=== PATIENT | female | born 1945 | race Two or more races ===

== ENCOUNTER 2024-04-06 10:06 | Emergency (ER) | payer MEDICARE, SELFPAY ==
[2024-04-06 10:16] VITALS: BP 158/70; PULSE 70; TEMP 36.6; O2SAT 99; BMI 19.5
--- NOTE | 2024-04-06 10:24 | ED_ITS ---
HPI - Abdominal Pain General Chief Complaint: Abdominal Pain Stated Complaint: FLU LIKE SYMPTOMS Time Seen by Provider: 04/06/24 10:20 Source: patient Mode of arrival: walk-in Limitations: no limitations History of Present Illness HPI narrative: 78-year-old female presents for nausea and abdominal pain. This started last night. Her has the same symptoms and is being seen here as well. She states that the pain is mild and she has been nauseous but no vomiting or diarrhea. She has not had a fever. They ate the same food. Related Data Previous Rx's ?Medication ?Instructions ?Recorded ondansetron 4 mg disintegrating 4 mg PO Q6H PRN nausea and 04/06/24 tablet vomiting #20 tabs Allergies Allergy/AdvReac Type Severity Reaction Status Date / Time codeine Allergy Mild Rash Verified 04/06/24 10:16 Review of Systems ROS Narrative A ten point review of systems is negative except as noted above. Exam Narrative Exam Narrative: Nurses note and vital signs reviewed and patient is not hypoxic. General: The patient appears in no apparent distress. Patient is resting comfortably on cart. Skin: Warm, dry, no pallor noted. There is no rash noted. Head: Normocephalic, atraumatic Eye: Normal conjunctiva, no drainage Ears, Nose, Mouth, and Throat: oral mucosa is moist. Nares patent. Cardiovascular: Regular Rate and Rhythm Respiratory: Patient is in no distress, no accessory muscle use, lungs are clear to auscultation, no wheezing, rales or rhonchi Back: non-tender GI: No palpable tenderness is appreciated. No distention or masses. Musculoskeletal: The patient has no evidence of calf tenderness, no pitting edema, symmetrical pulses noted bilaterally Neurological: A&O, normal speech Psychiatric: Cooperative Constitutional Vital Signs, click to edit/add: Last Vital Signs Temp 97.8 F 04/06/24 10:16 Pulse 70 04/06/24 10:16 Resp 17 04/06/24 10:16 BP 158/70 H 04/06/24 10:16 Pulse Ox 99 04/06/24 10:16 Course Vital Signs Vital signs: Vital Signs Temperature 97.8 F 04/06/24 10:16 Pulse Rate 70 04/06/24 10:16 Respiratory Rate 17 04/06/24 10:16 Blood Pressure 158/70 H 04/06/24 10:16 Pulse Oximetry 99 04/06/24 10:16 Temperature 97.8 F 04/06/24 10:16 Pulse Rate 70 04/06/24 10:16 Respiratory Rate 17 04/06/24 10:16 Blood Pressure 158/70 H 04/06/24 10:16 Pulse Oximetry 99 04/06/24 10:16 MDM - Abdominal Pain MDM Narrative Medical decision making narrative: The patient's laboratory analysis is essentially negative. She is feeling improved after being given Zofran and IV fluids. I suspect that this is food poisoning, her has the same symptoms and they both got sick at the same time. Treatment diagnosis and follow-up were discussed with the patient. Differential Diagnosis Differential diagnosis: Likely abdominal pain, gastroenteritis and other (Food poisoning) Lab Data Attestation: I reviewed the patient's lab results. Labs: Lab Results 04/06/24 Range/Units 10:26 WBC 7.0 (4.0-11.0) 10^3/uL RBC 4.48 (4.20-5.40) 10^6/uL Hgb 13.6 (12.0-16.0) g/dL Hct 40.9 (36.0-48.0) % MCV 91.3 (81.0-99.0) fL MCH 30.4 (26.7-34.0) pg MCHC 33.3 (29.9-35.2) g/dL RDW 14.2 (11.0-15.0) % Plt Count 215 (150-450) 10^3/uL MPV 11.3 (9.5-13.5) fL Neut % (Auto) 69.7 (43.0-75.0) % Lymph % (Auto) 21.4 (20.5-60.0) % [place] % (Auto) 4.6 (1.7-12.0) % Eos % (Auto) 3.3 (0.9-7.0) % Baso % (Auto) 0.4 (0.2-2.0) % Neut # (Auto) 4.8 (1.4-6.5) 10^3/uL Lymph # (Auto) 1.5 (1.2-3.8) 10^3/uL [place] # (Auto) 0.3 (0.3-0.8) 10^3/uL Eos # (Auto) 0.2 (0.0-0.7) 10^3/uL Baso # (Auto) 0.0 (0.0-0.1) 10^3/uL Abs Immat Gran (auto) 0.04 H (0.00-0.03) 10^3/uL Imm/Tot Granulo (auto) 0.6 H (0.0-0.5) % Sodium 139 (136-145) mmol/L Potassium 4.1 (3.5-5.1) mmol/L Chloride 106 (98-107) mmol/L Carbon Dioxide 24.3 (21.0-32.0) mmol/L Anion Gap 12.8 BUN 20.0 H (7.0-18.0) mg/dL Creatinine 0.79 (0.55-1.02) mg/dL Est GFR ( Amer) >60 (>=60) Est GFR (Non-Af Amer) >60 (>=60) BUN/Creatinine Ratio 25.3 Glucose 113 H (74-106) mg/dL Calcium 8.6 (8.5-10.1) mg/dL Discharge Plan Discharge Stand Alone Forms: Portal Instructions Chief Complaint: Abdominal Pain Clinical Impression: Nausea, Food poisoning Patient Disposition: Home, Self-Care Time of Disposition Decision: 11:48 Condition: Good Mode of Transportation: Private Vehicle Prescriptions / Home Meds: New ondansetron 4 mg tablet,disintegrating 4 mg PO Q6H PRN (Reason: nausea and vomiting) Qty: 20 0RF Print Language: Kiswahili Instructions: Acute Nausea and Vomiting (ED), Food Poisoning (ED) Referrals: BRADY BORREGO [Primary Care Provider] - 1 week
[2024-04-06] MEDS: ONDANSETRON PF 4 MG/2 ML VIAL IV (10:36)
[2024-04-06] MEDS: 0.9 % SODIUM CHLORIDE 500 ML IV (10:36)
[2024-04-06 10:42] LABS: Basophils Percent Auto 0.4 % (0.2-2.0); Eosinophils Absolute Auto 0.2 10^3/uL (0.0-0.7); Eosinophils Percent Auto 3.3 % (0.9-7.0); Hematocrit 40.9 % (36.0-48.0); Hemoglobin 13.6 g/dL (12.0-16.0); Immature Granulocytes Abs Auto 0.04 10^3/uL (0.00-0.03); Immature Granulocytes Pct Auto 0.6 % (0.0-0.5); Lymphocytes Absolute Auto 1.5 10^3/uL (1.2-3.8); Lymphocytes Percent Auto 21.4 % (20.5-60.0); Mean Corpuscular HGB Conc 33.3 g/dL (29.9-35.2); Mean Corpuscular Hemoglobin 30.4 pg (26.7-34.0); Mean Corpuscular Volume 91.3 fL (81.0-99.0); Mean Platelet Volume 11.3 fL (9.5-13.5); Monocytes Absolute Auto 0.3 10^3/uL (0.3-0.8); Monocytes Percent Auto 4.6 % (1.7-12.0); Neutrophils Absolute Auto 4.8 10^3/uL (1.4-6.5); Neutrophils Percent Auto 69.7 % (43.0-75.0); Platelet Count 215 10^3/uL (150-450); Red Blood Count 4.48 10^6/uL (4.20-5.40); Red Cell Distribution Width 14.2 % (11.0-15.0)
[2024-04-06 10:54] LABS: Anion Gap 12.8; BUN Creatinine Ratio 25.3; Calcium 8.6 mg/dL (8.5-10.1); Carbon Dioxide 24.3 mmol/L (21.0-32.0); Chloride 106 mmol/L (98-107); Estimated GFR (African America >60 (>=60); Estimated GFR (Non-African Ame >60 (>=60); Glucose 113 mg/dL (74-106); Potassium 4.1 mmol/L (3.5-5.1); Sodium 139 mmol/L (136-145)
[2024-04-06 12:13] VITALS: BP 109/59; PULSE 72; O2SAT 97
--- NOTE | 2024-04-06 13:06 | ECG_ITS ---
[facility] Test Date: 2024-04-06 Pat Name: ZAKIYA SOUSA Department: Room: - Gender: Female [employer] Super[employer]: : [id number] Requested By: BRADY BORREGO Order Number: [id number] Reading MD: ALVIN BETANCOURT Measurements Intervals Lambert Rate: 70 P: 30 CT: 130 QRS: 81 QRSD: 78 T: 58 QT: 398 QTc: 419 Interpretive Statements 1100 Sinus rhythm 9110 normal ECG Compared to ECG 05/09/2017 23:15:05 No significant changes Electronically Signed On 04-06-2024 21:18:17 EDT by ALVIN BETANCOURT
== END 2024-04-06 12:16 | disposition home or self-care (01) ==
PROVIDERS: Emergency Provider Emergency Medicine; PCP Internal Medicine
DX: A05.9 Bacterial foodborne intoxication, unspecified (principal); R11.0 Nausea
CPT/HCPCS: 36415; 80048; 85025; 93005; 96374; 99284; J2405

== ENCOUNTER 2024-07-04 18:21 | Emergency (ER) | payer MEDICARE, SELFPAY ==
[2024-07-04] VITALS (17 sets, daily range): BP systolic 147–182; BP diastolic 74–111; PULSE 67–152; TEMP 36.3–36.7; O2SAT 93–100; BMI 24.7
--- OUTSIDE RECORDS SUMMARY | 2024-07-04 18:27 | XMS_ITS | CCD ---
Author Organization [facility] Care Team Providers Care Survey Worker Name Role Phone ESTEPHANIA ABARCA Admitting Unavailable ESTEPHANIA ABARCA Attending Unavailable GABINO LOOMIS Primary Care Unavailable PHILIPPE WALLACE V Consulting Unavailable ESTEPHANIA ABARCA Consulting Unavailable GABINO LOOMIS Primary Care Unavailable AURORA CASTILLO Consulting Unavailable ASCENCION MASTERS Admitting Unavailable ASCENCION MASTERS Attending Unavailable ESTEPHANIA ABARCA Admitting Unavailable ESTEPHANIA ABARCA Attending Unavailable MIS, DOCTOR Primary Care Unavailable PHILIPPE WALLACE V Consulting Unavailable ESTEPHANIA ABARCA Consulting Unavailable Philippe Barrett Unavailable BOBBI Loomis Primary Care Provider [phone] MD Danna Sarmiento Attending Provider [phone] Asaad, Imad Unavailable Asaad, Imad Admitting Unavailable Asaad, Imad Attending Unavailable Gabino Loomis Primary Care Unavailable Philippe Barrett Admitting Unavailable Philippe Barrett Attending Unavailable Gabino Loomis Primary Care Unavailable Asaad, Imad Admitting Unavailable Asaad, Imad Attending Unavailable Gabino Loomis Primary Care Unavailable Philippe Barrett Admitting Unavailable Philippe Barrett Attending Unavailable Gabino Loomis Primary Care Unavailable Asaad, Imad Admitting Unavailable Asaad, Imad Attending Unavailable Gabino Loomis Primary Care Unavailable GABINO LOOMIS Attending Unavailable PK ARMIJO Attending Unavailable GABINO LOOMIS Attending Unavailable Allergies Allergy Classification Reported Allergen(s) Allergy Type Date of Onset Reaction(s) Facility (1 source) Codeine Drug Allergy 05-09-2017 [facility] Repository (4 sources) Codeine Drug Allergy Unknown [facility] Other (1 source) Codeine Drug Allergy 12-14-2022 [facility] Repository Medications Current Medications Medication Drug Class(es) Dates Sig (Normalized) Sig (Original) levothyroxine sodium 0.075 mg oral tablet (6 sources) l-Thyroxine Start: 02-10-2022 take 1 tablet by mouth once daily Levothyroxine (Euthyrox) 75 mcg tablet Active 75 MCG PO Daily February 09, 2022 11:00pm take 1 tablet by dulce once daily in the morning Euthyrox 75 MCG 1 tablet in the morning on an empty stomach Orally Once a day Active Euthyrox Active lisinopril 5 mg oral tablet (6 sources) Angiotensin Converting Enzyme Inhibitor Start: 02-10-2022 take 5 mg by mouth once daily Lisinopril Active 5 MG PO Daily February 09, 2022 11:00pm take 1 tablet by mouth twice naima ly Lisinopril 5 MG 1 tablet Orally twice daily Active Lisinopril Activ e mesalamine 1000 mg rectal suppository (1 source) Aminosalicylate Start: 02-16-2022 Canasa 1000 MG 1 suppository at bedtime Rectal Once a day for 14 days Jan, Active omeprazole 40 mg delayed release oral capsule (6 sources) Proton Pump Inhibitor Start: 02-10-2022 take 40 mg by mouth once daily Omeprazole Active 40 MG PO Daily February 09, 2022 11:00pm take 1 capsule by mo [facility] every twelve hours Omeprazole 40 MG 1 capsule Orally bid Active Problems Active Problems Problem Classification Problem Date Documented Da te Episodic/Chronic Abdominal pain (14 sources) Unspecified abdominal pain; Translations: [Abdominal pain] Onset: 11-01-2019 Resolved: 01-28-2022 Episodic Esophageal disorders (3 sources) Gastro-esophageal reflux disease without esophagitis; Translations: [Gastroesophageal reflux disease] Onset: 11-03-2019 02-11-2022 Chronic Esophageal disorders (1 source) Esophageal disorders; Translations: [K21.9 - Gastro-esophageal reflux disease without esophagitis] Onset: 02-11-2022 Essential hypertension (1 source) Essential (primary) hypertension; Translations: [ESSENTIAL PRIMARY HYPERTENSION] Onset: 11-03-2019 Chronic Gastritis and duodenitis (5 sources) Chronic gastritis; Translations: [Unspecified chronic gastritis without bleeding] Onset: 01-28-2022 Resolved: 01-28-2022 Chronic Gastrointestinal hemorrhage (3 sources) Feces color: tarry; Translations: [Melena] Onset: 10-09-2022 Episodic Noninfectious gastroenteritis (9 sources) Noninfective gastroenteritis and colitis, unspecified; Translations: [Colitis] Onset: 11-03-2019 Resolved: 01-28-2022 Episodic Osteoporosis (5 sources) Age-related osteoporosis without current pathological fracture; Translations: [AGE-REL OSTEOPOR W/O CURR PATH FX] Onset: 11-03-2019 Chronic Other gastrointestinal disorders (2 sources) Flatulence, eructation and gas pain; Translations: [Abdominal distension (gaseous)] Episodic Other gastrointestinal disorders (2 sources) Altered bowel function; Translations: [Change in bowel habit] Episodic Other gastrointestinal disorders (3 sources) Abdominal distension (gaseous); Translations: [Abdominal distension (gaseous)] Onset: 10-09-2022 Episodic Other gastrointestinal disorders (1 source) Change in bowel habit; Translations: [Change in bowel habit] Onset: 10-09-2022 Episodic Thyroid disorders (1 source) Hypothyroidism, unspecified; Translations: [HYPOTHYROIDISM UNSPECIFIED] Onset: 11-03-2019 Chronic Unclassified (1 source) Z01.812 - Encounter for preprocedural laboratory examination; Translations: [Z01.812 - Encounter for preprocedural laboratory examination] Onset: 02-09-2022 Past or Other Problems Problem Classification Problem Date Documented Da te Episodic/Chronic Gastritis and duodenitis (1 source) Gastritis, unspecified, without bleeding; Translations: [GASTRITIS UNS WITHOUT BLEEDING] Onset: 11-03-2019 Episodic Nausea and vomiting (3 sources) Nausea; Translations: [Nausea] Onset: 02-11-2022 02-11-2022 Episodic Other aftercare (1 source) Other senior care (current) drug therapy; Translations: [OTH RESIDENTIAL CURRENT DRUG THERAPY] Onset: 11-03-2019 Episodic Other screening for suspected conditions (not mental disorders or infectious disease) (4 sources) Encounter for screening mammogram for malignant neoplasm of breast; Translations: [ENC SCR MAMMO MALIG NEOPLASM BREAST] Onset: 06-27-2019 Episodic Residual codes; unclassified (1 source) Acquired absence of ovaries, unilateral; Translations: [ACQUIRED ABSENCE OVARIES UNILATERAL] Onset: 11-03-2019 Episodic Residual codes; unclassified (1 source) Acquired absence of other specified parts of digestive tract; Translations: [ACQ ABSENCE OTH PART DIGESTV TRACT] Onset: 11-03-2019 Episodic Urinary tract infections (1 source) Urinary tract infection, site not specified; Translations: [UTI SITE NOT SPECIFIED] Onset: 11-03-2019 Episodic Results Test Name Value Interpretation Reference Range Facility Blood Urea Nitrogenon 2022 Urea nitrogen [Mass/Vol] 17 mg/dL Normal 7-25 [facility] Comment on above: Performed By: #### C REAT, BUN #### [address] enterographyon 12-14-2022 CT enterography [facility] Main [place] [address] [place] [address] CT Scan Report Signed Patient: Zakiya Sousa MR#: [id number] [birth year] : 1945 Acct:[id number] Age/Sex: 77 / F ADM Date: 12/14/22 Loc: CT Room: Type: [facility] Attending Dr: Danna Sarmiento MD Copies to: Danna Sarmiento MD Ordering Provider: Danna Sarmiento MD Date of Service: 12/14/22 CT/CT enterography: Bloating CT ABDOMEN AND PELVIS WITH INTRAVENOUS CONTRAST: (Enterography protocol) CLINICAL HISTORY: Pain and bloating with eating. COMPARISON: None TECHNIQUE: Spiral images were obtained through the abdomen and pelvis following the administration of intravenous contrast. Enterography protocol was utilized. This CT exam was performed using one or more following dose reduction techniques: Automated exposure control, adjustment of the mA and/or kV according to patient size, or use of iterative reconstruction technique. FINDINGS: Lung Bases: [Mild bibasilar atelectasis.] Organs:Liver portal vein pancreas spleen adrenal glands and kidneys all appear unremarkable. Gallbladder has been removed. Abdominal aorta appears normal in caliber.[ GI: Stomach is grossly unremarkable. Duodenum appears to be normally positioned. No abnormal small bowel wall thickening, enhancement or dilatation. No enhancing small bowel mass. Terminal ileum appears unremarkable. No acute colonic abnormality.[ Pelvis:[Uterus is grossly unremarkable. No adnexal mass. Urinary bladder is grossly normal.] Peritoneum/Retroperiton eum:No free air, free fluid or lymphadenopathy.[ Abd wall/Bones:Abdominal wall demonstrates no acute findings. Small fat filled umbilical hernia. Osseous structures demonstrate degenerative change.[ CT/CT enterography IMPRESSION: No acute findings. No small bowel abnormalities seen. Impression dictated by: Vargas Urrutia Jr., Arlette12/14/2022 1:49 PM Dictation Location: [place] [address] Transcribed By: [facility] 12/14/22 134 Dictated By: Vargas Urrutia Jr, DO 12/14/22 1345 Signed By: 12/14/22 134 Normal [facility] Creatinineon 12-14-2022 Creatinine [Mass/Vol] 0.76 mg/dL Normal 0.60-1.20 [facility] Comment on above: Performed By: #### C REAT, BUN #### [address] GFR/1.73 sq M.predicted MDRD (S/P/Bld) [Vol rate/Area] mL/min/{1.73_m2} Normal [facility] Comment on above: Result Comment: PERF ORMED BY: [place] [address] PATHOLOGIST SENIOR INTERIOR DESIGNER SVETLANA DELGADILLO M.D. Performed By: #### C REAT, BUN #### [facility] [address] [place] [address] Calprotectin, Fecalon 2022 Calprotectin, Fecal 34 Normal 0-120 [facility] Comment on above: Order Comment: Reaso n for Exam Abdominal pain;Tarry stool;Change in bowel habits;Bloating Result Comment: Conc entration Interpretation Follow-Up <16 - 50 ug/g Normal None >50 -120 ug/g Borderline Re-evaluate in 4-6 weeks >120 ug/g Abnormal Repeat as clinically indicated Performed at: [address] [id number] Import And Export Clerk: Be Pierre MD, Phone: [phone] PERFORMED BY: [place] [address] PATHOLOGIST SENIOR INTERIOR DESIGNER SVETLANA DELGADILLO M.D. Performed By: #### C ALPROTECT #### [facility] , Calprotectin, Fecal 34 0-120 [place] [facility] Other C reactive protein [Mass/vol ume] in Serum or PlasmaOrdered By: Danna Sarmiento on 09-30-2022 CRP [Mass/Vol] 0.6 mg/dL 0.0-1.0 [facility] C-Reactive Proteinon 023 C-Reactive Protein 0.6 mg/dL Normal 0.0-1.0 [facility] Comment on above: Order Comment: Reaso n for Exam Abdominal pain;Tarry stool;Change in bowel habits;Bloating Result Comment: PERF ORMED BY: [place] [address] PATHOLOGIST SENIOR INTERIOR DESIGNER SVETLANA DELGADILLO M.D. Performed By: #### C ELIAC GEN, CELIAC #### [facility] , #### CRP, ESR #### [facility] [address] [place] [address] C-Reactive Protein 0.6 mg/dL Normal 0.0-1.0 mg/dL [facility] Other Celiacon 09-30-2022 Deamidated Gliadin Abs, IgA 4 Normal 0-19 [facility] Comment on above: Order Comment: Reaso n for Exam Abdominal pain;Tarry stool;Change in bowel habits;Bloating Result Comment: Nega tive 0 - 19 Weak Positive 20 - 30 Moderate to Strong Positive >30 Performed By: #### C ELIAC GEN, CELIAC #### [facility] , #### CRP, ESR #### [facility] [address] [place] [address] Deamidated Gliadin Abs, IgG 3 Normal 0-19 [facility] Comment on above: Order Comment: Reaso n for Exam Abdominal pain;Tarry stool;Change in bowel habits;Bloating Result Comment: Nega tive 0 - 19 Weak Positive 20 - 30 Moderate to Strong Positive >30 Performed By: #### C ELIAC GEN, CELIAC #### [facility] , #### CRP, ESR #### [facility] [address] [place] [address] [place] Endomysial Antibody IgA Negative Normal Negative [facility] Comment on above: Order Comment: Reaso n for Exam Abdominal pain;Tarry stool;Change in bowel habits;Bloating Performed By: #### C ELIAC GEN, CELIAC #### [facility] , #### CRP, ESR #### [facility] [address] [place] [address] [place] Immunoglobulin A, Qn, Serum 281 mg/dL Normal 64-422 [facility] Comment on above: Order Comment: Reaso n for Exam Abdominal pain;Tarry stool;Change in bowel habits;Bloating Result Comment: Perf ormed at: [facility] [address] [id number] Import And Export Clerk: Ez Brantley PhD, Phone: [phone] Performed By: #### C ELIAC GEN, CELIAC #### [facility] , #### CRP, ESR #### [facility] [address] T-Transglutaminase (tTG) IgA <2 Normal 0-3 [facility] Comment on above: Order Comment: Reaso n for Exam Abdominal pain;Tarry stool;Change in bowel habits;Bloating Result Comment: Nega tive 0 - 3 Weak Positive 4 - 10 Positive >10 Tissue Transglutaminase (tTG) has been identified as the endomysial antigen. Studies have demonstr- ated that endomysial IgA antibodies have over 99% specificity for gluten sensitive enteropathy. Performed By: #### C ELIAC GEN, CELIAC #### [facility] , #### CRP, ESR #### [facility] [address] T-Transglutaminase (tTG) IgG <2 Normal 0-5 [facility] Comment on above: Order Comment: Reaso n for Exam Abdominal pain;Tarry stool;Change in bowel habits;Bloating Result Comment: Nega tive 0 - 5 Weak Positive 6 - 9 Positive >9 Performed By: #### C ELIAC GEN, CELIAC #### [facility] , #### CRP, ESR #### [facility] [address] [place] [id number] [facility] Celiac 4 0-19 [facility] [facility] Other Celiac 3 0-19 [facility] Other Celiac <2 0-5 [facility] Other Celiac Negative Negative [facility] Other Celiac 281 mg/dL 64-422 mg/dL [facility] Other Celiac Disease Genetics HLA DQon 09-30-2022 CDDQ2 Additional Information Normal . [facility] Comment on above: Order Comment: Reaso n for Exam Abdominal pain;Tarry stool;Change in bowel habits;Bloating Result Comment: Refe rences: 1. Eric FISHER and Sandy Rush. Celiac Disease. N Eng J Med 2007; 357:2811-9450. 2. Megiorni F, Roca B, Bonamico M et al. HLA-DQ and risk gradient for celiac disease. Hum Immunol 2009; 70:55-59. 3. Clement MM, Krishan TC, Ernesto FM et al. Stratifying risk for celiac disease in a large at-risk [facility] population by using HLA alleles. Clin Gastroenterol Hepatol 2009; 7:966-971. 4. Doretha ROSE and Lelo BA. (2005). Celiac Disease Genetics: Current Concepts and Practical Applications. Clin Gastroenterol and Hepat 3:843-851. 5. Sarah CL, Obed DO, Eric FISHER, et al. Celiac Disease. In: Bandar RA, Aldo TC, Kana CR, Sary K, editors. [employer]), [facility], [place], March 01, 2008:1-27. http://www.ncbi.nlm.nih.gov/alexandria/br.fcgi?book=genepart=andra ac PMID [id number] (PubMed) 6. Lilli Baker. Emerging concepts in celiac disease. Curr Opin Pediatr 2004;16:552-559. Performed at: [facility] [place], [place] [id number] Import And Export Clerk: Garry Brennan PhD, Phone: [phone] PERFORMED BY: [place] [address] PATHOLOGIST SENIOR INTERIOR DESIGNER SVETLANA DELGADILLO M.D. Performed By: #### C ELIAC GEN, CELIAC #### [facility] , #### CRP, ESR #### [address] Comment: Normal . [facility] Comment on above: Order Comment: Reaso n for Exam Abdominal pain;Tarry stool;Change in bowel habits;Bloating Result Comment: This test was performed using Polymerase Chain Reaction/(PCR)Sequence Specific Oligonucleotide Probes (SSOP) (Remind) technique. Sequence Based Typing (SBT) and/or Sequence Specific Primers (SSP) may be used as supplemental methods when necessary. Please contact HLA Customer Service at if you have any questions. Director of HLA Laboratory Dr Garry Brennan, PhD Performed By: #### C ELIAC GEN, CELIAC #### [facility] , #### CRP, ESR #### [address] Dq2 (Dqa1 0501/0505,Dqb1 02Xx) Positive Normal . [facility] Comment on above: Order Comment: Reaso n for Exam Abdominal pain;Tarry stool;Change in bowel habits;Bloating Performed By: #### C ELIAC GEN, CELIAC #### [facility] , #### CRP, ESR #### [place] [address] [place] Dq8 (Dqa1 03Xx, Dqb1 0302) Negative Normal . [facility] Comment on above: Order Comment: Reaso n for Exam Abdominal pain;Tarry stool;Change in bowel habits;Bloating Result Comment: Mariam morse Results: DQA1*02:EESCV,05:EEMXY DQB1*02:EENUF,02:EENUG Code Translation: EEMXY 05:01/05:15N/05:18/05:19/05:23/05:27/05:33 /05:35/05:38/05:40/05:41/05:47/05:49/05:52 /05:54Q/05:55/05:56/05:57/05:61 EENUF 02:01:03/02:07:08:05/01:14:27 :53Q/02:59/02:63/02:72/02:83/02:93 /02:96N/02:98/02:99/02:102/02:105/02:106 /02:107/:108/02:109/02:111/02:112/02:114 /02:115/02:118/02:119/02:123/02:125/02:128 /02:130/02:132N/02:134N/02:135/02:136 /02:148/02:149/02:152/02:155/02:157/02:158 /02:159/02:160/02:163N/02:164/02:170 /02:174/02:182/02:184/02:185/02:186/02:188 /02:189/02:190/02:191/02:193/02:196/02:197 /02:198/02:202 EENUG 02:02/02:11/02:1202:20N/02:26/02:50/02:62 /02:65/02:71/02:80/02:84/02:89/02:95/02:97 /02:110/02:113/02:116/02:117/02:120/02:122 /02:124/02:126/02:127/02:131/02:137/02:138 /02:142/02:143/02:145/02:146/02:147/02:150 /02:153/02:156/02:161/02:162N/02:165 /02:167N/02:171Q/02:172/02:175/02:176N /02:179/02:183N/02:187/02:194N/02:199 /02:200/02:201/02:203/02:204N EESCV ///////////// /// 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 Celiac Disease risk from the HLA DQA/DQB genotype is approximately 1:10 (10%) Allele interpretation for all loci based on IMGT/HLA database version 3.49.0 HLA Lab CLIA ID Number [id number] Greater than 95% of celiac patients are positive for either DQ2 or DQ8 (Doretha and Krysta, (1993) Gastroenterology 105:910-922). However these antigens may also be present in patients who do not have Celiac disease. Performed By: #### C ELIAC GEN, CELIAC #### [facility] , #### CRP, ESR #### [facility] [address] Celiac Disease Genetics HLA DQ Positive . [place] [facility] Other Celiac Disease Genetics HLA DQ . [place] [facility] Other Erythrocyte Sedimentation Ra ramirez 09-30-2022 ESR (Bld) [Velocity] 13 mm/h Normal 0-29 [facility] Other Comment on above: Order Comment: Reaso n for Exam Abdominal pain;Tarry stool;Change in bowel habits;Bloating Result Comment: PERF ORMED BY: [place] [address] PATHOLOGIST SENIOR INTERIOR DESIGNER SVETLANA DELGADILLO M.D. Performed By: #### C ELIAC GEN, CELIAC #### [facility] , #### CRP, ESR #### [place] [id number] [facility] Erythrocyte sedimentation ra te by Photometric methodOrdered By: Imaurora Sarmiento on 09-30-2022 ESR Photometric method (Bld) [Velocity] 13 mm/hr 0-29 [facility] Human leukocyte antigen (HLA ) DQ2 detectionOrdered By: Imad Asaad on 09-30-2022 HLA-DQ2 Ql (Bld/Tiss) Positive . [facility] Human leukocyte antigen (HLA ) DQ8 detectionOrdered By: Imad Asaad on 09-30-2022 HLA-DQ8 Ql (Bld/Tiss) Negative . [facility] Comment on above: Final Results:DQA1*0 2:EESCV,05:EEMXYDQB1*02:EENUF,02:EENUGCode Translation:EEMXY 05:09/03:15N/:18:15/01:23:27:33 :35:38:40:41:4705:4905:52 05:54Q/05:5505:5605:5705:61EENUF 02:01/02:03/02:07/02:08/:09:14/:27 /02:53Q/02:59/02:63/02:72/02:83/02:93 /02:96N/02:98/02:99/02:102/02:105/02:106 /02:107/02:108/02:109/02:111/02:112/02:114 /02:115/02:118/02:119/02:123/02:125/02:128 /02:130/02:132N/02:134N/02:135/02:136 /02:148/02:149/02:152/02:155/02:157/02:158 /02:159/02:160/02:163N/02:164/02:170 /02:174/02:182/02:184/02:185/02:186/02:188 /02:189/02:190/02:191/02:193/02:196/02:197 /02:198/02:202EENUG 02:02/02:11/:12:20N/02:26/02:50/02:62 /02:65/02:71/02:80/02:84/02:89/02:95/02:97 /02:110/02:113/02:116/02:117/02:120/02:122 /02:124/02:126/02:127/02:131/02:137/02:138 /02:142/02:143/02:145/02:146/02:147/02:150 /02:153/02:156/02:161/02:162N/02:165 /02:167N/02:171Q/02:172/02:175/02:176N /02:179/02:183N/02:187/02:194N/02:199 /02:200/02:201/02:203/02:204NEESCV /////////15//// ///The patient is positive for DQ2 and is homozygous forDQB1*02. Celiac Disease risk from the HLA DQA/DQBgenotype is approximately 1:10 (10%)Allele interpretation for all loci based on IMGT/HLAdatabase version 3.49.0A Lab [place] ID Number [id number] than 95% of celiac patients are positive for eitherDQ2 or DQ8 (Doretha and Krysta, (1993) Ajxlytqfwjkcocof248:910-922). However these antigens may also be present inpatients who do not have Celiac disease. IgA [Mass/volume] in Serum o r PlasmaOrdered By: Imad Asaad on 09-30-2022 IgA [Mass/Vol] 281 mg/dL 64-422 [facility] Comment on above: Performed at: [address] [id number] Director: Ez Brantley PhD, Phone: [phone] No Panel InformationOrdered By: [facility] Asaad on 09-30-2022 Celiac Gene Interpretation See comment . [facility] Comment on above: References:1. Eric FISHER and Sandy Rush. Celiac Disease. N Eng J Med 2007; 357:9596-6409.2. Yumiko F, Chanelle B, Bonarigobertoo M et al. HLA-DQ and risk gradient for celiac disease. Hum Immunol 2009; 70:55-59.3. Clement MM, Krishan TC, Ernesto FM et al. Stratifying risk for celiac disease in a large at-risk [place] population by using HLA alleles. Clin Gastroenterol Hepatol 2009; 7:966-971.4. Doretha ROSE and Lelo BA. (2005). Celiac Disease Genetics: Current Concepts and Practical Applications. Clin Gastroenterol and Hepat 3:843-851.5. Sarah CL, Obed DO, Green PHR, et al. Celiac Disease. In: Bandar RA, Aldo TC, Kana CR, Sary K, editors. [employer]), [facility], [place], March 01, 2008:1-27. http://www.StemPath.nlm.nih.gov/Live Mobilebeatricef/br.fcgi?book=genepart=andra ac PMID [id number] (PubMed)6. Lilli Baker. Emerging concepts in celiac disease. Curr Opin Pediatr 2004;16:552-559.Performed at: [address] [place] [address] [id number] [place], [place] [id number] Director: Garry Brennan PhD, Phone: [phone] Endomysial IgA Antibody Negative Negative [facility] HLA Genotype Interpretation See comment . [facility] Comment on above: This test was perfor med using Polymerase ChainReaction/(PCR)Sequence Specific Oligonucleotide Probes(SSOP) (Remind) technique. Sequence Based Typing (SBT)and/or Sequence Specific Primers (SSP) may be used assupplemental methods when necessary. Please contact HLACustomer Service at if you have anyquestions.Director of HLA LaboratoryDr Garry Brennan, PhD Serum gliadin peptide IgA an tibody assay (units/volume)Ordered By: Danna Sarmiento on 09-30-2022 Gliadin peptide IgA Qn (S) 4 units 0-19 [facility] Comment on above: Negative 0 - 19 Weak Positive 20 - 30 Moderate to Strong Positive >30 Serum gliadin peptide IgG an tibody assay (units/volume)Ordered By: Danna Sarmiento on 09-30-2022 Gliadin peptide IgG Qn (S) 3 units 0-19 [facility] Comment on above: Negative 0 - 19 Weak Positive 20 - 30 Moderate to Strong Positive >30 Serum tissue transglutaminas e (tTG) IgA antibody assay (units/volume)Ordered By: Imad Asaad on 09-30-2022 tTG IgA Qn (S) <2 U/mL 0-3 [facility] Comment on above: Negative 0 - 3 Weak Positive 4 - 10 Positive >10 Tissue Transglutaminase (tTG) has been identified as the endomysial antigen. Studies have demonstr- ated that endomysial IgA antibodies have over 99% specificity for gluten sensitive enteropathy. Serum tissue transglutaminas e (tTG) IgG antibody assay (units/volume)Ordered By: Imad [facility]aOmega Diagnostics on 09-30-2022 tTG IgG Qn (S) <2 U/mL 0-5 [facility] Comment on above: Negative 0 - 5 Weak Positive 6 - 9 Positive >9 Pato 02-11-2022 L --- Specimen: [id number] Received: 02/11/22 Status: RASTA Syed Num: [id number] Spec Type: Surgical Subm Dr: Philippe Barrett Jr, DO Tissues: A Stomach - Biopsy/Polyp (STOMACH BX) B Colon Biopsy (RECTUM BX) Procedures: HE Stain/4, Gross/Micro L4/2 Patient Age/Sex Location Account Attending Physician Zakiya Sousa 76/F [id number] Philippe Barrett Jr, DO SPEC NUM: [id number] RECD: 02/11/22 STATUS: RASTA SYED NUM: [id number] ROXY: 02/11/[address] [facility] [address]: Philippe Barrett Jr, DO ENTERED: 02/11/22 [facility] [address]: HEATHER TYPE: Surgical DEPT: S ORDERED: HE Stain/4, Gross/Micro L4/2 ORDERED: HE Stain/4, Gross/Micro L4/2 Pathological Diagnosis A. Stomach, biopsy: - Reactive gastropathy with mild chronic gastritis. - H. pylori stain is negative for microorganisms. B. Rectum, biopsy: - Chronic inactive proctitis. Clinical Information Abdominal pain Gross Description A. Received in formalin labeled with the patient's name, number and stomach biopsy is a 0.3 cm pink tissue fragment. Entirely submitted in one cassette labeled A1. Type of Fixative: 10% Neutral Buffered Formalin (SM/YJ) B. Received in formalin labeled with the patient's name, number and rectum biopsy are 3 kay tissue fragments, 0.2 cm to 0.3 cm. Entirely submitted in one cassette labeled B1. Type of Fixative: 10% Neutral Buffered Formalin (SM/YJ) Specimen: [id number] Received: 02/11/22 Status: RASTA Syed Num: [id number] Spec Type: Surgical Subm Dr: Philippe Barrett Jr, DO Tissues: A Stomach - Biopsy/Polyp (STOMACH BX) B Colon Biopsy (RECTUM BX) Procedures: HE Stain/4, Gross/Micro L4/2 Patient: Zakiya Sousa [id number] (Continued) Specimen: [id number] Received: 02/11/22 (Continued) Signed (signature on file)___Sandra Iliana Bateman MD 02/12/22 1559 Specimen: [id number] Received: 02/11/22 Status: RASTA Syed Num: [id number] Spec Type: Surgical Subm Dr: Philippe Barrett Jr, DO Tissues: A Stomach - Biopsy/Polyp (STOMACH BX) B Colon Biopsy (RECTUM BX) Procedures: HE Stain/4, Gross/Micro L4/2 Patient: Nic Sousanza [id number] (Continued) Specimen: [id number] Received: 02/11/22 (Continued) Microscopic Description A. Two glass slides with H E stained material and one IHC stained slide have been examined. The microscopic findings support the above pathologic diagnosis. B. Two glass slides with H E stained material have been examined. The microscopic findings support the above pathologic diagnosis. ANALYTE SPECIFIC REAGENT (ASR) DISCLAIMER: The use of one or more reagents in the above tests is regulated as an analyte specific reagent (ASR). The performance characteristics were determined by the Laboratory of [facility]. Immunohistochemistry assays have not been validated on decalcified tissue. Results should be interpreted with caution given the possibility of false negative results on decalcified specimens. They have not been cleared by the US Food and Drug Administration. The FDA has determined that such clearance or approval is not necessary. CPT Codes 11650?2, 89355 Specimen: [id number] Received: 02/11/22 Status: RASTA Kunal Num: [id number] Spec Type: Surgical Subm Dr: Philippe Barrett Jr, Tissues: A Stomach - Biopsy/Polyp (STOMACH BX) B Colon Biopsy (RECTUM BX) Procedures: HE Stain/4, Gross/Micro L4/2 Patient: Zakiya Sousa [id number] (Continued) Signed (signature on file) Iliana Bateman MD 02/12/22 1559 Normal [facility] SARS-CoV-2 (COVID-19) RNA KELY+probe Ql (Unsp spec) Negative Normal Negative [facility] Comment on above: Order Comment: Healt hcare Worker?: N Result Comment: Testing for SARS-CoV-2 by RT-PCR This test was developed and its performance characteristics determined by [employer] and validated at the [facility]. This test has not been FDA cleared or approved. This test has been authorized by FDA under an Emergency Use Authorization (EUA). This test has been validated in accordance with the FDA's Guidance Document (Policy for Diagnostics Testing in Laboratories Certified to Perform High Complexity Testing under CLIA prior to Emergency Use Authorization for Coronavirus Disease-2019 during the Public Health Emergency) issued on November 30, 2019. This test is only authorized for the duration of time the declaration that circumstances exist justifying the authorization of the emergency use of in vitro diagnostic tests for detection of SARS-CoV-2 virus and/or diagnosis of COVID-19 infection under section 564(b)(1) of the Act, 21 U.S.C. 360bbb-3(b)(1), unless the authorization is terminated or revoked sooner. PERFORMED BY: [place] [address] PATHOLOGIST SENIOR INTERIOR DESIGNER SVETLANA DELGADILLO M.D. Performed By: #### C OVID 19 [facility] #### [address] XR DEXA BONE DENSITYon 05-27 XR DEXA BONE DENSITY EXAMINATION: XR DEX A BONE DENSITY HISTORY: Senile osteoporosis COMPARISON: 2015 TECHNIQUE: Dual-energy X-ray absorptiometry (DXA) was performed. FINDINGS: Bone mineral density of the AP spine L2-L4 measures 0.836 g/sq cm. T score -3.0. 5.4% reduction from the prior exam. WHO classification: Osteoporosis. Total femoral bone mineral density measures 0.806 g/sq cm. 1.3% reduction from the prior exam. T score -1.6. WHO classification: Osteopenia IMPRESSION: Physiologic reduction in bone mineral density. The patient falls into the category of osteoporosis with high fracture risk Electronically authenticated by: PHILIPPE WALLACE Date: 2020-05-27 13:18 Normal [facility] CBC AUTO DIFFon 11-01-2019 Basophils (Bld) [#/Vol] 0.0 103/ul Normal 0.0-0.1 [facility] Comment on above: Performed By: #### C BC #### [facility] [address], [place] [address] Erin Estephania Basophils/100 WBC (Bld) 0.3 % Normal 0.2-2.0 [facility] Comment on above: Performed By: #### C BC #### [facility] [address] [place], [place] [id number] Erin Estephania Eosinophils (Bld) [#/Vol] 0.0 103/ul Normal 0.0-0.7 [facility] Comment on above: Performed By: #### C BC #### [facility] [address] [place], [place] [id number] Erin Estephania Eosinophils/100 WBC (Bld) 0.1 % Critically low 0.9-7.0 [facility] Comment on above: Performed By: #### C BC #### [facility] [address] [place], [place] [id number] Erin Estephania Erythrocyte distribution width (RBC) [Ratio] 13.8 % Normal 11.0-15.0 [facility] Comment on above: Performed By: #### C BC #### [facility] [address] [place], [place] [id number] Erin Estephania Hematocrit (Bld) [Volume fraction] 40.1 % Normal 36.0-48.0 [facility] Comment on above: Performed By: #### C BC #### [facility] [address] [place], [place] [id number] Erin Estephania Hemoglobin (Bld) [Mass/Vol] 13.6 g/dL Normal 12.0-16.0 [facility] Comment on above: Performed By: #### C BC #### [facility] [address] [place], [place] [address] Erin Estephania IG # 0.04 10e3/ul Critically high 0.00-0.03 [facility] Comment on above: Performed By: #### C BC #### [facility] [address] [place], [place] [id number] Erin Estephania IG % 0.4 % Normal 0.0-0.5 [facility] Comment on above: Performed By: #### C BC #### [facility] [address], [place] [address] Erin Estephania Lymphocytes (Bld) [#/Vol] 1.4 103/ul Normal 1.2-3.8 [facility] Comment on above: Performed By: #### C BC #### [facility] [address] [place] [id number] Erin Estephania Lymphocytes/100 WBC (Bld) 13.5 % Critically low 20.5-60.0 [facility] Comment on above: Performed By: #### C BC #### [facility] [address] [place] [phone] Erin Estephania MANUAL DIFF REQ NO Normal [facility] Comment on above: Performed By: #### C BC #### [facility] [address] [place] [phone] Erin Estephania MCH (RBC) [Entitic mass] 30.5 pg Normal 26.7-34.0 [facility] Comment on above: Performed By: #### C BC #### [facility] [address] [place], [place] [id number] Erin Estephania MCHC (RBC) [Mass/Vol] 33.9 g/dL Normal 29.9-35.2 [facility] Comment on above: Performed By: #### C BC #### [facility] [address] [place] [phone] Erni Estephania MCV (RBC) [Entitic vol] 89.9 fL Normal 81.0-99.0 [facility] Comment on above: Performed By: #### C BC #### [facility] [address] [phone] Erin Estephania Monocytes (Bld) [#/Vol] 0.5 103/ul Normal 0.3-0.8 [facility] Comment on above: Performed By: #### C BC #### [facility] [address] [place] [phone] Erin Estephania Monocytes/100 WBC (Bld) 5.0 % Normal 1.7-12.0 [facility] Comment on above: Performed By: #### C BC #### [facility] [address] [place] [address] Erin Estephania Neutrophils (Bld) [#/Vol] 8.2 103/ul Critically high 1.4-6.5 [facility] Comment on above: Performed By: #### C BC #### [facility] [address] [place] [address] Erin Estephnaia Neutrophils/100 WBC (Bld) 80.7 % Critically high 43.0-75.0 [facility] Comment on above: Performed By: #### C BC #### [facility] [address] [place] [address] Erin Estephania Platelet mean volume (Bld) [Entitic vol] 10.5 fL Normal 9.5-13.5 [facility] Comment on above: Performed By: #### C BC #### [facility] [address] [place] [address] Erin Estephania Platelets (Bld) [#/Vol] 212 103/ul Normal 150-450 [facility] Comment on above: Performed By: #### C BC #### [facility] [address] [place] [address] Erin Setephania RBC (Bld) [#/Vol] 4.46 106/ul Normal 4.20-5.40 [facility] Comment on above: Performed By: #### C BC #### [facility] [address] [place] [address] Erin Estephania WBC (Bld) [#/Vol] 10.2 103/ul Normal 4.0-11.0 [facility] Comment on above: Performed By: #### C BC #### [facility] [address] [place] [address] Erin Estephania ER URINE PROFILEon 10-31-202 0 Bilirubin [Mass/Vol] Negative Normal NEGATIVE [facility] Comment on above: Performed By: #### E EVANGELINA NAIR #### [facility] [address] [place] [address] Erin Estephania BLOOD MODERATE Normal NEGATIVE [facility] Comment on above: Performed By: #### EVANGELINA ALVARENGA #### [facility] [address] [place] [address] Erin Estephania Clarity (U) CLEAR Normal [facility] Comment on above: Performed By: #### EVANGELINA ALVARENGA #### [facility] [address] [place] [address] Erin Estephania Color (U) LT. YELLOW Normal YELLOW [facility] Comment on above: Performed By: #### BRODY ALVARENGARO #### [facility] [address] [place] [address] Erin Estephania ERUAHD A micrscopic examination will be performed if indicated. Normal [facility] Comment on above: Performed By: #### EVANGELINA ALVARENGA #### [facility] [address] [place] [address] Erin Estephania Glucose [Mass/Vol] Negative Normal NEGATIVE [facility] Comment on above: Performed By: #### EVANGELINA ALVARENGA #### [facility] [address] [place] [address] Erin Estephania Ketones Ql (U) Negative Normal NEGATIVE [facility] Comment on above: Performed By: #### EVANGELINA ALVARENGA #### [facility] [address] [place] [address] Erin Estephania Nitrite Ql (U) Negative Normal NEGATIVE [facility] Comment on above: Performed By: #### EVANGELINA ALVARENGA #### [facility] [address] [place] [address] Erin Estephania pH (Bld) 5.0 Normal 5-9 [facility] Comment on above: Performed By: #### EVANGELINA ALVARENGA #### [facility] [address] [place] [address] Erin Estephania Protein (U) [Mass/Vol] Negative Normal [facility] Comment on above: Performed By: #### EVANGELINA ALVARENGA #### [facility] [address] [place] [address] Erin Estephania SPEC GRAVITY 1.025 Normal 1.005-<=1.0 25 [facility] Comment on above: Performed By: #### EVANGELINA ALVARENGA #### [facility] [address] [place] [address] Erin Best UR MICRO IND INDICATED Normal [facility] Comment on above: Performed By: #### EVANGELINA ALVARENGA #### [facility] [address] [place] [address] Erin Best Urobilinogen Qn (U) 0.2 EU/dl Normal The [facility] Comment on above: Performed By: #### EVANGELINA ALVARENGA #### [facility] [address] [place] [address] Erin Best WBC (Bld) [#/Vol] TRACE Normal NEGATIVE [facility] Comment on above: Performed By: #### EVANGELINA ALVARENGA #### [facility] [address] [place] [address] Erin Best LACTATE/LACTIC ACIDon 2019 Lactate [Moles/Vol] 1.1 mmol/L Normal 0.7-2.0 The [facility] Comment on above: Performed By: #### L ACT #### [facility] [address] [place] [address] Erin Best LIPASEon 11-01-2019 Lipase [Catalytic activity/Vol] 151.0 U/L Normal 23.0-300.0 [facility] Comment on above: Performed By: #### C PIOTR KOTHARI, TROP #### [facility] [address] [place] [address] Erin Estephania PROF 14(COMP METB)on 020 Albumin [Mass/Vol] 3.5 g/dL Normal 3.5-5.0 [facility] Comment on above: Performed By: #### C TAYE LIPA, TROP #### [facility] [address] [place] [address] Erin Streeteren Albumin/Globulin [Mass ratio] 0.9 {ratio} Normal [facility] Comment on above: Performed By: #### C MP, LIPA, TROP #### [facility] [address], [place] [address] Erin Estephania ALP [Catalytic activity/Vol] 96 U/L Normal 38-126 [facility] Comment on above: Performed By: #### C MP, LIPA, TROP #### [facility] [address], [place] [address] Erin Estephania ALT [Catalytic activity/Vol] 20 U/L Normal 9-52 [facility] Comment on above: Performed By: #### C MP, LIPA, TROP #### [facility] [address], [place] [address] Erin Estephania Anion gap [Moles/Vol] 10.9 mmol/L Normal Th e [facility] Comment on above: Performed By: #### C MP, LIPA, TROP #### [facility] [address] [place] [address] Erin Estephania AST [Catalytic activity/Vol] 18 U/L Normal 14-36 [facility] Comment on above: Performed By: #### C MP, LIPA, TROP #### [facility] [address] [place] [phone] Erin Estephania Bilirubin Ql (U) 0.6 mg/dL Normal 0.2-1.3 [facility] Comment on above: Performed By: #### C MP, LIPA, TROP #### [facility] [address] [place] [phone] Erin Estephania Calcium [Mass/Vol] 9.2 mg/dL Normal 8.4-10.2 [facility] Comment on above: Performed By: #### C MP, LIPA, TROP #### [facility] [address] [place] [phone] Erin Estephania Chloride [Moles/Vol] 107 mmol/L Normal 98-107 [facility] Comment on above: Performed By: #### C MP, LIPA, TROP #### [facility] [address], [place] [address] Erin Estephania CO2 [Moles/Vol] 25.8 mmol/L Normal 22.0-30.0 [facility] Comment on above: Performed By: #### C MP, LIPA, TROP #### [facility] [address] [place] [address] Erin Estephania Creatinine [Mass/Vol] 0.85 mg/dL Normal 0.52-1.04 [facility] Comment on above: Performed By: #### C MP, LIPA, TROP #### [facility] [address] [place] [address] Erin Estephania EGFR-AF MEXICAN >60 Normal >=60 [facility] Comment on above: Performed By: #### C MP, LIPA, TROP #### [facility] [address] [place] [address] Erin Estephania EGFR-NON AF MEXICAN >60 Normal >=60 [facility] Comment on above: Performed By: #### C MP, LIPA, TROP #### [facility] [address] [place] [address] Erin Estephania Globulin (S) [Mass/Vol] 3.8 g/dL Normal [facility] Comment on above: Performed By: #### C MP, LIPA, TROP #### [facility] [address] [place] [address] Erin Estephania Glucose [Mass/Vol] 105 mg/dL Normal 74-106 [facility] Comment on above: Performed By: #### C MP, LIPA, TROP #### [facility] [address] [place] [address] Erin Estephania Potassium [Moles/Vol] 3.7 mmol/L Normal 3.4-5.0 [facility] Comment on above: Performed By: #### C MP, LIPA, TROP #### [facility] [address] [place] [address] Erin Estephania Protein [Mass/Vol] 7.3 g/dL Normal 6.1-8.2 [facility] Comment on above: Performed By: #### C MP, LIPA, TROP #### [facility] [address] [place] [address] Erin Estephania Sodium [Moles/Vol] 140 mmol/L Normal 137-145 [facility] Comment on above: Performed By: #### C PIOTR KOTHARI, TROP #### [facility] [address] [place] [address] Erin Estephania Urea nitrogen [Mass/Vol] 21.0 mg/dL Critically high 7.0-17.0 [facility] Comment on above: Performed By: #### C KERRI KOTHARIA, TROP #### [facility] [address] [place] [address] Erinrufus Best Urea nitrogen/Creatinine [Mass ratio] 24.7 mg/mg Normal [facility] Comment on above: Performed By: #### C PIOTR KOTHARI, TROP #### [facility] [address] [place] [address] Erin Estephania PROTIMEon 11-01-2019 INR Coag (PPP) [Relative time] 1.03 {INR} Normal [facility] Comment on above: Performed By: #### P TT, PT #### [facility] [address] [place] [address] Erin Estephania PT Coag (PPP) [Time] 10.7 s Normal 9.0-11.6 [facility] Comment on above: Performed By: #### P TT, PT #### [facility] [address] [place] [address] Erin Estephania PT Coag (PPP) [Time] SEE BELOW Normal [facility] Comment on above: Result Comment: CONG RED INR: 2.0 - 3.0 CONDITIONS NOT LISTED BELOW 2.5 - 3.5 FOR PROSTHETIC HEART VALVE REPLACEMENT 2.5 - 3.5 RECURRENT THROMBOSIS Performed By: #### P TT, PT #### [facility] [address] [place] [address] Erin Estephania PT Coag (PPP) [Time] PLEASE NOTE: NORMAL RANGE CHANGE 05-17-2014 DUE TO REAGENT LOT CHANGE Normal [facility] Comment on above: Performed By: #### P TT, PT #### [facility] [address] [place] [address] Erinrufus Best PTTon 11-01-2019 aPTT Coag (Bld) [Time] 27.1 s Normal 22.3-36.2 [facility] Comment on above: Performed By: #### P TT, PT #### [facility] [address] [place] [address] Erinrufus Best aPTT Coag (Bld) [Time] PLEASE NOTE: NORMAL RANGE CHANGE 07-24-2015 DUE TO REAGENT LOT CHANGE Normal [facility] Comment on above: Performed By: #### P TT, PT #### [facility] [address] [place] [address] Erin Best TROPONIN - Ion 11-01-2019 Troponin I.cardiac [Mass/Vol] SEE BELOW Normal [facility] Comment on above: Result Comment: <0.0 34 ng/ml NEGATIVE 0.034-0.119 INDETERMINATE 0.120 AMI CUT OFF Performed By: #### C MP, LIPA, TROP #### [facility] [address] [place] [address] Erinrufus Best Troponin I.cardiac [Mass/Vol] ng/mL Normal <=0.034 [facility] Comment on above: Performed By: #### C MP, LIPA, TROP #### [facility] [address] [place] [address] Erin Estephania URINE MICROSCOPIC ONLYon Bacteria LM.HPF (Urine sed) [#/Area] TRACE Normal NONE SEEN [facility] Comment on above: Performed By: #### Dayo RUR UMICRO #### [facility] [address] [place] [address] Erin Estephania CAST SEEN Normal NONE SEEN [facility] Comment on above: Performed By: #### Dayo RUR UMICRO #### [facility] [address] [place] [address] Erin Estephania Crystals LM Nom (Urine sed) NONE SEEN Normal NONE SEEN [facility] Comment on above: Performed By: #### E RUR UMICRO #### [facility] [address] [place] [address] Erin Estephania CULTURE NOT INDICATED Normal [facility] Comment on above: Performed By: #### E RUR UMICRO #### [facility] [address], [place] [address] Erin Estephania Epithelial cells LM.HPF (Urine sed) [#/Area] FEW Normal [facility] Comment on above: Performed By: #### EVANGELINA ALVARENGA #### [facility] [address], [place] [address] Erin Estephania HYALINE CAST FEW Normal [facility] Comment on above: Performed By: #### EVANGELINA ALVARENGA #### [facility] [address] [place] [phone] Erin Estephania MUCOUS TRACE Normal NONE SEEN The [facility] Comment on above: Performed By: #### EVANGELINA ALVARENGA #### [facility] [address] [place] [phone] Erin Estephania RBC (U) [#/Vol] 2-5 Normal 0-2 [facility] Comment on above: Performed By: #### EVANGELINA ALVARENGA #### [facility] [address] [place] [phone] Erin Estephania WBC (Bld) [#/Vol] 2-5 Normal NONE SEEN [facility] Comment on above: Performed By: #### EVANGELINA ALVARENGA #### [facility] [address] [place] [phone] Erin Estephania MG MAMM SCREEN CHRISTINE W CADon 1 MG MAMM SCREEN CHRISTINE W CAD Patient: ZAKIYA SOUSA Exam Date: 06/27/2019 : 1945 Gender:F Ordering : DR ESTEPHANIA ABARCA PA Admission #: [id number] Family : Order #: [id number] CLICK HERE TO VIEW EXAM RADIOLOGY REPORT PROCEDURE: MAMMOGRAM BILATERAL SCREENING DIGITAL WITH COMPUTER AIDED DETECTION COMPARISON: MG MAMM SCREEN CHRISTINE W CAD, 12/01/2016. MG MAMM SCREEN CHRISTINE W CAD, 02/25/2018. INDICATIONS: Screening mammography Calculator Name NCI Breast Cancer Risk Assessment Tool 5 Year Breast Cancer Risk 1.10% Lifetime Breast Cancer Risk 2.40% Personal Breast Cancer No Personal Ovarian Cancer No Treatments None Family Cancers None LOCATION: [facility] BREAST COMPOSITION: Scattered areas fibroglandular density. FINDINGS: DIAGNOSTIC CATEGORY 2--BENIGN FINDING NO CHANGE FROM COMPARISON ASSESSMENT. Scattered benign-appearing calcifications are present. Scattered benign-appearing lymph nodes are present. RIGHT BREAST: No significant suspicious finding. LEFT BREAST: No significant suspicious finding. RECOMMENDATIONS: ROUTINE MAMMOGRAM AND CLINICAL EVALUATION IN 12 MONTHS. PLEASE NOTE: A NORMAL MAMMOGRAM DOES NOT EXCLUDE THE POSSIBILITY OF BREAST CANCER. A CLINICALLY SUSPICIOUS PALPABLE LUMP SHOULD BE BIOPSIED. Dictated by: Philippe Wallace M.D. on 06/27/2019 at 10:56 Approved by: Philippe Wallace M.D. on 06/27/2019 at 10:56 Normal [facility] Vital Signs Date Time Vital Sign Value Performing Clinician Facility 09-30-2022 14:45-0500 Body height 157.48 cm Imad Asaad Other [facility] Other 09-30-2022 14:45-0500 Body mass index (BMI) [Ratio] 21.03 kg/m2 Imad Asaad Other [facility] Other 09-30-2022 14:45-0500 Body weight 52.16 kg Imad Asaad Other [facility] Other 09-30-2022 14:45-0500 Diastolic blood pressure 87 mm[Hg] Imad Asaad Other [facility] Other 09-30-2022 14:45-0500 Systolic blood pressure 137 mm[Hg] Imad Asaad Other [facility] Other 01-28-2022 14:15-0400 Body height 157.48 cm Philippe Barrett Other [facility] Other 01-28-2022 14:15-0400 Body mass index (BMI) [Ratio] 20.12 kg/m2 Philippe Barrett Other [facility] Other 01-28-2022 14:150400 Body weight 49.9 kg Philippe Barrett Other [facility] Other Encounters Encounter Date Encounter Type Care Provider Facility Start: 05-10-2024 End: 05-10-2024 ambulatory GABINO Moore LOOMIS Not Available Start: 11-18-2023 End: 11-18-2023 ambulatory PK ARMIJO Not Available Start: 10-04-2023 End: 10-04-2023 ambulatory GABINO LOOMIS Not Available Start: 12-14-2022 ambulatory Imad Asaad Facility:[facility] Start: 12-07-2022 End: 12-07-2022 ambulatory Imad Asaad Other [facility] Start: 12-07-2022 Telephone encounter Imad Asaad [facility] Start: 10-09-2022 End: 10-09-2022 ambulatory Imad Asaad Facility:[facility] Start: 10-09-2022 End: 10-09-2022 ambulatory II Gabino Loomis Work Phone: [facility] Work Phone: Start: 10-09-2022 End: 10-09-2022 Patient encounter procedure II Gabino Loomis Work Phone: [facility] [place] Work Phone: Start: 09-30-2022 End: 09-30-2022 ambulatory Imad Asaad Facility:[facility] Start: 09-30-2022 End: 09-30-2022 Patient encounter procedure II Gabino Vladislav Work Phone: [facility] [place] Work Phone: Start: 09-30-2022 End: 09-30-2022 ambulatory II Gabino Loomis Work Phone: [facility] Work Phone: Start: 09-30-2022 Office consultation new/estab patient 60 min Imad Asaad [facility] Start: 02-16-2022 End: 02-16-2022 ambulatory Philippe Barrett Other [facility] Start: 02-16-2022 Telephone encounter Philippe Barrett [facility] Start: 02-11-2022 End: 02-11-2022 ambulatory Philippe Barrett Facility:[facility] Start: 02-09-2022 End: 02-09-2022 ambulatory Philippe Barrett Facility:[facility] Start: 01-28-2022 End: 01-28-2022 ambulatory Philippe Barrett Other [facility] Other Start: 01-28-2022 Office outpatient ne w 45 minutes Philippe Barrett [facility] Start: 05-27-2020 End: 05-28-2020 Patient encounter procedure ESTEPHANIA ABARCA Facility:[facility] Start: 11-01-2019 End: 11-01-2019 Patient encounter procedure GABINO LOOMIS Facility:[facility] Start: 06-27-2019 End: 06-28-2019 Patient encounter procedure ESTEPHANIA ABARCA Facility:[facility] Plan of Treatment Date Care Activity Detail Author Calprotectin [Mass/mass] in Stool [facility] Endomysial antibody IgA level [facility] Gliadin peptide IgA Ab [Units/volume] in Serum [facility] enter Gliadin peptide IgG Ab [Units/volume] in Serum [facility] enter HLA DQ antigen typing [facility] IgA [Mass/volume] in Serum or Plasma [facility] Tissue transglutamin ase IgA Ab [Units/volume] in Serum [facility] enter Tissue transglutamin ase IgG Ab [Units/volume] in Serum [facility] enter Immunizations Immunization Date Immunization Notes Care Provider Krishan vera 08-11-2021 COVID-19 mRNA-1273 (Moderna) BOBBI Loomis Work Phone: [facility] 11-28-2020 COVID-19 mRNA-1273 (Moderna) BOBBI Loomis Work Phone: [facility] 10-31-2020 COVID-19 mRNA-1273 (Moderna) II Gabino Loomis Work Phone: [facility] Payers Date Payer Category Payer Self-pay [id number] 1959 Unknown [id number] 1945 Unknown [id number] 2.16.84 [id number] 1945 Unknown [id number] 2.16.84 [id number] 1945 Unknown [id number] 2.16.84 [id number] 1945 Unknown [id number] 2.16.84 [id number] 1945 Unknown [id number] 2.16.84 [id number] 1945 Unknown [id number] 2.16.84 [id number] Medicare [facility] OP [id number] Unknown [id number] 2.16.8 [id number] Unknown [id number] 2.16.8 [id number] Unknown [id number] 2.16.8 [id number] Unknown [id number] 2.16.8 [id number] Unknown [id number] 2.16.8 [id number] Social History Date Type Detail Facility Sex Assigned At [facility] Other Start: 1945 Sex Assigned At Female F [facility] Evaluation note 09-30-2022 Note Date & Type Note Facility 09-30-2022 Evaluation note Encounter Date Diagnosis Assessment Notes Sep, Abdominal pain (ICD-10 - R10.9) Sep, Bloating (ICD-10 - R14.0) [facility] Other Evaluation note 01-28-2022 Note Date & Type Note Facility 01-28-2022 Evaluation note Encounter Date Diagnosis Assessment Notes Jan, Chronic gastritis (ICD-10 - K29.50) CONTINUE OMEPRAZOLE BID FOR NOW EGD [facility] Jan, Colitis (ICD-10 - K52.9) COLONOSCOPY Jan, Abdominal pain (ICD-10 - R10.9) [facility] Other Evaluation note Note Date & Type Note Facility Evaluation note No Information [facility] Other Evaluation note Note Date & Type Note Facility Evaluation note No assessment information availa [facility] Work Phone: History general Narrative - Reported Note Date & Type Note Facility History general Narrative - Reported Type Medical History HTN Medical History GERD Medical History hypothyroidism Surgical History CHOLECYSTECTOMY Surgical History PARTIAL HYSTERECTOMY [facility] Other Summary Purpose Family History No Family History Records Found Relationship Condition Age at Onset Recorded Date/T allen Not Specified No pertinent family history Unknown Advance Directives No Advanced Directives Records Found Advance Directive Response Recorded Date/ Time Advance Directives No February 05 10:44am Chief Complaint and Reason for Visit Chief Complaint R10.9 K92.1 R19.4 R1 4.0 Chief Complaint R10.9 K92.1 R19.4 R1 4.0 R10.9 K92.1 R19.4 R14.0 Additional Source Comments INFORMATION SOURCE (unrecogn ized section and content) DATE CREATED AUTHOR 06/01/2020 Nicolle billy DATE CREATED AUTHOR AUTHOR'S ORGANIZ ATION 12/14/2022 [facility] DATE CREATED AUTHOR AUTHOR'S ORGANIZ ATION 05/12/2024 [facility] EPIC REASON FOR VISIT (unrecogniz ed section and content) PATIENT HERE AT THE REQUEST OF ESTEPHANIA ABARCA FOR CHRONIC GASTRITISCanasaPATIENT IS HERE FOR BLACK TARRY STOOLS AT THE REQUEST OF CARLITA GOMEZ TO PEER REQUEST Care Teams (unrecognized sec tion and content) Team Status: Inactive Member Role Status Dates Gabino Loomis II MD Primary Care Provider Active Danna Sarmiento MD Attending Provider Active Team Status: Active Member Role Status Dates Gabino Loomis II MD Primary Care Provider Active Goals (unrecognized section and content) Goals may be documented in a n alternate section FOR RECORDS PERTAINING TO PATIENTS WHO ARE OR HAVE BEEN ENROLLED IN A CHEMICAL DEPENDENCY/SUBSTANCEABUSE PROGRAM, SOME INFORMATION MAY BE OMITTED. This clinical summary was aggregated from multiple sources. Caution should be exercised in using it in the provision of clinical care. This summary normalizes information from multiple sources, and as a consequence, information in this document may materially change the coding, format and clinical context of patient data. In addition, data may be omitted in some cases. CLINICAL DECISIONS SHOULD BE BASED ON THE PRIMARY CLINICAL RECORDS. [facility] [employer] [facility]. provides no warranty or guarantee of the accuracy or completeness of information in this document.
--- NOTE | 2024-07-04 18:31 | CT_ITS ---
The [address] [address] Patient Name: ZAKIYA SOUSA MRN: [id number] date: 1945 Sex: F Assigned Patient Location: ER Current Patient Location: ER Accession/Order Number: [id number] Exam Date: 07/04/2024 19:33 Report Date: 07/04/2024 20:51 At the request of: PABLO RYAN Procedure: CT abdomen pelvis w con CT ABDOMEN/PELVIS WITH IV CONTRAST. INDICATION: upper abd pain. COMPARISON: There are no other studies available for comparison. TECHNIQUE: Contiguous axial images were obtained from the lung bases to the pelvic floor following the intravenous administration of contrast. Coronal and sagittal reformations are provided. FINDINGS: LOWER LUNGS: Clear. LIVER/BILIARY TREE: No mass. No intrahepatic ductal dilatation. GALLBLADDER: Status post cholecystectomy.. CBD: Mildly blunted CBD measuring 8 mm likely related to the patient's cholecystectomy. SPLEEN: Normal in size. PANCREAS: No acute findings. No peripancreatic fluid or inflammation. No pancreatic duct dilatation. No discrete mass. ADRENALS: Normal. KIDNEYS: No hydronephrosis. No radiopaque calculus. STOMACH AND BOWEL: There is mild thickening of the distal gastric body. No dilated bowel loops. No bowel wall thickening. APPENDIX: Not visualized. PERITONEAL CAVITY: No fluid. No fat stranding. ABDOMINAL WALL: No subcutaneous stranding. No subcutaneous fluid collection. LYMPH NODES: No mesenteric or retroperitoneal lymphadenopathy by CT criteria. ABDOMINAL AORTA: No aneurysm. PELVIS: No acute abnormality. MUSCULOSKELETAL: No acute osseous abnormality. CT/CT abdomen pelvis w con IMPRESSION: Mild thickening of the distal gastric body. Correlate for gastritis.. Electronically authenticated by: CAMILO MENDOZA Date: 07/04/2024 20:51
--- NOTE | 2024-07-04 18:32 | ECG_ITS ---
The [facility] Test Date: 2024-07-04 Pat Name: ZAKIYA SOUSA Department: Room: - Gender: Female Historical Guide: : 1945 Requested By: BRADY BORREGO Order Number: [id number] Reading MD: BROOKE ULLOA Measurements Intervals [place] Rate: 140 P: 65 [place]: 168 QRS: 53 QRSD: 78 T: 26 QT: 318 QTc: 399 Interpretive Statements 1120 Sinus tachycardia 1474 with frequent supraventricular premature complexes 9150 abnormal ECG Compared to ECG 04/06/2024 10:19:52 Electronically Signed On 07-06-2024 6:14:34 EST by BROOKE ULLOA
--- NOTE | 2024-07-04 18:33 | ED.ABDPAIN1 ---
HPI - Abdominal Pain General Chief Complaint: Abdominal Pain Stated Complaint: abd pain Time Seen by Provider: 07/04/24 18:25 Source: patient Mode of arrival: Wheelchair History of Present Illness HPI narrative: 79-year-old female to the emergency department chief complaint of upper abdominal pain and vomiting for the last 3 days. Patient reports she has had similar symptoms in the past. She does not know what she was diagnosed with at that time. She took no medications at home. She reports she has vomited several times today. No aggravating or alleviating factors. She denies any diarrhea. No fever, sweats, chills. Past medical history: Hypothyroidism, hypertension Past surgical history: Appendectomy, cholecystectomy Related Data Home Medications ?Medication ?Instructions ?Recorded ?Confirmed donepezil 5 mg tablet 5 mg PO QPM 07/04/24 07/04/24 levothyroxine 75 mcg tablet 75 mcg PO QAM 07/04/24 07/04/24 lisinopril 5 mg tablet 5 mg PO BID 07/04/24 07/04/24 omeprazole 40 mg capsule,delayed 40 mg PO BID 07/04/24 07/04/24 release Allergies Allergy/AdvReac Type Severity Reaction Status Date / Time codeine Allergy Mild Rash Verified 04/06/24 10:16 Review of Systems ROS Status of ROS 10 or more systems reviewed and unremarkable except as noted in history and below [facility] Medical History (Updated 07/04/24 @ 18:48 by Pavan Melgar MD) Vertigo ?R42 - Dizziness and giddiness (ICD-10) Hypothyroidism ?E03.9 - Hypothyroidism, unspecified (ICD-10) GERD (gastroesophageal reflux disease) ?K21.9 - Gastro-esophageal reflux disease without esophagitis (ICD-10) HTN (hypertension) ?I10 - Essential (primary) hypertension (ICD-10) Surgical History (Updated 07/04/24 @ 18:38 by Dorina Aviles) History of appendectomy ?Z90.49 - Acquired absence of other specified parts of digestive tract (ICD-10) Hx of cholecystectomy ?Z90.49 - Acquired absence of other specified parts of digestive tract (ICD-10) Exam Narrative Exam Narrative: VITALS: I have reviewed the triage vital signs. GENERAL: Elderly female in no distress. at the bedside. NEURO: Alert and oriented. Moves all extremities. Face is symmetric and expressive. EYES: PERRL. No scleral icterus or conjunctival injection. No discharge. HENT: Normocephalic, atraumatic. Hearing is grossly intact. Nares grossly patent and without discharge. Mucous membranes moist. NECK: No JVD. Patient moves neck without restriction. CARDIO: Rhythm regular. Normal rate. No murmur, rub, or gallop. Pulses equal bilaterally in the upper and lower extremity. No lower extremity edema. PULM: Lungs clear to auscultation in all plummer. No wheezes, rales, or rhonchi. No conversational dyspnea. No splinting, stridor, or accessory muscle use. GI/: Abdomen is soft. Mild epigastric tenderness. Normoactive bowel sounds. EXTREMITIES: Symmetric muscle bulk. No joint swelling. No clubbing, cyanosis, or deformity. SKIN: Warm and dry. Normal turgor. No rash or lesions appreciated. PSYCH: Mood, affect, and interaction is appropriate to the setting. Constitutional Vital Signs, click to edit/add: Last Vital Signs Temp 97.4 F L 07/04/24 18:26 Pulse 79 07/04/24 18:26 Resp 20 07/04/24 18:26 BP 154/101 H 07/04/24 18:26 Pulse Ox 98 07/04/24 18:26 O2 Del Method Room Air 07/04/24 18:26 Course Vital Signs Vital signs: Vital Signs Temperature 97.4 F L 07/04/24 18:26 Pulse Rate 79 07/04/24 18:26 Respiratory Rate 20 07/04/24 18:26 Blood Pressure 154/101 H 07/04/24 18:26 Pulse Oximetry 98 07/04/24 18:26 Oxygen Delivery Method Room Air 07/04/24 18:26 Temperature 97.4 F L 07/04/24 18:26 Pulse Rate 79 07/04/24 18:26 Respiratory Rate 20 07/04/24 18:26 Blood Pressure 154/101 H 07/04/24 18:26 Pulse Oximetry 98 07/04/24 18:26 Oxygen Delivery Method Room Air 07/04/24 18:26 MDM - Abdominal Pain MDM Narrative Medical decision making narrative: 79-year-old female to the emergency department with chief complaint of upper abdominal pain and vomiting. Vital stable, the patient is afebrile. Basic labs, CT scan are ordered. Morphine and Zofran for her symptoms. Patient agrees with this plan. EKG without evidence of ischemia. Care was signed out to Dr. Cummins with results of diagnostic workup, disposition pending Working diagnosis: Abdominal pain, nausea and vomiting Medical Records Attestation: I reviewed the patient's medical records. ECG Data Attestation: I personally reviewed and interpreted this ECG as follows: (Sinus tachycardia rate of 110. No STEMI. Normal QTc at 399) Discharge Plan Discharge Chief Complaint: Abdominal Pain Clinical Impression: Abdominal pain, Nausea and vomiting Patient Disposition: Home, Self-Care Time of Disposition Decision: 18:47 Condition: Good Prescriptions / Home Meds: No Action ondansetron 4 mg tablet,disintegrating 4 mg PO Q6H PRN (Reason: nausea and vomiting) Qty: 20 0RF Print Language: Greek Referrals: BRADY BORREGO [Primary Care Provider] - 1 week
[2024-07-04] MEDS: ONDANSETRON PF 4 MG/2 ML VIAL IV (18:39)
[2024-07-04] MEDS: MORPHINE SULFATE 2 MG/ML SYRINGE 4 MG IV (18:40)
[2024-07-04 18:42] LABS: Basophils Percent Auto 0.5 % (0.2-2.0); Eosinophils Absolute Auto 0.2 10^3/uL (0.0-0.7); Eosinophils Percent Auto 2.5 % (0.9-7.0); Hematocrit 41.7 % (36.0-48.0); Hemoglobin 14.1 g/dL (12.0-16.0); Immature Granulocytes Abs Auto 0.02 10^3/uL (0.00-0.03); Immature Granulocytes Pct Auto 0.3 % (0.0-0.5); Lymphocytes Absolute Auto 1.8 10^3/uL (1.2-3.8); Lymphocytes Percent Auto 29.5 % (20.5-60.0); Mean Corpuscular HGB Conc 33.8 g/dL (29.9-35.2); Mean Corpuscular Hemoglobin 30.9 pg (26.7-34.0); Mean Corpuscular Volume 91.2 fL (81.0-99.0); Mean Platelet Volume 11.4 fL (9.5-13.5); Monocytes Absolute Auto 0.3 10^3/uL (0.3-0.8); Monocytes Percent Auto 4.9 % (1.7-12.0); Neutrophils Absolute Auto 3.7 10^3/uL (1.4-6.5); Neutrophils Percent Auto 62.3 % (43.0-75.0); Platelet Count 203 10^3/uL (150-450); Red Blood Count 4.57 10^6/uL (4.20-5.40); Red Cell Distribution Width 13.5 % (11.0-15.0)
[2024-07-04 18:57] LABS: Alanine Aminotransferase 17 U/L (14-59); Albumin Level 3.8 g/dL (3.4-5.0); Alkaline Phosphatase 75 U/L (46-116); Anion Gap 14.1; Aspartate Amino Transferase 21 U/L (15-37); BUN Creatinine Ratio 27.5; Bilirubin Total 0.5 mg/dL (0.2-1.0); Calcium 9.4 mg/dL (8.5-10.1); Carbon Dioxide 25.6 mmol/L (21.0-32.0); Chloride 106 mmol/L (98-107); Estimated GFR (African America >60 (>=60 mL/min/1.73m^2); Estimated GFR (Non-African Ame 59 (>=60 mL/min/1.73m^2); Globulin 3.7 g/dL; Glucose 120 mg/dL (74-106); Potassium 3.7 mmol/L (3.5-5.1); Sodium 142 mmol/L (136-145); Total Protein 7.5 g/dL (6.4-8.2)
[2024-07-04 18:59] LABS: Lactate/Lactic Acid 1.2 mmol/L (0.4-2.0)
--- NOTE | 2024-07-04 19:08 | PC.NURSE ---
i walked into this patient's room and i introduced myself to this patient and her . this patient awake and alert sitting upright on the bed, i informed this patient we still need a urine sample and waiting to go to ct dept. this patient voices she can not provide a urine at this time and shows no signs of distress
--- NOTE | 2024-07-04 19:15 | ECG_ITS ---
The [facility] Test Date: 2024-07-04 Pat Name: ZAKIYA SOUSA Department: Room: - Gender: Female [employer]: : 1945 Requested By: BRADY BORREGO Order Number: [id number] Reading MD: BROOKE ULLOA Measurements Intervals [place] Rate: 110 P: 69 [place]: 152 QRS: 37 QRSD: 82 T: 63 QT: 334 QTc: 399 Interpretive Statements 1120 Sinus tachycardia 1474 with frequent supraventricular premature complexes 9140 abnormal rhythm ECG Compared to ECG 04/06/2024 10:19:52 Sinus rhythm no longer present Electronically Signed On 07-06-2024 6:13:59 EST by BROOKE ULLOA
[2024-07-04 19:30] LABS: Bilirubin Urine NEGATIVE (NEGATIVE); Blood Urine MODERATE (NEGATIVE); Clarity Urine CLEAR (CLEAR); Color Urine LT. YELLOW (YELLOW); Glucose Urine UA NEGATIVE (NEGATIVE); Ketones Urine 15 mg/dL (NEGATIVE); Leukocyte Esterase Urine SMALL (NEGATIVE); Nitrite Urine NEGATIVE (NEGATIVE); Protein Urine TRACE mg/dL (NEG/TRACE); Urine Microscopic Indicated YES; Urobilinogen Urine 0.2 EU/dL (0.2-1.0)
[2024-07-04 19:36] LABS: Bacteria Urine SMALL #/HPF (NONE SEEN); Cast Seen? NONE SEEN #/LPF (NONE SEEN); Crystals Seen? None Seen #/HPF (None Seen); Mucus Urine NONE SEEN (NONE SEEN); Squamous Epithelial Cell Urine FEW #/LPF (NONE/RARE); Urine Culture Indicated YES
--- NOTE | 2024-07-04 19:44 | PC.NURSE ---
this patient just returned back from ct dept, i informed her that now we are waiting on ct results to come back. this patient denies any chest pain or shortness of breath, and no abdomen pain. this patient nor her voices no concerns or question and this patient shows no signs of distress
--- NOTE | 2024-07-04 21:29 | PC.NURSE ---
i gave verbal and paper discharge orders along with 1 e-script to this patient and her , both of then voices yes to understanding discharge order and e-script. at time of discharge this patient nor her voices no concerns and this patient show no signs of distress
== END 2024-07-04 21:31 | disposition home or self-care (01) ==
PROVIDERS: Emergency Provider Student in an Organized Health Care Education/Training Program; PCP Internal Medicine
DX: R10.9 Unspecified abdominal pain (principal); R11.2 Nausea with vomiting, unspecified
CPT/HCPCS: 36415; 74177; 80053; 81001; 83605; 83690; 84484; 85025; 87086; 93005; 96374; 96375; 99285; J2270; J2405; Q9967

== ENCOUNTER 2024-07-18 13:00 | Outpatient (OUT) | payer MEDICARE, SELFPAY ==
--- OUTSIDE RECORDS SUMMARY | 2024-07-18 13:30 | XMS_ITS | CCD ---
Author Organization [facility] Care Team Providers Care Hand Riveter Name Role Phone ESTEPHANIA ABARCA Admitting Unavailable ESTEPHANIA ABARCA Attending Unavailable GABINO LOOMIS Primary Care Unavailable PHILIPPE WALLACE V Consulting Unavailable ESTEPHANIA ABARCA Consulting Unavailable GABINO LOOMIS Primary Care Unavailable AURORA CASTILLO Consulting Unavailable ASCENCION MASTERS Admitting Unavailable ASCENCION MASTERS Attending Unavailable ESTEPHANIA ABARCA Admitting Unavailable ESTEPHANIA ABARCA Attending Unavailable MISC, DOCTOR Primary Care Unavailable PHILIPPE WALLACE V Consulting Unavailable ESTEPHANIA ABARCA Consulting Unavailable Philippe Barrett Unavailable BOBBI Loomis Primary Care Provider MD Danna Sarmiento Attending Provider Asaad, Imad Unavailable Asaad, Imad Admitting Unavailable [...] Attending Unavailable Gabino Loomis Primary Care Unavailable Gabino Loomis MD Primary Care Provider [phone] Wednesday RAIL CAR WELDER, Trinidad Unavailable Gabino Loomis MD Unavailable GABINO LOOMIS Attending Unavailable PK ARMIJO Attending Unavailable GABINO LOOMIS Attending Unavailable ESTEPHANIA ABARCA Attending Unavailable Allergies Allergy Classification Reported Allergen(s) Allergy Type Date of Onset Reaction(s) Facility (1 source) Codeine Drug Allergy 05-09-2017 [facility] Repository (4 sources) Codeine Drug Allergy Unknown [facility] Other (1 source) Codeine Drug Allergy 12-14-2022 [facility] Repository (3 sources) Codeine Drug Allergy 02-14-2023 Unknown [facility] Medications Current Medications Medication Drug Class(es) Dates Sig (Normalized) Sig (Original) donepezil hydrochloride 5 mg oral tablet (3 sources) Start: 05-10-2024 End: 09-07-2024 take 1 tablet by mouth at bedtime, then take 2 tablets by mouth at bedtime donepezil (Aricept) 5 MG tablet Indications: Cognitive impairment Take 1 tablet (5 mg) by mouth at bedtime for 30 days, THEN 2 tablets (10 mg) at bedtime. 210 tablet 05/10/2024 09/07/2024 Active ergocalciferol 1.25 mg oral capsule (3 sources) Provitamin D2 Compound Start: 11-24-2023 End: 11-23-2024 take 1 capsule by mouth every week ergocalciferol (Drisdol) 1.25 MG (73989 UT) capsule Indications: Vitamin D deficiency Take 1 capsule (1.25 mg) by mouth 1 (one) time per week 12 capsule 3 11/24/2023 11/23/2024 Active famotidine 20 mg oral tablet (2 sources) Histamine-2 Receptor Antagonist Start: 07-06-2024 take 1 tablet by mouth once daily famotidine (Pepcid) 20 MG tablet Indications: Acute gastritis without hemorrhage, unspecified gastritis type Take 1 tablet (20 mg) by mouth Daily 30 tablet 2 07/06/2024 Active levothyroxine sodium 0.075 mg oral tablet (9 sources) l-Thyroxine Start: 05-10-2024 take 1 tablet by mouth once daily levothyroxine (Synthroid, Levoxyl) 75 MCG tablet Indications: Hypothyroidism, unspecified type (CMS/HCC) Take 1 tablet (75 mcg) by mouth Daily 100 tablet 2 05/10/2024 Active Start: 02-10-2022 take 1 tablet by dulce th once daily Levothyroxine (Euthyrox) 75 mcg tablet Active 75 MCG PO Daily February 09, 2022 11:00pm take 1 tablet by dulce th once daily in the morning Euthyrox 75 MCG 1 tablet in the morning on an empty stomach Orally Once a day Active Euthyrox Active lisinopril 5 mg oral tablet (9 sources) Angiotensin Converting Enzyme Inhibitor Start: 05-10-2024 End: 05-10-2025 take 1 tablet by mouth in the morning lisinopril 5 MG tablet Indications: Essential hypertension (CMS/HCC) Take 1 tablet (5 mg) by mouth in the morning and 1 tablet (5 mg) before bedtime. 200 tablet 3 05/10/2024 05/10/2025 Active Start: 02-10-2022 take 5 mg by mouth once daily Lisinopril Active 5 MG PO Daily February 09, 2022 11:00pm take 1 tablet by dulce twice daily Lisinopril 5 MG 1 tablet Orally twice daily Active Lisinopril Activ e mesalamine 1000 mg rectal suppository (1 source) Aminosalicylate Start: 02-16-2022 Canasa 1000 MG 1 suppository at bedtime Rectal Once a day for 14 days Jan, Active omeprazole 40 mg delayed release oral capsule (9 sources) Proton Pump Inhibitor Start: 05-10-2024 End: 05-10-2025 take 1 capsule by mouth in the morning omeprazole (PriLOSEC) [address] capsule Indications: Gastro-esophageal reflux disease without esophagitis Take 1 capsule (40 mg) by mouth in the morning and 1 capsule (40 mg) before bedtime. 180 capsule 3 05/10/2024 05/10/2025 Active Start: 02-10-2022 take 40 mg by mouth once daily Omeprazole Active 40 MG PO Daily February 09, 2022 11:00pm take 1 capsule by mo [facility] every twelve hours Omeprazole 40 MG 1 capsule Orally bid Active ondansetron 4 mg disintegrating oral tablet (3 sources) Serotonin-3 Receptor Antagonist Start: 04-06-2024 take 1 tablet by mouth every eight hours as needed ondansetron ODT (Zofran-ODT) 4 MG disintegrating tablet Take 4 mg by mouth every 8 (eight) hours if needed 04/06/2024 Active Completed/Discontinued Medications Medication Drug Class(es) Dates Sig (Normalized) Sig (Original) Multiple Vitamins-Minerals (Centrum Silver Ultra Womens) tablet (2 sources) End: 07-06-2024 Multiple Vitamins-Minerals (Centrum Silver Ultra Womens) tablet Daily. 07/06/2024 Discontinued sucralfate 1000 mg oral tablet (2 sources) Aluminum Complex Start: 09-09-2022 End: 07-06-2024 take 1 tablet by mouth in the morning, then take 1 tablet by mouth in the evening, then take 1 tablet by mouth at bedtime Carafate 1 g tablet Take 1 g by mouth in the morning and 1 g in the evening and 1 g before bedtime. 09/09/2022 07/06/2024 Discontinued (Other) Problems Active Problems Problem Classification Problem Date Documented Da te Episodic/Chronic Abdominal pain (16 sources) Unspecified abdominal pain; Translations: [Abdominal pain] Onset: 11-01-2019 Resolved: 01-28-2022 Episodic Cardiac dysrhythmias (6 sources) Multiple premature ventricular complexes; Translations: [Ventricular premature depolarization] 07-06-2024 Chronic Cardiac dysrhythmias (6 sources) Palpitations; Translations: [Palpitations] 07-06-2024 Episodic Disorders of lipid metabolism (3 sources) Pure hypercholesterolemia; Translations: [Pure hypercholesterolemia, unspecified] Onset: 02-14-2023 02-14-2023 Chronic Esophageal disorders (6 sources) Gastro-esophageal reflux disease without esophagitis; Translations: [Gastroesophageal reflux disease] Onset: 11-03-2019 02-11-2022 Chronic Esophageal disorders (1 source) Esophageal disorders; Translations: [K21.9 - Gastro-esophageal reflux disease without esophagitis] Onset: 02-11-2022 Essential hypertension (4 sources) Essential (primary) hypertension; Translations: [Essential hypertension] Onset: 11-03-2019 02-14-2023 Chronic Gastritis and duodenitis (5 sources) Chronic gastritis; Translations: [Unspecified chronic gastritis without bleeding] Onset: 01-28-2022 Resolved: 01-28-2022 Chronic Gastrointestinal hemorrhage (3 sources) Feces color: tarry; Translations: [Melena] Onset: 10-09-2022 Episodic Mood disorders (3 sources) Reactive depression (situational); Translations: [Major depressive disorder, single episode, unspecified] Onset: 02-14-2023 02-14-2023 Chronic Nausea and vomiting (5 sources) Nausea; Translations: [Nausea] Onset: 02-11-2022 02-11-2022 Episodic Noninfectious gastroenteritis (9 sources) Noninfective gastroenteritis and colitis, unspecified; Translations: [Colitis] Onset: 11-03-2019 Resolved: 01-28-2022 Episodic Nutritional deficiencies (3 sources) Vitamin D deficiency; Translations: [Vitamin D deficiency, unspecified] Onset: 02-14-2023 02-14-2023 Chronic Osteoporosis (8 sources) Age-related osteoporosis without current pathological fracture; Translations: [Osteoporosis] Onset: 11-03-2019 02-14-2023 Chronic Other connective tissue disease (3 sources) Cramp in lower limb; Translations: [Sleep related leg cramps] Onset: 02-14-2023 02-14-2023 Chronic Other gastrointestinal disorders (2 sources) Flatulence, eructation and gas pain; Translations: [Abdominal distension (gaseous)] Episodic Other gastrointestinal disorders (2 sources) Altered bowel function; Translations: [Change in bowel habit] Episodic Other gastrointestinal disorders (3 sources) Abdominal distension (gaseous); Translations: [Abdominal distension (gaseous)] Onset: 10-09-2022 Episodic Other gastrointestinal disorders (1 source) Change in bowel habit; Translations: [Change in bowel habit] Onset: 10-09-2022 Episodic Other hereditary and degenerative nervous system conditions (3 sources) Restless legs; Translations: [Restless legs syndrome] Onset: 02-14-2023 02-14-2023 Chronic Other nervous system disorders (3 sources) Impaired cognition; Translations: [Other symptoms and signs involving cognitive functions and awareness] Onset: 05-10-2024 05-10-2024 Episodic Other upper respiratory disease (3 sources) Allergic rhinitis; Translations: [Allergic rhinitis, unspecified] Onset: 02-14-2023 02-14-2023 Chronic Retinal detachments; defects; vascular occlusion; and retinopathy (3 sources) Retinal hemorrhage; Translations: [Retinal hemorrhage, unspecified eye] Onset: 02-14-2023 02-14-2023 Chronic Spondylosis; intervertebral disc disorders; other back problems (3 sources) Cervical spondylosis; Translations: [Spondylosis without myelopathy or radiculopathy, cervical region] Onset: 02-14-2023 02-14-2023 Chronic Syncope (6 sources) Near syncope; Translations: [Syncope and collapse] 07-06-2024 Episodic Thyroid disorders (4 sources) Hypothyroidism, unspecified; Translations: [Hypothyroidism] Onset: 11-03-2019 02-14-2023 Chronic Unclassified (1 source) Z01.812 - Encounter for preprocedural laboratory examination; Translations: [Z01.812 - Encounter for preprocedural laboratory examination] Onset: 02-09-2022 Past or Other Problems Problem Classification Problem Date Documented Da te Episodic/Chronic Conditions associated with dizziness or vertigo (3 sources) Benign paroxysmal positional vertigo; Translations: [Benign paroxysmal vertigo, unspecified ear] Onset: 02-14-2023 02-14-2023 Episodic Gastritis and duodenitis (6 sources) Gastritis, unspecified, without bleeding; Translations: [Acute gastritis] Onset: 11-03-2019 07-06-2024 Episodic Mood disorders (3 sources) Mood disorders Onset: 11-18-2023 11-18-2023 Other aftercare (1 source) Other exterminator helper (current) drug therapy; Translations: [OTH PATTERN MECHANIC CURRENT DRUG THERAPY] Onset: 11-03-2019 Episodic Other [...] OTH PART DIGESTV TRACT] Onset: 11-03-2019 Episodic Residual codes; unclassified (3 sources) Amnesia; Translations: [Other amnesia] Onset: 02-14-2023 02-14-2023 Episodic Unclassified (3 sources) Onset: 11-23-2023 11-23-2023 Urinary tract infections (1 source) Urinary tract infection, site not specified; Translations: [UTI SITE NOT SPECIFIED] Onset: 11-03-2019 Episodic Results Test Name Value Interpretation Reference Range Facility URINE CULTURE, ROUTINEon Bacteria identified Cx Nom (U) Urine Culture, Routine [facility] Bacteria identified [facility] (U) Culture shows less than 10,000 colony forming units of bacteria per [facility] Bacteria identified [facility] (U) milliliter of urine. This colony count is not generally considered [facility] Bacteria identified [facility] (U) to be clinically significant. [facility] Bacteria identified [facility] (U) [facility] at: [facility] Bacteria identified [facility] (U) [address] [place], [place] [id number] [facility] Bacteria identified [facility] (U) Loader Operator: Ez Brantley PhD, Phone: [phone] [facility] Blood Urea Nitrogenon 2022 Urea nitrogen [Mass/Vol] 17 mg/dL Normal 7-25 [facility] Comment on above: Performed By: #### C TRACY MCCARTY #### [address] enterographyon 12-14-2022 CT enterography [facility] Main [place] [address] [place] [address] CT Scan Report Signed Patient: Sharon Sousa MR#: [id number] [birth year] : 1945 Acct:[id number] Age/Sex: 77 / F ADM Date: 12/14/22 Loc: CT Room: Type: [facility] Attending Dr: Danna Sarmiento MD Copies to: [...] seen. Impression dictated by: Vargas Urrutia Jr., D.O.12/14/2022 1:49 PM Dictation Location: [place] [address] Transcribed By: [facility] 12/14/22 134 Dictated By: Vargas Urrutia Jr, DO 12/14/22 1345 Signed By: 12/14/22 134 Normal [facility] Creatinineon 12-14-2022 Creatinine [Mass/Vol] 0.76 mg/dL Normal 0.60-1.20 [facility] Comment on above: Performed By: #### C REAT, BUN #### [facility] [address] [place] [address] GFR/1.73 sq M.predicted MDRD (S/P/Bld) [Vol rate/Area] mL/min/{1.73_m2} Normal [facility] Comment on above: Result Comment: PERF ORMED BY: [place] [address] PATHOLOGIST ASSISTANT PRESSMAN SVETLANA DELGADILLO M.D. Performed By: #### C REAT, BUN #### [facility] [address] [place] [address] Calprotectin, Fecalon 2022 Calprotectin, Fecal 34 Normal 0-120 [facility] Comment on above: Order Comment: Reaso n for Exam Abdominal pain;Tarry stool;Change in bowel habits;Bloating Result Comment: Conc entration Interpretation Follow-Up <16 - 50 ug/g Normal None >50 -120 ug/g Borderline Re-evaluate in 4-6 weeks >120 ug/g Abnormal Repeat as clinically indicated Performed at: - [facility] [id number] Loader Operator: Be Pierre MD, Phone: [phone] PERFORMED BY: [place] [id number] PATHOLOGIST ASSISTANT PRESSMAN SVETLANA DELGADILLO M.D. Performed By: #### C ALPROTECT #### [facility] , Calprotectin, Fecal 34 0-120 [facility] Other C reactive protein [Mass/vol ume] in Serum or PlasmaOrdered By: Danna Sarmiento on 09-30-2022 CRP [Mass/Vol] 0.6 mg/dL 0.0-1.0 [facility] C-Reactive Proteinon 023 C-Reactive Protein 0.6 mg/dL Normal 0.0-1.0 [facility] Comment on above: Order Comment: Reaso n for Exam Abdominal pain;Tarry stool;Change in bowel habits;Bloating Result Comment: PERF ORMED BY: [place] [address] PATHOLOGIST ASSISTANT PRESSMAN SVETLANA DELGADILLO M.D. Performed By: #### C ELIAC GEN, CELIAC #### [facility] , #### CRP, ESR #### [facility] [address] [place] [address] C-Reactive Protein 0.6 mg/dL Normal 0.0-1.0 mg/dL [facility] Other Celiacon 09-30-2022 Deamidated Gliadin Abs, IgA 4 Normal 0-19 [facility] Comment on above: Order Comment: Reaso n for Exam Abdominal pain;Tarry stool;Change in bowel habits;Bloating Result Comment: Nega tive 0 - 19 Weak Positive 20 - 30 Moderate to Strong Positive >30 Performed By: #### C ELIAC GEN, CELIAC #### [facility] , #### CRP, ESR #### [facility] [address] [place] [address] Deamidated Gliadin Abs, IgG 3 Normal 0-19 [facility] Comment on above: Order Comment: Reaso n for Exam Abdominal pain;Tarry stool;Change in bowel habits;Bloating Result Comment: Nega tive 0 - 19 Weak Positive 20 - 30 Moderate to Strong Positive >30 Performed By: #### C ELIAC GEN, CELIAC #### [facility] , #### CRP, ESR #### [address] Endomysial Antibody IgA Negative Normal Negative [facility] Comment on above: Order Comment: Reaso n for Exam Abdominal pain;Tarry stool;Change in bowel habits;Bloating Performed By: #### C ELIAC GEN, CELIAC #### [facility] , #### CRP, ESR #### [address] Immunoglobulin A, Qn, Serum 281 mg/dL Normal 64-422 [facility] Comment on above: Order Comment: Reaso n for Exam Abdominal pain;Tarry stool;Change in bowel habits;Bloating Result Comment: Perf ormed at: - [facility] [place] [id number] Loader Operator: Ez Brantley PhD, Phone: [phone] Performed By: #### C ELIAC GEN, CELIAC #### [facility] , #### CRP, ESR #### [address] T-Transglutaminase (tTG) IgA <2 Normal 0-3 [facility] Comment on above: Order Comment: Reaso [...] #### [facility] , #### CRP, ESR #### [address] T-Transglutaminase (tTG) IgG <2 Normal 0-5 [facility] Comment on above: Order Comment: Reaso n for Exam Abdominal pain;Tarry stool;Change in bowel habits;Bloating Result Comment: Nega tive 0 - 5 Weak Positive 6 - 9 Positive >9 Performed By: #### C ELIAC GEN, CELIAC #### [facility] , #### CRP, ESR #### [facility] [address] Celiac 4 0-19 [facility] Other Celiac 3 0-19 [facility] Other Celiac <2 0-5 [facility] Other Celiac Negative Negative [facility] Other Celiac 281 mg/dL 64-422 mg/dL [facility] Other Celiac Disease Genetics HLA DQon 09-30-2022 CDDQ2 Additional Information Normal . [facility] Comment on above: Order Comment: Reaso n for Exam Abdominal pain;Tarry stool;Change in bowel habits;Bloating Result Comment: Refe rences: 1. Eric FISHER and Sandy Rush. Celiac Disease. N Eng J Med 2007; 357:6346-7550. 2. Yumiko F, Roca B, Bonarigobertoo M et al. HLA-DQ and risk gradient for celiac disease. Hum Immunol 2009; 70:55-59. 3. Clement MM, Pekin TC, Ernesto FM et al. Stratifying risk for celiac disease in a large at-risk [facility] population by using HLA alleles. Clin Gastroenterol Hepatol 2009; 7:966-971. 4. Doretha ROSE and Lelo BA. (2005). Celiac Disease Genetics: Current Concepts and Practical Applications. Clin Gastroenterol and Hepat 3:843-851. 5. Sarah CL, Obed DO, Eric FISHER, et al. Celiac Disease. In: Bandar RA, Aldo TC, Kana CR, Sary K, editors. [employer]), [facility], [place], March 01, 2008:1-27. http://www.ncbi.nlm.nih.gov/bookshelf/br.fcgi?book=genepart=andra ac PMID 16530297 (PubMed) 6. Lilli Baker. Emerging concepts in celiac disease. Curr Opin Pediatr 2004;16:552-559. Performed at: 2Q [facility] [id number] [place], [place] [id number] Loader Operator: Garry Brennan PhD, Phone: [phone] PERFORMED BY: [place] [address] PATHOLOGIST ASSISTANT PRESSMAN SVETLANA DELGADILLO M.D. Performed By: #### C ELIAC GEN, CELIAC #### [facility] , #### CRP, ESR #### [address] Comment: Normal . [facility] Comment on above: Order Comment: Reaso n for Exam Abdominal pain;Tarry stool;Change in bowel habits;Bloating Result Comment: This test was performed using Polymerase Chain Reaction/(PCR)Sequence Specific Oligonucleotide Probes (SSOP) (myAchy) technique. Sequence Based Typing (SBT) and/or Sequence Specific Primers (SSP) may be used as supplemental methods when necessary. Please contact HLA Customer Service at if you have any questions. Director of HLA Laboratory Dr Garry Brennan, PhD Performed By: #### C ELIAC GEN, CELIAC #### [facility] , #### CRP, ESR #### [place] [address] [place] Dq2 (Dqa1 0501/0505,Dqb1 02Xx) Positive Normal . [facility] Comment on above: Order Comment: Reaso n for Exam Abdominal pain;Tarry stool;Change in bowel habits;Bloating Performed By: #### C ELIAC GEN, CELIAC #### [facility] , #### CRP, ESR #### [place] [address] [place] Dq8 (Dqa1 03Xx, Dqb1 0302) Negative Normal . [facility] Comment on above: Order Comment: Reaso n for Exam Abdominal pain;Tarry stool;Change in bowel habits;Bloating Result Comment: Mariam morse Results: DQA1*02:EESCV,05:EEMXY DQB1*02:EENUF,02:EENUG Code Translation: EEMXY 05:09/03:15N/05:18/05:1905:23/:27/05:33 /05:35/05:38/05:40/05:4105:47/05:49/05:52 /05:54Q/05:55/05:56/05:57/05:61 EENUF 02:01:03:02/28:03/31:05/01:13/10::53Q/02:59/02:63/02:72/02:83/02:93 /02:96N/02:98/02:99/02:102/02:105/02:106 /02:107/02:108/02:109/02:111/02:112/02:114 /02:115/02:118/02:119/02:123/02:125/02:128 /02:130/02:132N/02:134N/02:135/02:136 /02:148/02:149/02:152/02:155/02:157/02:158 /02:159/02:160/02:163N/02:164/02:170 /02:174/02:182/02:184/02:185/02:186/02:188 /02:189/02:190/02:191/02:193/02:196/02:197 /02:198/02:202 EENUG 02:02/02:11/02:12/02:20N/02:26/02:50/02:62 /02:65/02:71/02:80/02:84/02:89/02:95/02:97 /02:110/02:113/02:116/02:117/02:120/02:122 /02:124/02:126/02:127/02:131/02:137/02:138 /02:142/02:143/02:145/02:146/02:147/02:150 /02:153/02:156/02:161/02:162N/02:165 /02:167N/02:171Q/02:172/02:175/02:176N /02:179/02:183N/02:187/02:194N/02:199 /02:200/02:201/02:203/02:204N EESCV 09/01//////////// /// 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 Celiac Disease risk from the HLA DQA/DQB genotype is approximately 1:10 (10%) Allele interpretation for all loci based on IMGT/HLA database version 3.49.0 HLA Lab CLIA ID Number [id number] Greater than 95% of celiac patients are positive for either DQ2 or DQ8 (Doretha and Krysta, (1993) Gastroenterology 105:910-922). However these antigens may also be present in patients who do not have Celiac disease. Performed By: #### C ELIAC GEN, CELIAC #### [facility] , #### CRP, ESR #### [address] Celiac Disease Genetics HLA DQ Positive . [facility] Other Celiac Disease Genetics HLA DQ . [facility] Other Erythrocyte Sedimentation Ra ramirez 09-30-2022 ESR (Bld) [Velocity] 13 mm/h Normal 0-29 [facility] Other Comment on above: Order Comment: Reaso n for Exam Abdominal pain;Tarry stool;Change in bowel habits;Bloating Result Comment: PERF ORMED BY: [place] [address] PATHOLOGIST ASSISTANT PRESSMAN SVETLANA DELGADILLO M.D. Performed By: #### C ELIAC GEN, CELIAC #### [facility] , #### CRP, ESR #### [facility] [address] Erythrocyte sedimentation ra te by Photometric methodOrdered By: Imad Asaad on 09-30-2022 ESR Photometric method (Bld) [Velocity] 13 mm/hr 0-29 [facility] Human leukocyte antigen (HLA ) DQ2 detectionOrdered By: Imad Asaad on 09-30-2022 HLA-DQ2 Ql (Bld/Tiss) Positive . [facility] Human leukocyte antigen (HLA ) DQ8 detectionOrdered By: Imad Asaad on 09-30-2022 HLA-DQ8 Ql (Bld/Tiss) Negative . [facility] Comment on above: Final Results:DQA1*0 2:EESCV,05:EEMXYDQB1*02:EENUF,02:EENUGCode Translation:EEMXY 05:01:15N/05:18:19:23:27:33 /05:35/05:38/05:40/05:41/05:47/05:49/05:52 /05:54Q/05:55/05:5605:5705:61EENUF 02:01:03/02:07/:08:09:13/10::53Q/02:59/02:63/02:72/02:83/02:93 /02:96N/02:98/02:99/02:102/02:105/02:106 /02:107/02:108/02:109/02:111/02:112/02:114 /02:115/02:118/02:119/02:123/02:125/02:128 /02:130/02:132N/02:134N/02:135/02:136 /02:148/02:149/02:152/02:155/02:157/02:158 /02:159/02:160/02:163N/02:164/02:170 /02:174/02:182/02:184/02:185/02:186/02:188 /02:189/02:190/02:191/02:193/02:196/02:197 /02:198/02:202EENUG 02:02/02:11:12/:20N/02:26/02:50/02:62 /02:65/02:71/02:80/02:84/02:89/02:95/02:97 /02:110/02:113/02:116/02:117/02:120/02:122 /02:124/02:126/02:127/02:131/02:137/02:138 /02:142/02:143/02:145/02:146/02:147/02:150 /02:153/02:156/02:161/02:162N/02:165 /02:167N/02:171Q/02:172/02:175/02:176N /02:179/02:183N/02:187/02:194N/02:199 /02:200/02:201/02:203/02:204NEESCV /////////15/16/// ////The patient is positive for DQ2 and is homozygous forDQB1*02. Celiac Disease risk from the HLA DQA/DQBgenotype is approximately 1:10 (10%)Allele interpretation for all loci based on IMGT/HLAdatabase version 3.49.0A Lab [place] ID Number [id number] than 95% of celiac patients are positive for eitherDQ2 or DQ8 (Doretha and Krysta, (1993) Izatpnzwajjoobnk311:910-922). However these antigens may also be present inpatients who do not have Celiac disease. IgA [Mass/volume] in Serum o r PlasmaOrdered By: Danna Sarmiento on 09-30-2022 IgA [Mass/Vol] 281 mg/dL 64-422 [facility] Comment on above: Performed at: [address] [id number] Director: Ez Brantley PhD, Phone: [phone] No Panel InformationOrdered By: Danna Sarmiento on 09-30-2022 Celiac Gene Interpretation See comment . [facility] Comment on above: References:1. Eric FISHER and Sandy Rush. Celiac Disease. N Eng J Med 2007; 357:6148-1978.2. Yumiko F, Chanelle B, Cristino M et al. HLA-DQ and risk gradient for celiac disease. Hum Immunol 2009; 70:55-59.3. Clement MM, Krishan TC, Ernesto FM et al. Stratifying risk for celiac disease in a large at-risk [facility] [place] [facility] Hospital population by using HLA alleles. Clin Gastroenterol Hepatol 2009; 7:966-971.4. Doretha ROSE and Lelo BA. (2005). Celiac Disease Genetics: Current Concepts and Practical Applications. Clin Gastroenterol and Hepat 3:843-851.5. Sarah CL, Obed DO, Eric FISHER, et al. Celiac Disease. In: Bandar RA, Aldo TC, Kana CR, Sary K, editors. [employer]), [facility], [place], March 01, 2008:1-27. http://www.ncbi.nlm.nih.gov/bookshelf/br.fcgi?book=genepart=andra ac PMID 82654250 (PubMed)6. Lilli Baker. Emerging concepts in celiac disease. Curr Opin Pediatr 2004;16:552-559.Performed at: [address] [place] [address] [id number] Director: Garry Brennan PhD, Phone: [phone] Endomysial IgA Antibody Negative Negative [facility] HLA Genotype Interpretation See comment . [facility] Comment on above: This test was perfor med using Polymerase ChainReaction/(PCR)Sequence Specific Oligonucleotide Probes(SSOP) (Luminex) technique. Sequence Based Typing (SBT)and/or Sequence Specific Primers (SSP) may be used assupplemental methods when necessary. Please contact HLACustomer Service at if you have anyquestions.Director of HLA LaboratoryDr Garry Brennan, PhD Serum gliadin peptide IgA an tibody assay (units/volume)Ordered By: Danna Sarmiento on 09-30-2022 Gliadin peptide IgA Qn (S) 4 units 0-19 [facility] Comment on above: Negative 0 - 19 Weak Positive 20 - 30 Moderate to Strong Positive >30 Serum gliadin peptide IgG an tibody assay (units/volume)Ordered By: Quibbaurora Marshallaurora on 09-30-2022 Gliadin peptide IgG Qn (S) 3 units 0-19 [facility] Comment on above: Negative 0 - 19 Weak Positive 20 - 30 Moderate to Strong Positive >30 Serum tissue transglutaminas e (tTG) IgA antibody assay (units/volume)Ordered By: Quibbad twiDAQ on 09-30-2022 tTG IgA Qn (S) <2 U/mL 0-3 [facility] Comment on above: Negative 0 - 3 Weak Positive 4 - 10 Positive >10 Tissue Transglutaminase (tTG) has been identified as the endomysial antigen. Studies have demonstr- ated that endomysial IgA antibodies have over 99% specificity for gluten sensitive enteropathy. Serum tissue transglutaminas e (tTG) IgG antibody assay (units/volume)Ordered By: [employer] on 09-30-2022 tTG IgG Qn (S) <2 U/mL 0-5 [facility] Comment on above: Negative 0 - 5 Weak Positive 6 - 9 Positive >9 Pato 02-11-2022 L --- Specimen: [id number] Received: 02/11/22 Status: RASTA Syed Num: [id number] Spec Type: Surgical Subm Dr: Philippe Barrett Jr, DO Tissues: A Stomach - Biopsy/Polyp (STOMACH BX) B Colon Biopsy (RECTUM BX) Procedures: HE Stain/4, Gross/Micro L4/2 Patient Age/Sex Location Account Attending Physician Sharon Sousa 76/F [id number] Philippe Barrett Jr, DO SPEC NUM: [id number] RECD: 02/11/22 STATUS: RASTA LUCIA NUM: [id number] ROXY: 02/11/22-[address] [facility] [address]: Philippe Barrett Jr, DO ENTERED: 02/11/22-[address]: HEATHER TYPE: Surgical DEPT: S ORDERED: [...] Type of Fixative: 10% Neutral Buffered Formalin (NATACHA/YJ) B. Received in formalin labeled with the patient's name, number and rectum biopsy are 3 kay tissue fragments, 0.2 cm to 0.3 cm. Entirely submitted in one cassette labeled B1. Type of Fixative: 10% Neutral Buffered Formalin (NATACHA/YJ) Specimen: [id number] Received: 02/11/22 Status: RASTA Syed Num: [id number] Spec Type: Surgical Subm Dr: Philippe Barrett Jr, DO Tissues: A Stomach - Biopsy/Polyp (STOMACH BX) B Colon Biopsy (RECTUM BX) Procedures: HE Stain/4, Gross/Micro L4/2 Patient: KareemSeymourSharon [id number] (Continued) Specimen: [id number] Received: 02/11/22 (Continued) Signed (signature on file) Iliana Bateman MD 02/12/22 1559 Specimen: [id number] Received: 02/11/22 Status: RASTA Syed Num: [id number] Spec Type: Surgical Subm Dr: Philippe Barrett Jr, DO Tissues: A Stomach - Biopsy/Polyp (STOMACH BX) B Colon Biopsy (RECTUM BX) Procedures: HE Stain/4, Gross/Micro L4/2 Patient: Sharon Sousa [id number] (Continued) Specimen: [id number] Received: 02/11/22 (Continued) Microscopic Description A. Two [...] characteristics were determined by the Laboratory of [facility]. Immunohistochemistry assays have not been validated on decalcified tissue. Results should be interpreted with caution given the possibility of false negative results on decalcified specimens. They have not been cleared by the [place] Food and Drug Administration. The FDA has determined that such clearance or approval is not necessary. CPT Codes 64420?2, 39184 Specimen: [id number] Received: 02/11/22 Status: RASTA Syed Num: [id number] Spec Type: Surgical Subm Dr: Philippe Barrett Jr, Tissues: A Stomach - Biopsy/Polyp (STOMACH BX) B Colon Biopsy (RECTUM BX) Procedures: HE Stain/4, Gross/Micro L4/2 Patient: Sharon Sousa [id number] (Continued) Signed (signature on file) Iliana Bateman MD 02/12/22 0805 [facility] COVID[place]19 [facility] [place] SARS-CoV-2 (COVID-19) RNA KELY+probe Ql (Unsp spec) Negative Normal Negative [facility] Comment on above: Order Comment: Healt hcare Worker?: N Result Comment: Testing for SARS-CoV-2 by RT-PCR This test was developed and its performance characteristics determined by [employer] and validated at the [facility]. This test has not been FDA [...] is terminated or revoked sooner. PERFORMED BY: [place] [address] PATHOLOGIST ASSISTANT PRESSMAN SVETLANA DELGADILLO M.D. Performed By: #### C OVID 19 [facility] [place] #### [address] XR DEXA BONE DENSITYon 05-27 XR [...] PHILIPPE WALLACE Date: 2020-05-27 13:18 Normal [facility] CBC AUTO DIFFon 11-01-2019 Basophils (Bld) [#/Vol] 0.0 103/ul Normal 0.0-0.1 [facility] Comment on above: Performed By: #### C BC #### [facility] [address] [place], [place] [id number] Erin Estephania Basophils/100 WBC (Bld) 0.3 % Normal 0.2-2.0 [facility] Comment on above: Performed By: #### C BC #### [facility] [address] [place], [place] [id number] Erin Estephania Eosinophils (Bld) [#/Vol] 0.0 103/ul Normal 0.0-0.7 [facility] Comment on above: Performed By: #### C BC #### [facility] [address] [place], [place] [address] Erin Estephania Eosinophils/100 WBC (Bld) 0.1 % Critically low 0.9-7.0 [facility] Comment on above: Performed By: #### C BC #### [facility] [address] [place], [place] [address] Erin Estephania Erythrocyte distribution width (RBC) [Ratio] 13.8 % Normal 11.0-15.0 [facility] Comment on above: Performed By: #### C BC #### [facility] [address] [place], [place] [address] Erin Estephania Hematocrit (Bld) [Volume fraction] 40.1 % Normal 36.0-48.0 [facility] Comment on above: Performed By: #### C BC #### [facility] [address] [place], [place] [address] Erin Estephania Hemoglobin (Bld) [Mass/Vol] 13.6 g/dL Normal 12.0-16.0 [facility] Comment on above: Performed By: #### C BC #### [facility] [address] [place], [place] [address] Erin Estephania IG # 0.04 10e3/ul Critically high 0.00-0.03 [facility] Comment on above: Performed By: #### C BC #### [facility] [address], [place] [address] Erin Estephania IG % 0.4 % Normal 0.0-0.5 [facility] Comment on above: Performed By: #### C BC #### [facility] [address], [place] [address] Erin Estephania Lymphocytes (Bld) [#/Vol] 1.4 103/ul Normal 1.2-3.8 [facility] Comment on above: Performed By: #### C BC #### [facility] [address] [place] [id number] Erin Estephania Lymphocytes/100 WBC (Bld) 13.5 % Critically low 20.5-60.0 [facility] Comment on above: Performed By: #### C BC #### [facility] [address] [place], [place] [address] Erin Estephania MANUAL DIFF REQ NO Normal [facility] Comment on above: Performed By: #### C BC #### [facility] [address] [place] [address] Erin Estephania MCH (RBC) [Entitic mass] 30.5 pg Normal 26.7-34.0 [facility] Comment on above: Performed By: #### C BC #### [facility] [address] [place] [address] Erin Estephania MCHC (RBC) [Mass/Vol] 33.9 g/dL Normal 29.9-35.2 [facility] Comment on above: Performed By: #### C BC #### [facility] [address] [place] [address] Erin Estephania MCV (RBC) [Entitic vol] 89.9 fL Normal 81.0-99.0 [facility] Comment on above: Performed By: #### C BC #### [facility] [address] [place] [address] Erin Estephania Monocytes (Bld) [#/Vol] 0.5 103/ul Normal 0.3-0.8 [facility] Comment on above: Performed By: #### C BC #### [facility] [address], [place] [address] Erin Estephania Monocytes/100 WBC (Bld) 5.0 % Normal 1.7-12.0 [facility] Comment on above: Performed By: #### C BC #### [facility] [address], [place] [address] Erin Estephania Neutrophils (Bld) [#/Vol] 8.2 103/ul Critically high 1.4-6.5 [facility] Comment on above: Performed By: #### C BC #### [facility] [address], [place] [address] Erin Estephania Neutrophils/100 WBC (Bld) 80.7 % Critically high 43.0-75.0 [facility] Comment on above: Performed By: #### C BC #### [facility] [address] [place] [address] Erin Estephania Platelet mean volume (Bld) [Entitic vol] 10.5 fL Normal 9.5-13.5 [facility] Comment on above: Performed By: #### C BC #### [facility] [address] [place] [address] Erin Estephania Platelets (Bld) [#/Vol] 212 103/ul Normal 150-450 [facility] Comment on above: Performed By: #### C BC #### [facility] [address], [place] [address] Erin Estephania RBC (Bld) [#/Vol] 4.46 106/ul Normal 4.20-5.40 [facility] Comment on above: Performed By: #### C BC #### [facility] [address], [place] [address] Erin Estephania WBC (Bld) [#/Vol] 10.2 103/ul Normal 4.0-11.0 [facility] Comment on above: Performed By: #### C BC #### [facility] [address], [place] [address] Erin Estephania ER URINE PROFILEon 0 Bilirubin [Mass/Vol] Negative Normal NEGATIVE [facility] Comment on above: Performed By: #### EVANGELINA ALVARENGA #### [facility] [address] [place] [address] Erin Estephania BLOOD MODERATE Normal NEGATIVE [facility] Comment on above: Performed By: #### EVANGELINA ALVARENGA #### [facility] [address] [place] [address] Erin Estephania Clarity (U) CLEAR Normal [facility] Comment on above: Performed By: #### EVANGELINA ALVARENGA #### [facility] [address] [place] [address] Erin Estephania Color (U) LT. YELLOW Normal YELLOW [facility] Comment on above: Performed By: #### EVANGELINA ALVARENGA #### [facility] [address] [place] [address] Erin Estephania ERUAHD A micrscopic examination will be performed if indicated. Normal [facility] Comment on above: Performed By: #### EVANGELINA ALVARENGA #### [facility] [address] [place] [address] Erin Estephania Glucose [Mass/Vol] Negative Normal NEGATIVE [facility] Comment on above: Performed By: #### EVANGLEINA ALVARENGA #### [facility] [address] [place] [address] Erin Estephania Ketones Ql (U) Negative Normal NEGATIVE [facility] Comment on above: Performed By: #### EVANGELINA ALVARENGA #### [facility] [address] [place] [address] Erin Estephania Nitrite Ql (U) Negative Normal NEGATIVE [facility] Comment on above: Performed By: #### EVANGELINA ALVARENGA #### [facility] [address] [place] [address] Erin Estephania pH (Bld) 5.0 Normal 5-9 [facility] Comment on above: Performed By: #### EVANGELINA ALVARENGA #### [facility] [address] [place] [address] Erin Estephania Protein (U) [Mass/Vol] Negative Normal [facility] Comment on above: Performed By: #### BRODY ALVARENGARO #### [facility] [address] [place] [address] Erin Best SPEC GRAVITY 1.025 Normal 1.005-<=1.0 25 [facility] Comment on above: Performed By: #### BRODY ALVARENGARO #### [facility] [address] [place] [address] Erin Best UR MICRO IND INDICATED Normal [facility] Comment on above: Performed By: #### BRODY ALVARENGARO #### [facility] [address] [place] [address] Erin Best Urobilinogen Qn (U) 0.2 EU/dl Normal [facility] Comment on above: Performed By: #### BRODY ALVARENGARO #### [facility] [address] [place] [address] Erin Best WBC (Bld) [#/Vol] TRACE Normal NEGATIVE [facility] Comment on above: Performed By: #### BRODY ALVARENGARO #### [facility] [address] [place] [address] Erin Best LACTATE/LACTIC ACIDon 2019 Lactate [Moles/Vol] 1.1 mmol/L Normal 0.7-2.0 [facility] Comment on above: Performed By: #### L ACT #### [facility] [address] [place] [address] Erin Best LIPASEon 11-01-2019 Lipase [Catalytic activity/Vol] 151.0 U/L Normal 23.0-300.0 [facility] Comment on above: Performed By: #### C PIOTR KOTHARI, TROP #### [facility] [address] [place] [address] Erin Best PROF 14(COMP METB)on 020 Albumin [Mass/Vol] 3.5 g/dL Normal 3.5-5.0 [facility] Comment on above: Performed By: #### C PIOTR KOTHARI, TROP #### [facility] [address] [id number] Erni Estephania Albumin/Globulin [Mass ratio] 0.9 {ratio} Normal [facility] Comment on above: Performed By: #### C MP, LIPA, TROP #### [facility] [address], [place] [address] Erin Estephania ALP [Catalytic activity/Vol] 96 U/L Normal 38-126 [facility] Comment on above: Performed By: #### C MP, LIPA, TROP #### [facility] [address] [address] Erin Estephania ALT [Catalytic activity/Vol] 20 U/L Normal 9-52 [facility] Comment on above: Performed By: #### C MP, LIPA, TROP #### [facility] [address] [address] Erin Estephania Anion gap [Moles/Vol] 10.9 mmol/L Normal [facility] Comment on above: Performed By: #### C MP, LIPA, TROP #### [facility] [address] [address] Erin Estephania AST [Catalytic activity/Vol] 18 U/L Normal 14-36 [facility] Comment on above: Performed By: #### C MP, LIPA, TROP #### [facility] [address] [place] [id number] Erin Estephania Bilirubin Ql (U) 0.6 mg/dL Normal 0.2-1.3 [facility] Comment on above: Performed By: #### C MP, LIPA, TROP #### [facility] [address] [id number] Erin Estephania Calcium [Mass/Vol] 9.2 mg/dL Normal 8.4-10.2 [facility] Comment on above: Performed By: #### C MP, LIPA, TROP #### [facility] [address] [address] Erin Estephania Chloride [Moles/Vol] 107 mmol/L Normal 98-107 [facility] Comment on above: Performed By: #### C MP, LIPA, TROP #### [facility] [address] [address] Erin Estephania CO2 [Moles/Vol] 25.8 mmol/L Normal 22.0-30.0 [facility] Comment on above: Performed By: #### C MP, LIPA, TROP #### [facility] [address] [address] Erin Estephania Creatinine [Mass/Vol] 0.85 mg/dL Normal 0.52-1.04 [facility] Comment on above: Performed By: #### C MP, LIPA, TROP #### [facility] [address] [address] Erin Estephania EGFR-AF ECUADOREAN >60 Normal >=60 [facility] Comment on above: Performed By: #### C MP, LIPA, TROP #### [facility] [address] [address] Erin Estephania EGFR-NON AF ECUADOREAN >60 Normal >=60 [facility] Comment on above: Performed By: #### C MP, LIPA, TROP #### [facility] [address] [id number] Erin Estephania Globulin (S) [Mass/Vol] 3.8 g/dL Normal [facility] Comment on above: Performed By: #### C MP, LIPA, TROP #### [facility] [address] [address] Erin Estephania Glucose [Mass/Vol] 105 mg/dL Normal 74-106 [facility] Comment on above: Performed By: #### C MP, LIPA, TROP #### [facility] [address] [id number] Erin Estephania Potassium [Moles/Vol] 3.7 mmol/L Normal 3.4-5.0 [facility] Comment on above: Performed By: #### C MP, LIPA, TROP #### [facility] [address] [address] Erin Estephania Protein [Mass/Vol] 7.3 g/dL Normal 6.1-8.2 [facility] Comment on above: Performed By: #### C MP LIPA, TROP #### [facility] [address] [address] Erin Estephania Sodium [Moles/Vol] 140 mmol/L Normal 137-145 [facility] Comment on above: Performed By: #### C MP, LIPA, TROP #### [facility] [address] [address] Erin Estephania Urea nitrogen [Mass/Vol] 21.0 mg/dL Critically high 7.0-17.0 [facility] Comment on above: Performed By: #### C MP LIPA, TROP #### [facility] [address] [place] [address] Erin Estephania Urea nitrogen/Creatinine [Mass ratio] 24.7 mg/mg Normal [facility] Comment on above: Performed By: #### C MP LIPA, TROP #### [facility] [address] [place] [address] Erin Estephania PROTIMEon 11-01-2019 INR Coag (PPP) [Relative time] 1.03 {INR} Normal [facility] Comment on above: Performed By: #### P TT, PT #### [facility] [address] [place] [address] Erin Estephania PT Coag (PPP) [Time] 10.7 s Normal 9.0-11.6 [facility] Comment on above: Performed By: #### P TT, PT #### [facility] [address] [place] [address] Erin Estephania PT Coag (PPP) [Time] SEE BELOW Normal [facility] Comment on above: Result Comment: CONG RED INR: 2.0 - 3.0 CONDITIONS NOT LISTED BELOW 2.5 - 3.5 FOR PROSTHETIC HEART VALVE REPLACEMENT 2.5 - 3.5 RECURRENT THROMBOSIS Performed By: #### P TT, PT #### [facility] [address] [place] [address] Erin Estephania PT Coag (PPP) [Time] PLEASE NOTE: NORMAL RANGE CHANGE 05-17-2014 DUE TO REAGENT LOT CHANGE Normal [facility] Comment on above: Performed By: #### P TT, PT #### [facility] [address] [place], [place] [address] Erin Best PTTon 11-01-2019 aPTT Coag (Bld) [Time] 27.1 s Normal 22.3-36.2 [facility] Comment on above: Performed By: #### P TT, PT #### [facility] [address] [place] [address] Erinrufus Best aPTT Coag (Bld) [Time] PLEASE NOTE: NORMAL RANGE CHANGE 07-24-2015 DUE TO REAGENT LOT CHANGE Normal [facility] Comment on above: Performed By: #### P TT, PT #### [facility] [address] [place] [address] Erin Best TROPONIN - Ion 11-01-2019 Troponin I.cardiac [Mass/Vol] SEE BELOW Normal [facility] Comment on above: Result Comment: <0.0 34 ng/ml NEGATIVE 0.034-0.119 INDETERMINATE 0.120 AMI CUT OFF Performed By: #### C MP, LIPA, TROP #### [facility] [address] [place] [address] Erinrufus Best Troponin I.cardiac [Mass/Vol] ng/mL Normal <=0.034 [facility] Comment on above: Performed By: #### C MP, LIPA, TROP #### [facility] [address] [place], [place] [id number] Erin Estephania URINE MICROSCOPIC ONLYon Bacteria LM.HPF (Urine sed) [#/Area] TRACE Normal NONE SEEN [facility] Comment on above: Performed By: #### EVANGELINA ALVARENGA #### [facility] [address] [place] [address] Erin Estephania CAST SEEN Normal NONE SEEN [facility] Comment on above: Performed By: #### EVANGELINA ALVARENGA #### [facility] [address] [place] [address] Erin Estephania Crystals LM Nom (Urine sed) NONE SEEN Normal NONE SEEN [facility] Comment on above: Performed By: #### EVANGELINA ALVARENGA #### [facility] [address] [address] Erin Estephania CULTURE NOT INDICATED Normal [facility] Comment on above: Performed By: #### EVANGELINA ALVARENGA #### [facility] [address] [id number] Erin Estephania Epithelial cells LM.HPF (Urine sed) [#/Area] FEW Normal [facility] [facility] Comment on above: Performed By: #### EVANGELINA ALVARENGA #### [facility] [address] [address] Erin Estephania HYALINE CAST FEW Normal The [facility] Comment on above: Performed By: #### EVANGELINA ALVARENGA #### [facility] [address] [place] [address] Erin Estephania MUCOUS TRACE Normal NONE SEEN The [facility] Comment on above: Performed By: #### EVANGELINA ALVARENGA #### [facility] [address] [place] [address] Erin Estephania RBC (U) [#/Vol] 2-5 Normal 0-2 [facility] Comment on above: Performed By: #### EVANGELINA ALVARENGA #### [facility] [address] [place], [place] [id number] Erin Estephania WBC (Bld) [#/Vol] 2-5 Normal NONE SEEN The [facility] Comment on above: Performed By: #### EVANGELINA ALVARENGA #### [facility] [address] [place], [place] [id number] Erin Estephania MG MAMM SCREEN CHRISTINE W CADon 1 MG MAMM SCREEN CHRISTINE W CAD Patient: SHARON SOUSA Exam Date: 06/27/2019 : 1945 Gender:F Ordering : DR ESTEPHANIA ABARCA PA Admission #: [id number] Family : Order #: [id number] CLICK HERE TO VIEW EXAM RADIOLOGY REPORT [...] No Treatments None Family Cancers None LOCATION: [facility] BREAST COMPOSITION: Scattered areas fibroglandular density. FINDINGS: [...] Wallace M.D. on 06/27/2019 at 10:56 Normal [facility] Vital Signs Date Time Vital Sign Value Performing Clinician Facility 07-06-2024 15:30-0500 Body height 157.5 cm Estephania Hemmer PA Work Phone: [facility] 07-06-2024 15:30-0500 Body mass index (BMI) [Ratio] 20.16 kg/m2 Estephania Hemmer PA Work Phone: [facility] 07-06-2024 15:30-0500 Body temperature 98.71 [degF] Estephania Hemmer PA Work Phone: [facility] 07-06-2024 15:30-0500 Body weight 49.99 kg Estephania Hemmer PA Work Phone: [facility] 07-06-2024 15:30-0500 Diastolic blood pressure 76 mm[Hg] Estephania Hemmer PA Work Phone: [facility] 07-06-2024 15:30-0500 Heart rate 72 /min Estephania Hemmer PA Work Phone: [facility] 07-06-2024 15:30-0500 Respiratory rate 16 /min Estephania Hemmer PA Work Phone: [facility] 07-06-2024 15:30-0500 SaO2% (BldA) [Mass fraction] 98 % Estephania Hemmer PA Work Phone: [facility] 07-06-2024 15:30-0500 Systolic blood pressure 104 mm[Hg] Estephania BARRY Work Phone: [facility] 09-30-2022 14:45-0500 Body height 157.48 cm Imad Asaad Other [facility] Other 09-30-2022 14:45-0500 Body mass index (BMI) [Ratio] 21.03 kg/m2 Imad Asaad Other [facility] Other 09-30-2022 14:45-0500 Body weight 52.16 kg Imad Asaad Other [facility] Other 09-30-2022 14:45-0500 Diastolic blood pressure 87 mm[Hg] Imad Asaad Other [facility] Other 09-30-2022 14:45-0500 Systolic blood pressure 137 mm[Hg] Imad Asaad Other [facility] Other 01-28-2022 14:15-0400 Body height 157.48 cm Philippe Barrett Other [facility] Other 01-28-2022 14:15-0400 Body mass index (BMI) [Ratio] 20.12 kg/m2 Philippe Barrett Other [facility] Other 01-28-2022 14:15-0400 Body weight 49.9 kg Philippe Barrett Other [facility] Other Encounters Encounter Date Encounter Type Care Provider Facility Start: 07-06-2024 End: 07-06-2024 Office outpatient visit 25 minutes Estephania BARRY Work Phone: [facility] Comment on above: Epigastric pain (Jasmin margret Dx); Nausea and vomiting, unspecified vomiting type; Acute gastritis without hemorrhage, unspecified gastritis type; Frequent PVCs; Palpitations; Near syncope Start: 07-06-2024 End: 07-06-2024 ambulatory ESTEPHANIA ABARCA Not Available Start: 07-04-2024 End: 07-07-2024 Clinisync Result Encounter Generic External Data Provider [facility] Unsolicited Start: 07-04-2024 End: 07-07-2024 Clinisync Result Encounter Generic External Data Provider [facility] External [facility] Unsolicited Start: 05-10-2024 End: 05-10-2024 ambulatory GABINO LOOMIS Not Available Start: 11-18-2023 End: 11-18-2023 ambulatory PK ARMIJO Not Available Start: 10-04-2023 End: 10-04-2023 ambulatory GABINO LOOMIS Not Available Start: 12-14-2022 ambulatory Imad Asaad Facility:[facility] Start: 12-07-2022 End: 12-07-2022 ambulatory Imad Asaad Other [facility] Other Start: 12-07-2022 Telephone encounter Imad Asaad [facility] Start: 10-09-2022 End: 10-09-2022 ambulatory Imad Asaad Facility:[facility] Start: 10-09-2022 End: 10-09-2022 ambulatory II Gabino Loomis Work Phone: [facility] Work Phone: Start: 10-09-2022 End: 10-09-2022 Patient encounter procedure II Gabino Loomis Work Phone: [facility] Work Phone: Start: 09-30-2022 End: 09-30-2022 ambulatory Imad Asaad Facility:[facility] Start: 09-30-2022 End: 09-30-2022 Patient encounter procedure II Gabino Loomis Work Phone: [facility] Work Phone: Start: 09-30-2022 End: 09-30-2022 ambulatory II Gabinoinessa Loomis Work Phone: [facility] Work Phone: Start: 09-30-2022 Office consultation new/estab patient 60 min Imad Asaad [facility] Start: 02-16-2022 End: 02-16-2022 ambulatory Philippe John Paularamis Other [facility] Other Start: 02-16-2022 Telephone encounter Philippe John Paularamis [facility] Start: 02-11-2022 End: 02-11-2022 ambulatory Philippe Cokeraramis Facility:[facility] Start: 02-09-2022 End: 02-09-2022 ambulatory Philippe Morse Nena Facility:[facility] Start: 01-28-2022 End: 01-28-2022 ambulatory Philippe Nena Other [facility] Other Start: 01-28-2022 Office outpatient ne w 45 minutes Philippe Nena [facility] Start: 05-27-2020 End: 05-28-2020 Patient encounter procedure ESTEPHANIA ABARCA Facility:[facility] Start: 11-01-2019 End: 11-01-2019 Patient encounter procedure GABINO LOOMIS Facility: Start: 06-27-2019 End: 06-28-2019 Patient encounter procedure ESTEPHANIA ABARCA Facility: Procedures Date Procedure Procedure Detail Performing Clinician Start: 07-04-2024 Bacteria identified in Urine by Culture Generic External Data Provider Plan of Treatment Date Care Activity Detail Author Start: 11-17-2024 Medicare Annual Well ness (AWV) Medicare Annual Wellness (AWV) [facility] Start: 08-07-2024 End: 08-07-2024 Patient encounter procedure 08/07/2024 3:00 PM EST Office Visit [facility] [address] [facility] [address] [place] [id number] Gabino Loomis MD [address] [facility] [address] [place], [place] [id number] [facility] Start: 07-06-2024 End: 07-06-2025 Holter monitor study Holter monitor Imaging Routine Frequent PVCs Palpitations Near syncope Expected: 07/06/2024 (Approximate), Expires: 07/06/2025 [facility] Work Phone: Comment on above: Expected: 07/06/2024 (Approximate), Expires: 07/06/2025 Start: 04-30-2024 Influenza vaccination Influenza Vacc ine (#1) [facility] Start: 04-14-2019 Pneumococcal Vaccine : 65+ Years (2 of 2 - PCV) Pneumococcal Vaccine: 65+ Years (2 of 2 - PCV) [facility] Calprotectin [Mass/m ass] in Stool [facility] Endomysial antibody IgA level [facility] Gliadin peptide IgA Ab [Units/volume] in Serum [facility] Gliadin peptide IgG Ab [Units/volume] in Serum [facility] HLA DQ antigen typing [facility] IgA [Mass/volume] in Serum or Plasma [facility] Tissue transglutamin ase IgA Ab [Units/volume] in Serum [facility] Tissue transglutamin ase IgG Ab [Units/volume] in Serum [facility] Immunizations Immunization Date Immunization Notes Care Provider Krishan vera 09-03-2023 Influenza, High-dose Seasonal, Quadrivalent, Preservative Free Estephania BARRY Work Phone: [facility] 09-03-2023 influenza virus vacc ine, unspecified formulation Estephania BARRY Work Phone: [facility] 07-20-2022 Influenza, High-dose Seasonal, Quadrivalent, Preservative Free Estephania BARRY Work Phone: [facility] 07-20-2022 Moderna SARS-CoV-2 50mcg/0.5mL Booster Estephania BARRY Work Phone: [facility] 08-11-2021 COVID-19 mRNA-1273 (Moderna) II Gabino Loomis Work Phone: [facility] 05-29-2021 influenza, high dose seasonal, preservative-free Estephania BARRY Work Phone: [facility] 02-20-2021 tetanus toxoid, redu ryan diphtheria toxoid, and acellular pertussis vaccine, adsorbed Estephania BARRY Work Phone: [facility] 11-28-2020 COVID-19 mRNA-1273 (Moderna) II Gabino Vladislav Work Phone: [facility] 10-31-2020 COVID-19 mRNA-1273 (Moderna) II Gabino Vladislav Work Phone: [facility] 07-12-2020 Influenza, High-dose Seasonal, Quadrivalent, Preservative Free Estephania BARRY Work Phone: [facility] 04-14-2018 pneumococcal polysaccharide vaccine, 23 valent Estephania BARRY Work Phone: [facility] Payers Date Payer Category Payer Self-pay [id number] 2017 Medicare (Managed Care) [employer] [id number] 1959 Unknown [id number] 1945 Unknown [id number]. [id number] 1945 Unknown [id number] 2..[id number]. 2.593 1945 Unknown [id number] 2..[id number]. 2.593 1945 Unknown [id number] [id number]. 2.1259 1945 Unknown [id number] 2.16.840.1.442568.3.579. 2.1259 1945 Unknown [id number] 2.16.840.1.363377.3.579. 2.1259 1945 Unknown [id number] [id number]. 2.1259 Medicare Anthem MCR PFFS OP [id number] Unknown [id number] [id number]. 2.531 Unknown [id number] 2.16.840.1.905142.3.579. 2.531 Unknown [id number] 2.16.840.1.116489.3.579. 2.531 Unknown [id number] 2.16.840.1.893491.3.579. 2.531 Unknown [id number] [id number]. 2.531 Social History Date Type Detail Facility Start: 11-23-2023 End: 02-29-2024 Sex Assigned At [facility] Other Start: 1945 Sex Assigned At Female F [facility] Start: 03-04-2023 [facility] tobacco [facility] Start: 03-04-2023 Tobacco use and exposure Smokeless tobacco non-user [facility] Start: 07-06-2024 Alcoholic beverage intake Ex-drinker (finding) [facility] Start: 11-23-2023 End: 02-29-2024 History of Social function [facility] How often do you nee d to have someone help you when you read instructions, pamphlets, or other written material from your doctor or pharmacy [SILS] Always [facility] Within the last year , have you been afraid of your partner or ex-partner? No [facility] Are you now , , , , never or living with a partner? [facility] How often to you hav e a drink containing alcohol? Never [facility] Do you feel stress - tense, restless, nervous, or anxious, or unable to sleep at night because your mind is troubled all the time - these days [OSQ] Not at all [facility] (I/We) worried [facility] er (my/our) food would run out before (I/we) got money to buy more. Never true [facility] In the past 12 month s, was there a time when you were not able to pay the mortgage or rent on time? Yes [facility] Start: 1945 Sex assigned at Not on file [facility] History of Present illness Narrative 07-06-2024 JHONNY Monahan - 07/06/2024 3:30 PM EST Note Date & Type Note Facility 07-06-2024 History of Presen t illness Narrative Images from the original note were not included. Subjective Patient ID: Sharon Sousa is a 79 y.o. female who presents for [facility] ER follow up. Sharon is present today for [facility] ER follow up from 07/04/2024. Dx. Abdominal pain, nausea, vomiting, Rx'd Ondansetron and they are going to pick it up today. Symptoms did improve a little but then got bad again yesterday . Admits abdominal pain, nausea and she did vomit last night but has not vomited today. They were concerned about her heart rhythm, they did want to admit her but she refused, was advised to follow up with PCP. States she does notice on occasion that she has episodes when she feels like she is going to pass out. Drinks 2-3 glasses of water a day. Denies use of NSAID medications. Avoids trigger foods, spicy etc. Current Outpatient Medications on File Prior to Visit Medication Sig Dispense Refill donepezil (Aricept) 5 MG tablet Take 1 tablet (5 mg) by mouth at bedtime for 30 days, THEN 2 tablets (10 mg) at bedtime. (Patient not taking: Reported on 07/06/2024) 210 tablet 0 ergocalciferol (Drisdol) 1.25 MG (08439 UT) capsule Take 1 capsule (1.25 mg) by mouth 1 (one) time per week (Patient not taking: Reported on 07/06/2024) 12 capsule 3 levothyroxine (Synthroid, Levoxyl) 75 MCG tablet Take 1 tablet (75 mcg) by mouth Daily 100 tablet 2 lisinopril 5 MG tablet Take 1 tablet (5 mg) by mouth in the morning and 1 tablet (5 mg) before bedtime. 200 tablet 3 omeprazole (PriLOSEC) [address] capsule Take 1 capsule (40 mg) by mouth in the morning and 1 capsule (40 mg) before bedtime. 180 capsule 3 ondansetron ODT (Zofran-ODT) 4 MG disintegrating tablet Take 4 mg by mouth every 8 (eight) hours if needed [DISCONTINUED] Carafate 1 g tablet Take 1 g by mouth in the morning and 1 g in the evening and 1 g before bedtime. [DISCONTINUED] Multiple Vitamins-Minerals (Centrum Silver Ultra Womens) tablet Daily. No current facility-administered medications on file prior to visit. I have reviewed and reconciled the history and medication list with the patient today. Allergies Allergen Reactions Codeine Unknown Social History Tobacco Use Smoking status: Never Smokeless tobacco: Never Vaping Use Vaping status: Never Used Substance Use Topics Alcohol use: Not Currently Drug use: Never No family history on file. Past Medical History: Diagnosis Date Arthritis Colitis 2021 Duodenal ulcer 2011 Erosive gastritis 2011 Gastric polyp 2011 GERD (gastroesophageal reflux disease) Ovarian mass PUD (peptic ulcer disease) Retinal hemorrhage Past Surgical History: Procedure Laterality Date CHOLECYSTECTOMY COLONOSCOPY 2010 EGD 2011 EGD 2021 MASS EXCISION ovarian mass removal Visit Vitals BP 104/76 Pulse 72 Temp 98.7 F Resp 16 Ht 5' 2 Wt 110 lb 3.2 oz SpO2 98% BMI 20.16 kg/m Smoking Status Never BSA 1.48 m Review of Systems Constitutional: Negative for chills, fatigue and fever. Respiratory: Negative for cough, shortness of breath and wheezing. Cardiovascular: Positive for palpitations. Negative for chest pain and leg swelling. Gastrointestinal: Positive for abdominal pain, nausea and vomiting. Negative for constipation and diarrhea. Skin: Negative for rash. Neurological: Positive for syncope (Near syncope). Objective Physical Exam Constitutional: General: She is not in acute distress. Appearance: Normal appearance. She is well-developed. HENT: Head: Normocephalic and atraumatic. Eyes: General: No scleral icterus. Conjunctiva/sclera: Conjunctivae normal. Cardiovascular: Rate and Rhythm: Normal rate. Heart sounds: Normal heart sounds. No murmur heard. Comments: Frequent ectopic beats noted during auscultation Pulmonary: Effort: Pulmonary effort is normal. No respiratory distress. Breath sounds: Normal breath sounds. No wheezing, rhonchi or rales. Skin: General: Skin is warm and dry. Neurological: General: No focal deficit present. Mental Status: She is alert and oriented to person, place, and time. Psychiatric: Mood and Affect: Mood normal. Behavior: Behavior normal. Assessment/Plan Diagnoses and all orders for this visit: Epigastric pain Likely secondary to gastritis. 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 She can take this as needed for N/V. Avoid trigger foods. Acute gastritis without hemorrhage, unspecified gastritis type - famotidine (Pepcid) 20 MG tablet; Take 1 tablet (20 mg) by mouth Daily Has seen GI in the past. H/o EGD in 2021. Previous negative H pylori testing. Continue omeprazole as prescribed. Start famotidine once a day for at least the next few weeks to see if symptoms improve. Encouraged pt to try eating yogurt with active cultures once a day to work on balancing her gut microbiome. Frequent PVCs Provided pt with order to have holter monitor completed. Also ordered Cardiology referral, as recommended by the ER. Palpitations See above. Near syncope Encouraged her to increase her water intake, does not drink very much. The patient was seen today in follow up of recent hospital ER visit. All available hospital records/labs/diagnostics were reviewed and discussed with the patient. ER discharge meds were reviewed. Any changes to plan are noted above. Follow up in about 4 weeks (around 08/03/2024) for Recheck. documented in this encounter [facility] Evaluation note 09-30-2022 Note Date & Type Note Facility 09-30-2022 Evaluation note Encounter Date Diagnosis Assessment Notes Sep, Abdominal pain (ICD-10 - R10.9) Sep, Bloating (ICD-10 - R14.0) [facility] Other Evaluation note 01-28-2022 Note Date & Type Note Facility 01-28-2022 Evaluation note Encounter Date Diagnosis Assessment Notes Jan, Chronic gastritis (ICD-10 - K29.50) CONTINUE OMEPRAZOLE BID FOR NOW EGD [facility] AFTER Jan, Colitis (ICD-10 - K52.9) COLONOSCOPY Jan, Abdominal pain (ICD-10 - R10.9) [facility] Other Evaluation note Note Date & Type Note Facility Evaluation note No Information [facility] Other Evaluation note Note Date & Type Note Facility Evaluation note No assessment information availa [facility] Work Phone: Evaluation note Note Date & Type Note Facility Evaluation note Diagnosis Epigastric pain- Primary Abdominal pain, epigastric Nausea and vomiting, unspecified vomiting type Acute gastritis without hemorrhage, unspecified gastritis type Frequent PVCs Palpitations Near syncope documented in this encounter [facility] History general Narrative - Reported Note Date & Type Note Facility History general Narrative - Reported Type Medical History HTN Medical History GERD Medical History hypothyroidism Surgical History CHOLECYSTECTOMY Surgical History PARTIAL HYSTERECTOMY [facility] Other Summary Purpose Family History No Family [...] DATE CREATED AUTHOR AUTHOR'S ORGANIZ ATION 12/14/2022 [facility] DATE CREATED AUTHOR AUTHOR'S ORGANIZ ATION 07/08/2024 [facility] dical Specialists EPIC REASON FOR VISIT (unrecogniz ed section and content) PATIENT HERE AT THE REQUEST OF ESTEPHANIA ABARCA FOR CHRONIC GASTRITISCanasaPATIENT IS HERE FOR BLACK TARRY STOOLS AT THE REQUEST OF RONALD GOMEZER TO PEER REQUEST Care Teams (unrecognized sec tion and content) Team Status: Inactive Member Role Status Dates Gabino Loomis II MD Primary Care Provider Active Danna Sarmiento MD Attending Provider Active Team Status: Active Member Role Status Dates Gabino Loomis II MD Primary Care Provider Active Hand Riveter Relationship Specialty Start Date End Date Gabino Loomis MD [address] [place] [address] [place] [address] PCP - General Internal Medicine 02/15/23 Gabino Loomis MD [address] [place] [address] PCP - Vikki HOOK 03/30/24Wednesday, [place], RAIL CAR WELDER [address] [place] [address] Licensed Practical Nurse Family Medicine 11/18/23 Hand Riveter Relationship Specialty Start Date End Date Gabino Loomis MD [address] [place] [address] PCP - General Internal Medicine 02/15/23 Gabino Loomis MD [address] [place] [address] PCP - Vikki HOOK 03/30/24Wednesday, [place], RAIL CAR WELDER [address] [place] [address] Licensed Practical Nurse Family Medicine 11/18/23 Goals (unrecognized section and content) Goals may [...] BE BASED ON THE PRIMARY CLINICAL RECORDS. [employer] [facility]. provides no warranty or guarantee of the accuracy or completeness of information in this document.
== END 2024-07-18 13:01 | disposition home or self-care (01) ==
LOC: CARD 13:01
PROVIDERS: PCP Internal Medicine; Visit Provider Physician Assistant
DX: I49.3 Ventricular premature depolarization (principal); R00.2 Palpitations; R55 Syncope and collapse
CPT/HCPCS: 93242

== ENCOUNTER 2024-08-20 12:42 | Observation (INO) | payer MEDICARE, SELFPAY ==
[2024-08-20] VITALS (80 sets, daily range): BP systolic 123–163; BP diastolic 59–115; PULSE 53–151; TEMP 36.2–36.6; O2SAT 94–100; BMI 24.6; BMI 21.1
--- OUTSIDE RECORDS SUMMARY | 2024-08-20 12:50 | XMS_ITS | CCD ---
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, Trinidad Unavailable Gabino Loomis MD Unavailable GABINO LOOMIS Attending Unavailable PK ARMIJO Attending Unavailable GABINO LOOMIS Attending Unavailable ESTEPHANIA ABARCA Attending Unavailable GABINO LOOMIS Attending Unavailable Gabino Loomis MD Primary Care Provider Allergies Allergy Classification Reported Allergen(s) Allergy Type Date of Onset Reaction(s) Facility (1 source) Codeine Drug Allergy 7 [facility] Repository (4 sources) Codeine Drug Allergy Unknown [facility] Other (1 source) Codeine Drug Allergy 3 [facility] Repository (11 sources) Codeine Drug Allergy 7 Unknown, Confusion [facility] Medications Current Medications Medication Drug Class(es) Dates Sig (Normalized) Sig (Original) apixaban 5 mg oral tablet (1 source) Factor Xa Inhibitor Start: 08-18-2024 take 1 tablet by mouth in the morning, then take 1 tablet by mouth at bedtime apixaban (ELIQUIS) 5 mg tablet Take 1 tablet (5 mg total) by mouth in the morning and 1 tablet (5 mg total) before bedtime. 60 tablet 11 08/18/2024 Active dicyclomine hydrochloride 20 mg oral tablet (2 sources) Anticholinergic Start: 11-03-2021 take 1 tablet by mouth twice daily dicyclomine (BENTYL) 20 mg tablet Take 1 tablet (20 mg total) by mouth 2 (two) times a day. 20 tablet 11/03/2021 Active donepezil hydrochloride 5 mg oral tablet (8 sources) Start: 05-10-2024 End: 09-07-2024 take 1 tablet by mouth at bedtime, then take 2 tablets by mouth at bedtime donepezil (Aricept) 5 MG tablet Indications: Cognitive impairment Take 1 tablet (5 mg) by mouth at bedtime for 30 days, THEN 2 tablets (10 mg) at bedtime. 210 tablet 05/10/2024 09/07/2024 Active ergocalciferol 1.25 mg oral capsule (9 sources) Provitamin D2 Compound Start: 11-24-2023 End: 11-23-2024 take 1 capsule by mouth every week ergocalciferol (Drisdol) 1.25 MG (79673 UT) capsule Indications: Vitamin D deficiency Take 1 capsule (1.25 mg) by mouth 1 (one) time per week 12 capsule 3 11/24/2023 11/23/2024 Active famotidine 20 mg oral tablet (7 sources) Histamine-2 Receptor Antagonist Start: 07-06-2024 End: 08-07-2024 take 1 tablet by mouth once daily famotidine (Pepcid) 20 MG tablet Indications: Acute gastritis without hemorrhage, unspecified gastritis type Take 1 tablet (20 mg) by mouth Daily 30 tablet 11 08/07/2024 Active levothyroxine sodium 0.075 mg oral tablet (19 sources) l-Thyroxine Start: 02-10-2022 End: 05-10-2024 take 1 tablet by mouth once daily levothyroxine (Synthroid, Levoxyl) 75 MCG tablet Indications: Hypothyroidism, unspecified type (CMS/HCC) Take 1 tablet (75 mcg) by mouth Daily 100 tablet 2 05/10/2024 Active take 1 tablet by dulce th once daily in the morning Euthyrox 75 MCG 1 tablet in the morning on an empty stomach Orally Once a day Active Euthyrox Active lisinopril 5 mg oral tablet (17 sources) Angiotensin Converting Enzyme Inhibitor Start: 09-09-2023 End: 05-10-2025 take 1 tablet by mouth [...] 11:00pm take 1 tablet by dulce th twice daily Lisinopril 5 MG 1 tablet Orally twice daily Active Lisinopril Activ e losartan potassium 25 mg oral tablet (2 sources) Angiotensin 2 Receptor Shoshana take 1 tablet by mouth in the morning losartan (COZAAR) 25 mg tablet Take 1 tablet (25 mg total) by mouth in the morning. Active mesalamine 1000 mg rectal suppository (1 source) Aminosalicylate Start: 02-17-20 Canasa 1000 MG 1 suppository at bedtime Rectal Once a day for 14 days Jan, Active 24 hr metoprolol succinate 25 mg extended release oral tablet (1 source) beta-Adrenergic Shoshana Start: 08-18-20 24 take 1 tablet by mouth every twenty-four hours in the morning metoprolol succinate XL (TOPROL XL) 25 mg 24 hr tablet Take 1 tablet (25 mg total) by mouth in the morning. 90 tablet 3 08/18/2024 Active omeprazole 40 mg delayed release oral capsule (17 sources) Proton Pump Inhibitor Start: 02-11-20 End: 05-10-20 take 1 capsule by mouth in the morning omeprazole (PriLOSEC) [address] capsule Indications: Gastro-esophageal reflux disease without esophagitis Take 1 capsule (40 mg) by mouth in the morning and 1 capsule (40 mg) before bedtime. 180 capsule 3 05/10/2024 05/10/2025 Active take 1 capsule by mo [facility] every twelve hours Omeprazole 40 MG 1 capsule Orally bid Active ondansetron 4 mg disintegrating oral tablet (13 sources) Serotonin-3 Receptor Antagonist Start: 11-03-2021 End: 11-05-2024 take 1 tablet by mouth every eight hours as needed for nausea ondansetron ODT (ZOFRAN ODT) 4 mg disintegrating tablet Dissolve 1 tablet (4 mg total) on tongue every 8 (eight) hours as needed for nausea for up to 10 doses. 10 tablet 11/03/2021 Active Completed/Discontinued Medications Medication Drug Class(es) Dates Sig (Normalized) Sig (Original) 1 ml denosumab 60 mg/ml prefilled syringe (4 sources) RANK Ligand Inhibitor Start: 05-10-2024 End: 05-10-2024 denosumab (Prolia) injection 60 mg Start: 05-10-2024 End: 05-10-2024 inject 60 mg by subcutaneous injection once 60 mg, Subcutaneous, Once, On Wed05/10/24 at 1415, For 1 dose Start: 05-10-2024 End: 05-10-2024 denosumab (Prolia) injection 60 mg Start: 05-10-2024 End: 05-10-2024 inject 60 mg by subcutaneous injection once 60 mg, Subcutaneous, Once, On Wed05/10/24 at 1415, For 1 dose Multiple Vitamins-Minerals (Centrum Silver Ultra Womens) tablet (5 sources) End: 07-06-2024 Multiple Vitamins-Minerals (Centrum Silver Ultra Womens) tablet Daily. 07/06/2024 Discontinued Multiple Vitamin s-Minerals (Centrum Silver Ultra Womens) tablet Daily. Active sucralfate 1000 mg oral tablet (5 sources) Aluminum Complex Start: 09-09-2022 End: 07-06-2024 [...] Onset: 11-01-2019 Resolved: 01-28-2022 Episodic Cardiac dysrhythmias (8 sources) Multiple premature ventricular complexes; Translations: [Ventricular premature depolarization] 07-06-2024 Chronic Cardiac dysrhythmias (6 sources) Palpitations; Translations: [Palpitations] 07-06-2024 Episodic Disorders of lipid metabolism (9 sources) Pure hypercholesterolemia; Translations: [Pure hypercholesterolemia, unspecified] Onset: 02-14-2023 02-14-2023 Chronic Esophageal disorders (16 sources) Gastro-esophageal reflux disease without esophagitis; Translations: [Gastroesophageal reflux disease] Onset: 11-03-2019 02-11-2022 Chronic Esophageal disorders (1 source) Esophageal disorders; Translations: [K21.9 - Gastro-esophageal reflux disease without esophagitis] Onset: 02-11-2022 Essential hypertension (16 sources) Essential (primary) hypertension; Translations: [Essential hypertension] Onset: 11-03-2019 02-14-2023 Chronic Gastritis and duodenitis (5 sources) Chronic gastritis; Translations: [Unspecified chronic gastritis without bleeding] Onset: 01-28-2022 Resolved: 01-28-2022 Chronic Gastritis and duodenitis (14 sources) Gastritis, unspecified, without bleeding; Translations: [Acute gastritis] Onset: 11-03-2019 07-06-2024 Episodic Gastrointestinal hemorrhage (3 sources) Feces color: tarry; Translations: [Melena] Onset: 10-09-2022 Episodic Immunizations and screening for infectious disease (2 sources) Needs influenza immunization; Translations: [Encounter for immunization] 08-07-2024 Episodic Mood disorders (9 sources) Reactive depression (situational); Translations: [Major depressive disorder, single episode, unspecified] Onset: 02-14-2023 02-14-2023 Chronic Nausea and vomiting (5 sources) Nausea; Translations: [Nausea] Onset: 02-11-2022 02-11-2022 Episodic Noninfectious gastroenteritis (9 sources) Noninfective gastroenteritis and colitis, unspecified; Translations: [Colitis] Onset: 11-03-2019 Resolved: 01-28-2022 Episodic Nutritional deficiencies (9 sources) Vitamin D deficiency; Translations: [Vitamin D deficiency, unspecified] Onset: 02-14-2023 02-14-2023 Chronic Osteoporosis (16 sources) Age-related osteoporosis without current pathological fracture; Translations: [Osteoporosis] Onset: 11-03-2019 02-14-2023 Chronic Other connective tissue disease (9 sources) Cramp in lower limb; Translations: [Sleep [...] Other hereditary and degenerative nervous system conditions (9 sources) Restless legs; Translations: [Restless legs syndrome] Onset: 02-14-2023 02-14-2023 Chronic Other upper respiratory disease (9 sources) Allergic rhinitis; Translations: [Allergic rhinitis, unspecified] Onset: 02-14-2023 02-14-2023 Chronic Retinal detachments; defects; vascular occlusion; and retinopathy (9 sources) Retinal hemorrhage; Translations: [Retinal hemorrhage, unspecified eye] Onset: 02-14-2023 02-14-2023 Chronic Spondylosis; intervertebral disc disorders; other back problems (9 sources) Cervical spondylosis; Translations: [Spondylosis without myelopathy or radiculopathy, cervical region] Onset: 02-14-2023 02-14-2023 Chronic Syncope (8 sources) Near syncope; Translations: [Syncope and collapse] 07-06-2024 Episodic Thyroid disorders (14 sources) Hypothyroidism, unspecified; Translations: [Hypothyroidism] Onset: 11-03-2019 02-14-2023 Chronic Unclassified (1 source) Z01.812 - Encounter for preprocedural laboratory examination; Translations: [Z01.812 - Encounter for preprocedural laboratory examination] Onset: 02-09-2022 Past or Other Problems Problem Classification Problem Date Documented Da te Episodic/Chronic Conditions associated with dizziness or vertigo (9 sources) Benign paroxysmal positional vertigo; Translations: [Benign paroxysmal vertigo, unspecified ear] Onset: 02-14-2023 02-14-2023 Episodic Mood disorders (9 sources) Mood disorders Onset: 11-18-2023 11-18-2023 Other aftercare (1 source) 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; Translations: [OTH FOURDRINIER TENDER CURRENT DRUG THERAPY] Onset: 11-03-2019 Episodic Other nervous system disorders (10 sources) Impaired cognition; Translations: [Other symptoms and signs involving cognitive functions and awareness] Onset: 05-10-2024 05-10-2024 Episodic Other screening for suspected conditions (not [...] TRACT] Onset: 11-03-2019 Episodic Residual codes; unclassified (9 sources) Amnesia; Translations: [Other amnesia] Onset: 02-14-2023 02-14-2023 Episodic Unclassified (9 sources) Onset: 11-23-2023 11-23-2023 Urinary tract infections [...] This colony count is not generally considered [facility] Bacteria identified Cx Nom (U) to be clinically significant. [facility] Bacteria identified Cx Nom (U) Performed at: - [facility] [place] [facility] Bacteria identified Cx Nom (U) [address] [place], [place] [id number] [facility] Bacteria identified Cx Nom (U) Armored Car Messenger: Ez Brantley PhD, Phone: [phone] [facility] Blood Urea Nitrogenon 2022 Urea nitrogen [Mass/Vol] 17 mg/dL Normal 7-25 [facility] Comment on above: Performed By: #### C REAT, BUN #### [facility] [address] enterographyon 12-14-2022 CT enterography [facility] [address] [place] [address] [place] [address] CT Scan Report Signed Patient: Sharon Sousa MR#: [id number] [birth year] : 1945 Acct:[id number] Age/Sex: 77 / F ADM Date: 12/14/22 Loc: CT Room: Type: [facility] Attending Dr: Danna Sarmiento MD Copies [...] Urrutia Jr., D.O.12/14/2022 1:49 PM Dictation Location: [place] [address] Transcribed By: [facility] 12/14/22 1349 Dictated By: Vargas Urrutia Jr, DO 12/14/22 1345 Signed By: 12/14/22 1349 Normal [facility] Creatinineon 12-14-2022 Creatinine [Mass/Vol] 0.76 mg/dL Normal 0.60-1.20 [facility] Comment on above: Performed By: #### C REAT, BUN #### [facility] [address] GFR/1.73 sq M.predicted MDRD (S/P/Bld) [Vol rate/Area] mL/min/{1.73_m2} Normal [facility] Comment on above: Result Comment: PERF ORMED BY: [place] [address] PATHOLOGIST FIELD REPORTER SVETLANA DELGADILLO M.D. Performed By: #### C REAT, BUN #### [facility] [address] Calprotectin, Fecalon 2022 Calprotectin, Fecal 34 Normal 0-120 [facility] Comment on above: Order Comment: Reaso n for Exam Abdominal pain;Tarry stool;Change in bowel habits;Bloating Result Comment: Conc entration Interpretation Follow-Up <16 - 50 ug/g Normal None >50 -120 ug/g Borderline Re-evaluate in 4-6 weeks >120 ug/g Abnormal Repeat as clinically indicated Performed at: - [facility] [id number] [employer] Messenger: Be Pierre MD, Phone: [phone] PERFORMED BY: [address] [place] [address] PATHOLOGIST FIELD REPORTER SVETLANA DELGADILLO M.D. Performed By: #### C ALPROTECT #### [facility] , Calprotectin, Fecal 34 0-120 [facility] Other C reactive protein [Mass/vol ume] in Serum or PlasmaOrdered By: Imad Asaad on 09-30-2022 CRP [Mass/Vol] 0.6 mg/dL 0.0-1.0 [facility] C-Reactive Proteinon 023 C-Reactive Protein 0.6 mg/dL Normal 0.0-1.0 [facility] Comment on above: Order Comment: Reaso n for Exam Abdominal pain;Tarry stool;Change in bowel habits;Bloating Result Comment: PERF ORMED BY: [address] [place] [id number] PATHOLOGIST FIELD REPORTER SVETLANA DELGADILLO M.D. Performed By: #### C ELIAC GEN, CELIAC #### [facility] , #### CRP, ESR #### [facility] [address] [place] [address] C-Reactive Protein 0.6 mg/dL Normal 0.0-1.0 mg/dL [facility] Other Celiacon 09-30-2022 Deamidated Gliadin Abs, IgA 4 Normal 0-19 [facility] Comment on above: Order Comment: Reaso n for Exam Abdominal pain;Tarry stool;Change in bowel habits;Bloating Result Comment: Nega tive 0 - 19 Weak Positive 20 - 30 Moderate to Strong Positive >30 Performed By: #### C ELIAC GEN, CELIAC #### [facility] , #### CRP, ESR #### [facility] [address] Deamidated Gliadin Abs, IgG 3 Normal 0-19 [facility] Comment on above: Order Comment: Reaso n for Exam Abdominal pain;Tarry stool;Change in bowel habits;Bloating Result Comment: Nega tive 0 - 19 Weak Positive 20 - 30 Moderate to Strong Positive >30 Performed By: #### C ELIAC GEN, CELIAC #### [facility] , #### CRP, ESR #### [facility] [address] Endomysial Antibody IgA Negative Normal Negative [facility] Comment on above: Order Comment: Reaso n for Exam Abdominal pain;Tarry stool;Change in bowel habits;Bloating Performed By: #### C ELIAC GEN, CELIAC #### [facility] , #### CRP, ESR #### [facility] [address] [place] [address] [place] Immunoglobulin A, Qn, Serum 281 mg/dL Normal 64-422 [facility] Comment on above: Order Comment: Reaso n for Exam Abdominal pain;Tarry stool;Change in bowel habits;Bloating Result Comment: Perf ormed at: - [facility] [address] [id number] [employer] Messenger: Ez Brantley PhD, Phone: [phone] Performed By: #### C ELIAC GEN, CELIAC #### [facility] , #### CRP, ESR #### [facility] [address] [place] [address] [place] T-Transglutaminase (tTG) IgA <2 Normal 0-3 [facility] Comment on above: Order Comment: Reaso [...] #### [facility] , #### CRP, ESR #### [facility] [address] [place] [id number] [place] T-Transglutaminase (tTG) IgG <2 Normal 0-5 [facility] Comment on above: Order Comment: Reaso n for Exam Abdominal pain;Tarry stool;Change in bowel habits;Bloating Result Comment: Nega tive 0 - 5 Weak Positive 6 - 9 Positive >9 Performed By: #### C ELIAC GEN, CELIAC #### [facility] , #### CRP, ESR #### [facility] [address] Celiac 4 0-19 [facility] Other Celiac 3 0-19 [facility] Other Celiac <2 0-5 [facility] Other Celiac Negative Negative [facility] Other Celiac 281 mg/dL 64-422 mg/dL [facility] Other Celiac Disease Genetics HLA DQon 09-30-2022 CDDQ2 Additional Information Normal . [facility] Comment on above: Order Comment: Reaso n for Exam Abdominal pain;Tarry stool;Change in bowel habits;Bloating Result Comment: Refe rences: 1. Eric FISHER and Sandy Rush. Celiac Disease. N Eng J Med 2007; 357:4521-7102. 2. Megiorni F, Roca B, Bonamico M et al. HLA-DQ and risk gradient for celiac disease. Hum Immunol 2009; 70:55-59. 3. Clement MM, Krishan TC, Ernesto FM et al. Stratifying risk for celiac disease in a large at-risk [facility] population by using HLA alleles. Clin Gastroenterol Hepatol 2009; 7:966-971. 4. Doretha ROSE and Lelo BA. (2005). Celiac Disease Genetics: Current Concepts and Practical Applications. Clin Gastroenterol and Hepat 3:843-851. 5. Sarah CL, Obed DO, Green PHR, et al. Celiac Disease. In: Bandar RA, Aldo TC, Kana CR, Sary K, editors. CarmenDevtapakilah Prezto), [facility], [place], March 01, 2008:1-27. http://www.ncbi.nlm.nih.gov/alexand[place]/br.fcgi?book=genepart=andra ac PMID [id number] (PubMed) 6. Lilli W. Emerging concepts in celiac disease. Curr Opin Pediatr 2004;16:552-559. Performed at: [address] [place] [id number] Armored Car Messenger: Garry Brennan PhD, Phone: [phone] PERFORMED BY: [place] [address] PATHOLOGIST FIELD REPORTER SVETLANA DELGADILLO M.D. Performed By: #### C ELIAC GEN, CELIAC #### [facility] , #### CRP, ESR #### [address] Comment: Normal . [facility] Comment on above: Order Comment: Reaso n for Exam Abdominal pain;Tarry stool;Change in bowel habits;Bloating Result Comment: This test was performed using Polymerase Chain Reaction/(PCR)Sequence Specific Oligonucleotide Probes (SSOP) (TripChamp) technique. Sequence Based Typing (SBT) and/or Sequence Specific Primers (SSP) may be used as supplemental methods when necessary. Please contact HLA Customer Service at if you have any questions. Director of HLA Laboratory Dr Garry Brennan, PhD Performed By: #### C ELIAC GEN, CELIAC #### [facility] , #### CRP, ESR #### [address] Dq2 (Dqa1 0501/0505,Dqb1 02Xx) Positive Normal . [facility] Comment on above: Order Comment: Reaso n for Exam Abdominal pain;Tarry stool;Change in bowel habits;Bloating Performed By: #### C ELIAC GEN, CELIAC #### [facility] , #### CRP, ESR #### [facility] [address] [place] [address] [place] Dq8 (Dqa1 03Xx, Dqb1 0302) Negative Normal . [facility] Comment on above: Order Comment: Reaso n for Exam Abdominal pain;Tarry stool;Change in bowel habits;Bloating Result Comment: [place] l Results: DQA1*02:EESCV,05:EEMXY DQB1*02:EENUF,02:EENUG Code Translation: EEMXY 05:01/05:15N/05:18/05:19/05:23/:27/:33 /05:35/05:38/05:40/05:41/05:47/05:49/05:52 /05:54Q/05:55/05:56/05:57/05:61 EENUF 02:01/02:03/:07:08:09:13/10:27 :53Q/02:59/02:63/02:72/02:83/02:93 /02:96N/02:98/02:99/02:102/02:105/02:106 /02:107/02:108/02:109/02:111/02:112/02:114 /02:115/02:118/02:119/02:123/02:125/02:128 /02:130/02:132N/02:134N/02:135/02:136 /02:148/02:149/02:152/02:155/02:157/02:158 /02:159/02:160/02:163N/02:164/02:170 /02:174/02:182/02:184/02:185/02:186/02:188 /02:189/02:190/02:191/02:193/02:196/02:197 /02:198/02:202 EENUG 02:02/02:11/02:12/02:20N/02:26/02:50/02:62 /02:65/02:71/02:80/02:84/02:89/02:95/02:97 /02:110/02:113/02:116/02:117/02:120/02:122 /02:124/02:126/02:127/02:131/02:137/02:138 /02:142/02:143/02:145/02:146/02:147/02:150 /02:153/02:156/02:161/02:162N/02:165 /02:167N/02:171Q/02:172/02:175/02:176N /02:179/02:183N/02:187/02:194N/02:199 /02:200/02:201/02:203/02:204N EESCV 09/01//////////// /// 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 Celiac Disease risk from the HLA DQA/DQB genotype is approximately 1:10 (10%) Allele interpretation for all loci based on IMGT/HLA database version 3.49.0 HLA Lab CLIA ID Number [id number] Greater than 95% of celiac patients are positive for either DQ2 or DQ8 (Doretha and Krysta, (1993) Gastroenterology 105:910-922). However these antigens may also be present in patients who do not have Celiac disease. Performed By: #### C ELIAC GEN, CELIAC #### [facility] , #### CRP, ESR #### [address] Celiac Disease Genetics HLA DQ Positive . [facility] Other Celiac Disease Genetics HLA DQ . [facility] Other Erythrocyte Sedimentation Ra ramirez 09-30-2022 ESR (Bld) [Velocity] 13 mm/h Normal 0-29 [facility] Other Comment on above: Order Comment: Reaso n for Exam Abdominal pain;Tarry stool;Change in bowel habits;Bloating Result Comment: PERF ORMED BY: [place] [address] PATHOLOGIST FIELD REPORTER SVETLANA DELGADILOL M.D. Performed By: #### C ELIAC GEN, CELIAC #### [facility] , #### CRP, ESR #### [address] [place] [address] [facility] Erythrocyte sedimentation ra te by Photometric methodOrdered By: Imad Asaad on 09-30-2022 ESR Photometric method (Bld) [Velocity] 13 mm/hr 0-29 [facility] Human leukocyte antigen (HLA ) DQ2 detectionOrdered By: Imad Asaad on 09-30-2022 HLA-DQ2 Ql (Bld/Tiss) Positive . [facility] Human leukocyte antigen (HLA ) DQ8 detectionOrdered By: Imad Asaad on 09-30-2022 HLA-DQ8 Ql (Bld/Tiss) Negative . [facility] Comment on above: Final Results:DQA1*0 2:SHELDON05:EEMXYDQB1*02:RAYMUNDO02:EENUGCode Translation:EEMDAVID 05:09/03:15N/05:18:19:23:27:33 05:3505:3805:4005:4105:47/05:49/05:52 05:54Q/05:5505:56/05:57/05:61EENUF 02:0102:03/02:0702:08:09:13/10:27 :53Q/02:59/02:63/02:72/02:83/02:93 /02:96N/02:98/02:99/02:102/02:105/02:106 /02:107/02:108/02:109/02:111/02:112/02:114 /02:115/02:118/02:119/02:123/02:125/02:128 /02:130/02:132N/02:134N/02:135/02:136 /02:148/02:149/02:152/02:155/02:157/02:158 /02:159/02:160/02:163N/02:164/02:170 /02:174/02:182/02:184/02:185/02:186/02:188 /02:189/02:190/02:191/02:193/02:196/02:197 /02:198/02:202EENUG 02:02/02:11/02:12/02:20N/02:26/02:50/02:62 /02:65/02:71/02:80/02:84/02:89/02:95/02:97 /02:110/02:113/02:116/02:117/02:120/02:122 /02:124/02:126/02:127/02:131/02:137/02:138 /02:142/02:143/02:145/02:146/02:147/02:150 /02:153/02:156/02:161/02:162N/02:165 /02:167N/02:171Q/02:172/02:175/02:176N /02:179/02:183N/02:187/02:194N/02:199 /02:200/02:201/02:203/02:204NEESCV ////////14/15/16/// ////The patient is positive for DQ2 and is homozygous forDQB1*02. Celiac Disease risk from the HLA DQA/DQBgenotype is approximately 1:10 (10%)Allele interpretation for all loci based on IMGT/HLAdatabase version 3.49.0A Lab CLIA ID Number [id number] than 95% of celiac patients are positive for eitherDQ2 or DQ8 (Doretha and Krysta, (1993) Frdipwprhifqjgqo590:910-922). However these antigens may also be present inpatients who do not have Celiac disease. IgA [Mass/volume] in Serum o r PlasmaOrdered By: Danna Sarmiento on 09-30-2022 IgA [Mass/Vol] 281 mg/dL 64-422 [facility] Comment on above: Performed at: [address] [id number] Director: Ez Brantley PhD, Phone: [phone] No Panel InformationOrdered By: Danna Sarmiento on 09-30-2022 Celiac Gene Interpretation See comment . [facility] Comment on above: References:1. Eric FISHER and Sandy Rush. Celiac Disease. N Eng J Med 2007; 357:0446-4031.2. Yumiko F, Chanelle B, Cristino M et al. HLA-DQ and risk gradient for celiac disease. Hum Immunol 2009; 70:55-59.3. Pieregulo MM, Krishan TC, Ernesto FM et al. [...] Aldo TC, Kana CR, Sary K, editors. Yelp), [facility], [place], March 01, 2008:1-27. http://www.ncbi.nlm.nih.gov/bookshelf/br.fcgi?book=genepart=andra ac PMID [id number] (PubMed)6. Lilli Baker. Emerging concepts in celiac disease. Curr Opin Pediatr 2004;16:552-559.Performed at: [address] [place] [id number] Director: Garry Brennan PhD, Phone: [phone] Endomysial IgA Antibody Negative Negative [facility] HLA Genotype Interpretation See comment . [facility] Comment on above: This test was [...] peptide IgA Qn (S) 4 units 0-19 [facility] Comment on above: Negative 0 - 19 Weak Positive 20 - 30 Moderate to Strong Positive >30 Serum gliadin peptide IgG an tibody assay (units/volume)Ordered By: Imaurora Sarmiento on 09-30-2022 Gliadin peptide IgG Qn (S) 3 units 0-19 [facility] Comment on above: Negative 0 - 19 Weak Positive 20 - 30 Moderate to Strong Positive >30 Serum tissue transglutaminas e (tTG) IgA antibody assay (units/volume)Ordered By: Imad Asaad on 09-30-2022 tTG IgA Qn (S) <2 U/mL 0-3 [facility] Comment on above: Negative 0 - 3 Weak Positive 4 - 10 Positive >10 Tissue Transglutaminase (tTG) has been identified as the endomysial antigen. Studies have demonstr- ated that endomysial IgA antibodies have over 99% specificity for gluten sensitive enteropathy. Serum tissue transglutaminas e (tTG) IgG antibody assay (units/volume)Ordered By: Imad AsaDrinkWiser on 09-30-2022 tTG IgG Qn (S) <2 U/mL 0-5 [facility] Comment on above: Negative 0 - 5 Weak Positive 6 - 9 Positive >9 Pato 02-11-2022 L --- Specimen: [id number] Received: 02/11/22 Status: RASTA Syed Num: [id number] Spec Type: Surgical Subm Dr: Philippe Barrett Jr, DO Tissues: A Stomach - Biopsy/Polyp (STOMACH BX) B Colon Biopsy (RECTUM BX) Procedures: HE Stain/4, Gross/Micro L4/2 Patient Age/Sex Location Account Attending Physician Sharon Sousa 76/F [id number] Philippe Barrett Jr, DO SPEC NUM: [id number] RECD: 02/11/22 STATUS: RASTA SYED NUM: [id number] ROXY: 02/11/[address] [facility] DR: Philippe Barrett Jr, DO ENTERED: 02/11/22-1110 PHAN ROLAND: HEATHER TYPE: Surgical DEPT: S ORDERED: HE [...] Type of Fixative: 10% Neutral Buffered Formalin (/) B. Received in formalin labeled with the patient's name, number and rectum biopsy are 3 kay tissue fragments, 0.2 cm to 0.3 cm. Entirely submitted in one cassette labeled B1. Type of Fixative: 10% Neutral Buffered Formalin (/) Specimen: [id number] Received: 02/11/22 Status: RASTA Syed Num: [id number] Spec Type: Surgical Subm Dr: Philippe Barrett Jr, DO Tissues: A Stomach - Biopsy/Polyp (STOMACH BX) B Colon Biopsy (RECTUM BX) Procedures: HE Stain/4, Gross/Micro L4/2 Patient: Nic Sousanza [id number] (Continued) Specimen: [id number] Received: 02/11/22 (Continued) Signed (signature on file) Iliana Bateman MD 02/12/22 1559 Specimen: [id number] Received: 02/11/22 Status: RASTA Syed Num: [id number] Spec Type: Surgical Subm Dr: Philippe Barrett Jr, DO Tissues: A Stomach - Biopsy/Polyp (STOMACH BX) B Colon Biopsy (RECTUM BX) Procedures: HE Stain/4, Gross/Micro L4/2 Patient: Sharon Sousa [id number] (Continued) Specimen: [id number] Received: 02/11/22 (Continued) Microscopic Description A. Two [...] characteristics were determined by the [facility] of [facility]. Immunohistochemistry assays have not been validated on decalcified tissue. Results should be interpreted with caution given the possibility of false negative results on decalcified specimens. They have not been cleared by the [place] Food and Drug Administration. The FDA has determined that such clearance or approval is not necessary. CPT Codes 91200?2, 03997 Specimen: [id number] Received: 02/11/22 Status: RASTA Kunal Num: [id number] Spec Type: Surgical Subm Dr: Philippe Barrett Jr, DO Tissues: A Stomach - Biopsy/Polyp (STOMACH BX) B Colon Biopsy (RECTUM BX) Procedures: HE Stain/4, Gross/Micro L4/2 Patient: Sharon Sousa [id number] (Continued) Signed (signature on file) Iliana Bateman MD 02/12/[address] [facility] COVID-19 [facility] 06-13-2022 SARS-CoV-2 (COVID-19) RNA KELY+probe Ql (Unsp spec) Negative Normal Negative [facility] Comment on above: Order Comment: Healt hcare Worker?: N Result Comment: Testing for SARS-CoV-2 by RT-PCR This test was developed and its performance characteristics determined by [employer] and validated at the [facility]. This test has not been FDA [...] is terminated or revoked sooner. PERFORMED BY: [place] [address] PATHOLOGIST FIELD REPORTER SVETLANA DELGADILLO M.D. Performed By: #### C OVID 19 [facility] #### [address] XR DEXA BONE DENSITYon 05-27 XR [...] PHILIPPE WALLACE Date: 2020-05-27 13:18 Normal [facility] CBC AUTO DIFFon 11-01-2019 Basophils (Bld) [#/Vol] 0.0 103/ul Normal 0.0-0.1 [facility] Comment on above: Performed By: #### C BC #### [facility] [address] [id number] Erin Estephania Basophils/100 WBC (Bld) 0.3 % Normal 0.2-2.0 [facility] Comment on above: Performed By: #### C BC #### [facility] [address] [place] [address] Erin Estephania Eosinophils (Bld) [#/Vol] 0.0 103/ul Normal 0.0-0.7 [facility] Comment on above: Performed By: #### C BC #### [facility] [address] [place] [address] Erin Estephania Eosinophils/100 WBC (Bld) 0.1 % Critically low 0.9-7.0 [facility] Comment on above: Performed By: #### C BC #### [facility] [address] [place] [address] Erin Estephania Erythrocyte distribution width (RBC) [Ratio] 13.8 % Normal 11.0-15.0 [facility] Comment on above: Performed By: #### C BC #### [facility] [address] [place], [place] [id number] Erin Estephania Hematocrit (Bld) [Volume fraction] 40.1 % Normal 36.0-48.0 [facility] Comment on above: Performed By: #### C BC #### [facility] [address] [place], [place] [id number] Erin Estephania Hemoglobin (Bld) [Mass/Vol] 13.6 g/dL Normal 12.0-16.0 [facility] Comment on above: Performed By: #### C BC #### [facility] [address] [place] [address] Erin Estephania IG # 0.04 10e3/ul Critically high 0.00-0.03 [facility] [place] Comment on above: Performed By: #### C BC #### [facility] [address] [id number] Erin Estephania IG % 0.4 % Normal 0.0-0.5 [facility] Comment on above: Performed By: #### C BC #### [facility] [address] [place], [place] [id number] Erni Estephania Lymphocytes (Bld) [#/Vol] 1.4 103/ul Normal 1.2-3.8 [facility] Comment on above: Performed By: #### C BC #### [facility] [address] [place], [place] [address] Erni Estephania Lymphocytes/100 WBC (Bld) 13.5 % Critically low 20.5-60.0 [facility] Comment on above: Performed By: #### C BC #### [facility] [address] [place], [place] [address] Erin Estephania MANUAL DIFF REQ NO Normal [facility] Comment on above: Performed By: #### C BC #### [facility] [address] [place], [place] [address] Erin Estephania MCH (RBC) [Entitic mass] 30.5 pg Normal 26.7-34.0 [facility] Comment on above: Performed By: #### C BC #### [facility] [address] [place], [place] [id number] Erin Estephania MCHC (RBC) [Mass/Vol] 33.9 g/dL Normal 29.9-35.2 [facility] Comment on above: Performed By: #### C BC #### [facility] [address] [place], [place] [id number] Erin Estephania MCV (RBC) [Entitic vol] 89.9 fL Normal 81.0-99.0 [facility] Comment on above: Performed By: #### C BC #### [facility] [address] [place], [place] [address] Erin Estephania Monocytes (Bld) [#/Vol] 0.5 103/ul Normal 0.3-0.8 [facility] Comment on above: Performed By: #### C BC #### [facility] [address] [place], [place] [address] Erin Estephania Monocytes/100 WBC (Bld) 5.0 % Normal 1.7-12.0 [facility] Comment on above: Performed By: #### C BC #### [facility] [address] [place] [address] Erin Estephania Neutrophils (Bld) [#/Vol] 8.2 103/ul Critically high 1.4-6.5 [facility] Comment on above: Performed By: #### C BC #### [facility] [address] [place] [address] Erin Estephania Neutrophils/100 WBC (Bld) 80.7 % Critically high 43.0-75.0 [facility] Comment on above: Performed By: #### C BC #### [facility] [address] [place] [address] Erin Estephania Platelet mean volume (Bld) [Entitic vol] 10.5 fL Normal 9.5-13.5 [facility] Comment on above: Performed By: #### C BC #### [facility] [address] [place] [address] Erin Estephania Platelets (Bld) [#/Vol] 212 103/ul Normal 150-450 [facility] Comment on above: Performed By: #### C BC #### [facility] [address] [place] [address] Erin Estephania RBC (Bld) [#/Vol] 4.46 106/ul Normal 4.20-5.40 [facility] Comment on above: Performed By: #### C BC #### [facility] [address] [place] [address] Erin Estephania WBC (Bld) [#/Vol] 10.2 103/ul Normal 4.0-11.0 [facility] Comment on above: Performed By: #### C BC #### [facility] [address] [place] [address] Erin Estephania ER URINE PROFILEon 0 Bilirubin [Mass/Vol] Negative Normal NEGATIVE [facility] Comment on above: Performed By: #### E STEPHENR, UMICRO #### [facility] [address] [place] [address] Erin Estephania BLOOD MODERATE Normal NEGATIVE [facility] Comment on above: Performed By: #### EVANGELINA ALVARENGA #### [facility] [address] [place] [address] Erin Estephania Clarity (U) CLEAR Normal [facility] Comment on above: Performed By: #### EVANGELINA ALVARENGA #### [facility] [address] [place] [address] Erin Estephania Color (U) LT. YELLOW Normal YELLOW [facility] Comment on above: Performed By: #### EVANGELINA ALVARENGA #### [facility] [address] [place] [address] Erin Estephania ERUAHD A micrscopic examination will be performed if indicated. Normal [facility] Comment on above: Performed By: #### EVANGELINA ALVARENGA #### [facility] [address] [place] [address] Erin Estephania Glucose [Mass/Vol] Negative Normal NEGATIVE [facility] Comment on above: Performed By: #### EVANGELINA ALVARENGA #### [facility] [address] [place] [address] Erin Estephania Ketones Ql (U) Negative Normal NEGATIVE [facility] Comment on above: Performed By: #### EVANGELINA ALVARENGA #### [facility] [address] [place] [address] Erin Estephania Nitrite Ql (U) Negative Normal NEGATIVE [facility] Comment on above: Performed By: #### BRODY ALVARENGARO #### [facility] [address] [place] [address] Erin Estephania pH (Bld) 5.0 Normal 5-9 [facility] Comment on above: Performed By: #### EVANGELINA ALVARENGA #### [facility] [address] [place] [address] Erin Estephania Protein (U) [Mass/Vol] Negative Normal [facility] Comment on above: Performed By: #### EVANGELINA ALVARENGA #### [facility] [address] [place], [place] [address] Erin Best SPEC GRAVITY 1.025 Normal 1.005-<=1.0 25 [facility] Comment on above: Performed By: #### EVANGELINA ALVARENGA #### [facility] [address] [place], [place] [address] Erin Best UR MICRO IND INDICATED Normal [facility] Comment on above: Performed By: #### BRODY ALVARENGARO #### [facility] [address] [place], [place] [address] Erin Best Urobilinogen Qn (U) 0.2 EU/dl Normal [facility] Comment on above: Performed By: #### EVANGELINA ALVARENGA #### [facility] [address] [place] [address] Erin Best WBC (Bld) [#/Vol] TRACE Normal NEGATIVE [facility] [place] Comment on above: Performed By: #### EVANGELINA ALVARENGA #### [facility] [address] [place], [place] [address] Erin Best LACTATE/LACTIC ACIDon 2019 Lactate [Moles/Vol] 1.1 mmol/L Normal 0.7-2.0 [facility] Comment on above: Performed By: #### L ACT #### [facility] [address] [place] [address] Erin Best LIPASEon 11-01-2019 Lipase [Catalytic activity/Vol] 151.0 U/L Normal 23.0-300.0 [facility] Comment on above: Performed By: #### C MP, LIPA, TROP #### [facility] [address] [place], [place] [address] Erin Best PROF 14(COMP METB)on 020 Albumin [Mass/Vol] 3.5 g/dL Normal 3.5-5.0 [facility] Comment on above: Performed By: #### C MP, LIPA, TROP #### [facility] [address] [place], [place] [address] Erin Estephania Albumin/Globulin [Mass ratio] 0.9 {ratio} Normal [facility] Comment on above: Performed By: #### C KERRI KOTHARIA, TROP #### [facility] [address] [address] Erin Estephania ALP [Catalytic activity/Vol] 96 U/L Normal 38-126 [facility] Comment on above: Performed By: #### C TAYE LIPA, TROP #### [facility] [address] [address] Erin Estephania ALT [Catalytic activity/Vol] 20 U/L Normal 9-52 [facility] Comment on above: Performed By: #### C KERRI KOTHARIA, TROP #### [facility] [address] [address] Erin Estephania Anion gap [Moles/Vol] 10.9 mmol/L Normal [facility] Comment on above: Performed By: #### C TAYE LIPA, TROP #### [facility] [address] [place] [address] Erin Estephania AST [Catalytic activity/Vol] 18 U/L Normal 14-36 [facility] Comment on above: Performed By: #### C KERRI KOTHARIA, TROP #### [facility] [address] [address] Erin Estephania Bilirubin Ql (U) 0.6 mg/dL Normal 0.2-1.3 [facility] Comment on above: Performed By: #### C TAYE LIPA, TROP #### [facility] [address] [address] Erin Estephania Calcium [Mass/Vol] 9.2 mg/dL Normal 8.4-10.2 [facility] Comment on above: Performed By: #### C TAYE LIPA, TROP #### [facility] [address] [address] Erin Estephania Chloride [Moles/Vol] 107 mmol/L Normal 98-107 [facility] Comment on above: Performed By: #### C TAYE LIPA, TROP #### [facility] [address] [address] Erin Estephania CO2 [Moles/Vol] 25.8 mmol/L Normal 22.0-30.0 [facility] Comment on above: Performed By: #### C TAYE LIPA, TROP #### [facility] [address] [address] Erin Estephania Creatinine [Mass/Vol] 0.85 mg/dL Normal 0.52-1.04 [facility] Comment on above: Performed By: #### C MP LIPA, TROP #### [facility] [address] [address] Erin Estephania EGFR-AF [place] >60 Normal >=60 [facility] Comment on above: Performed By: #### C TAYE LIPA, TROP #### [facility] [address] [address] Erin Estephania EGFR-NON AF [place] >60 Normal >=60 [facility] Comment on above: Performed By: #### C MP LIPA, TROP #### [facility] [address] [address] Erin Estephania Globulin (S) [Mass/Vol] 3.8 g/dL Normal [facility] Comment on above: Performed By: #### C TAYE LIPA, TROP #### [facility] [address] [address] Erin Estephania Glucose [Mass/Vol] 105 mg/dL Normal 74-106 [facility] Comment on above: Performed By: #### C MP LIPA, TROP #### [facility] [address] [address] Erin Estephania Potassium [Moles/Vol] 3.7 mmol/L Normal 3.4-5.0 [facility] Comment on above: Performed By: #### C MP LIPA, TROP #### [facility] [address] [address] Erin Estephania Protein [Mass/Vol] 7.3 g/dL Normal 6.1-8.2 [facility] Comment on above: Performed By: #### C MP, LIPA, TROP #### [facility] [address] [address] Erin Estephania Sodium [Moles/Vol] 140 mmol/L Normal 137-145 [facility] Comment on above: Performed By: #### C MP LIPA, TROP #### [facility] [address] [place] [address] Erin Estephania Urea nitrogen [Mass/Vol] 21.0 mg/dL Critically high 7.0-17.0 [facility] Comment on above: Performed By: #### C MP LIPA, TROP #### [facility] [address] [place] [address] Erin Estephania Urea nitrogen/Creatinine [Mass ratio] 24.7 mg/mg Normal [facility] Comment on above: Performed By: #### C KERRI KOTHARIA, TROP #### [facility] [address] [place] [address] Erin Estephania PROTIMEon 11-01-2019 INR Coag (PPP) [Relative time] 1.03 {INR} Normal [facility] Comment on above: Performed By: #### P TT, PT #### [facility] [address] [place], [place] [address] Erin Estephania PT Coag (PPP) [Time] 10.7 s Normal 9.0-11.6 [facility] Comment on above: Performed By: #### P TT, PT #### [facility] [address] [place] [address] Erin Estephania PT Coag (PPP) [Time] SEE BELOW Normal [facility] Comment on above: Result Comment: CONG RED INR: 2.0 - 3.0 CONDITIONS NOT LISTED BELOW 2.5 - 3.5 FOR PROSTHETIC HEART VALVE REPLACEMENT 2.5 - 3.5 RECURRENT THROMBOSIS Performed By: #### P TT, PT #### [facility] [address] [place] [address] Erin Estephania PT Coag (PPP) [Time] PLEASE NOTE: NORMAL RANGE CHANGE 05-17-2014 DUE TO REAGENT LOT CHANGE Normal [facility] Comment on above: Performed By: #### P TT, PT #### [facility] [address] [place] [address] Erin Best PTTon 11-01-2019 aPTT Coag (Bld) [Time] 27.1 s Normal 22.3-36.2 [facility] Comment on above: Performed By: #### P TT, PT #### [facility] [address] [place] [address] Erin Best aPTT Coag (Bld) [Time] PLEASE NOTE: NORMAL RANGE CHANGE 07-24-2015 DUE TO REAGENT LOT CHANGE Normal [facility] Comment on above: Performed By: #### P TT, PT #### [facility] [address] [place] [address] Erin Best TROPONIN - Ion 11-01-2019 Troponin I.cardiac [Mass/Vol] SEE BELOW Normal [facility] Comment on above: Result Comment: <0.0 34 ng/ml NEGATIVE 0.034-0.119 INDETERMINATE 0.120 AMI CUT OFF Performed By: #### C PIOTR KOTHARI, TROP #### [facility] [address] [place] [address] Erinrfuus Best Troponin I.cardiac [Mass/Vol] ng/mL Normal <=0.034 [facility] Comment on above: Performed By: #### C PIOTR KOTHARI, TROP #### [facility] [address] [place] [address] Erinrufus Best URINE MICROSCOPIC ONLYon Bacteria LM.HPF (Urine sed) [#/Area] TRACE Normal NONE SEEN [facility] Comment on above: Performed By: #### BRODY ALVARENGARO #### [facility] [address] [place] [address] Erin Estephania CAST SEEN Normal NONE SEEN [facility] Comment on above: Performed By: #### BRODY ALVARENGARO #### [facility] [address] [place] [address] Erin Estephania Crystals LM Nom (Urine sed) NONE SEEN Normal NONE SEEN [facility] Comment on above: Performed By: #### BRODY ALVARENGARO #### [facility] [address] [place], [place] [address] Erin Estephania CULTURE NOT INDICATED Normal [facility] Comment on above: Performed By: #### BRODY ALVARENGARO #### [facility] [address] [id number] Erin Best Epithelial cells LM.HPF (Urine sed) [#/Area] FEW Normal [facility] Comment on above: Performed By: #### Dayo NAIR UMICRO #### [facility] [address] [id number] Erin Estephania HYALINE CAST FEW Normal [facility] Comment on above: Performed By: #### Dayo NAIR UMICRO #### [facility] [address] [place], [place] [address] Erin Estephania MUCOUS TRACE Normal NONE SEEN [facility] Comment on above: Performed By: #### BRODY ALVARENGARO #### [facility] [address] [place], [place] [address] Erinrufus Best RBC (U) [#/Vol] 2-5 Normal 0-2 [facility] Comment on above: Performed By: #### Dayo NAIR UMVICKIRO #### [facility] [address] [place], [place] [address] Erinrufus Best WBC (Bld) [#/Vol] 2-5 Normal NONE SEEN [facility] Comment on above: Performed By: #### E JOANIE, UMICRO #### [facility] [address] [place], [place] [address] Erin Estephania MG MAMM SCREEN CHRISTINE W CADon 1 MG MAMM SCREEN CHRISTINE W CAD Patient: SHARON SOUSA Exam Date: 06/27/2019 : 1945 Gender:F Ordering : DR ESTEPHANIA ABARCA PA Admission #: [id number] Family : Order #: [id number] CLICK HERE TO VIEW EXAM RADIOLOGY REPORT [...] No Treatments None Family Cancers None LOCATION: [facility] BREAST COMPOSITION: Scattered areas fibroglandular [...] M.D. on 06/27/2019 at 10:56 Approved by: hPilippe Wallace M.D. on 06/27/2019 at 10:56 Normal [facility] Vital Signs Date Time Vital Sign Value Performing Clinician Facility 08-18-2024 13:27-0500 Body height 157.5 cm Ranjeet Hensley MD Work Phone: [facility] 08-18-2024 13:27-0500 Body mass index (BMI) [Ratio] 20.08 kg/m2 Ranjeet Hensley MD Work Phone: [facility] 08-18-2024 13:27-0500 Body weight 49.8 kg Ranjeet Hensley MD Work Phone: [facility] 08-18-2024 13:27-0500 Diastolic blood pressure 78 mm[Hg] Ranjeet Hensley MD Work Phone: [facility] 08-18-2024 13:27-0500 Heart rate 74 /min Ranjeet Hensley MD Work Phone: [facility] 08-18-2024 13:27-0500 SaO2% (BldA) [Mass fraction] 100 % [facility] 08-18-2024 13:27-0500 Systolic blood pressure 136 mm[Hg] [facility]je[facility]ens[facility] 08-07-2024 14:51-0500 Body height 157.5 cm Gabino Loomis MD Work Phone: [facility] 08-07-2024 14:51-0500 Body mass index (BMI) [Ratio] 20.12 kg/m2 Gabino Loomis MD Work Phone: [facility] 08-07-2024 14:51-0500 Body weight 49.9 kg Gabino Loomis MD Work Phone: [facility] 08-07-2024 14:51-0500 Diastolic blood pressure 76 mm[Hg] Gabino Loomis MD Work Phone: [facility] 08-07-2024 14:51-0500 Heart rate 69 /min Gabino Loomis MD Work Phone: [facility] 08-07-2024 14:51-0500 SaO2% (BldA) [Mass fraction] 100 % Gabino Loomis MD Work Phone: [facility] 08-07-2024 14:51-0500 Systolic blood pressure 122 mm[Hg] Gabino Loomis MD Work Phone: [facility] 07-06-2024 15:30-0500 Body height 157.5 cm Estephania Hemmer PA Work Phone: [facility] 07-06-2024 15:30-0500 Body mass index (BMI) [Ratio] 20.16 kg/m2 Estephania Hemmer PA Work Phone: [facility] 07-06-2024 15:30-0500 Body temperature 98.71 [degF] Estephania Hemmer PA Work Phone: [facility] 07-06-2024 15:30-0500 Body weight 49.99 kg Estephania Hemmer PA Work Phone: [facility] 07-06-2024 15:30-0500 Diastolic blood pressure 76 mm[Hg] Estephania Hemmer PA Work Phone: [facility] 07-06-2024 15:30-0500 Heart rate 72 /min Estephania Hemmer PA Work Phone: [facility] 07-06-2024 15:30-0500 Respiratory rate 16 /min Esetphania Hemmer PA Work Phone: [facility] 07-06-2024 15:30-0500 SaO2% (BldA) [Mass fraction] 98 % Estephania BARRY Work Phone: [facility] 07-06-2024 15:30-0500 Systolic blood pressure 104 mm[Hg] Estephania BARRY Work Phone: [facility] 05-10-2024 13:46-0400 Body height 157.5 cm Gabino Loomis MD Work Phone: [facility] 05-10-2024 13:46-0400 Body mass index (BMI) [Ratio] 20.3 kg/m2 Gabino Loomis MD Work Phone: [facility] 05-10-2024 13:46-0400 Body weight 50.35 kg Gabino Loomis MD Work Phone: [facility] 05-10-2024 13:46-0400 Diastolic blood pressure 76 mm[Hg] Gabino Loomis MD Work Phone: [facility] 05-10-2024 13:46-0400 Heart rate 88 /min Gabino Loomis MD Work Phone: [facility] 05-10-2024 13:46-0400 SaO2% (BldA) [Mass fraction] 98 % Gabino Loomis MD Work Phone: [facility] 05-10-2024 13:46-0400 Systolic blood pressure 132 mm[Hg] Gabino Loomis MD Work Phone: [facility] 09-30-2022 14:45-0500 Body height 157.48 cm Imad Asaad Other [facility] Other 09-30-2022 14:45-0500 Body mass index (BMI) [Ratio] 21.03 kg/m2 Imad Asaad Other [facility] Other 09-30-2022 14:45-0500 Body weight 52.16 kg Imad Asaad Other [facility] Other 09-30-2022 14:45-0500 Diastolic blood pressure 87 mm[Hg] Imad Asaad Other [facility] Other 09-30-2022 14:45-0500 Systolic blood pressure 137 mm[Hg] Imad Asaad Other [facility] Other 01-28-2022 14:15-0400 Body height 157.48 cm Philippe Barrett Other [facility] Other 01-28-2022 14:15-0400 Body mass index (BMI) [Ratio] 20.12 kg/m2 Philippe Barrett Other [facility] Other 01-28-2022 14:15-0400 Body weight 49.9 kg Philippe Barrett Other [facility] Other Encounters Encounter Date Encounter Type Care Provider Facility Start: 08-18-2024 End: 08-18-2024 Office outpatient new 45 minutes Ranjeet Hensley MD Work Phone: [facility] Comment on above: Paroxysmal atrial fi brillation (CMS-HCC) (Primary Dx); Essential hypertension Start: 08-17-2024 End: 08-17-2024 Telephone encounter Cate Sanches CMA [facility] Start: 08-07-2024 End: 08-07-2024 Office outpatient visit 25 minutes Gabino Loomis MD Work Phone: [facility] Comment on above: Essential hypertensi on (CMS/HCC) (Primary Dx); Hypothyroidism, unspecified type (CMS/HCC); Gastro-esophageal reflux disease without esophagitis; Acute gastritis without hemorrhage, unspecified gastritis type; Flu vaccine need; Near syncope Start: 08-07-2024 End: 08-07-2024 ambulatory GABINO LOOMIS Not Available Start: 08-07-2024 End: 08-07-2024 Bamboo flowsheet Gabino Loomis MD Work Phone: [facility] Start: 08-07-2024 End: 08-07-2024 Bamboo flowsheet Gabino Loomis MD Work Phone: [facility] Start: 07-06-2024 End: 07-06-2024 Office outpatient visit 25 minutes Estephania Abarca PA Work Phone: [facility] Comment on above: Epigastric pain (Jasmin margret [...] External Department Unsolicited Start: 05-10-2024 End: 05-10-2024 Bamboo flowsheet Gabino Loomis MD Work Phone: [facility] Start: 05-10-2024 End: 05-10-2024 Bamboo flowsheet Gabino Loomis MD Work Phone: [facility] Start: 05-10-2024 End: 05-10-2024 Office outpatient visit 25 minutes Gabino Loomis MD Work Phone: [facility] Comment on above: Cognitive impairment (Primary Dx); Age-related osteoporosis without current pathological fracture (CMS/HCC); Hypothyroidism, unspecified type (CMS/HCC); Gastro-esophageal reflux disease without esophagitis; Essential hypertension (CMS/HCC) Start: 05-10-2024 End: 05-10-2024 ambulatory GABINO LOOMIS Not Available Start: 11-18-2023 End: 11-18-2023 ambulatory PK ARMIJO Not Available Start: 10-04-2023 End: 10-04-2023 ambulatory GABINO LOOMIS Not Available Start: 12-14-2022 ambulatory Imad Asaad Facility:[facility] Start: 12-07-2022 End: 12-07-2022 ambulatory Imad Asaad Other [facility] Other Start: 12-07-2022 Telephone encounter Imad Asaad [facility] Start: 10-09-2022 End: 10-09-2022 ambulatory Imad Asaad Facility:[facility] Start: 10-09-2022 End: 10-09-2022 ambulatory II Gabino Loomis Work Phone: [facility] Work Phone: Start: 10-09-2022 End: 10-09-2022 Patient encounter procedure II Gabino Loomis Work Phone: [facility] Work Phone: Start: 09-30-2022 End: 09-30-2022 ambulatory Imad Asaad Facility:[facility] Start: 09-30-2022 End: 09-30-2022 Patient encounter procedure II Gabino Loomis Work Phone: [facility] Work Phone: Start: 09-30-2022 End: 09-30-2022 ambulatory II Gabino Loomis Work Phone: [facility] Work Phone: Start: 09-30-2022 Office consultation new/estab patient 60 min Imad Asaad [facility] Start: 02-16-2022 End: 02-16-2022 ambulatory Philippe Barrett Other [facility] Other Start: 02-16-2022 Telephone encounter Philippe Barrett [facility] Start: 02-11-2022 End: 02-11-2022 ambulatory Philippe Barrett Facility:[facility] Start: 02-09-2022 End: 02-09-2022 ambulatory Philippe Barrett Facility:[facility] Start: 01-28-2022 End: 01-28-2022 ambulatory Philippe Barrett Other [facility] Other Start: 01-28-2022 Office outpatient ne w 45 minutes Philippe [facility] Start: 05-27-2020 End: 05-28-2020 Patient encounter procedure ESTEPHANIA ABARCA Facility:[facility] Start: 11-01-2019 End: 11-01-2019 Patient encounter procedure GABINO LOOMIS Facility:[facility] Start: 06-27-2019 End: 06-28-2019 Patient encounter procedure ESTEPHANIA ABARCA Facility:[facility] Procedures Date Procedure Procedure Detail Performing Clinician Start: 07-04-2024 Bacteria identified in Urine by Culture Generic External Data Provider Plan of Treatment Date Care Activity Detail Author Start: 02-20-2031 DTaP,Tdap and Td Vaccines (2 - Td or Tdap) DTaP,Tdap and Td Vaccines (2 - Td or Tdap) [facility] Start: 08-18-2025 Tobacco Screening Tobacco Screening [facility] Start: 11-17-2024 Medicare Annual Wellness (AWV) Medicare Annual Wellness (AWV) [facility] Start: 10-26-2024 End: 10-26-2024 Patient encounter procedure 10/26/2024 2:15 PM EST Office Visit [facility] [address] [facility] [address] [place] [id number] Ranjeet Hensley MD [address] [place] [address] [facility] Start: 10-09-2024 End: 10-09-2024 Patient encounter procedure 10/09/2024 2:30 PM EST Office Visit [facility] [address] [facility] [address] [place] [address] Gabino Loomis MD [address] [facility] [address] [place] [address] [facility] Start: 09-01-2024 End: 09-01-2024 Patient encounter procedure 09/01/2024 3:00 PM EST Appointment [facility] [address] [place] [id number] Ranjeet Hensley MD [address] [place] [address] [facility] Start: 08-18-2024 End: 08-18-2025 CBC W Auto Differential panel - Blood [facility] Comment on above: Expected: 08/18/2024 (Approximate), Expi res: 08/18/2025 Start: 08-18-2024 End: 08-18-2025 Comprehensive metabolic 2000 panel - Serum or Plasma [facility] Comment on above: Expected: 08/18/2024 (Approximate), Expi res: 08/18/2025 Start: 08-18-2024 End: 08-18-2025 Echo complete W/O contrast Echo complete W/O contrast Echocardiography Routine Essential hypertension Paroxysmal atrial fibrillation ([facility]-HCC) Expected: 08/18/2024, Expires: 08/18/2025 [facility] Work Phone: Comment on above: Expected: 08/18/2024, Expires: Start: 08-18-2024 End: 08-18-2025 Thyrotropin [Units/volume] in Serum or Plasma [facility] Comment on above: Expected: 08/18/2024 (Approximate), Expi res: 08/18/2025 Start: 08-18-2024 End: 08-18-2025 Thyroxine (T4) free [Mass/volume] in Serum or Plasma [facility] Comment on above: Expected: 08/18/2024 (Approximate), Expi res: 08/18/2025 Start: 08-18-2024 End: 08-18-2024 Patient encounter procedure 08/18/2024 1:30 PM EST Office Visit [facility] [address] [place] [address] [place] [address] Ranjeet Hensley MD [address] [place] [address] [facility] Start: 08-07-2024 End: 08-07-2024 Patient encounter procedure [facility] Comment on above: Arrived Start: 07-10-2024 End: 07-10-2024 Patient encounter procedure 07/10/2024 1:30 PM EST Office Visit [facility] [address] [place] [address] [place] [address] Gabino Loomis MD [address] [place] [address] [place] [address] [facility] Start: 07-06-2024 End: 07-06-2025 Holter monitor study Holter monitor Imaging Routine Frequent PVCs Palpitations Near syncope Expected: 07/06/2024 (Approximate), Expires: 07/06/2025 [facility] Work Phone: Comment on above: Expected: 07/06/2024 (Approximate), Expi res: 07/06/2025 Start: 05-10-2024 End: 05-10-2024 Patient encounter procedure 05/10/2024 1:45 PM EDT Office Visit [facility] [address] [place] [address] [place] [address] Gabino Loomis MD [address] [place] [address] [place] [address] Arrived [facility] Comment on above: Arrived Start: 04-30-2024 COVID-19 Vaccine ( season) COVID-19 Vaccine ( season) [facility] Start: 04-30-2024 Influenza vaccination Influenza Vaccine (#1) [facility] Start: 04-14-2019 Pneumococcal Vaccine: 65+ Years (2 of 2 - PCV) Pneumococcal Vaccine: 65+ Years (2 of 2 - PCV) [facility] Start: 2008 Fall Risk Screening Fall Risk Screening [facility] Start: 1993 Administration of varicella zoster vaccine Zoster (Shingles) Vaccine (1 of 2) [facility] Start: 1955 Depression Screening Depression Screening [facility] Start: 1955 Tobacco Screening Tobacco Screening [facility] Calprotectin [Mass/m ass] in Stool [facility] Endomysial antibody IgA level [facility] Gliadin peptide IgA Ab [Units/volume] in Serum [facility] Gliadin peptide IgG Ab [Units/volume] in Serum [facility] HLA DQ antigen typing [facility] IgA [Mass/volume] in Serum or Plasma [facility] Tissue transglutamin ase IgA Ab [Units/volume] in Serum [facility] Tissue transglutamin ase IgG Ab [Units/volume] in Serum [facility] Immunizations Immunization Date Immunization Notes Care Provider Fa cili 08-07-2024 Influenza, High-dose Seasonal, Quadrivalent, Preservative Free Gabino Loomis MD Work Phone: [facility] 09-03-2023 Influenza, High-dose Seasonal, Quadrivalent, Preservative Free Gabino Loomis MD Work Phone: [facility] 09-03-2023 influenza virus vacc ine, unspecified formulation Gabino Loomis MD Work Phone: [facility] 07-20-2022 Influenza, High-dose Seasonal, Quadrivalent, Preservative Free Gabino Loomis MD Work Phone: [facility] 07-20-2022 Moderna SARS-CoV-2 50mcg/0.5mL Booster Gabino Loomis MD Work Phone: [facility] 08-11-2021 COVID-19 mRNA-1273 (Moderna) II Gabino Loomis Work Phone: [facility] 05-29-2021 influenza, high dose seasonal, preservative-free Gabino Loomis MD Work Phone: [facility] 02-20-2021 tetanus toxoid, redu ryan diphtheria toxoid, and acellular pertussis vaccine, adsorbed Gabino Loomis MD Work Phone: [facility] 11-28-2020 COVID-19 mRNA-1273 (Moderna) II Gabino Loomis Work Phone: [facility] 10-31-2020 COVID-19 mRNA-1273 (Moderna) BOBBI Loomis Work Phone: [facility] 07-12-2020 Influenza, High-dose Seasonal, Quadrivalent, Preservative Free Gabino Loomis MD Work Phone: [facility] 04-14-2018 pneumococcal polysaccharide vaccine, 23 valent Gabino Loomis MD Work Phone: [facility] Payers Date Payer Category Payer Self-pay [id number] 2017 Medicare [employer] MEDICARE ADVANTAGE [facility] MEDICARE ADVANTAGE [id number] 2017-Present [address] [place] [id number] 2017 Medicare (Managed Care) [facility] ADVANTAGE [id number] 2015 Medicare HMO [employer] MEDICARE [id number] 1959 Unknown [id number] 1945 Unknown [id number] [id number]. [id number] 1945 Unknown [id number] [id number]. 2.593 1945 Unknown [id number] [id number]. 2.593 1943 Unknown [id number] [id number]. 2.1259 1943 Unknown [id number] [id number]. 2.1259 1943 Unknown [id number] [id number]. 2.1259 1943 Unknown [id number] [id number]. 2.1259 1943 Unknown [id number] [id number]. 2.1259 Medicare Anthem MCR PFFS OP [id number] Unknown [id number] [id number]. 2.531 Unknown [id number] [id number]. 2.531 Unknown [id number] [id number]. 2.531 Unknown [id number] [id number]. 2.531 Unknown [id number]. 2.531 Social History Date Type Detail Facility Start: 10-10-2020 End: 02-29-2024 Sex Assigned At [facility] [employer] Other Start: 1945 Sex Assigned At Female F [facility] Start: 05-19-2017 End: 03-04-2023 Tobacco smoking status NHIS Never smoked tobacco [facility] Start: 05-19-2017 End: 03-04-2023 Tobacco use and exposure Smokeless tobacco non-user [facility] Start: 07-06-2024 End: 08-07-2024 Alcoholic beverage intake Ex-drinker (finding) [facility] Start: 10-10-2020 End: 02-29-2024 History of Social function [facility] [...] Not at all [facility] (I/We) worried wheth er (my/our) food would run out before (I/we) got money to buy more. Never true [facility] In the past 12 month s, was there a time when you were not able to pay the mortgage or rent on time? Yes [facility] Start: 1945 Sex assigned at Not on file [facility] Start: 11-03-2021 End: 08-18-2024 Alcoholic beverage intake Current non-drinker of alcohol (finding) [facility] Start: 04-04-2015 Sex Female (finding) [facility] Clinical Notes 01-28-2022 to 08-18-2024 Ranjeet Hensley MD - 08/18/2024 1:30 PM ESTTelephone Encounter - Cate Sanches CMA - 08/17/2024 3:22 PM ESTTelephone Encounter - Cate Sanches CMA - 08/17/2024 3:22 PM EST Note Date & Type Note Facility 08-18-2024 History of Presen t illness Narrative Sharon Sousa Date of visit: 08/18/2024 Date of : 1945 Age: 79 y.o. There is no problem list on file for this patient. Allergies Allergen Reactions Codeine Confusion Current Outpatient Medications Medication Sig Dispense Refill dicyclomine (BENTYL) 20 mg tablet Take 1 tablet (20 mg total) by mouth 2 (two) times a day. 20 tablet 0 levothyroxine (SYNTHROID, LEVOTHROID) 75 MCG tablet Take 1 tablet (75 mcg total) by mouth in the morning. losartan (COZAAR) 25 mg tablet Take 1 tablet (25 mg total) by mouth in the morning. ondansetron ODT (ZOFRAN ODT) 4 mg disintegrating tablet Dissolve 1 tablet (4 mg total) on tongue every 8 (eight) hours as needed for nausea for up to 10 doses. 10 tablet 0 apixaban (ELIQUIS) 5 mg tablet Take 1 tablet (5 mg total) by mouth in the morning and 1 tablet (5 mg total) before bedtime. 60 tablet 11 metoprolol succinate XL (TOPROL XL) 25 mg 24 hr tablet Take 1 tablet (25 mg total) by mouth in the morning. 90 tablet 3 No current facility-administered medications for this visit. 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 She had several episodes of dizziness and a couple episodes of near-syncope. She also had some intermittent palpitations. She was wore an extended monitor and was noted to have a 12% burden of atrial fibrillation. While in atrial fibrillation, her mean heart rate was 119 beats per minute. She had also had some supraventricular ectopy and some very short episodes of SVT with no significant ventricular ectopy. She does not have any chest pain or pressure. She was some mild shortness of breath. This has been a chronic finding. No orthopnea. No PND. She was not had catie syncope at any point. EKG have reveals sinus rhythm. When she wore the monitor, she did not have any substantial symptoms. She did not report any palpitations. She would not have any of the near syncopal episodes. She was takes losartan for hypertension. She does not check her blood pressure at home over have a blood pressure monitor. Past Medical History: Diagnosis Date Hypertension Hypothyroidism No data recorded No data recorded No data recorded Past Surgical History: Procedure Laterality Date APPENDECTOMY CHOLECYSTECTOMY ESOPHAGOGASTRODUODENOSCOPY N/A 11/21/2020 Performed by Everardo Alfredo MD at [facility] OOPHORECTOMY OVARIAN CYST SURGERY History reviewed. No pertinent family history. Social History Socioeconomic History Marital status: Spouse name: Not on file Number of children: Not on file Years of education: Not on file Highest education level: Not on file Occupational History Not on file Tobacco Use Smoking status: Never Smokeless tobacco: Never Vaping Use Vaping status: Never Used Substance and Sexual Activity Alcohol use: No Drug use: Never Sexual activity: Defer Other Topics Concern Caffeine Use Yes Social History Narrative Not on file Social Drivers of Health Financial Resource Strain: Low Risk (11/23/2023) Received from [facility] Overall Financial Resource Strain (CARDIA) Difficulty of Paying Living Expenses: Not hard at all Food Insecurity: No Food Insecurity (08/18/2024) Hunger Screening Food Insecurity - Worry: Never True Food Insecurity - Inability: Never True Transportation Needs: No Transportation Needs (11/23/2023) Received from [facility] PRAPARE - Transportation Lack of Transportation (Medical): No Lack of Transportation (Non-Medical): No Physical Activity: Insufficiently Active (11/23/2023) Received from [facility] Exercise Vital Sign Days of Exercise per Week: 7 days Minutes of Exercise per Session: 10 min Stress: No Stress Concern Present (11/23/2023) Received from [facility] [employer] [place] [employer] - Occupational Stress Questionnaire Feeling of Stress : Not at all Social Connections: Moderately Integrated (11/23/2023) Received from [facility] Social Connection and Isolation Panel [NHANES] Frequency of Communication with Friends and Family: Once a week Frequency of Social Gatherings with Friends and Family: Twice a week Attends Mosque Services: 1 to 4 times per year Active Member of Clubs or Organizations: No Attends Club or Organization Meetings: Never Marital Status: Interpersonal Safety: Not At Risk (11/23/2023) Received from [facility] Humiliation, Afraid, Rape, and Kick questionnaire Fear of Current or Ex-Partner: No Emotionally Abused: No Physically Abused: No Sexually Abused: No Housing Instability: High Risk (11/23/2023) Received from [facility] Housing Stability Vital Sign Unable to Pay for Housing in the Last Year: Yes Number of Places Lived in the Last Year: 1 Unstable Housing in the Last Year: No Review of Systems Review of Systems Constitutional: Positive for chills and malaise/fatigue. HENT: Negative. Eyes: Negative. Cardiovascular: Positive for chest pain. Respiratory: Positive for shortness of breath. Endocrine: Negative. Hematologic/Lymphatic: Negative. Skin: Negative. Musculoskeletal: Negative. Gastrointestinal: Negative. Genitourinary: Negative. Neurological: Positive for dizziness, headaches, light-headedness and loss of balance. Psychiatric/Behavioral: The patient is nervous/anxious. Allergic/Immunologic: Negative. Vascular: Negative. CARDIOVASCULAR: Please review HPI. Physical Examination General appearance: Alert, oriented and cooperative. In no acute distress. Skin: Warm and dry to touch. Head: Normocephalic, without obvious abnormality, atraumatic. Ears, Nose, Mouth, Throat: Throat clear without erythema or exudate. Dentition intact. Eyes: Conjunctivae unremarkable, EOM intact. Neck: No JVD, No carotid bruit. Neck supple, trachea midline. Respiratory: Clear to auscultation bilaterally, no use of accessory muscles. Cardiovascular: RRR with normal S1 and S2 with no murmurs. Gastrointestinal: Soft, non-tender. Bowel sounds normal. Musculoskeletal: No peripheral edema. Neurologic: Oriented to time, person and place, affect appropriate. No focal/major motor defects noted. Psychiatric: Appropriate mood, memory and judgement. VITAL SIGNS: BP 136/78 (BP Site: Left Arm, BP Postition: Sitting) Pulse 74 Ht 157.5 cm (5' 2 ) Wt 49.8 kg (109 lb 12.8 oz) SpO2 100% BMI 20.08 kg/m Orders Placed or Reconciled This Encounter Medications metoprolol succinate XL (TOPROL XL) 25 mg 24 hr tablet Sig: Take 1 tablet (25 mg total) by mouth in the morning. Dispense: 90 tablet Refill: 3 apixaban (ELIQUIS) 5 mg tablet Sig: Take 1 tablet (5 mg total) by mouth in the morning and 1 tablet (5 mg total) before bedtime. Dispense: 60 tablet Refill: 11 There are no discontinued medications. IMPRESSIONS/PLAN 1. Essential hypertension - Blood Pressure Monitor - Echo complete W/O contrast; Future - CBC auto differential; Future - Comprehensive metabolic panel; Future - TSH; Future - T4, free; Future 2. Paroxysmal atrial fibrillation (CMS-HCC) - Echo complete W/O contrast; Future - CBC auto differential; Future - Comprehensive metabolic panel; Future - TSH; Future - T4, free; Future Near-syncope as well as intermittent dizziness and palpitations pAF, newly noted, 12% on 06/2024 Holter. It is not clear that any of her symptoms correlated with atrial fibrillation or arrhythmias. HTN 8% supraventricular ectopic burden, <1% PVC burden Brief episodes of SVT Mild dyspnea on exertion, chronic issue She had atrial fibrillation with rates that average 119 beats per minute while she was in that. I am going to start a beta-shoshana. She would not have any significant offset pauses, etc.. We may need to repeat another monitor in short order. Echocardiogram to rule out structural heart disease I have given her a prescription for a sphygmomanometer. I have asked her to check her blood pressure regularly and also check it shortly after she has dizziness or symptoms to see if any of the episodes and symptoms she was experiencing are simply related to transient low blood pressure. She also can keep an eye on her heart rate on her own. When she wore the Holter, atrial fibrillation with RVR did not appear to correlate with any symptoms and she would not have any episodes of near-syncope. Have any offset pauses noted. Suspect we will need to do some wireless telemetry if she continues to have symptoms to try to see a correlation between these and any potential arrhythmias unless we citrus picker that this is a blood pressure mediated cause of her dizziness. Recommend anticoagulation. Discussed risks, benefits and alternatives. Will plan for Eliquis. We will also check repeat labs including thyroid function test and have her follow up in short order after the echo is complete After following up, I would get an ischemic evaluation on her assuming her LV function is normal to potentially guide antiarrhythmic therapy as well as to evaluate her given the chronic dyspnea. TODAYS ORDERS Orders Placed This Encounter Procedures Blood Pressure Monitor CBC auto differential Comprehensive metabolic panel TSH T4, free Echo complete W/O contrast FOLLOW UP Return in about 2 months (around 10/19/2024). PCP: GABINO LOOMIS MD Referring Physician: JHONNY Hernandez [address] [facility] [address] [place] [address] [facility] 08-17-2024 Miscellaneous Notes Called patient to remind them to bring their most current copy of their medication list with them to their appt. Patient's verbalizes understanding. documented in this encounter [facility] 08-17-2024 Telephone encounter Note Called patient to remind them to bring their most current copy of their medication list with them to their appt. Patient's verbalizes understanding. [facility] 08-07-2024 History of Presen t illness Narrative Images from the original note were not included. HPI holter monitor Additional comments: Pt had holter monitor done through [facility]--she has appt sched with cardiology 08/18/24 Last edited by Dee Luque LPN on 08/07/2024 2:57 PM. Subjective Patient ID: Sharon Sousa is a 79 y.o. female who presents for Gastritis and holter monitor (Pt had holter monitor done through [facility]--she has appt sched with cardiology 08/18/24). Pt taking meds as directed since last visit pt states abd symptoms have improved Denies abd pain, vomiting or diarrhea Does still have some nausea Current Outpatient Medications on File Prior to Visit Medication Sig Dispense Refill donepezil (Aricept) 5 MG tablet Take 1 tablet (5 mg) by mouth at bedtime for 30 days, THEN 2 tablets (10 mg) at bedtime. 210 tablet 0 ergocalciferol (Drisdol) 1.25 MG (48993 UT) capsule Take 1 capsule (1.25 mg) by mouth 1 (one) time per week 12 capsule 3 levothyroxine (Synthroid, Levoxyl) 75 [...] (40 mg) before bedtime. 180 capsule 3 [DISCONTINUED] famotidine (Pepcid) 20 MG tablet Take 1 tablet (20 mg) by mouth Daily 30 tablet 2 [DISCONTINUED] ondansetron ODT (Zofran-ODT) 4 MG disintegrating tablet Take 4 mg by mouth every 8 (eight) hours if needed No current facility-administered medications on file prior [...] EXCISION ovarian mass removal Visit Vitals BP 122/76 Pulse 69 Ht 5' 2 Wt 110 lb SpO2 100% BMI 20.12 kg/m Smoking Status Never BSA 1.48 m Review of Systems Objective Physical Exam Constitutional: General: She is not in acute distress. Appearance: Normal appearance. She is well-developed. HENT: Head: Normocephalic and atraumatic. Eyes: General: No scleral icterus. Conjunctiva/sclera: Conjunctivae normal. Cardiovascular: Rate and Rhythm: Normal rate and regular rhythm. Heart sounds: Normal heart sounds. No murmur heard. Pulmonary: Effort: Pulmonary effort is normal. No respiratory distress. Breath sounds: Normal breath sounds. No wheezing, rhonchi or rales. Abdominal: General: Abdomen is flat. Bowel sounds are normal. Palpations: Abdomen is soft. There is no mass. Tenderness: There is no abdominal tenderness. Skin: General: Skin is warm and dry. Neurological: General: No focal deficit present. Mental Status: She is alert and oriented to person, place, and time. Psychiatric: Mood and Affect: Mood normal. Behavior: Behavior normal. Assessment/Plan Diagnoses and all orders for this visit: Essential hypertension (CMS/HCC) Hypothyroidism, unspecified type (CMS/HCC) Gastro-esophageal reflux disease without esophagitis Acute gastritis without hemorrhage, unspecified gastritis type - ondansetron ODT (Zofran-ODT) 4 MG disintegrating tablet; Take 1 tablet (4 mg) by mouth every 8 (eight) hours if needed for nausea - famotidine (Pepcid) 20 MG tablet; Take 1 tablet (20 mg) by mouth Daily Flu vaccine need - Influenza, high-dose seasonal, quadrivalent, PF (HUA118) (Fluzone High Dose [place] 0.7mL dose) Near syncope - Holter just completed, has upcoming appt with Cardiology. Follow up in about 2 months (around 10/08/2024) for F/U med changes. documented in this encounter [facility] 07-06-2024 History of Presen t illness Narrative Images from the original note were not included. Subjective Patient ID: Sharon Sousa is a 79 y.o. female who presents for [facility] ER follow up. Sharon is present today for [facility] ER follow up from 07/04/2024. Dx. [...] 210 tablet 0 ergocalciferol (Drisdol) 1.25 MG (67866 UT) capsule Take 1 capsule (1.25 mg) [...] vomiting, unspecified vomiting type Encouraged them to citrus picker the Zofran today. She can take this [...] 08/03/2024) for Recheck. documented in this encounter [facility] 05-10-2024 History of Presen t illness Narrative Images from the original note were not included. HPI Osteoporosis Additional comments: Here for prolia injection Med Refill Additional comments: Omeprazole,levothyroxine--[place] Last edited by Dee Luque LPN on 05/10/2024 1:51 PM. Subjective Patient ID: Sahron Sousa is a 79 y.o. female who presents for Osteoporosis (Here for prolia injection), Med Refill (Omeprazole,levothyroxine--walma rt [place]), and Memory Loss. Pt has noticed some memory loss/ forgetfulness over last year feels it is worsening Med Refill Memory Loss Current Outpatient Medications on File Prior to Visit Medication Sig Dispense Refill Carafate 1 g tablet Take 1 g by mouth in the morning and 1 g in the evening and 1 g before bedtime. ergocalciferol (Drisdol) 1.25 MG (01794 UT) capsule Take 1 capsule (1.25 mg) by mouth 1 (one) time per week 12 capsule 3 levothyroxine (Synthroid, Levoxyl) 75 MCG tablet Take 1 tablet (75 mcg) by mouth in the morning. 100 tablet 2 lisinopril 5 MG tablet Take 1 tablet (5 mg) by mouth in the morning and 1 tablet (5 mg) before bedtime. 200 tablet 3 Multiple Vitamins-Minerals (Centrum Silver Ultra Womens) tablet Daily. omeprazole (PriLOSEC) [address] capsule Take 1 capsule by mouth in the morning and 1 capsule before bedtime. ondansetron ODT (Zofran-ODT) 4 MG disintegrating tablet Take 4 mg by mouth every 8 (eight) hours if needed No current facility-administered medications on file prior to visit. I have reviewed and reconciled the history and medication list with the patient today. Allergies Allergen Reactions Codeine Unknown Social History Tobacco Use Smoking status: Never Smokeless tobacco: Never No family history on file. Past Medical History: Diagnosis Date Arthritis Colitis 2021 Duodenal ulcer 2011 Erosive gastritis 2011 Gastric polyp 2011 GERD (gastroesophageal reflux disease) Ovarian mass PUD (peptic ulcer disease) Retinal hemorrhage Past Surgical History: Procedure Laterality Date CHOLECYSTECTOMY COLONOSCOPY 2010 EGD 2011 EGD 2021 MASS EXCISION ovarian mass removal Visit Vitals BP 132/76 Pulse 88 Ht 5' 2 Wt 111 lb SpO2 98% BMI 20.30 kg/m Smoking Status Never BSA 1.48 m Review of Systems Objective Physical Exam Constitutional: General: She is not in acute distress. Appearance: Normal appearance. She is well-developed. She is not ill-appearing or toxic-appearing. HENT: Head: Normocephalic and atraumatic. Eyes: General: No scleral icterus. Conjunctiva/sclera: Conjunctivae normal. Cardiovascular: Rate and Rhythm: Normal rate and regular rhythm. Heart sounds: Normal heart sounds. No murmur heard. Pulmonary: Effort: Pulmonary effort is normal. No respiratory distress. Breath sounds: Normal breath sounds. No wheezing, rhonchi or rales. Skin: General: Skin is warm and dry. Neurological: General: No focal deficit present. Mental Status: She is alert. Psychiatric: Mood and Affect: Mood normal. Behavior: Behavior normal. Maximum Score Orientation 5 ( 2 ) What is the (year), (season), (date), (day), (month)? 5 ( 5 ) Where are we (state), (county), (town), (hospital), (floor)? Registration 3 ( 3 ) Name 3 Objects: One second to say each. Then ask the patient all 3 after you have said them. Give 1 point for each correct answer. Then repeat them until patient learns all 3. Count trials and record. Attention and Calculation 5 ( 5 ) Serial 7's: One point for each correct. Stop after 5 answers. Alternatively, spell world backwards. Recall 3 ( 1 ) Ask for 3 the 3 objects repeated above. Give 1 point for each correct. Language 2 ( 2 ) Name a pencil and watch (2 points). 1 ( 1 ) Repeat the following: No ifs ands or buts (1 point). 3 ( 2 ) Follow a 3-stage command: Take a paper in your right hand, fold it in half and put it on the floor (3 points). 1 ( 1 ) Read and obey the following: Close your eyes (1 point). 1 ( 1 ) Write a sentence (1 point). 1 ( 1 ) Copy design (1 point). Total Score ( ) Assessment/Plan Diagnoses and all orders for this visit: Cognitive impairment - donepezil (Aricept) 5 MG tablet; Take 1 tablet (5 mg) by mouth at bedtime for 30 days, THEN 2 tablets (10 mg) at bedtime. Age-related osteoporosis without current pathological fracture (CMS/HCC) - denosumab (Prolia) injection 60 mg Hypothyroidism, unspecified type (CMS/HCC) - levothyroxine (Synthroid, Levoxyl) 75 MCG tablet; Take 1 tablet (75 mcg) by mouth Daily Gastro-esophageal reflux disease without esophagitis - omeprazole (PriLOSEC) [address] capsule; Take 1 capsule (40 mg) by mouth in the morning and 1 capsule (40 mg) before bedtime. Essential hypertension (CMS/HCC) - lisinopril 5 MG tablet; Take 1 tablet (5 mg) by mouth in the morning and 1 tablet (5 mg) before bedtime. No follow-ups on file. documented in this encounter [facility] 09-30-2022 Evaluation note Encounter Date Diagnosis Assessment Notes Sep, Abdominal pain (ICD-10 - R10.9) Sep, Bloating (ICD-10 - R14.0) [facility] Other 06-01-2022 Evaluation note* Encounter Date Diagnosis Assessment Notes Treatment Notes Treatment Clinical Notes Jan, Chronic gastritis (ICD-10 - K29.50) CONTINUE OMEPRAZOLE BID FOR NOW EGD OBTAIN RECENT RADIOLOGY REPORT FROM [place] [facility] HERE AFTER Jan, Colitis (ICD-10 - K52.9) COLONOSCOPY Jan, Abdominal pain (ICD-10 - R10.9) [facility] Other [facility] noteNo InformationNort Augure Other Evlhmrlrjs noteNo assessment information available [facility] Work Phone: Evahwxbgkw note* Diagnosis Epigastric pain- Primary Abdominal pain, epigastric Nausea and vomiting, unspecified vomiting type Acute gastritis without hemorrhage, unspecified gastritis type Frequent PVCs Palpitations Near syncope documented in this encounter [facility]* Diagnosis Essential hypertension (CMS/HCC)- Primary Unspecified essential hypertension Hypothyroidism, unspecified type (CMS/HCC) Gastro-esophageal reflux disease without esophagitis Acute gastritis without hemorrhage, unspecified gastritis type Flu vaccine need Near syncope documented in this encounter [facility] HealthcareEvaluation note* Diagnosis Cognitive impairment- Primary Unspecified persistent mental disorders due to conditions classified elsewhere Age-related osteoporosis without current pathological fracture (CMS/HCC) Hypothyroidism, unspecified type (CMS/HCC) Gastro-esophageal reflux disease without esophagitis Essential hypertension (CMS/HCC) Unspecified essential hypertension documented in this encounter [facility] HealthcareEvaluation note* Diagnosis Paroxysmal atrial fibrillation (CMS-HCC)- Primary Atrial fibrillation Essential hypertension Unspecified essential hypertension [facility] - Reported* Type Description Date Medical History HTN Medical History GERD Medical History hypothyroidism Surgical History CHOLECYSTECTOMY Surgical History PARTIAL HYSTERECTOMY [facility] Other InstructionsNot on filedocumented in this encounter [employer] SystemInstructionsNot on filedocumented in this encounter Number 100 Summary Purpose Family History Relationship Condition Age at Onset Recorded Date/T allen Not Specified No pertinent family history Unknown Advance Directives Advance Directive Response Recorded Date/ Time Advance Directives No February 05 2 10:44am Chief Complaint and Reason for Visit Chief Complaint R10.9 K92.1 R19.4 R1 4.0 Chief Complaint R10.9 K92.1 R19.4 R1 4.0 R10.9 K92.1 R19.4 R14.0 Additional Source Comments INFORMATION SOURCE (unrecogn ized section and content) DATE CREATED AUTHOR 06/01/2020 [facility] DATE CREATED AUTHOR AUTHOR'S ORGANIZ ATION 12/14/2022 [facility] DATE CREATED AUTHOR AUTHOR'S ORGANIZ ATION 08/10/2024 [facility] EPIC REASON FOR VISIT (unrecogniz ed section and content) Reason Comments Gastritis holter monitor Pt had holter monito r done through [facility]--she has appt sched with cardiology 08/18/24 Reason Comments Osteoporosis Here for prolia inje ction Med Refill Omeprazole,levothyro xine--[place] Memory Loss Reason Comments New Patient THERAPEUTIC RADIOLOGIST REFERRAL ESTEPHANIA KAPLAN MMER FREQUENT PVCS, PALPS, NEAR SYNCOPE, [facility] 07/02/2024, SCHED W/PT++labs in care everywhere, pcp office note in care everywhere, requested ER records/HM report from [facility]++jlw 08/08/2024 Specialty Diagnoses / Procedures Referred By Contac t Referred To Contact Cardiology Diagnoses Frequent PVCs Palpitations Near syncope Procedures ND OFFICE OUTPATIENT VISIT 60-74 MINS HIGH MDM [id number] (SNOMED CT) - AMB REFERRAL TO CARDIOLOGY Estephania Abarca PA [address] [place] [address] [place] [address] Phone: tel: fax: Ranjeet Hensley MD [address] [place] [address] Phone: tel: fax: Referral ID Status Reason Start Date Expiration Date V isits Requested Visits Authorized [id number] Pending Review 07/06/2024 01/02/2025 1 1 Care Teams (unrecognized sec tion and content) Team Status: Inactive Member Role Status Dates Gabino Loomis II MD Primary Care Provider Active Danna Sarmiento MD Attending Provider Active Team Status: Active Member Role Status Dates Gabino Loomis II MD Primary Care Provider Active Fleet Mechanic Relationship Specialty Start Date End Date Gabino Loomis MD [address] [place] [address] [place] [address] PCP - General Internal Medicine 02/15/23 Gabino Loomis MD [address] [place] [address] [place] [address] PCP - Vikki HOOK 03/30/24Wednesday, [place], CLUSTER BORE OPERATOR [address] [place] [address] Licensed Practical Nurse Family Medicine 11/18/23 Fleet Mechanic Relationship Specialty Start Date End Date Gabino Loomis MD [address] [place] [address] [place] [address] PCP - General Internal Medicine 02/15/23 Gabino Loomis MD [address] [place] [address] [place] [address] PCP - Vikki HOOK 03/30/24Wednesday, [place], CLUSTER BORE OPERATOR [address] [place] [address] Licensed Practical Nurse Family Medicine 11/18/23 Fleet Mechanic Relationship Specialty Start Date End Date Gabino Loomis MD [address] [place] [address] [place] [address] PCP - General Internal Medicine 02/15/23 Gabino Loomis MD [address] [place] [address] [place] [address] PCP - Vikki HOOK 03/30/24Wednesday, [place], CLUSTER BORE OPERATOR [address] [place] [address] Licensed Practical Nurse Family Medicine 11/18/23 Fleet Mechanic Relationship Specialty Start Date End Date Gabino Loomis MD [address] [place] [address] [place] [address] PCP - General Internal Medicine 02/15/23 Gabino Loomis MD [address] [place] [address] [place] [address] PCP - Vikki HOOK 03/30/24Wednesday, [place], CLUSTER BORE OPERATOR [address] [place] [address] Licensed Practical Nurse Family Medicine 11/18/23 Fleet Mechanic Relationship Specialty Start Date End Date Gabino Loomis MD [address] [place] [address] [place] [address] PCP - General Internal Medicine 02/15/23 Gabino Loomis MD [address] [place] [address] [place] [address] PCP - Vikki HOOK 03/30/24Wednesday, [place], CLUSTER BORE OPERATOR [address] [place] [address] Licensed Practical Nurse Family Medicine 11/18/23 Fleet Mechanic Relationship Specialty Start Date End Date Gabino Loomis MD [address] [place] [address] [place] [address] PCP - General Internal Medicine 02/15/23 Gabino Loomis MD [address] [place] [address] [place] [address] PCP - Vikki HOOK 03/30/24 Rolando, BENJAMIN AbdiN [address] [place] [address] Licensed Practical Nurse Family Medicine 11/18/23 Fleet Mechanic Relationship Specialty Start Date End Date Gabino Loomis MD [address] [place] [address] [place] [address] PCP - General Internal Medicine 10/31/19 Fleet Mechanic Relationship Specialty Start Date End Date Gabino Loomis MD [address] [place] [address] PCP - General Internal Medicine 10/31/19 Goals (unrecognized section and content) Goals may [...] BE BASED ON THE PRIMARY CLINICAL RECORDS. [email or web address] provides no warranty or guarantee of the accuracy or completeness of information in this document.
--- NOTE | 2024-08-20 12:54 | ECG_ITS ---
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
[2024-08-20] MEDS: ONDANSETRON PF 4 MG/2 ML VIAL IV ×2 (13:10→15:24)
[2024-08-20] MEDS: FAMOTIDINE/PF 20 MG/2 ML VIAL IV (13:10)
[2024-08-20] MEDS: METOPROLOL TARTRATE 5 MG/5 ML VIAL IVP (13:10)
[2024-08-20 13:20] LABS: Basophils Percent Auto 0.5 % (0.2-2.0); Eosinophils Absolute Auto 0.1 10^3/uL (0.0-0.7); Eosinophils Percent Auto 2.2 % (0.9-7.0); Hematocrit 39.2 % (36.0-48.0); Hemoglobin 12.9 g/dL (12.0-16.0); Immature Granulocytes Abs Auto 0.03 10^3/uL (0.00-0.03); Immature Granulocytes Pct Auto 0.5 % (0.0-0.5); Lymphocytes Absolute Auto 1.7 10^3/uL (1.2-3.8); Lymphocytes Percent Auto 26.5 % (20.5-60.0); Mean Corpuscular HGB Conc 32.9 g/dL (29.9-35.2); Mean Corpuscular Hemoglobin 30.2 pg (26.7-34.0); Mean Corpuscular Volume 91.8 fL (81.0-99.0); Mean Platelet Volume 11.6 fL (9.5-13.5); Monocytes Absolute Auto 0.3 10^3/uL (0.3-0.8); Neutrophils Absolute Auto 4.3 10^3/uL (1.4-6.5); Neutrophils Percent Auto 66.3 % (43.0-75.0); Platelet Count 179 10^3/uL (150-450); Red Blood Count 4.27 10^6/uL (4.20-5.40); Red Cell Distribution Width 13.4 % (11.0-15.0); White Blood Count 6.4 10^3/uL (4.0-11.0)
[2024-08-20 13:45] LABS: INR 1.01; Prothrombin Time 10.7 sec (9.0-11.6)
[2024-08-20 13:51] LABS: Lactate/Lactic Acid 1.7 mmol/L (0.4-2.0)
[2024-08-20 14:02] LABS: Alanine Aminotransferase 20 U/L (14-59); Albumin Level 3.5 g/dL (3.4-5.0); Alkaline Phosphatase 67 U/L (46-116); Anion Gap 16.1; Aspartate Amino Transferase 25 U/L (15-37); BUN Creatinine Ratio 23.5; Bilirubin Total 0.5 mg/dL (0.2-1.0); Calcium 8.3 mg/dL (8.5-10.1); Carbon Dioxide 24.3 mmol/L (21.0-32.0); Chloride 106 mmol/L (98-107); Estimated GFR (African America >60 (>=60 mL/min/1.73m^2); Estimated GFR (Non-African Ame >60 (>=60 mL/min/1.73m^2); Ethanol <3 mg/dL; Globulin 3.4 g/dL; Glucose 132 mg/dL (74-106); Potassium 3.4 mmol/L (3.5-5.1); Sodium 143 mmol/L (136-145); Total Protein 6.9 g/dL (6.4-8.2); Troponin I High Sensitivity 35.8 pg/mL (4.0-51.3)
--- NOTE | 2024-08-20 15:08 | ECG_ITS ---
The [facility] Test Date: 2024-08-20 Pat Name: ZAKIYA SOUSA Department: Room: - Gender: Female Cna Caregiver: : 1945 Requested By: BRADY BORREGO Order Number: [id number] Reading MD: ALVIN BETANCOURT Measurements Intervals [place] Rate: 85 P: 66 NC: 160 QRS: 35 QRSD: 88 T: 74 QT: 368 QTc: 410 Interpretive Statements 1100 Sinus rhythm 1474 with frequent supraventricular premature complexes 9140 abnormal rhythm ECG Electronically Signed On 08-20-2024 17:57:53 EST by ALVIN BETANCOURT
[2024-08-20 15:15] LABS: Troponin I High Sensitivity 250.1 pg/mL (4.0-51.3)
--- NOTE | 2024-08-20 15:29 | ECG_ITS ---
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
--- NOTE | 2024-08-20 16:01 | ED.GENADUL1 ---
HPI HPI - General Adult General Chief complaint: Abdominal Pain Stated complaint: VOMITING, ABDOMINAL PAIN, BACK PAIN Time Seen by Provider: 08/20/24 12:53 Source: patient and family Mode of arrival: walk-in Limitations: no limitations History of Present Illness HPI narrative: The patient is coming to us after she started 1 hour ago having epigastric discomfort and pain with nausea, she vomited once before arrival The patient denies any symptoms that she had over the last few days, she mentioned that she had no concerns till an hour ago. According to her at the bedside she was just recently diagnosed almost within the last 5 days after she saw her vascular radiologist with A-fib but she did not go and pick her prescription that she does not know what are they from [facility] pharmacy The patient pointing to the epigastric area as the reason for the pain in addition to a retrosternal pressure Related Data Home Medications ?Medication ?Instructions ?Recorded ?Confirmed donepezil 5 mg tablet 5 mg PO QPM 07/04/24 08/20/24 levothyroxine 75 mcg tablet 75 mcg PO QAM 07/04/24 08/20/24 lisinopril 5 mg tablet 5 mg PO BID 07/04/24 08/20/24 omeprazole 40 mg capsule,delayed 40 mg PO BID 07/04/24 08/20/24 release apixaban 5 mg tablet (Eliquis) mg 08/20/24 famotidine 20 mg tablet 20 mg PO DAILY 08/20/24 08/20/24 metoprolol succinate 25 mg 25 mg PO BID 08/20/24 08/20/24 tablet,extended release 24 hr Previous Rx's ?Medication ?Instructions ?Recorded ondansetron HCl 4 mg tablet 4 mg PO Q8H PRN nausea and 07/04/24 vomiting 4 days #20 tabs Allergies Allergy/AdvReac Type Severity Reaction Status Date / Time codeine Allergy Mild Rash Verified 04/06/24 10:16 Opioid HPI Opioid Management Most Recent Opioid Data: Last Pain Scale 9 07/04/24 18:44 07/04/24 Review of Systems ROS Status of ROS 10 or more systems reviewed and unremarkable except as noted in history and below [facility] Medical History (Updated 08/20/24 @ 16:22 by Korina Patel MD) Atrial fibrillation ?I48.91 - Unspecified atrial fibrillation (ICD-10) Vertigo ?R42 - Dizziness and giddiness (ICD-10) Hypothyroidism ?E03.9 - Hypothyroidism, unspecified (ICD-10) GERD (gastroesophageal reflux disease) ?K21.9 - Gastro-esophageal reflux disease without esophagitis (ICD-10) HTN (hypertension) ?I10 - Essential (primary) hypertension (ICD-10) Surgical History History of appendectomy ?Z90.49 - Acquired absence of other specified parts of digestive tract (ICD-10) Hx of cholecystectomy ?Z90.49 - Acquired absence of other specified parts of digestive tract (ICD-10) Social History Little interest or pleasure in doing things: not at all Feeling down, depressed, or hopeless: not at all Exam Narrative Exam Narrative: Nurses notes and vital signs reviewed and patient is not hypoxic. General: Well-appearing and in no apparent distress. Skin: Warm, dry, no pallor noted. No rash. Head: Normocephalic, atraumatic. Neck: Supple, non-tender. Eye: Pupils are equal, round and EOMI. No scleral icterus. Ears, Nose, Mouth, and Throat: TM are clear, no nasal mucosal hypertrophy. Oral mucosa is moist, no posterior oropharynx erythema, uvula is mid-line Cardiovascular: Irregularly irregular, and Rhythm without murmur, gallop or rub. Respiratory: No accessory muscle use or respiratory distress. Lungs are clear to auscultation, no wheezing, rales or rhonchi Chest Wall: no tenderness Back: No midline thoracic or lumbar vertebral tenderness. No CVA tenderness Musculoskeletal: normal ROM, no calf or popliteal tenderness, no lower extremity edema/swelling GI: Abdomen is soft, non-distended. Normal bowel sounds. No masses appreciated. Epigastric tenderness and discomfort .no rebound, guarding, or rigidity noted. Neurological: A&O x4. No cranial nerve dysfunction observed. No truncal ataxia. Moves all extremities. Sensation intact. Psychiatric: Cooperative and interactive. Normal mood and affect. Constitutional Vital Signs, click to edit/add: Last Vital Signs Temp 98 F 08/20/24 12:47 Pulse 61 08/20/24 15:50 Resp 19 08/20/24 15:50 BP 149/90 H 08/20/24 15:33 Pulse Ox 98 08/20/24 15:50 O2 Del Method Room Air 08/20/24 12:47 Course Vital Signs Vital signs: Vital Signs Temperature 98 F 08/20/24 12:47 Pulse Rate 124 H 08/20/24 12:47 Respiratory Rate 18 08/20/24 12:47 Blood Pressure 138/92 H 08/20/24 12:47 Pulse Oximetry 97 08/20/24 12:47 Oxygen Delivery Method Room Air 08/20/24 12:47 Temperature 98 F 08/20/24 12:47 Pulse Rate 61 08/20/24 15:50 Respiratory Rate 19 08/20/24 15:50 Blood Pressure 149/90 H 08/20/24 15:33 Pulse Oximetry 98 08/20/24 15:50 Oxygen Delivery Method Room Air 08/20/24 12:47 Medical Decision Making MDM Narrative Medical decision making narrative: Patient initial EKG showing that she was in A-fib heart rate was 115 that was showing up until a monitor at that time the patient did have some ST depression in lead II as well as mildly in V5 The patient then responded to Lopressor 5 and her heart rate was controlled at sinus rhythm and it was at heart rate of 85 although with some PVCs The patient responded to treatment and her symptoms of abdominal pain nausea vomiting resolved Her abdominal examination was completely benign The patient lactic acid was not elevated CBC and chemistry showed no acute pathology She was evaluated by her vascular radiologist from [place] provided with a prescription of metoprolol extended release 25 mg daily in addition to Eliquis that she did not oyster picker from [facility] pharmacy I discussed the case with after the troponin went from 32-250 and he agree right now that with the patient's symptoms resolving and the fact that she is controlled rhythm we will start her on heparin instead of Eliquis at the moment and after asking the pharmacist the patient will be started on heparin according to the ACS protocol although we are covering for A-fib management The patient case discussed with Dr. Ng and he agreed with above-mentioned plan Lab Data Labs: Lab Results 08/20/24 08/20/24 08/20/24 Range/Units 12:50 14:50 16:12 WBC 6.4 (4.0-11.0) 10^3/uL RBC 4.27 (4.20-5.40) 10^6/uL Hgb 12.9 (12.0-16.0) g/dL Hct 39.2 (36.0-48.0) % MCV 91.8 (81.0-99.0) fL MCH 30.2 (26.7-34.0) pg MCHC 32.9 (29.9-35.2) g/dL RDW 13.4 (11.0-15.0) % Plt Count 179 (150-450) 10^3/uL MPV 11.6 (9.5-13.5) fL Neut % (Auto) 66.3 (43.0-75.0) % Lymph % (Auto) 26.5 (20.5-60.0) % Rogers % (Auto) 4.0 (1.7-12.0) % Eos % (Auto) 2.2 (0.9-7.0) % Baso % (Auto) 0.5 (0.2-2.0) % Neut # (Auto) 4.3 (1.4-6.5) 10^3/uL Lymph # (Auto) 1.7 (1.2-3.8) 10^3/uL Rogers # (Auto) 0.3 (0.3-0.8) 10^3/uL Eos # (Auto) 0.1 (0.0-0.7) 10^3/uL Baso # (Auto) 0.0 (0.0-0.1) 10^3/uL Abs Immat Gran (auto) 0.03 (0.00-0.03) 10^3/uL Imm/Tot Granulo (auto) 0.5 (0.0-0.5) % PT 10.7 10.9 (9.0-11.6) sec INR 1.01 1.03 APTT 25.7 (22.3-36.2) sec Sodium 143 (136-145) mmol/L Potassium 3.4 L (3.5-5.1) mmol/L Chloride 106 (98-107) mmol/L Carbon Dioxide 24.3 (21.0-32.0) mmol/L Anion Gap 16.1 BUN 19.0 H (7.0-18.0) mg/dL Creatinine 0.81 (0.55-1.02) mg/dL Est GFR ( Amer) >60 (>=60 mL/min/1.73m^2) Est GFR (Non-Af Amer) >60 (>=60 mL/min/1.73m^2) BUN/Creatinine Ratio 23.5 Glucose 132 H (74-106) mg/dL Lactate 1.7 (0.4-2.0) mmol/L Calcium 8.3 L (8.5-10.1) mg/dL Total Bilirubin 0.5 (0.2-1.0) mg/dL AST 25 (15-37) U/L ALT 20 (14-59) U/L Alkaline Phosphatase 67 (46-116) U/L Troponin I High Sens 35.8 250.1 H* (4.0-51.3) pg/mL Total Protein 6.9 (6.4-8.2) g/dL Albumin 3.5 (3.4-5.0) g/dL Globulin 3.4 g/dL Albumin/Globulin Ratio 1.0 Lipase 57.0 (16.0-77.0) U/L Ethanol Quant <3 mg/dL Discharge Plan Discharge Chief Complaint: Abdominal Pain Clinical Impression: Atrial fibrillation with RVR, Elevated troponin Patient Disposition: Admitted As Inpatient Time of Disposition Decision: 16:22
[2024-08-20] MEDS: HEPARIN SODIUM (PORCINE) 5,000 UNIT/ML VIAL 2100 UNIT IV (16:25)
[2024-08-20] MEDS: HEPARIN SODIUM,PORCINE/D5W 25,000 UNIT/500 ML IV.SOLN 12.48 UNIT IV (16:26)
[2024-08-20 16:32] LABS: INR 1.03; Partial Thromboplastin Time 25.7 sec (22.3-36.2); Prothrombin Time 10.9 sec (9.0-11.6)
[2024-08-20 16:52] LABS: Thyroid Stimulating Hormone 1.891 uIU/mL (0.358-3.740)
--- NOTE | 2024-08-20 17:08 | ECG_ITS ---
[facility] Test Date: 2024-08-20 Pat Name: ZAKIYA SOUSA Department: Room: - Gender: Female [employer] Technician: : 1945 Requested By: BRADY BORREGO Order Number: [id number] Reading MD: ALVIN BETANCOURT Measurements Intervals [place] Rate: 67 P: 67 CO: 180 QRS: 40 QRSD: 82 T: 73 QT: 400 QTc: 415 Interpretive Statements 1100 Sinus rhythm 1570 with occasional ventricular premature complexes 9140 abnormal rhythm ECG Compared to ECG 08/20/2024 13:03:01 Ventricular premature complex(es) now present Electronically Signed On 08-20-2024 17:58:49 EST by ALVIN BETANCOURT
[2024-08-20 17:25] LABS: Troponin I High Sensitivity 351.3 pg/mL (4.0-51.3)
--- OUTSIDE RECORDS SUMMARY | 2024-08-20 17:25 | XMS_ITS | CCD ---
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 Name Role Phone ESTEPHANIA ABARCA Admitting Unavailable [...] Barrett Unavailable BOBBI Loomis Primary Care Provider [phone] MD Danna Sarmiento Attending Provider [phone] Asaad, Imad Unavailable Asaad, Imad Admitting Unavailable [...] Unavailable Gabino Loomis MD Primary Care Provider Wednesday MOTORCYCLE MAKER, Trinidad Unavailable Gabino Loomis MD Unavailable GABINO LOOMIS Attending Unavailable PK ARMIJO Attending Unavailable GABINO LOOMIS Attending Unavailable ESTEPHANIA ABARCA Attending Unavailable GABINO LOOMIS Attending Unavailable Gabino Loomis MD Primary Care Provider [phone] Allergies Allergy Classification Reported Allergen(s) Allergy Type Date of Onset Reaction(s) Facility (1 source) Codeine Drug Allergy 7 [facility] Repository (4 sources) Codeine Drug Allergy Unknown [employer] Other (1 source) Codeine Drug Allergy 3 [facility] Repository (11 sources) Codeine Drug Allergy [...] mouth every week ergocalciferol (Drisdol) 1.25 MG (21129 UT) capsule Indications: Vitamin D deficiency Take [...] 05/10/2025 Active take 1 capsule by mo [facility] every twelve hours Omeprazole 40 MG [...] 11-18-2023 11-18-2023 Other aftercare (1 source) Other [employer] (current) drug therapy; Translations: [OTH 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 CURRENT DRUG THERAPY] Onset: 11-03-2019 Episodic Other [...] Cx Nom (U) Performed at: - [facility] Bacteria identified Cx Nom (U) [address] [place], [place] [id number] [facility] Bacteria identified Cx Nom (U) Patent Agent: zE Brantley PhD, Phone: [phone] [facility] Blood Urea Nitrogenon 2022 Urea nitrogen [Mass/Vol] 17 mg/dL Normal 7-25 [facility] Comment on above: Performed By: #### C REAT, BUN #### [facility] [address] enterographyon 12-14-2022 CT enterography [facility] [place] [address] [place] [address] CT Scan Report Signed Patient: Sharon Sousa MR#: [id number] [birth year] : 1945 Acct:[id number] Age/Sex: 77 / F ADM Date: 12/14/22 Loc: CT Room: Type: [facility] Attending Dr: Danna Sarmiento MD Copies [...] Urrutia Jr., D.O.12/14/2022 1:49 PM Dictation Location: [place] [address] Transcribed By: [facility] 12/14/22 1349 Dictated By: Vargas Urrutia Jr, DO 12/14/22 1345 Signed By: 12/14/22 1349 Normal [facility] Creatinineon 12-14-2022 Creatinine [Mass/Vol] 0.76 mg/dL Normal 0.60-1.20 [facility] Comment on above: Performed By: #### C REAT, BUN #### [facility] [address] GFR/1.73 sq M.predicted MDRD (S/P/Bld) [Vol rate/Area] mL/min/{1.73_m2} Normal [facility] Comment on above: Result Comment: PERF ORMED BY: [place] [address] PATHOLOGIST ADMINISTRATION PROFESSIONAL SVETLANA DELGADILLO M.D. Performed By: #### C REAT, BUN #### [facility] [address] Calprotectin, Fecalon 2022 Calprotectin, Fecal 34 Normal 0-120 [facility] Comment on above: Order Comment: Reaso n for Exam Abdominal pain;Tarry stool;Change in bowel habits;Bloating Result Comment: Conc entration Interpretation Follow-Up <16 - 50 ug/g Normal None >50 -120 ug/g Borderline Re-evaluate in 4-6 weeks >120 ug/g Abnormal Repeat as clinically indicated Performed at: - [facility] [id number] Patent Agent: Be Pierre MD, Phone: [phone] PERFORMED BY: [address] [place] [address] PATHOLOGIST ADMINISTRATION PROFESSIONAL SVETLANA DELGADILLO M.D. Performed By: #### C ALPROTECT #### [facility] , Calprotectin, Fecal 34 0-120 [facility] [employer] Other C reactive protein [Mass/vol ume] in Serum or PlasmaOrdered By: Imad Asaad on 09-30-2022 CRP [Mass/Vol] 0.6 mg/dL 0.0-1.0 [facility] C-Reactive Proteinon 023 C-Reactive Protein 0.6 mg/dL Normal 0.0-1.0 [facility] Comment on above: Order Comment: Reaso n for Exam Abdominal pain;Tarry stool;Change in bowel habits;Bloating Result Comment: PERF ORMED BY: [address] [place] [id number] PATHOLOGIST ADMINISTRATION PROFESSIONAL SVETLANA DELGADILLO M.D. Performed By: #### C ELIAC GEN, CELIAC #### [facility] , #### CRP, ESR #### [facility] [address] [place] [address] C-Reactive Protein 0.6 mg/dL Normal 0.0-1.0 mg/dL [facility] [employer] Other Celiacon 09-30-2022 Deamidated Gliadin Abs, IgA 4 Normal 0-19 [facility] Comment on above: Order Comment: Reaso n for Exam Abdominal pain;Tarry stool;Change in bowel habits;Bloating Result Comment: Nega tive 0 - 19 Weak Positive 20 - 30 Moderate to Strong Positive >30 Performed By: #### C ELIAC GEN, CELIAC #### [facility] , #### CRP, ESR #### [facility] [address] Deamidated Gliadin Abs, IgG 3 Normal 0-19 [facility] Comment on above: Order Comment: Reaso n for Exam Abdominal pain;Tarry stool;Change in bowel habits;Bloating Result Comment: Nega tive 0 - 19 Weak Positive 20 - 30 Moderate to Strong Positive >30 Performed By: #### C ELIAC GEN, CELIAC #### [facility] , #### CRP, ESR #### [facility] [address] Endomysial Antibody IgA Negative Normal Negative [facility] Comment on above: Order Comment: Reaso n for Exam Abdominal pain;Tarry stool;Change in bowel habits;Bloating Performed By: #### C ELIAC GEN, CELIAC #### [facility] , #### CRP, ESR #### [facility] [address] [place] [address] [place] Immunoglobulin A, Qn, Serum 281 mg/dL Normal 64-422 [facility] Comment on above: Order Comment: Reaso n for Exam Abdominal pain;Tarry stool;Change in bowel habits;Bloating Result Comment: Perf ormed at: - [facility] [address] [id number] Patent Agent: Ez Brantley PhD, Phone: [phone] Performed By: #### C ELIAC GEN, CELIAC #### [facility] , #### CRP, ESR #### [facility] [address] [place] [address] [place] T-Transglutaminase (tTG) IgA <2 Normal 0-3 [facility] Comment on above: Order Comment: Reaso [...] #### [facility] , #### CRP, ESR #### [facility] [address] [place] [id number] [place] T-Transglutaminase (tTG) IgG <2 Normal 0-5 [facility] Comment on above: Order Comment: Reaso n for Exam Abdominal pain;Tarry stool;Change in bowel habits;Bloating Result Comment: Nega tive 0 - 5 Weak Positive 6 - 9 Positive >9 Performed By: #### C ELIAC GEN, CELIAC #### [facility] , #### CRP, ESR #### [facility] [address] Celiac 4 0-19 [facility] [employer] Other Celiac 3 0-19 [facility] [employer] Other Celiac <2 0-5 [facility] [employer] Other Celiac Negative Negative [facility] [employer] Other Celiac 281 mg/dL 64-422 mg/dL [facility] [employer] Other Celiac Disease Genetics HLA DQon 09-30-2022 CDDQ2 Additional Information Normal . [facility] Comment on above: Order Comment: Reaso n for Exam Abdominal pain;Tarry stool;Change in bowel habits;Bloating Result Comment: Refe rences: 1. Eric FISHER and Sandy Rush. Celiac Disease. N Eng J Med 2007; 357:5921-4176. 2. Megiorni F, Roca B, Bonamico M et al. HLA-DQ and risk gradient for celiac disease. Hum Immunol 2009; 70:55-59. 3. Clement MM, Krishan TC, Ernesto FM et al. Stratifying risk for celiac disease in a large at-risk [facility] population by using HLA alleles. Clin Gastroenterol Hepatol 2009; 7:966-971. 4. Doretha ROSE and Lelo BA. (2005). Celiac Disease Genetics: Current Concepts and Practical Applications. Clin Gastroenterol and Hepat 3:843-851. 5. Sarah CL, Obed DO, Green PHR, et al. Celiac Disease. In: Bandar RA, Aldo TC, Kana CR, Sary K, editors. [employer]), [facility], [place], March 01, 2008:1-27. http://www.ncbi.nlm.nih.gov/alexandria/br.fcgi?book=genepart=andra ac PMID 36990764 (PubMed) 6. Lilli W. Emerging concepts in celiac disease. Curr Opin Pediatr 2004;16:552-559. Performed at: [address] [place] [id number] Patent Agent: Garry Brennan PhD, Phone: [phone] PERFORMED BY: [place] [address] PATHOLOGIST ADMINISTRATION PROFESSIONAL SVETLANA DELGADILLO M.D. Performed By: #### C ELIAC GEN, CELIAC #### [facility] , #### CRP, ESR #### [address] Comment: Normal . [facility] Comment on above: Order Comment: Reaso n for Exam Abdominal pain;Tarry stool;Change in bowel habits;Bloating Result Comment: This test was performed using Polymerase Chain Reaction/(PCR)Sequence Specific Oligonucleotide Probes (SSOP) ([employer]) technique. Sequence Based Typing (SBT) and/or Sequence Specific Primers (SSP) may be used as supplemental methods when necessary. Please contact HLA Customer Service at if you have any questions. Director of HLA Laboratory Dr Garry Brennan, PhD Performed By: #### C ELIAC GEN, CELIAC #### [facility] , #### CRP, ESR #### [address] Dq2 (Dqa1 0501/0505,Dqb1 02Xx) Positive Normal . [facility] Comment on above: Order Comment: Reaso n for Exam Abdominal pain;Tarry stool;Change in bowel habits;Bloating Performed By: #### C ELIAC GEN, CELIAC #### [facility] , #### CRP, ESR #### [facility] [address] [place] [address] [place] Dq8 (Dqa1 03Xx, Dqb1 0302) Negative Normal . [facility] Comment on above: Order Comment: Reaso [...] version 3.49.0 [facility] Lab CLIA ID Number [id number] Greater than 95% of celiac patients are positive for either DQ2 or DQ8 (Doretha and Krysta, (1993) Gastroenterology 105:910-922). However these antigens may also be present in patients who do not have Celiac disease. Performed By: #### C ELIAC GEN, CELIAC #### [facility] , #### CRP, ESR #### [address] Celiac Disease Genetics HLA DQ Positive . [facility] [employer] Other Celiac Disease Genetics HLA DQ . [facility] [employer] Other Erythrocyte Sedimentation Ra ramirez 09-30-2022 ESR (Bld) [Velocity] 13 mm/h Normal 0-29 [facility] [employer] Other Comment on above: Order Comment: Reaso n for Exam Abdominal pain;Tarry stool;Change in bowel habits;Bloating Result Comment: PERF ORMED BY: [place] [address] PATHOLOGIST ADMINISTRATION PROFESSIONAL SVETLANA DELGADILLO M.D. Performed By: #### C ELIAC GEN, CELIAC #### [facility] , #### CRP, ESR #### [address] [place] [address] [facility] Erythrocyte sedimentation ra te by Photometric methodOrdered By: Imad Asaad on 09-30-2022 ESR Photometric method (Bld) [Velocity] 13 mm/hr 0-29 [facility] Human leukocyte antigen (HLA ) DQ2 detectionOrdered By: Imad Asaad on 09-30-2022 HLA-DQ2 Ql (Bld/Tiss) Positive . [facility] Human leukocyte antigen (HLA ) DQ8 detectionOrdered By: Imad Asaad on 09-30-2022 HLA-DQ8 Ql (Bld/Tiss) Negative . [facility] Comment on above: Final Results:DQA1*0 2:SHELDON05:EEMXYDQB1*02:RAYMUNDO02:EENUGCode Translation:EEMDAVID [...] IMGT/HLAdatabase version 3.49.0A Lab CLIA ID Number [id number] than 95% of celiac patients are positive for eitherDQ2 or DQ8 (Doretha and Krysta, (1993) Cutanlkioltbdrma953:910-922). However these antigens may also be present inpatients who do not have Celiac disease. IgA [Mass/volume] in Serum o r PlasmaOrdered By: Danna Sarmiento on 09-30-2022 IgA [Mass/Vol] 281 mg/dL 64-422 [facility] Comment on above: Performed at: [address] [id number] Director: Ez Brantley PhD, Phone: [phone] No Panel InformationOrdered By: Danna Sarmiento on 09-30-2022 Celiac Gene Interpretation See comment . [facility] Comment on above: References:1. Eric FISHER and Sandy Rush. Celiac Disease. N Eng J Med 2007; 357:1062-0183.2. Yumiko F, Chanelle B, Cristino M et [...] Aldo TC, Kana CR, Sary K, editors. [employer]), [facility], [place], March 01, 2008:1-27. http://www.ncbi.nlm.nih.gov/bookshelf/br.fcgi?book=genepart=andra ac PMID [id number] (PubMed)6. Lilli Baker. Emerging concepts in celiac disease. Curr Opin Pediatr 2004;16:552-559.Performed at: [address] [place] [id number] Director: Garry Brennan PhD, Phone: [phone] Endomysial IgA Antibody Negative Negative [facility] HLA Genotype Interpretation See comment . [facility] Comment on above: This test was [...] peptide IgA Qn (S) 4 units 0-19 [facility] Comment on above: Negative 0 - 19 Weak Positive 20 - 30 Moderate to Strong Positive >30 Serum gliadin peptide IgG an tibody assay (units/volume)Ordered By: Imaurora Sarmiento on 09-30-2022 Gliadin peptide IgG Qn (S) 3 units 0-19 [facility] Comment on above: Negative 0 - 19 Weak Positive 20 - 30 Moderate to Strong Positive >30 Serum tissue transglutaminas e (tTG) IgA antibody assay (units/volume)Ordered By: Imad Asaad on 09-30-2022 tTG IgA Qn (S) <2 U/mL 0-3 [facility] Comment on above: Negative 0 - 3 Weak Positive 4 - 10 Positive >10 Tissue Transglutaminase (tTG) has been identified as the endomysial antigen. Studies have demonstr- ated that endomysial IgA antibodies have over 99% specificity for gluten sensitive enteropathy. Serum tissue transglutaminas e (tTG) IgG antibody assay (units/volume)Ordered By: Imad AsaSpaceCraft, Inc[employer] on 09-30-2022 tTG IgG Qn (S) <2 U/mL 0-5 [facility] Comment on above: Negative 0 - 5 Weak Positive 6 - 9 Positive >9 Pato 02-11-2022 L --- Specimen: [id number] Received: 02/11/22 Status: RASTA Syed Num: [id number] Spec Type: Surgical Subm Dr: Philippe Barrett Jr, DO Tissues: A Stomach - Biopsy/Polyp (STOMACH BX) B Colon Biopsy (RECTUM BX) Procedures: HE Stain/4, Gross/Micro L4/2 Patient Age/Sex Location Account Attending Physician Sharon Sousa 76/F [id number] Philippe Barrett Jr, DO SPEC NUM: [id number] RECD: 02/11/22 STATUS: RASTA SYED NUM: [id number] ROXY: 02/11/227 [facility] DR: Philippe Barrett Jr, DO ENTERED: [...] Fixative: 10% Neutral Buffered Formalin (/) Specimen: [id number] Received: 02/11/22 Status: RASTA Syed Num: [id number] Spec Type: Surgical Subm Dr: Philippe Barrett Jr, DO Tissues: A Stomach - Biopsy/Polyp (STOMACH BX) B Colon Biopsy (RECTUM BX) Procedures: HE Stain/4, Gross/Micro L4/2 Patient: Nic Sousanza [id number] (Continued) Specimen: [id number] Received: 02/11/22 (Continued) Signed (signature on file) Iliana Bateman MD 02/12/22 1559 Specimen: [id number] Received: 02/11/22 Status: RASTA Syed Num: [id number] Spec Type: Surgical Subm Dr: Philippe Barrett Jr, DO Tissues: A Stomach - Biopsy/Polyp (STOMACH BX) B Colon Biopsy (RECTUM BX) Procedures: HE Stain/4, Gross/Micro L4/2 Patient: Sharon Sousa [id number] (Continued) Specimen: [id number] Received: 02/11/22 (Continued) Microscopic Description A. Two [...] characteristics were determined by the [facility]. Immunohistochemistry assays have not been validated on decalcified tissue. Results should be interpreted with caution given the possibility of false negative results on decalcified specimens. They have not been cleared by the [place] Food and Drug Administration. The FDA has determined that such clearance or approval is not necessary. CPT Codes 21579?2, 37694 Specimen: [id number] Received: 02/11/22 Status: RASTA Kunal Num: [id number] Spec Type: Surgical Subm Dr: Philippe Barrett Jr, DO Tissues: A Stomach - Biopsy/Polyp (STOMACH BX) B Colon Biopsy (RECTUM BX) Procedures: HE Stain/4, Gross/Micro L4/2 Patient: Sharon Sousa [id number] (Continued) Signed (signature on file) Iliana Bateman MD 02/12/22 5094 [facility] COVID-19 [facility] 06-13-2022 SARS-CoV-2 (COVID-19) RNA KELY+probe Ql (Unsp spec) Negative Normal Negative [facility] Comment on above: Order Comment: Healt hcare Worker?: N Result Comment: Testing for SARS-CoV-2 by RT-PCR This test was developed and its performance characteristics determined by [employer] and validated at the [facility]. This test has not been FDA [...] is terminated or revoked sooner. PERFORMED BY: [place] [address] PATHOLOGIST ADMINISTRATION PROFESSIONAL SVETLANA DELGADILLO M.D. Performed By: #### C OVID 19 [facility] #### [address] XR DEXA BONE DENSITYon 05-27 XR [...] PHILIPPE WALLACE Date: 2020-05-27 13:18 Normal [facility] CBC AUTO DIFFon 11-01-2019 Basophils (Bld) [#/Vol] 0.0 103/ul Normal 0.0-0.1 [facility] Comment on above: Performed By: #### C BC #### [facility] [address] [place] [id number] Erin Estephania Basophils/100 WBC (Bld) 0.3 % Normal 0.2-2.0 [facility] Comment on above: Performed By: #### C BC #### [facility] [address] [place] [address] Erin Estephania Eosinophils (Bld) [#/Vol] 0.0 103/ul Normal 0.0-0.7 [facility] Comment on above: Performed By: #### C BC #### [facility] [address] [place] [address] Erin Estephania Eosinophils/100 WBC (Bld) 0.1 % Critically low 0.9-7.0 [facility] Comment on above: Performed By: #### C BC #### [facility] [address] [place] [address] Erin Estephania Erythrocyte distribution width (RBC) [Ratio] 13.8 % Normal 11.0-15.0 [facility] Comment on above: Performed By: #### C BC #### [facility] [address] [place], [place] [address] Erin Estephania Hematocrit (Bld) [Volume fraction] 40.1 % Normal 36.0-48.0 [facility] Comment on above: Performed By: #### C BC #### [facility] [address] [place], [place] [address] Erin Estephania Hemoglobin (Bld) [Mass/Vol] 13.6 g/dL Normal 12.0-16.0 [facility] Comment on above: Performed By: #### C BC #### [facility] [address] [place] [address] Erin Estephania IG # 0.04 10e3/ul Critically high 0.00-0.03 [facility] Comment on above: Performed By: #### C BC #### [facility] [address] [place] [id number] Erin Estephania IG % 0.4 % Normal 0.0-0.5 [facility] Comment on above: Performed By: #### C BC #### [facility] [address] [place], [place] [address] Erin Estephania Lymphocytes (Bld) [#/Vol] 1.4 103/ul Normal 1.2-3.8 [facility] Comment on above: Performed By: #### C BC #### [facility] [address] [place], [place] [address] Erin Estephania Lymphocytes/100 WBC (Bld) 13.5 % Critically low 20.5-60.0 [facility] Comment on above: Performed By: #### C BC #### [facility] [address] [place], [place] [address] Erin Estephania MANUAL DIFF REQ NO Normal [facility] Comment on above: Performed By: #### C BC #### [facility] [address] [place], [place] [address] Erin Estephania MCH (RBC) [Entitic mass] 30.5 pg Normal 26.7-34.0 [facility] Comment on above: Performed By: #### C BC #### [facility] [address] [place], [place] [address] Erin Estephania MCHC (RBC) [Mass/Vol] 33.9 g/dL Normal 29.9-35.2 [facility] Comment on above: Performed By: #### C BC #### [facility] [address] [place], [place] [address] Erin Estephania MCV (RBC) [Entitic vol] 89.9 fL Normal 81.0-99.0 [facility] Comment on above: Performed By: #### C BC #### [facility] [address] [place], [place] [address] Erin Estephania Monocytes (Bld) [#/Vol] 0.5 103/ul Normal 0.3-0.8 [facility] Comment on above: Performed By: #### C BC #### [facility] [address] [place], [place] [address] Erin Estephania Monocytes/100 WBC (Bld) 5.0 % Normal 1.7-12.0 [facility] Comment on above: Performed By: #### C BC #### [facility] [address] [place] [address] Erin Estephania Neutrophils (Bld) [#/Vol] 8.2 103/ul Critically high 1.4-6.5 [facility] Comment on above: Performed By: #### C BC #### [facility] [address] [place] [address] Erin Estephania Neutrophils/100 WBC (Bld) 80.7 % Critically high 43.0-75.0 [facility] Comment on above: Performed By: #### C BC #### [facility] [address] [place] [address] Erin Estephania Platelet mean volume (Bld) [Entitic vol] 10.5 fL Normal 9.5-13.5 [facility] Comment on above: Performed By: #### C BC #### [facility] [address] [place] [address] Erin Estephania Platelets (Bld) [#/Vol] 212 103/ul Normal 150-450 [facility] Comment on above: Performed By: #### C BC #### [facility] [address] [place] [address] Erin Estephania RBC (Bld) [#/Vol] 4.46 106/ul Normal 4.20-5.40 [facility] Comment on above: Performed By: #### C BC #### [facility] [address] [place] [address] Erin Estephania WBC (Bld) [#/Vol] 10.2 103/ul Normal 4.0-11.0 [facility] Comment on above: Performed By: #### C BC #### [facility] [address] [place] [address] Erin Estephania ER URINE PROFILEon 0 Bilirubin [Mass/Vol] Negative Normal NEGATIVE [facility] Comment on above: Performed By: #### E STEPHENR, UMICRO #### [facility] [address] [place] [address] Erin Estephania BLOOD MODERATE Normal NEGATIVE [facility] Comment on above: Performed By: #### EVANGELINA ALVARENGA #### [facility] [address] [place] [address] Erin Estephania Clarity (U) CLEAR Normal [facility] Comment on above: Performed By: #### EVANGELINA ALVARENGA #### [facility] [address] [place] [address] Erin Estephania Color (U) LT. YELLOW Normal YELLOW [facility] Comment on above: Performed By: #### EVANGELINA ALVARENGA #### [facility] [address] [place] [address] Erin Estephania ERUAHD A micrscopic examination will be performed if indicated. Normal [facility] Comment on above: Performed By: #### EVANGELINA ALVARENGA #### [facility] [address] [place] [address] Erin Estephania Glucose [Mass/Vol] Negative Normal NEGATIVE [facility] Comment on above: Performed By: #### EVANGELINA ALVARENGA #### [facility] [address] [place] [address] Erin Estephania Ketones Ql (U) Negative Normal NEGATIVE [facility] Comment on above: Performed By: #### EVANGELINA ALVARENGA #### [facility] [address] [place] [address] Erin Estephania Nitrite Ql (U) Negative Normal NEGATIVE [facility] Comment on above: Performed By: #### BRODY ALVARENGARO #### [facility] [address] [place] [address] Erin Estephania pH (Bld) 5.0 Normal 5-9 [facility] Comment on above: Performed By: #### EVANGELINA ALVARENGA #### [facility] [address] [place] [address] Erin Estephania Protein (U) [Mass/Vol] Negative Normal [facility] Comment on above: Performed By: #### EVANGELINA ALVARENGA #### [facility] [address] [place], [place] [address] Erin Best SPEC GRAVITY 1.025 Normal 1.005-<=1.0 25 [facility] Comment on above: Performed By: #### EVANGELINA ALVARENGA #### [facility] [address] [place], [place] [address] Erin Best UR MICRO IND INDICATED Normal [facility] Comment on above: Performed By: #### BRODY ALVARENGARO #### [facility] [address] [address] [place], [place] [id number] Erin Best Urobilinogen Qn (U) 0.2 EU/dl Normal [facility] Comment on above: Performed By: #### EVANGELINA ALVARENGA #### [facility] [address] [place] [address] Erin Best WBC (Bld) [#/Vol] TRACE Normal NEGATIVE [facility] Comment on above: Performed By: #### EVANGELINA ALVARENGA #### [facility] [address] [place], [place] [id number] Erin Best LACTATE/LACTIC ACIDon 2019 Lactate [Moles/Vol] 1.1 mmol/L Normal 0.7-2.0 [facility] Comment on above: Performed By: #### L ACT #### [facility] [address] [place] [address] Erin Best LIPASEon 11-01-2019 Lipase [Catalytic activity/Vol] 151.0 U/L Normal 23.0-300.0 [facility] Comment on above: Performed By: #### C MP, LIPA, TROP #### [facility] [address] [place], [place] [address] Erin Best PROF 14(COMP METB)on 020 Albumin [Mass/Vol] 3.5 g/dL Normal 3.5-5.0 [facility] Comment on above: Performed By: #### C MP, LIPA, TROP #### [facility] [address] [place], [place] [address] Erin Estephania Albumin/Globulin [Mass ratio] 0.9 {ratio} Normal [facility] Comment on above: Performed By: #### C KERRI KOTHARIA, TROP #### [facility] [address] [address] Erin Estephania ALP [Catalytic activity/Vol] 96 U/L Normal 38-126 [facility] Comment on above: Performed By: #### C TAYE LIPA, TROP #### [facility] [address] [address] Erin Estephania ALT [Catalytic activity/Vol] 20 U/L Normal 9-52 [facility] Comment on above: Performed By: #### C KERRI KOTHARIA, TROP #### [facility] [address] [address] Erin Estephania Anion gap [Moles/Vol] 10.9 mmol/L Normal [facility] Comment on above: Performed By: #### C TAYE LIPA, TROP #### [facility] [address] [place] [address] Erin Estephania AST [Catalytic activity/Vol] 18 U/L Normal 14-36 [facility] Comment on above: Performed By: #### C KERRI KOTHARIA, TROP #### [facility] [address] [address] Erin Estephania Bilirubin Ql (U) 0.6 mg/dL Normal 0.2-1.3 [facility] Comment on above: Performed By: #### C TAYE LIPA, TROP #### [facility] [address] [address] Erin Estephania Calcium [Mass/Vol] 9.2 mg/dL Normal 8.4-10.2 [facility] Comment on above: Performed By: #### C TAYE LIPA, TROP #### [facility] [address] [address] Erin Estephania Chloride [Moles/Vol] 107 mmol/L Normal 98-107 [facility] Comment on above: Performed By: #### C TAYE LIPA, TROP #### [facility] [address] [address] Erin Estephania CO2 [Moles/Vol] 25.8 mmol/L Normal 22.0-30.0 [facility] Comment on above: Performed By: #### C TAYE LIPA, TROP #### [facility] [address] [address] Erin Estephania Creatinine [Mass/Vol] 0.85 mg/dL Normal 0.52-1.04 [facility] Comment on above: Performed By: #### C MP LIPA, TROP #### [facility] [address] [address] Erin Estephania EGFR-AF TURKMEN >60 Normal >=60 [facility] Comment on above: Performed By: #### C TAYE LIPA, TROP #### [facility] [address] [address] Erin Estephania EGFR-NON AF TURKMEN >60 Normal >=60 [facility] Comment on above: Performed By: #### C MP LIPA, TROP #### [facility] [address] [address] Erin Estephania Globulin (S) [Mass/Vol] 3.8 g/dL Normal [facility] Comment on above: Performed By: #### C TAYE LIPA, TROP #### [facility] [address] [address] Erin Estephania Glucose [Mass/Vol] 105 mg/dL Normal 74-106 [facility] Comment on above: Performed By: #### C MP LIPA, TROP #### [facility] [address] [address] Erin Estephania Potassium [Moles/Vol] 3.7 mmol/L Normal 3.4-5.0 [facility] Comment on above: Performed By: #### C MP LIPA, TROP #### [facility] [address] [address] Erin Estephania Protein [Mass/Vol] 7.3 g/dL Normal 6.1-8.2 [facility] Comment on above: Performed By: #### C MP, LIPA, TROP #### [facility] [address] [address] Erin Estephania Sodium [Moles/Vol] 140 mmol/L Normal 137-145 [facility] Comment on above: Performed By: #### C MP LIPA, TROP #### [facility] [address] [place] [address] Erin Estephanai Urea nitrogen [Mass/Vol] 21.0 mg/dL Critically high 7.0-17.0 [facility] Comment on above: Performed By: #### C MP LIPA, TROP #### [facility] [address] [place] [address] Erin Estephania Urea nitrogen/Creatinine [Mass ratio] 24.7 mg/mg Normal [facility] Comment on above: Performed By: #### C KERRI KOTHARIA, TROP #### [facility] [address] [place] [address] Erin Estephania PROTIMEon 11-01-2019 INR Coag (PPP) [Relative time] 1.03 {INR} Normal [facility] Comment on above: Performed By: #### P TT, PT #### [facility] [address] [place], [place] [id number] Erin Estephania PT Coag (PPP) [Time] 10.7 s Normal 9.0-11.6 [facility] Comment on above: Performed By: #### P TT, PT #### [facility] [address] [place] [address] Erin Estephania PT Coag (PPP) [Time] SEE BELOW Normal [facility] Comment on above: Result Comment: CONG RED INR: 2.0 - 3.0 CONDITIONS NOT LISTED BELOW 2.5 - 3.5 FOR PROSTHETIC HEART VALVE REPLACEMENT 2.5 - 3.5 RECURRENT THROMBOSIS Performed By: #### P TT, PT #### [facility] [address] [place] [address] Erin Estephania PT Coag (PPP) [Time] PLEASE NOTE: NORMAL RANGE CHANGE 05-17-2014 DUE TO REAGENT LOT CHANGE Normal [facility] Comment on above: Performed By: #### P TT, PT #### [facility] [address] [place] [address] Erin Best PTTon 11-01-2019 aPTT Coag (Bld) [Time] 27.1 s Normal 22.3-36.2 [facility] Comment on above: Performed By: #### P TT, PT #### [facility] [address] [place] [address] Erin Best aPTT Coag (Bld) [Time] PLEASE NOTE: NORMAL RANGE CHANGE 07-24-2015 DUE TO REAGENT LOT CHANGE Normal [facility] Comment on above: Performed By: #### P TT, PT #### [facility] [address] [place] [address] Erin Best TROPONIN - Ion 11-01-2019 Troponin I.cardiac [Mass/Vol] SEE BELOW Normal [facility] Comment on above: Result Comment: <0.0 34 ng/ml NEGATIVE 0.034-0.119 INDETERMINATE 0.120 AMI CUT OFF Performed By: #### C PIOTR KOTHARI, TROP #### [facility] [address] [place] [address] Erinrufus Best Troponin I.cardiac [Mass/Vol] ng/mL Normal <=0.034 [facility] Comment on above: Performed By: #### C PIOTR KOTHARI, TROP #### [facility] [address] [place] [address] Erinrufus Best URINE MICROSCOPIC ONLYon Bacteria LM.HPF (Urine sed) [#/Area] TRACE Normal NONE SEEN [facility] Comment on above: Performed By: #### BRODY ALVARENGARO #### [facility] [address] [place] [address] Erin Estephania CAST SEEN Normal NONE SEEN [facility] Comment on above: Performed By: #### BRODY ALVARENGARO #### [facility] [address] [place] [address] Erin Setephania Crystals LM Nom (Urine sed) NONE SEEN Normal NONE SEEN [facility] Comment on above: Performed By: #### BRODY ALVARENGARO #### [facility] [address] [place], [place] [address] Erin Estephania CULTURE NOT INDICATED Normal [facility] Comment on above: Performed By: #### BRODY ALVARENGARO #### [facility] [address] [id number] Erin Best Epithelial cells LM.HPF (Urine sed) [#/Area] FEW Normal [facility] Comment on above: Performed By: #### Dayo NAIR UMICRO #### [facility] [address] [id number] Erin Estephania HYALINE CAST FEW Normal [facility] Comment on above: Performed By: #### Dayo NAIR UMICRO #### [facility] [address] [place], [place] [address] Erin Estephania MUCOUS TRACE Normal NONE SEEN [facility] Comment on above: Performed By: #### BRODY ALVARENGARO #### [facility] [address] [place], [place] [address] Erinrufus Best RBC (U) [#/Vol] 2-5 Normal 0-2 [facility] Comment on above: Performed By: #### Dayo NAIR UMVICKIRO #### [facility] [address] [place], [place] [address] Erinrufus Best WBC (Bld) [#/Vol] 2-5 Normal NONE SEEN The [facility] Comment on above: Performed By: #### E JOANIE, UMICRO #### [facility] [address] [place], [place] [address] Erin Estephania MG MAMM SCREEN CHRISTINE W CADon 1 MG MAMM SCREEN CHRISTINE W CAD Patient: SHARON SOUSA Exam Date: 06/27/2019 : 1945 Gender:F Ordering : DR ESTEPHANIA ABARCA PA Admission #: [id number] Family : Order #: [id number] CLICK HERE TO VIEW EXAM RADIOLOGY REPORT [...] No Treatments None Family Cancers None LOCATION: [facility] BREAST COMPOSITION: Scattered areas fibroglandular density. [...] Wallace M.D. on 06/27/2019 at 10:56 Normal [facility] Vital Signs Date Time Vital Sign Value Performing Clinician Facility 08-18-2024 13:27-0500 Body height 157.5 cm Ranjeet Hensley MD Work Phone: [facility] [employer] [facility] 08-18-2024 13:27-0500 Body mass index (BMI) [Ratio] 20.08 kg/m2 Ranjeet Hensley MD Work Phone: [facility] [employer] [facility] 08-18-2024 13:27-0500 Body weight 49.8 kg Ranjeet Hensley MD Work Phone: [facility] [employer] [facility] 08-18-2024 13:27-0500 Diastolic blood pressure 78 mm[Hg] Ranjeet Hensley MD Work Phone: [facility] [employer] [facility] 08-18-2024 13:27-0500 Heart rate 74 /min Ranjeet Hensley MD Work Phone: [facility] [employer] [facility] 08-18-2024 13:27-0500 SaO2% (BldA) [Mass fraction] 100 % [facility] [employer] [facility] 08-18-2024 13:27-0500 Systolic blood pressure 136 mm[Hg] [facility] [employer] [facility] 08-07-2024 14:51-0500 Body height 157.5 cm Gabino Loomis MD Work Phone: [facility] 08-07-2024 14:51-0500 Body mass index (BMI) [Ratio] 20.12 kg/m2 Gabino Loomis MD Work Phone: [facility] 08-07-2024 14:51-0500 Body weight 49.9 kg Gabino Loomis MD Work Phone: [facility] 08-07-2024 14:51-0500 Diastolic blood pressure 76 mm[Hg] Gabino Loomis MD Work Phone: [facility] 08-07-2024 14:51-0500 Heart rate 69 /min Gabino Loomis MD Work Phone: [facility] 08-07-2024 14:51-0500 SaO2% (BldA) [Mass fraction] 100 % Gabino Loomis MD Work Phone: [facility] 08-07-2024 14:51-0500 Systolic blood pressure 122 mm[Hg] Gabino Loomis MD Work Phone: [facility] 07-06-2024 15:30-0500 Body height 157.5 cm Estephania Hemmer PA Work Phone: [facility] 07-06-2024 15:30-0500 Body mass index (BMI) [Ratio] 20.16 kg/m2 Estephania Hemmer PA Work Phone: [facility] 07-06-2024 15:30-0500 Body temperature 98.71 [degF] Estephania Hemmer PA Work Phone: [facility] 07-06-2024 15:30-0500 Body weight 49.99 kg Estephania Hemmer PA Work Phone: [facility] 07-06-2024 15:30-0500 Diastolic blood pressure 76 mm[Hg] Estephania Hemmer PA Work Phone: [facility] 07-06-2024 15:30-0500 Heart rate 72 /min Estephania Hemmer PA Work Phone: [facility] 07-06-2024 15:30-0500 Respiratory rate 16 /min Estephania Hemmer PA Work Phone: [facility] 07-06-2024 15:30-0500 SaO2% (BldA) [Mass fraction] 98 % Estephania BARRY Work Phone: [facility] 07-06-2024 15:30-0500 Systolic blood pressure 104 mm[Hg] Estephania BARRY Work Phone: [facility] 05-10-2024 13:46-0400 Body height 157.5 cm Gabino Loomis MD Work Phone: [facility] 05-10-2024 13:46-0400 Body mass index (BMI) [Ratio] 20.3 kg/m2 Gabino Loomis MD Work Phone: [facility] 05-10-2024 13:46-0400 Body weight 50.35 kg Gabino Loomis MD Work Phone: [facility] 05-10-2024 13:46-0400 Diastolic blood pressure 76 mm[Hg] Gabino Loomis MD Work Phone: [facility] 05-10-2024 13:46-0400 Heart rate 88 /min Gabino Loomis MD Work Phone: [facility] 05-10-2024 13:46-0400 SaO2% (BldA) [Mass fraction] 98 % Gabino Loomis MD Work Phone: [facility] 05-10-2024 13:46-0400 Systolic blood pressure 132 mm[Hg] Gabino Loomis MD Work Phone: [facility] 09-30-2022 14:45-0500 Body height 157.48 cm Imad Asaad Other [email or web address] Other 09-30-2022 14:45-0500 Body mass index (BMI) [Ratio] 21.03 kg/m2 Imad Asaad Other [email or web address] Other 09-30-2022 14:45-0500 Body weight 52.16 kg Imad Asaad Other [email or web address] Other 09-30-2022 14:45-0500 Diastolic blood pressure 87 mm[Hg] Imad Asaad Other [email or web address] Other 09-30-2022 14:45-0500 Systolic blood pressure 137 mm[Hg] Imad Asaad Other [email or web address] Other 01-28-2022 14:15-0400 Body height 157.48 cm Philippe Barrett Other [email or web address] Other 01-28-2022 14:15-0400 Body mass index (BMI) [Ratio] 20.12 kg/m2 Philippe Barrett Other [email or web address] Other 01-28-2022 14:15-0400 Body weight 49.9 kg Philippe Barrett Other [email or web address] Other Encounters Encounter Date Encounter Type Care [...] Not Available Start: 12-14-2022 ambulatory Imad Asaad Facility:[facility] Start: 12-07-2022 End: 12-07-2022 ambulatory Imad Asaad Other [email or web address] Other Start: 12-07-2022 Telephone encounter Imad Asaad [facility] Start: 10-09-2022 End: 10-09-2022 ambulatory Imad Asaad Facility:[facility] Start: 10-09-2022 End: 10-09-2022 ambulatory II Gabino Loomis Work Phone: [facility] Work Phone: Start: 10-09-2022 End: 10-09-2022 Patient encounter procedure II Gabino Loomis Work Phone: [facility] [place] Work Phone: Start: 09-30-2022 End: 09-30-2022 ambulatory Imad Asaad Facility:[facility] Start: 09-30-2022 End: 09-30-2022 Patient encounter procedure II Gabino Loomis Work Phone: [facility] [place] Work Phone: Start: 09-30-2022 End: 09-30-2022 ambulatory II Gabino Loomis Work Phone: [facility] Work Phone: Start: 09-30-2022 Office consultation new/estab patient 60 min Imad Asaad [facility] Start: 02-16-2022 End: 02-16-2022 ambulatory Philippe Barrett Other [email or web address] Other Start: 02-16-2022 Telephone encounter Philippe Barrett [facility] Start: 02-11-2022 End: 02-11-2022 ambulatory Philippe Barrett Facility:[facility] Start: 02-09-2022 End: 02-09-2022 ambulatory Philippe Barrett Facility:[facility] Start: 01-28-2022 End: 01-28-2022 ambulatory Philippe Barrett Other [email or web address] Other Start: 01-28-2022 Office outpatient ne w [...] Td Vaccines (2 - Td or Tdap) [facility] Start: 08-18-2025 Tobacco Screening Tobacco Screening [facility] Start: 11-17-2024 Medicare Annual Wellness (AWV) Medicare Annual Wellness (AWV) [facility] Start: 10-26-2024 End: 10-26-2024 Patient encounter procedure 10/26/2024 2:15 PM EST Office Visit [facility] [address] [facility] [address] [place] [phone] Ranjeet Hensley MD [address] [place] [address] [facility] Start: 10-09-2024 End: 10-09-2024 Patient encounter procedure 10/09/2024 2:30 PM EST Office Visit [facility] [address] [facility] [address] [place] [address] Gabino Loomis MD [address] [facility] [address] [place] [address] [facility] Start: 09-01-2024 End: 09-01-2024 Patient encounter procedure 09/01/2024 3:00 PM EST Appointment [facility] [address] [place] [phone] Ranjeet Hensley MD [address] [place] [address] [facility] Start: 08-18-2024 End: 08-18-2025 CBC W Auto Differential panel - Blood [facility] Comment on above: Expected: 08/18/2024 (Approximate), Expi res: 08/18/2025 Start: 08-18-2024 End: 08-18-2025 Comprehensive metabolic 2000 panel - Serum or Plasma [facility] Comment on above: Expected: 08/18/2024 (Approximate), Expi res: 08/18/2025 Start: 08-18-2024 End: 08-18-2025 Echo complete W/O contrast Echo complete W/O contrast Echocardiography Routine Essential hypertension Paroxysmal atrial fibrillation ([facility]) Expected: 08/18/2024, Expires: 08/18/2025 [employer] Work Phone: Comment on above: Expected: 08/18/2024, Expires: Start: 08-18-2024 End: 08-18-2025 Thyrotropin [Units/volume] in Serum or Plasma [facility] Comment on above: Expected: 08/18/2024 (Approximate), Expi res: 08/18/2025 Start: 08-18-2024 End: 08-18-2025 Thyroxine (T4) free [Mass/volume] in Serum or Plasma [facility] Comment on above: Expected: 08/18/2024 (Approximate), Expi res: 08/18/2025 Start: 08-18-2024 End: 08-18-2024 Patient encounter procedure 08/18/2024 1:30 PM EST Office Visit [facility] [address] [place] [address] [place] [address] Ranjeet Hensley MD [address] [place] [address] [facility] Start: 08-07-2024 End: 08-07-2024 Patient encounter procedure [facility] Comment on above: Arrived Start: 07-10-2024 End: 07-10-2024 Patient encounter procedure 07/10/2024 1:30 PM EST Office Visit [facility] [address] [place] [address] [place] [address] Gabino Loomis MD [address] [place] [address] [place] [address] [facility] Start: 07-06-2024 End: 07-06-2025 Holter monitor study Holter monitor Imaging Routine Frequent PVCs Palpitations Near syncope Expected: 07/06/2024 (Approximate), Expires: 07/06/2025 [facility] Work Phone: Comment on above: Expected: 07/06/2024 (Approximate), Expi res: 07/06/2025 Start: 05-10-2024 End: 05-10-2024 Patient encounter procedure 05/10/2024 1:45 PM EDT Office Visit [facility] [address] [place] [address] [place] [address] Gabino Loomis MD [address] [place] [address] [place] [address] Arrived [facility] Comment on above: Arrived Start: 04-30-2024 COVID-19 Vaccine ( season) COVID-19 Vaccine ( season) [facility] Start: 04-30-2024 Influenza vaccination Influenza Vaccine (#1) [facility] Start: 04-14-2019 Pneumococcal Vaccine: 65+ Years (2 of 2 - PCV) Pneumococcal Vaccine: 65+ Years (2 of 2 - PCV) [facility] Start: 2008 Fall Risk Screening Fall Risk Screening [facility] Start: 1993 Administration of varicella zoster vaccine Zoster (Shingles) Vaccine (1 of 2) [facility] Start: 1955 Depression Screening Depression Screening [facility] Start: 1955 Tobacco Screening Tobacco Screening [facility] Calprotectin [Mass/m ass] in Stool [facility] Endomysial antibody IgA level [facility] Gliadin peptide IgA Ab [Units/volume] in Serum [facility] Gliadin peptide IgG Ab [Units/volume] in Serum [facility] HLA DQ antigen typing [facility] IgA [Mass/volume] in Serum or Plasma [facility] Tissue transglutamin ase IgA Ab [Units/volume] in Serum [facility] Tissue transglutamin ase IgG Ab [Units/volume] in Serum [facility] Immunizations Immunization Date Immunization Notes Care Provider Fa cili 08-07-2024 Influenza, High-dose Seasonal, Quadrivalent, Preservative Free Gabino Loomis MD Work Phone: [facility] 09-03-2023 Influenza, High-dose Seasonal, Quadrivalent, Preservative Free Gabino Loomis MD Work Phone: [facility] 09-03-2023 influenza virus vacc ine, unspecified formulation Gabino Loomis MD Work Phone: [facility] 07-20-2022 Influenza, High-dose Seasonal, Quadrivalent, Preservative Free Gabino Loomis MD Work Phone: [facility] 07-20-2022 Moderna SARS-CoV-2 50mcg/0.5mL Booster Gabino Loomis MD Work Phone: [facility] 08-11-2021 COVID-19 mRNA-1273 (Moderna) II Gabino Loomis Work Phone: [facility] 05-29-2021 influenza, high dose seasonal, preservative-free Gabino Loomis MD Work Phone: [facility] 02-20-2021 tetanus toxoid, redu ryan diphtheria toxoid, and acellular pertussis vaccine, adsorbed Gabino Loomis MD Work Phone: [facility] 11-28-2020 COVID-19 mRNA-1273 (Moderna) II Gabino Loomis Work Phone: [facility] 10-31-2020 COVID-19 mRNA-1273 (Moderna) BOBBI Loomis Work Phone: [facility] 07-12-2020 Influenza, High-dose Seasonal, Quadrivalent, Preservative Free Gabino Loomis MD Work Phone: [facility] 04-14-2018 pneumococcal polysaccharide vaccine, 23 valent Gabino Loomis MD Work Phone: [facility] Payers Date Payer Category Payer Self-pay [id number] 2017 Medicare [employer]M MEDICARE ADVANTAGE [facility] MEDICARE ADVANTAGE [id number] 2017-Present [address] [place] [id number] 2017 Medicare (Managed Care) [facility] ADVANTAGE [id number] 2015 Medicare HMO [employer] MEDICARE [id number] 1959 Unknown [id number] 1945 Unknown [id number] [id number]. 2.593 1945 Unknown [id number] 2.16.840.1.406200.3.579. 2.593 1945 Unknown [id number] 2.16.840.1.620447.3.579. 2.593 1945 Unknown [id number] 2.16.840.1.175840.3.579. 2.1259 1945 Unknown [id number] 2.16.840.1.972199.3.579. 2.1259 1945 Unknown [id number] 2.16.840.1.822300.3.579. 2.1259 1945 Unknown [id number] 2.16.840.1.296751.3.579. 2.1259 1945 Unknown [id number] 2.16.840.1.892865.3.579. 2.1259 Medicare Anthem MCR PFFS OP [id number] Unknown [id number] 2.16.840.1.652767.3.579. 2.531 Unknown [id number] 2.16.840.1.810372.3.579. 2.531 Unknown [id number] 2.16840.1.735183.3.579. 2.531 Unknown [id number] 2.16840.1.808722.3.579. 2.531 Unknown [id number] 2.16840.1.655718.3.579. 2.531 Social History Date Type Detail Facility Start: 10-10-2020 End: 02-29-2024 Sex Assigned At [facility] [employer] Other Start: 1945 [facility] Assigned At [facility] Start: 05-19-2017 End: 03-04-2023 Tobacco smoking [...] the mortgage or rent on time? 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 [...] Resource Strain: Low Risk (11/23/2023) Received from [facility] Overall Financial Resource Strain (CARDIA) Difficulty of Paying Living Expenses: Not hard at all Food Insecurity: No Food Insecurity (08/18/2024) Hunger Screening Food Insecurity - Worry: Never True Food Insecurity - Inability: Never True Transportation Needs: No Transportation Needs (11/23/2023) Received from [facility] PRAPARE - Transportation Lack of Transportation (Medical): No Lack of Transportation (Non-Medical): No Physical Activity: Insufficiently Active (11/23/2023) Received from [facility] Exercise Vital Sign Days of Exercise per Week: 7 days Minutes of Exercise per Session: 10 min Stress: No Stress Concern Present (11/23/2023) Received from [facility] [employer] - Occupational Stress Questionnaire Feeling of Stress : Not at all Social Connections: Moderately Integrated (11/23/2023) Received from [facility] Social Connection and Isolation Panel [NHANES] Frequency of Communication with Friends and Family: Once a week Frequency of Social Gatherings with Friends and Family: Twice a week Attends [employer] Services: 1 to 4 times per year Active Member of Clubs or Organizations: No Attends Club or Organization Meetings: Never Marital Status: Interpersonal Safety: Not At Risk (11/23/2023) Received from [facility] Humiliation, Afraid, Rape, and Kick questionnaire Fear of Current or Ex-Partner: No Emotionally Abused: No Physically Abused: No Sexually Abused: No Housing Instability: High Risk (11/23/2023) Received from [facility] Housing Stability Vital Sign Unable to [...] these and any potential arrhythmias unless we diamond picker that this is a blood pressure [...] LOOMIS MD Referring Physician: JHONNY Hernandez [address] [facility] [address] [place] [address] [facility] Miscellaneous Notes Called patient to remind them to bring their most current copy of their medication list with them to their appt. Patient's verbalizes understanding. documented in this encounter [facility] 08-17-2024 Telephone encounter Note Called patient to remind them to bring their most current copy of their medication list with them to their appt. Patient's verbalizes understanding. [facility] 08-07-2024 History of Presen t illness Narrative Images from the original note were not included. HPI holter monitor Additional comments: Pt had holter monitor done through [facility]--she has appt sched with cardiology 08/18/24 Last edited by Dee Luque LPN on 08/07/2024 2:57 PM. Subjective Patient ID: Sharon Sousa is a 79 y.o. female who presents for Gastritis and holter monitor (Pt had holter monitor done through [facility]--she has appt sched with cardiology 08/18/24). [...] 210 tablet 0 ergocalciferol (Drisdol) 1.25 MG (11103 UT) capsule Take 1 capsule (1.25 mg) [...] need - Influenza, high-dose seasonal, quadrivalent, PF (PWZ202) (Fluzone High Dose Quad North 0.7mL dose) Near syncope - Holter just completed, has upcoming appt with Cardiology. Follow up in about 2 months (around 10/08/2024) for F/U med changes. documented in this encounter [facility] 07-06-2024 History of Presen t illness Narrative Images from the original note were not included. Subjective Patient ID: Sharon Sousa is a 79 y.o. female who presents for [facility] ER follow up. Sharon is present today for [facility] ER follow up from 07/04/2024. Dx. [...] 210 tablet 0 ergocalciferol (Drisdol) 1.25 MG (26568 UT) capsule Take 1 capsule (1.25 mg) [...] vomiting, unspecified vomiting type Encouraged them to diamond picker the Zofran today. She can take [...] 08/03/2024) for Recheck. documented in this encounter [facility] 05-10-2024 History of Presen t illness Narrative Images from the original note were not included. HPI Osteoporosis Additional comments: Here for prolia injection Med Refill Additional comments: Omeprazole,levothyroxine--[place] Last edited by Dee Luque LPN on 05/10/2024 1:51 PM. Subjective Patient ID: Sharon Sousa is [...] g before bedtime. ergocalciferol (Drisdol) 1.25 MG (20321 UT) capsule Take 1 capsule (1.25 mg) [...] follow-ups on file. documented in this encounter [facility] 09-30-2022 Evaluation note Encounter Date Diagnosis Assessment Notes Sep, Abdominal pain (ICD-10 - R10.9) Sep, Bloating (ICD-10 - R14.0) [email or web address] Other 06-01-2022 Evaluation note* Encounter Date Diagnosis Assessment Notes Treatment Notes Treatment Clinical Notes Jan, Chronic gastritis (ICD-10 - K29.50) CONTINUE OMEPRAZOLE BID FOR NOW EGD OBTAIN RECENT RADIOLOGY REPORT FROM [place] Carranza/Elva HERE AFTER Jan, Colitis (ICD-10 - K52.9) COLONOSCOPY Jan, Abdominal pain (ICD-10 - R10.9) [email or web address] Other [employer] noteNo InformationNort [employer] Other Evklvjypdi noteNo assessment information available [facility] Work Phone: [employer]q note* Diagnosis Epigastric pain- Primary Abdominal pain, epigastric Nausea and vomiting, unspecified vomiting type Acute gastritis without hemorrhage, unspecified gastritis type Frequent PVCs Palpitations Near syncope documented in this encounter [facility] HealthcareEvaluation note* Diagnosis Essential hypertension (CMS/HCC)- Primary Unspecified essential hypertension Hypothyroidism, unspecified type (CMS/HCC) Gastro-esophageal reflux disease without esophagitis Acute gastritis without hemorrhage, unspecified gastritis type Flu vaccine need Near syncope documented in this encounter [facility] HealthcareEvaluation note* Diagnosis Cognitive impairment- Primary Unspecified persistent mental disorders due to conditions classified elsewhere Age-related osteoporosis without current pathological fracture (CMS/HCC) Hypothyroidism, unspecified type (CMS/HCC) Gastro-esophageal reflux disease without esophagitis Essential hypertension (CMS/HCC) Unspecified essential hypertension documented in this encounter [facility] HealthcareEvaluation note* Diagnosis Paroxysmal atrial fibrillation (CMS-HCC)- Primary Atrial fibrillation Essential hypertension Unspecified essential hypertension [facility] - [facility]* Type Description Date Medical History HTN Medical History GERD Medical History hypothyroidism Surgical History CHOLECYSTECTOMY Surgical History PARTIAL HYSTERECTOMY [email or web address] Other InstructionsNot on filedocumented in this encounter [employer] SystemInstructionsNot on filedocumented in this encounter [employer] Summary Purpose Family History Relationship Condition Age [...] and content) DATE CREATED AUTHOR 06/01/[address] [facility] DATE CREATED AUTHOR AUTHOR'S ORGANIZ ATION 12/14/[address] [facility] DATE CREATED AUTHOR AUTHOR'S ORGANIZ ATION 08/10/2024 [facility] dic[facility] Specialists EPIC REASON FOR VISIT (unrecogniz ed section and content) Reason Comments Gastritis holter monitor Pt had holter monito r done through [facility]--she has appt sched with cardiology 08/18/24 Reason Comments Osteoporosis Here for prolia inje ction Med Refill Omeprazole,levothyro xine--[place] Memory Loss Reason Comments New Patient CAMP DIRECTOR REFERRAL ESTEPHANIA KAPLAN MMER FREQUENT PVCS, PALPS, NEAR SYNCOPE, [facility] ER 07/02/2024, SCHED W/PT++labs in care everywhere, pcp office note in care everywhere, requested ER records/HM report from [facility]++jlw 08/08/2024 Specialty Diagnoses / Procedures Referred By Contac t Referred To Contact Cardiology Diagnoses Frequent PVCs Palpitations Near syncope Procedures [place] OFFICE OUTPATIENT VISIT 60-74 MINS HIGH MDM [id number] (SNOMED CT) - AMB REFERRAL TO CARDIOLOGY Estephania Abarca PA [address] [place] [address] [place] [address] Phone: tel: fax: Ranjeet Hensley MD [address] [place] [address] Phone: tel: fax: Referral ID Status Reason Start Date Expiration Date V isits Requested Visits Authorized [id number] Pending Review 07/06/2024 01/02/2025 1 1 Care Teams (unrecognized sec tion and content) Team Status: Inactive Member Role Status Dates Gabino Loomis II MD Primary Care Provider Active Danna Sarmiento MD Attending Provider Active Team Status: Active Member Role Status Dates Gabino Loomis II MD Primary Care Provider Active Guard Rail Installer Relationship Specialty Start Date End Date Gabino Loomis MD [address] [place] [address] [place] [address] PCP - General Internal Medicine 02/15/23 Gabino Loomis MD [address] [place] [address] [place] [address] PCP - Vikki HOOK 03/30/24Wednesday, [place], MOTORCYCLE MAKER [address] [place] [address] Licensed Practical Nurse Family Medicine 11/18/23 Guard Rail Installer Relationship Specialty Start Date End Date Gabino Loomis MD [address] [place] [address] [place] [address] PCP - General Internal Medicine 02/15/23 Gabino Loomis MD [address] [place] [address] [place] [address] PCP - Vikki HOOK 03/30/24Wednesday, [place], MOTORCYCLE MAKER [address] [place] [address] Licensed Practical Nurse Family Medicine 11/18/23 Guard Rail Installer Relationship Specialty Start Date End Date Gabino Loomis MD [address] [place] [address] [place] [address] PCP - General Internal Medicine 02/15/23 Gabino Loomis MD [address] [place] [address] [place] [address] PCP - Vikki HOOK 03/30/24Wednesday, [place], MOTORCYCLE MAKER [address] [place] [address] Licensed Practical Nurse Family Medicine 11/18/23 Guard Rail Installer Relationship Specialty Start Date End Date Gabino Loomis MD [address] [place] [address] [place] [address] PCP - General Internal Medicine 02/15/23 Gabino Loomis MD [address] [place] [address] [place] [address] PCP - Vikki HOKO 03/30/24Wednesday, [place], MOTORCYCLE MAKER [address] [place] [address] Licensed Practical Nurse Family Medicine 11/18/23 Guard Rail Installer Relationship Specialty Start Date End Date Gabino Loomis MD [address] [place] [address] [place] [address] PCP - General Internal Medicine 02/15/23 Gabino Loomis MD [address] [place] [address] [place] [address] PCP - Vikki HOOK 03/30/24Wednesday, [place], MOTORCYCLE MAKER [address] [place] [address] Licensed Practical Nurse Family Medicine 11/18/23 Guard Rail Installer Relationship Specialty Start Date End Date Gabino Loomis MD [address] [place] [address] [place] [address] PCP - General Internal Medicine 02/15/23 Gabino Loomis MD [address] [place] [address] [place] [address] PCP - Vikki HOOK 03/30/24 Rolando, BENJAMIN AbdiN [address] [place] [address] Licensed Practical Nurse Family Medicine 11/18/23 Guard Rail Installer Relationship Specialty Start Date End Date Gabino Loomis MD [address] [place] [address] [place] [address] PCP - General Internal Medicine 10/31/19 Guard Rail Installer Relationship Specialty Start Date End Date Gabino Loomis MD [address], [address] [place] [address] PCP - General Internal Medicine 10/31/19 Goals [...] BE BASED ON THE PRIMARY CLINICAL RECORDS. [employer] provides no warranty or guarantee of the accuracy or completeness of information in this document.
[2024-08-20] MEDS: POTASSIUM CHLORIDE 10 MEQ ER TABLET 40 MEQ PO (17:40)
[2024-08-20] MEDS: LACTATED RINGER'S SOLUTION 1,000 ML 125 ML IV (17:40)
[2024-08-20] MEDS: DONEPEZIL HCL 5 MG TABLET PO (20:21)
[2024-08-20] MEDS: METOPROLOL SUCCINATE 25 MG TAB.ER.24H PO (20:21)
[2024-08-20] MEDS: OMEPRAZOLE 40 MG CAPSULE.DR PO (20:21)
[2024-08-21] VITALS (74 sets, daily range): BP systolic 122–142; BP diastolic 65–87; PULSE 51–139; TEMP 36.4; O2SAT 82–99
[2024-08-21] MEDS: LACTATED RINGER'S SOLUTION 1,000 ML 125 ML IV ×2 (01:36→08:53)
[2024-08-21] MEDS: ENOXAPARIN SODIUM 60 MG/0.6 ML SYRINGE SUBQ (05:11)
[2024-08-21] MEDS: LEVOTHYROXINE SODIUM 75 MCG TABLET PO (05:12)
--- OUTSIDE RECORDS SUMMARY | 2024-08-21 06:02 | XMS_ITS | CCD ---
Author Organization [facility] Care Team Providers Care Corporate General Manager Name Role Phone ESTEPHANIA ABARCA Admitting Unavailable [...] Barrett Unavailable BOBBI Loomis Primary Care Provider [phone] MD Danna Sarmiento Attending Provider Asaad, Imad [...] Gabino Loomis MD Primary Care Provider Wednesday BUMBOATER, Trinidad Unavailable Gabino Loomis MD Unavailable GABINO LOOMIS Attending Unavailable PK ARMIJO Attending Unavailable GABINO LOOMIS Attending Unavailable ESTEPHANIA ABARCA Attending Unavailable GABINO LOOMIS Attending Unavailable Gabino Loomis MD Primary Care Provider Allergies Allergy Classification Reported Allergen(s) Allergy Type Date of Onset Reaction(s) Facility (1 source) Codeine Drug Allergy 7 [facility] Repository (4 sources) Codeine Drug Allergy Unknown [employer] Other (1 source) Codeine Drug Allergy 3 [facility] Repository (11 sources) Codeine Drug Allergy 7 [...] mouth every week ergocalciferol (Drisdol) 1.25 MG (59516 UT) capsule Indications: Vitamin D deficiency Take [...] 05/10/2025 Active take 1 capsule by mo [facility] every twelve hours Omeprazole 40 MG [...] 11-18-2023 11-18-2023 Other aftercare (1 source) 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; Translations: [OTH REGIONAL GEODETIC ADVISOR CURRENT DRUG THERAPY] Onset: 11-03-2019 Episodic Other [...] Cx Nom (U) Performed at: - [facility] Bacteria identified Cx Nom (U) [address], [place] [id number] [facility] Bacteria identified Cx Nom (U) Order Tracer: Ez Brantley PhD, Phone: [phone] [facility] Blood Urea Nitrogenon 2022 Urea nitrogen [Mass/Vol] 17 mg/dL Normal 7-25 [facility] Comment on above: Performed By: #### C REAT, BUN #### [facility] [address] enterographyon 12-14-2022 CT enterography [facility] Main [employer] [address] [place] [address] CT Scan Report Signed Patient: Sharon Sousa MR#: [id number] [birth year] : 1945 Acct:[id number] Age/Sex: 77 / F ADM Date: 12/14/22 Loc: CT Room: Type: [facility] Attending Dr: Danna Sarmiento MD [...] Urrutia Jr., D.O.12/14/2022 1:49 PM Dictation Location: [place] [address] Transcribed By: [facility] 12/14/22 1349 Dictated By: Vargas Urrutia Jr, DO 12/14/22 1345 Signed By: 12/14/22 1349 Normal [facility] Creatinineon 12-14-2022 Creatinine [Mass/Vol] 0.76 mg/dL Normal 0.60-1.20 [facility] Comment on above: Performed By: #### C REAT, BUN #### [facility] [address] GFR/1.73 sq M.predicted MDRD (S/P/Bld) [Vol rate/Area] mL/min/{1.73_m2} Normal [facility] Comment on above: Result Comment: PERF ORMED BY: [place] [address] PATHOLOGIST GROUP TESTER SVETLANA DELGADILLO M.D. Performed By: #### C REAT, BUN #### [facility] [address] Calprotectin, Fecalon 2022 Calprotectin, Fecal 34 Normal 0-120 [facility] Comment on above: Order Comment: Reaso n for Exam Abdominal pain;Tarry stool;Change in bowel habits;Bloating Result Comment: Conc entration Interpretation Follow-Up <16 - 50 ug/g Normal None >50 -120 ug/g Borderline Re-evaluate in 4-6 weeks >120 ug/g Abnormal Repeat as clinically indicated Performed at: - [facility] [id number] Order Tracer: Be Pierre MD, Phone: [phone] PERFORMED BY: [address] [place] [address] PATHOLOGIST GROUP TESTER SVETLANA DELGADILLO M.D. Performed By: #### C ALPROTECT #### [facility] , Calprotectin, Fecal 34 0-120 General Compression [facility] [employer] ([employer] Other C reactive protein [Mass/vol ume] in Serum or PlasmaOrdered By: Imad Asaad on 09-30-2022 CRP [Mass/Vol] 0.6 mg/dL 0.0-1.0 [facility] C-Reactive Proteinon 023 C-Reactive Protein 0.6 mg/dL Normal 0.0-1.0 [facility] Comment on above: Order Comment: Reaso n for Exam Abdominal pain;Tarry stool;Change in bowel habits;Bloating Result Comment: PERF ORMED BY: [address] [place] [id number] PATHOLOGIST GROUP TESTER SVETLANA DELGADILLO M.D. Performed By: #### C ELIAC GEN, CELIAC #### [facility] , #### CRP, ESR #### [facility] [address] [place] [address] C-Reactive Protein 0.6 mg/dL Normal 0.0-1.0 mg/dL [facility] [employer] ([employer] Other Celiacon 09-30-2022 Deamidated Gliadin Abs, IgA 4 Normal 0-19 [facility] Comment on above: Order Comment: Reaso n for Exam Abdominal pain;Tarry stool;Change in bowel habits;Bloating Result Comment: Nega tive 0 - 19 Weak Positive 20 - 30 Moderate to Strong Positive >30 Performed By: #### C ELIAC GEN, CELIAC #### [facility] , #### CRP, ESR #### [facility] [address] Deamidated Gliadin Abs, IgG 3 Normal 0-19 [facility] Comment on above: Order Comment: Reaso n for Exam Abdominal pain;Tarry stool;Change in bowel habits;Bloating Result Comment: Nega tive 0 - 19 Weak Positive 20 - 30 Moderate to Strong Positive >30 Performed By: #### C ELIAC GEN, CELIAC #### [facility] , #### CRP, ESR #### [facility] [address] Endomysial Antibody IgA Negative Normal Negative [facility] Comment on above: Order Comment: Reaso n for Exam Abdominal pain;Tarry stool;Change in bowel habits;Bloating Performed By: #### C ELIAC GEN, CELIAC #### [facility] , #### CRP, ESR #### [facility] [address] [place] [address] [place] Immunoglobulin A, Qn, Serum 281 mg/dL Normal 64-422 [facility] Comment on above: Order Comment: Reaso n for Exam Abdominal pain;Tarry stool;Change in bowel habits;Bloating Result Comment: Perf ormed at: - [facility] [address] [id number] Order Tracer: Ez Brantley PhD, Phone: [phone] Performed By: #### C ELIAC GEN, CELIAC #### [facility] , #### CRP, ESR #### [facility] [address] [place] [address] [place] T-Transglutaminase (tTG) IgA <2 Normal 0-3 [facility] Comment on above: Order Comment: Reaso n [...] #### [facility] , #### CRP, ESR #### [facility] [address] [place] [id number] [place] T-Transglutaminase (tTG) IgG <2 Normal 0-5 [facility] Comment on above: Order Comment: Reaso n for Exam Abdominal pain;Tarry stool;Change in bowel habits;Bloating Result Comment: Nega tive 0 - 5 Weak Positive 6 - 9 Positive >9 Performed By: #### C ELIAC GEN, CELIAC #### [facility] , #### CRP, ESR #### [facility] [address] Celiac 4 0-19 [facility] [employer] Other Celiac 3 0-19 [facility] [employer]) Other Celiac <2 0-5 [facility] [employer]) Other Celiac Negative Negative [facility] [employer]) Other Celiac 281 mg/dL 64-422 mg/dL [facility] [employer] Other Celiac Disease Genetics HLA DQon 09-30-2022 CDDQ2 Additional Information Normal . [facility] Comment on above: Order Comment: Reaso n for Exam Abdominal pain;Tarry stool;Change in bowel habits;Bloating Result Comment: Refe rences: 1. Eric FISHER and Sandy Rush. Celiac Disease. N Eng J Med 2007; 357:7085-2213. 2. Megiorni F, Roca B, Bonamico M et al. HLA-DQ and risk gradient for celiac disease. Hum Immunol 2009; 70:55-59. 3. Clement MM, Krishan TC, Ernesto FM et al. Stratifying risk for celiac disease in a large at-risk [facility] population by using HLA alleles. Clin Gastroenterol Hepatol 2009; 7:966-971. 4. Doretha ROSE and Lelo BA. (2005). Celiac Disease Genetics: Current Concepts and Practical Applications. Clin Gastroenterol and Hepat 3:843-851. 5. Sarah CL, Obed DO, Green PHR, et al. Celiac Disease. In: Bandar RA, Aldo TC, Kana CR, Sary K, editors. [employer]), [facility], [place], March 01, 2008:1-27. http://www.ncbi.nlm.nih.gov/alexandria/br.fcgi?book=genepart=andra ac PMID 76593159 (PubMed) 6. Lilli W. Emerging concepts in celiac disease. Curr Opin Pediatr 2004;16:552-559. Performed at: [address] [place] [id number] Order Tracer: Garry Brennan PhD, Phone: [phone] PERFORMED BY: [place] [address] PATHOLOGIST GROUP TESTER SVETLANA DELGADILLO M.D. Performed By: #### C ELIAC GEN, CELIAC #### [facility] , #### CRP, ESR #### [address] Comment: Normal . [facility] Comment on above: Order Comment: Reaso n for Exam Abdominal pain;Tarry stool;Change in bowel habits;Bloating Result Comment: This test was performed using Polymerase Chain Reaction/(PCR)Sequence Specific Oligonucleotide Probes (SSOP) (Animeeple) technique. Sequence Based Typing (SBT) and/or Sequence Specific Primers (SSP) may be used as supplemental methods when necessary. Please contact HLA Customer Service at if you have any questions. Director of HLA Laboratory Dr Garyr Brennan, PhD Performed By: #### C ELIAC GEN, CELIAC #### [facility] , #### CRP, ESR #### [address] Dq2 (Dqa1 0501/0505,Dqb1 02Xx) Positive Normal . [facility] Comment on above: Order Comment: Reaso n for Exam Abdominal pain;Tarry stool;Change in bowel habits;Bloating Performed By: #### C ELIAC GEN, CELIAC #### [facility] , #### CRP, ESR #### [facility] [address] [place] [address] [place] Dq8 (Dqa1 03Xx, Dqb1 0302) Negative Normal . [facility] Comment on above: Order Comment: Reaso n [...] version 3.49.0 HLA Lab CLIA ID Number [id number] Greater than 95% of celiac patients are positive for either DQ2 or DQ8 (Doretha and Krysta, (1993) Gastroenterology 105:910-922). However these antigens may also be present in patients who do not have Celiac disease. Performed By: #### C ELIAC GEN, CELIAC #### [facility] , #### CRP, ESR #### [address] Celiac Disease Genetics HLA DQ Positive . [facility] [employer] ([employer] Other Celiac Disease Genetics HLA DQ . [facility] [employer] Other Erythrocyte Sedimentation Ra ramirez 09-30-2022 ESR (Bld) [Velocity] 13 mm/h Normal 0-29 [facility] [employer] ([employer] Other Comment on above: Order Comment: Reaso n for Exam Abdominal pain;Tarry stool;Change in bowel habits;Bloating Result Comment: PERF ORMED BY: [place] [address] PATHOLOGIST GROUP TESTER SVETLANA DELGADILLO M.D. Performed By: #### C ELIAC GEN, CELIAC #### [facility] , #### CRP, ESR #### [address] [place] [address] [facility] Erythrocyte sedimentation ra te by Photometric methodOrdered By: Imad Asaad on 09-30-2022 ESR Photometric method (Bld) [Velocity] 13 mm/hr 0-29 [facility] Human leukocyte antigen (HLA ) DQ2 detectionOrdered By: Imad Asaad on 09-30-2022 HLA-DQ2 Ql (Bld/Tiss) Positive . [facility] Human leukocyte antigen (HLA ) DQ8 detectionOrdered By: Imad Asaad on 09-30-2022 HLA-DQ8 Ql (Bld/Tiss) Negative . [facility] Comment on above: Final Results:DQA1*0 2:SHELDON05:EEMXYDQB1*02:RAYMUNDO02:EENUGCode [...] IMGT/HLAdatabase version 3.49.0A Lab CLIA ID Number [id number] than 95% of celiac patients are positive for eitherDQ2 or DQ8 (Doretha and Krysta, (1993) Wkqemizicgqjswxt512:910-922). However these antigens may also be present inpatients who do not have Celiac disease. IgA [Mass/volume] in Serum o r PlasmaOrdered By: Danna Sarmiento on 09-30-2022 IgA [Mass/Vol] 281 mg/dL 64-422 [facility] Comment on above: Performed at: [address] [id number] Director: Ez Brantley PhD, Phone: [phone] No Panel InformationOrdered By: Danna Sarmiento on 09-30-2022 Celiac Gene Interpretation See comment . [facility] Comment on above: References:1. Eric FISHER and Sandy Rush. Celiac Disease. N Eng J Med 2007; 357:3664-1539.2. Yumiko F, Chanelle B, Cristino M et [...] Aldo TC, Kana CR, Sary K, editors. [employer]), [facility], [place], March 01, 2008:1-27. http://www.ncbi.nlm.nih.gov/bookshelf/br.fcgi?book=genepart=andra ac PMID [id number] (PubMed)6. Lilli Baker. Emerging concepts in celiac disease. Curr Opin Pediatr 2004;16:552-559.Performed at: [address] [place] [id number] Director: Garry Brennan PhD, Phone: [phone] Endomysial IgA Antibody Negative Negative [facility] HLA Genotype Interpretation See comment . [facility] Comment on above: This test was perfor [...] peptide IgA Qn (S) 4 units 0-19 [facility] Comment on above: Negative 0 - 19 Weak Positive 20 - 30 Moderate to Strong Positive >30 Serum gliadin peptide IgG an tibody assay (units/volume)Ordered By: Imaurora Sarmiento on 09-30-2022 Gliadin peptide IgG Qn (S) 3 units 0-19 [facility] Comment on above: Negative 0 - 19 Weak Positive 20 - 30 Moderate to Strong Positive >30 Serum tissue transglutaminas e (tTG) IgA antibody assay (units/volume)Ordered By: Imad Asaad on 09-30-2022 tTG IgA Qn (S) <2 U/mL 0-3 [facility] Comment on above: Negative 0 - 3 Weak Positive 4 - 10 Positive >10 Tissue Transglutaminase (tTG) has been identified as the endomysial antigen. Studies have demonstr- ated that endomysial IgA antibodies have over 99% specificity for gluten sensitive enteropathy. Serum tissue transglutaminas e (tTG) IgG antibody assay (units/volume)Ordered By: Imad AsaInfratel on 09-30-2022 tTG IgG Qn (S) <2 U/mL 0-5 [facility] Comment on above: Negative 0 - 5 Weak Positive 6 - 9 Positive >9 Pato 02-11-2022 L --- Specimen: [id number] Received: 02/11/22 Status: RASTA Syed Num: [id number] Spec Type: Surgical Subm Dr: Philippe Barrett Jr, DO Tissues: A Stomach - Biopsy/Polyp (STOMACH BX) B Colon Biopsy (RECTUM BX) Procedures: HE Stain/4, Gross/Micro L4/2 Patient Age/Sex Location Account Attending Physician Sharon Sousa 76/F [id number] Philippe Barrett Jr, DO SPEC NUM: [id number] RECD: 02/11/22 STATUS: RASTA SYED NUM: [id number] ROXY: 02/11/[address] [facility] [address]: Philippe Barrett Jr, DO ENTERED: 02/11/22-1110 [...] Fixative: 10% Neutral Buffered Formalin (/) Specimen: [id number] Received: 02/11/22 Status: RASTA Syed Num: [id number] Spec Type: Surgical Subm Dr: Philippe Barrett Jr, DO Tissues: A Stomach - Biopsy/Polyp (STOMACH BX) B Colon Biopsy (RECTUM BX) Procedures: HE Stain/4, Gross/Micro L4/2 Patient: Nic Sousanza [id number] (Continued) Specimen: [id number] Received: 02/11/22 (Continued) Signed (signature on file) Iliana Bateman MD 02/12/22 1559 Specimen: [id number] Received: 02/11/22 Status: RASTA Syed Num: [id number] Spec Type: Surgical Subm Dr: Philippe Barrett Jr, DO Tissues: A Stomach - Biopsy/Polyp (STOMACH BX) B Colon Biopsy (RECTUM BX) Procedures: HE Stain/4, Gross/Micro L4/2 Patient: Sharon Sousa [id number] (Continued) Specimen: [id number] Received: 02/11/22 (Continued) Microscopic Description A. Two [...] characteristics were determined by the Laboratory of [facility]. Immunohistochemistry assays have not been validated on decalcified tissue. Results should be interpreted with caution given the possibility of false negative results on decalcified specimens. They have not been cleared by the US Food and Drug Administration. The FDA has determined that such clearance or approval is not necessary. CPT Codes 94791?2, 73527 Specimen: [id number] Received: 02/11/22 Status: RASTA Kunal Num: [id number] Spec Type: Surgical Subm Dr: Philippe Barrett Jr, DO Tissues: A Stomach - Biopsy/Polyp (STOMACH BX) B Colon Biopsy (RECTUM BX) Procedures: HE Stain/4, Gross/Micro L4/2 Patient: Sharon Sousa [id number] (Continued) Signed (signature on file) Iliana Batemna MD 02/12/22 0546 [facility] COVID-19 [facility] 06-13-2022 SARS-CoV-2 (COVID-19) RNA KELY+probe Ql (Unsp spec) Negative Normal Negative [facility] Comment on above: Order Comment: Healt hcare Worker?: N Result Comment: Testing for SARS-CoV-2 by RT-PCR This test was developed and its performance characteristics determined by [employer] and validated at the [facility]. This test has not been FDA cleared [...] is terminated or revoked sooner. PERFORMED BY: [place] [address] PATHOLOGIST GROUP TESTER SVETLANA DELGADILLO M.D. Performed By: #### C OVID 19 [facility] #### [address] XR DEXA BONE DENSITYon 05-27 XR [...] PHILIPPE WALLACE Date: 2020-05-27 13:18 Normal [facility] CBC AUTO DIFFon 11-01-2019 Basophils (Bld) [#/Vol] 0.0 103/ul Normal 0.0-0.[address] [facility] Comment on above: Performed By: #### C BC #### [facility] [address] [place] [id number] Erin Estephania Basophils/100 WBC (Bld) 0.3 % Normal 0.2-2.[address] [facility] Comment on above: Performed By: #### C BC #### [facility] [address] [place] [address] Erin Estephania Eosinophils (Bld) [#/Vol] 0.0 103/ul Normal 0.0-0.7 [facility] Comment on above: Performed By: #### C BC #### [facility] [address] [place] [address] Erin Estephania Eosinophils/100 WBC (Bld) 0.1 % Critically low 0.9-7.[address] [facility] Comment on above: Performed By: #### C BC #### [facility] [address] [place] [address] Erin Estephania Erythrocyte distribution width (RBC) [Ratio] 13.8 % Normal 11.0-15.[address] [facility] Comment on above: Performed By: #### C BC #### [facility] [address] [place], [place] [phone] Erin Estephania Hematocrit (Bld) [Volume fraction] 40.1 % Normal 36.0-48.0 [facility] Comment on above: Performed By: #### C BC #### [facility] [address] [place], [place] [address] Erin Estephania Hemoglobin (Bld) [Mass/Vol] 13.6 g/dL Normal 12.0-16.0 [facility] Comment on above: Performed By: #### C BC #### [facility] [address] [place] [address] Erin Estephania IG # 0.04 10e3/ul Critically high 0.00-0.03 [facility] Comment on above: Performed By: #### C BC #### [facility] [address] [place] [id number] Erin Estephania IG % 0.4 % Normal 0.0-0.5 [facility] Comment on above: Performed By: #### C BC #### [facility] [address] [place], [place] [address] Erin Estephania Lymphocytes (Bld) [#/Vol] 1.4 103/ul Normal 1.2-3.8 [facility] Comment on above: Performed By: #### C BC #### [facility] [address] [place], [place] [address] Erin Estephania Lymphocytes/100 WBC (Bld) 13.5 % Critically low 20.5-60.0 [facility] Comment on above: Performed By: #### C BC #### [facility] [address] [place], [place] [address] Erin Estephania MANUAL DIFF REQ NO Normal [facility] Comment on above: Performed By: #### C BC #### [facility] [address] [place], [place] [address] Erin Estephania MCH (RBC) [Entitic mass] 30.5 pg Normal 26.7-34.0 [facility] Comment on above: Performed By: #### C BC #### [facility] [address] [place], [place] [address] Erin Estephania MCHC (RBC) [Mass/Vol] 33.9 g/dL Normal 29.9-35.2 [facility] Comment on above: Performed By: #### C BC #### [facility] [address] [place], [place] [address] Erin Estephania MCV (RBC) [Entitic vol] 89.9 fL Normal 81.0-99.0 [facility] Comment on above: Performed By: #### C BC #### [facility] [address] [place], [place] [address] Erin Estephania Monocytes (Bld) [#/Vol] 0.5 103/ul Normal 0.3-0.8 [facility] Comment on above: Performed By: #### C BC #### [facility] [address] [place], [place] [address] Erin Estephania Monocytes/100 WBC (Bld) 5.0 % Normal 1.7-12.0 [facility] Comment on above: Performed By: #### C BC #### [facility] [address] [place] [address] Erin Estephania Neutrophils (Bld) [#/Vol] 8.2 103/ul Critically high 1.4-6.[address] [facility] Comment on above: Performed By: #### C BC #### [facility] [address] [place] [address] Erin Estephania Neutrophils/100 WBC (Bld) 80.7 % Critically high 43.0-75.[address] [facility] Comment on above: Performed By: #### C BC #### [facility] [address] [place] [address] Erin Estephania Platelet mean volume (Bld) [Entitic vol] 10.5 fL Normal 9.5-13.[address] [facility] Comment on above: Performed By: #### C BC #### [facility] [address] [place] [address] Erin Estephania Platelets (Bld) [#/Vol] 212 103/ul Normal 150-450 [facility] Comment on above: Performed By: #### C BC #### [facility] [address] [place] [address] Erin Estephania RBC (Bld) [#/Vol] 4.46 106/ul Normal 4.20-5.40 [facility] Comment on above: Performed By: #### C BC #### [facility] [address] [place] [address] Erin Estephania WBC (Bld) [#/Vol] 10.2 103/ul Normal 4.0-11.0 [facility] Comment on above: Performed By: #### C BC #### [facility] [address] [place] [address] Erin Estephania ER URINE PROFILEon 0 Bilirubin [Mass/Vol] Negative Normal NEGATIVE [facility] Comment on above: Performed By: #### E STEPHENR, UMICRO #### [facility] [address] [place] [address] Erin Estephania BLOOD MODERATE Normal NEGATIVE [facility] Comment on above: Performed By: #### EVANGELINA ALVARENGA #### [facility] [address] [place] [address] Erin Estephania Clarity (U) CLEAR Normal [facility] Comment on above: Performed By: #### EVANGELINA ALVARENGA #### [facility] [address] [place] [address] Erin Estephania Color (U) LT. YELLOW Normal YELLOW [facility] Comment on above: Performed By: #### EVANGELINA ALVARENGA #### [facility] [address] [place] [address] Erin Estephania ERUAHD A micrscopic examination will be performed if indicated. Normal [facility] Comment on above: Performed By: #### EVANGELINA ALVARENGA #### [facility] [address] [place] [address] Erin Estephania Glucose [Mass/Vol] Negative Normal NEGATIVE [facility] Comment on above: Performed By: #### EVANGELINA ALVARENGA #### [facility] [address] [place] [address] Erin Estephania Ketones Ql (U) Negative Normal NEGATIVE [facility] [facility] Comment on above: Performed By: #### EVANGELINA ALVARENGA #### [facility] [address] [place] [address] Erin Estephania Nitrite Ql (U) Negative Normal NEGATIVE [facility] Comment on above: Performed By: #### BRODY ALVARENGARO #### [facility] [address] [place] [address] Erin Estephania pH (Bld) 5.0 Normal 5-[address] [facility] Comment on above: Performed By: #### EVANGELINA ALVARENGA #### [facility] [address] [place] [address] Erin Estephania Protein (U) [Mass/Vol] Negative Normal [facility] Comment on above: Performed By: #### EVANGELINA ALVARENGA #### [facility] [address] [place], [place] [phone] Erin Best SPEC GRAVITY 1.025 Normal 1.005-<=1.[address] [facility] Comment on above: Performed By: #### EVANGELINA ALVARENGA #### [facility] [address] [place], [place] [phone] Erin Best UR MICRO IND INDICATED Normal [facility] Comment on above: Performed By: #### BRODY ALVARENGARO #### [facility] [address] [place], [place] [phone] Erin Best Urobilinogen Qn (U) 0.2 EU/dl Normal [facility] Comment on above: Performed By: #### EVANGELINA ALVARENGA #### [facility] [address] [place] [address] Erin Best WBC (Bld) [#/Vol] TRACE Normal NEGATIVE [facility] Comment on above: Performed By: #### EVANGELINA ALVARENGA #### [facility] [address] [place], [place] [phone] Erin Best LACTATE/LACTIC ACIDon 2019 Lactate [Moles/Vol] 1.1 mmol/L Normal 0.7-2.[address] [facility] Comment on above: Performed By: #### L ACT #### [facility] [address] [place] [address] Erin Best LIPASEon 11-01-2019 Lipase [Catalytic activity/Vol] 151.0 U/L Normal 23.0-300.[address] [facility] Comment on above: Performed By: #### C MP, LIPA, TROP #### [facility] [address] [place], [place] [phone] Erin Best PROF 14(COMP METB)on 020 Albumin [Mass/Vol] 3.5 g/dL Normal 3.5-5.0 [facility] Comment on above: Performed By: #### C MP, LIPA, TROP #### [facility] [address] [place], [place] [phone] Erin Estephania Albumin/Globulin [Mass ratio] 0.9 {ratio} Normal [facility] Comment on above: Performed By: #### C KERRI KOTHARIA, TROP #### [facility] [address] [address] Erin Estephania ALP [Catalytic activity/Vol] 96 U/L Normal 38-[address] [facility] Comment on above: Performed By: #### C TAYE LIPA, TROP #### [facility] [address] [address] Erin Estephania ALT [Catalytic activity/Vol] 20 U/L Normal 9-[address] [facility] Comment on above: Performed By: #### C KERRI KOTHARIA, TROP #### [facility] [address] [address] Erin Estephania Anion gap [Moles/Vol] 10.9 mmol/L Normal [facility] Comment on above: Performed By: #### C TAYE LIPA, TROP #### [facility] [address] [place] [address] Erin Estephania AST [Catalytic activity/Vol] 18 U/L Normal 14-[address] [facility] Comment on above: Performed By: #### C KERRI KOTHARIA, TROP #### [facility] [address] [address] Erin Estephania Bilirubin Ql (U) 0.6 mg/dL Normal 0.2-1.3 [facility] Comment on above: Performed By: #### C TAYE LIPA, TROP #### [facility] [address] [address] Erin Estephania Calcium [Mass/Vol] 9.2 mg/dL Normal 8.4-10.2 [facility] Comment on above: Performed By: #### C TAYE LIPA, TROP #### [facility] [address] [address] Erin Estephania Chloride [Moles/Vol] 107 mmol/L Normal 98-107 [facility] Comment on above: Performed By: #### C TAYE LIPA, TROP #### [facility] [address] [address] Erin Estephania CO2 [Moles/Vol] 25.8 mmol/L Normal 22.0-30.0 [facility] Comment on above: Performed By: #### C TAYE LIPA, TROP #### [facility] [address] [address] Erin Estephania Creatinine [Mass/Vol] 0.85 mg/dL Normal 0.52-1.04 [facility] Comment on above: Performed By: #### C MP LIPA, TROP #### [facility] [address] [address] Erin Estephania EGFR-AF TAJIK >60 Normal >=60 [facility] Comment on above: Performed By: #### C TAYE LIPA, TROP #### [facility] [address] [address] Erin Estephania EGFR-NON AF TAJIK >60 Normal >=60 [facility] Comment on above: Performed By: #### C MP LIPA, TROP #### [facility] [address] [address] Erin Estephania Globulin (S) [Mass/Vol] 3.8 g/dL Normal [facility] Comment on above: Performed By: #### C TAYE LIPA, TROP #### [facility] [address] [address] Erin Estephania Glucose [Mass/Vol] 105 mg/dL Normal 74-106 [facility] Comment on above: Performed By: #### C MP LIPA, TROP #### [facility] [address] [address] Erin Estephania Potassium [Moles/Vol] 3.7 mmol/L Normal 3.4-5.0 [facility] Comment on above: Performed By: #### C MP LIPA, TROP #### [facility] [address] [address] Erin Estephania Protein [Mass/Vol] 7.3 g/dL Normal 6.1-8.2 [facility] Comment on above: Performed By: #### C MP, LIPA, TROP #### [facility] [address] [address] Erin Estephania Sodium [Moles/Vol] 140 mmol/L Normal 137-145 [facility] Comment on above: Performed By: #### C MP LIPA, TROP #### [facility] [address] [place] [address] Erin Estephania Urea nitrogen [Mass/Vol] 21.0 mg/dL Critically high 7.0-17.[address] [facility] Comment on above: Performed By: #### C MP LIPA, TROP #### [facility] [address] [place] [address] Erin Estephania Urea nitrogen/Creatinine [Mass ratio] 24.7 mg/mg Normal [facility] Comment on above: Performed By: #### C KERRI KOTHARIA, TROP #### [facility] [address] [place] [address] Erin Estephania PROTIMEon 11-01-2019 INR Coag (PPP) [Relative time] 1.03 {INR} Normal [facility] Comment on above: Performed By: #### P TT, PT #### [facility] [address] [place], [place] [phone] Erin Estephania PT Coag (PPP) [Time] 10.7 s Normal 9.0-11.[address] [facility] Comment on above: Performed By: #### P TT, PT #### [facility] [address] [place] [address] Erin Estephania PT Coag (PPP) [Time] SEE BELOW Normal [facility] Comment on above: Result Comment: CONG RED INR: 2.0 - 3.0 CONDITIONS NOT LISTED BELOW 2.5 - 3.5 FOR PROSTHETIC HEART VALVE REPLACEMENT 2.5 - 3.5 RECURRENT THROMBOSIS Performed By: #### P TT, PT #### [facility] [address] [place] [address] Erin Estephania PT Coag (PPP) [Time] PLEASE NOTE: NORMAL RANGE CHANGE 05-17-2014 DUE TO REAGENT LOT CHANGE Normal [facility] Comment on above: Performed By: #### P TT, PT #### [facility] [address] [place] [address] Erin Best PTTon 11-01-2019 aPTT Coag (Bld) [Time] 27.1 s Normal 22.3-36.[address] [facility] Comment on above: Performed By: #### P TT, PT #### [facility] [address] [place] [address] Erin Best aPTT Coag (Bld) [Time] PLEASE NOTE: NORMAL RANGE CHANGE 07-24-2015 DUE TO REAGENT LOT CHANGE Normal [facility] Comment on above: Performed By: #### P TT, PT #### [facility] [address] [place] [address] Erin Best TROPONIN - Ion 11-01-2019 Troponin I.cardiac [Mass/Vol] SEE BELOW Normal [facility] Comment on above: Result Comment: <0.0 34 ng/ml NEGATIVE 0.034-0.119 INDETERMINATE 0.120 AMI CUT OFF Performed By: #### C PIOTR KOTHARI, TROP #### [facility] [address] [place] [address] Erinrufus Best Troponin I.cardiac [Mass/Vol] ng/mL Normal <=0.034 [facility] Comment on above: Performed By: #### C PIOTR KOTHARI, TROP #### [facility] [address] [place] [address] Erinrufus Best URINE MICROSCOPIC ONLYon Bacteria LM.HPF (Urine sed) [#/Area] TRACE Normal NONE SEEN [facility] Comment on above: Performed By: #### BRODY ALVARENGARO #### [facility] [address] [place] [address] Erin Estephania CAST SEEN Normal NONE SEEN [facility] Comment on above: Performed By: #### BRODY ALVARENGARO #### [facility] [address] [place] [address] Eirn Estephania Crystals LM Nom (Urine sed) NONE SEEN Normal NONE SEEN [facility] Comment on above: Performed By: #### BRODY ALVARENGARO #### [facility] [address] [place], [place] [phone] Erin Estephania CULTURE NOT INDICATED Normal [facility] Comment on above: Performed By: #### BRODY ALVARENGARO #### [facility] [address] [phone] Erin Best Epithelial cells LM.HPF (Urine sed) [#/Area] FEW Normal [facility] Comment on above: Performed By: #### Dayo NAIR UMICRO #### [facility] [address] [id number] Erin Estephania HYALINE CAST FEW Normal [facility] Comment on above: Performed By: #### Dayo NAIR UMICRO #### [facility] [address] [place], [place] [phone] Erin Estephania MUCOUS TRACE Normal NONE SEEN [facility] Comment on above: Performed By: #### BRODY ALVARENGARO #### [facility] [address] [place], [place] [phone] Erinrufus Best RBC (U) [#/Vol] 2-5 Normal 0-2 [facility] Comment on above: Performed By: #### Dayo NAIR UMVICKIRO #### [facility] [address] [place], [place] [phone] Erinrufus Best WBC (Bld) [#/Vol] 2-5 Normal NONE SEEN [facility] Comment on above: Performed By: #### E JOANIE, UMICRO #### [facility] [address] [place], [place] [phone] Erin Estephania MG MAMM SCREEN CHRISTINE W CADon 1 MG MAMM SCREEN CHRISTINE W CAD Patient: SHARON SOUSA Exam Date: 06/27/2019 : 1945 Gender:F Ordering : DR ESTEPHANIA ABARCA PA Admission #: [id number] Family : Order #: [id number] CLICK HERE TO VIEW EXAM RADIOLOGY REPORT [...] No Treatments None Family Cancers None LOCATION: [facility] BREAST COMPOSITION: Scattered areas fibroglandular density. [...] Wallace M.D. on 06/27/2019 at 10:[address] [facility] Vital Signs Date Time Vital Sign Value Performing Clinician Facility 08-18-2024 13:27-0500 Body height 157.5 cm Ranjeet Hensley MD Work Phone: [facility] 08-18-2024 13:27-0500 Body mass index (BMI) [Ratio] 20.08 kg/m2 Ranjeet Hensley MD Work Phone: [facility] 08-18-2024 13:27-0500 Body weight 49.8 kg Ranjeet Hensley MD Work Phone: [facility] 08-18-2024 13:27-0500 Diastolic blood pressure 78 mm[Hg] Ranjeet Hensley MD Work Phone: [facility] 08-18-2024 13:27-0500 Heart rate 74 /min Ranjeet Hensley MD Work Phone: [facility] 08-18-2024 13:27-0500 SaO2% (BldA) [Mass fraction] 100 % [facility]ens[facility] 08-18-2024 13:27-0500 Systolic blood pressure 136 mm[Hg] Ranjeet Hensley MD [facility] 08-07-2024 14:51-0500 Body height 157.5 cm Gabino Loomis MD Work Phone: [facility] 08-07-2024 14:51-0500 Body mass index (BMI) [Ratio] 20.12 kg/m2 Gabino Loomis MD Work Phone: [facility] 08-07-2024 14:51-0500 Body weight 49.9 kg Gabino Loomis MD Work Phone: [facility] 08-07-2024 14:51-0500 Diastolic blood pressure 76 mm[Hg] Gabino Loomis MD Work Phone: [facility] 08-07-2024 14:51-0500 Heart rate 69 /min Gabino Loomis MD Work Phone: [facility] 08-07-2024 14:51-0500 SaO2% (BldA) [Mass fraction] 100 % Gabino Loomis MD Work Phone: [facility] 08-07-2024 14:51-0500 Systolic blood pressure 122 mm[Hg] Gabino Loomis MD Work Phone: [facility] 07-06-2024 15:30-0500 Body height 157.5 cm Estephania Hemmer PA Work Phone: [facility] 07-06-2024 15:30-0500 Body mass index (BMI) [Ratio] 20.16 kg/m2 Estpehania Hemmer PA Work Phone: [facility] 07-06-2024 15:30-0500 Body temperature 98.71 [degF] Estephania Hemmer PA Work Phone: [facility] 07-06-2024 15:30-0500 Body weight 49.99 kg Estephania Hemmer PA Work Phone: [facility] 07-06-2024 15:30-0500 Diastolic blood pressure 76 mm[Hg] Estephania Hemmer PA Work Phone: [facility] 07-06-2024 15:30-0500 Heart rate 72 /min Estephania Hemmer PA Work Phone: [facility] 07-06-2024 15:30-0500 Respiratory rate 16 /min Estephania Hemmer PA Work Phone: [facility] 07-06-2024 15:30-0500 SaO2% (BldA) [Mass fraction] 98 % Estephania BARRY Work Phone: [facility] 07-06-2024 15:30-0500 Systolic blood pressure 104 mm[Hg] Estephania BARRY Work Phone: [facility] 05-10-2024 13:46-0400 Body height 157.5 cm Gabino Loomis MD Work Phone: [facility] 05-10-2024 13:46-0400 Body mass index (BMI) [Ratio] 20.3 kg/m2 Gabino Loomis MD Work Phone: [facility] 05-10-2024 13:46-0400 Body weight 50.35 kg Gabino Loomis MD Work Phone: [facility] 05-10-2024 13:46-0400 Diastolic blood pressure 76 mm[Hg] Gabino Loomis MD Work Phone: [facility] 05-10-2024 13:46-0400 Heart rate 88 /min Gabino Loomis MD Work Phone: [facility] 05-10-2024 13:46-0400 SaO2% (BldA) [Mass fraction] 98 % Gabino Loomis MD Work Phone: [facility] 05-10-2024 13:46-0400 Systolic blood pressure 132 mm[Hg] Gabino Loomis MD Work Phone: [facility] 09-30-2022 14:45-0500 Body height 157.48 cm Imad Asaad Other [employer] Other 09-30-2022 14:45-0500 Body mass index (BMI) [Ratio] 21.03 kg/m2 Imad Asaad Other [employer] Other 09-30-2022 14:45-0500 Body weight 52.16 kg Imad Asaad Other [employer] Other 09-30-2022 14:45-0500 Diastolic blood pressure 87 mm[Hg] Imad Asaad Other [employer] Other 09-30-2022 14:45-0500 Systolic blood pressure 137 mm[Hg] Imad Asaad Other [employer] Other 01-28-2022 14:15-0400 Body height 157.48 cm Philippe Barrett Other [employer] Other 01-28-2022 14:15-0400 Body mass index (BMI) [Ratio] 20.12 kg/m2 Philippe Barrett Other [employer] Other 01-28-2022 14:15-0400 Body weight 49.9 kg Philippe Barrett Other [employer] Other Encounters Encounter Date Encounter Type Care [...] Not Available Start: 12-14-2022 ambulatory Imad Asaad Facility:[facility] Start: 12-07-2022 End: 12-07-2022 ambulatory Imad Asaad Other [employer] Other Start: 12-07-2022 Telephone encounter Imad Asaad [facility] Start: 10-09-2022 End: 10-09-2022 ambulatory Imad Asaad Facility:[facility] Start: 10-09-2022 End: 10-09-2022 ambulatory II Gabino Loomis Work Phone: [facility] Work Phone: Start: 10-09-2022 End: 10-09-2022 Patient encounter procedure II Gabino Loomis Work Phone: [facility] [employer] Work Phone: Start: 09-30-2022 End: 09-30-2022 ambulatory Imad Asaad Facility:[facility] Start: 09-30-2022 End: 09-30-2022 Patient encounter procedure II Gabino Loomis Work Phone: [facility] [employer] Work Phone: Start: 09-30-2022 End: 09-30-2022 ambulatory II Gabino Loomis Work Phone: [facility] Work Phone: Start: 09-30-2022 Office consultation new/estab patient 60 min Imad Asaad [facility] Start: 02-16-2022 End: 02-16-2022 ambulatory Philippe Barrett Other [employer] Other Start: 02-16-2022 Telephone encounter Philippe Barrett [facility] Start: 02-11-2022 End: 02-11-2022 ambulatory Philippe Barrett Facility:[facility] Start: 02-09-2022 End: 02-09-2022 ambulatory Philippe Barrett Facility:[facility] Start: 01-28-2022 End: 01-28-2022 ambulatory Philippe Barrett Other [employer] Other Start: 01-28-2022 Office outpatient ne w [...] Td Vaccines (2 - Td or Tdap) [facility] Start: 08-18-2025 Tobacco Screening Tobacco Screening [facility] Start: 11-17-2024 Medicare Annual Wellness (AWV) Medicare Annual Wellness (AWV) [facility] Start: 10-26-2024 End: 10-26-2024 Patient encounter procedure 10/26/2024 2:15 PM EST Office Visit [facility] [address] [facility] [address] [place] [id number] Ranjeet Hensley MD [address] [place] [address] [facility] Start: 10-09-2024 End: 10-09-2024 Patient encounter procedure 10/09/2024 2:30 PM EST Office Visit [facility] [address] [facility] [address] [place] [address] Gabino Loomis MD [address] [facility] [address] [place] [address] [facility] Start: 09-01-2024 End: 09-01-2024 Patient encounter procedure 09/01/2024 3:00 PM EST Appointment [facility] [address] [place] [phone] Ranjeet Hensley MD [address] [place] [address] [facility] Start: 08-18-2024 End: 08-18-2025 CBC W Auto Differential panel - Blood [facility] Comment on above: Expected: 08/18/2024 (Approximate), Expi res: 08/18/2025 Start: 08-18-2024 End: 08-18-2025 Comprehensive metabolic 2000 panel - Serum or Plasma [facility] Comment on above: Expected: 08/18/2024 (Approximate), Expi res: 08/18/2025 Start: 08-18-2024 End: 08-18-2025 Echo complete W/O contrast Echo complete W/O contrast Echocardiography Routine Essential hypertension Paroxysmal atrial fibrillation ([facility]) Expected: 08/18/2024, Expires: 08/18/2025 [employer] Work Phone: Comment on above: Expected: 08/18/2024, Expires: Start: 08-18-2024 End: 08-18-2025 Thyrotropin [Units/volume] in Serum or Plasma [facility] Comment on above: Expected: 08/18/2024 (Approximate), Expi res: 08/18/2025 Start: 08-18-2024 End: 08-18-2025 Thyroxine (T4) free [Mass/volume] in Serum or Plasma [facility] Comment on above: Expected: 08/18/2024 (Approximate), Expi res: 08/18/2025 Start: 08-18-2024 End: 08-18-2024 Patient encounter procedure 08/18/2024 1:30 PM EST Office Visit [facility] [address] [place] [address] [place] [address] Ranjeet Hensley MD [address] [place] [address] [facility] Start: 08-07-2024 End: 08-07-2024 Patient encounter procedure [facility] Comment on above: Arrived Start: 07-10-2024 End: 07-10-2024 Patient encounter procedure 07/10/2024 1:30 PM EST Office Visit [facility] [address] [place] [address] [place] [address] Gabino Loomis MD [address] [place] [address] [place] [address] [facility] Start: 07-06-2024 End: 07-06-2025 Holter monitor study Holter monitor Imaging Routine Frequent PVCs Palpitations Near syncope Expected: 07/06/2024 (Approximate), Expires: 07/06/2025 [facility] Work Phone: Comment on above: Expected: 07/06/2024 (Approximate), Expi res: 07/06/2025 Start: 05-10-2024 End: 05-10-2024 Patient encounter procedure 05/10/2024 1:45 PM EDT Office Visit [facility] [address] [place] [address] [place] [address] Gabino Loomis MD [address] [place] [address] [place] [address] Arrived [facility] Comment on above: Arrived Start: 04-30-2024 COVID-19 Vaccine ( season) COVID-19 Vaccine ( season) [facility] Start: 04-30-2024 Influenza vaccination Influenza Vaccine (#1) [facility] Start: 04-14-2019 Pneumococcal Vaccine: 65+ Years (2 of 2 - PCV) Pneumococcal Vaccine: 65+ Years (2 of 2 - PCV) [facility] Start: 2008 Fall Risk Screening Fall Risk Screening [facility] Start: 1993 Administration of varicella zoster vaccine Zoster (Shingles) Vaccine (1 of 2) [facility] Start: 1955 Depression Screening Depression Screening [facility] Start: 1955 Tobacco Screening Tobacco Screening [facility] Calprotectin [Mass/m ass] in Stool [facility] Endomysial antibody IgA level [facility] Gliadin peptide IgA Ab [Units/volume] in Serum [facility] Gliadin peptide IgG Ab [Units/volume] in Serum [facility] HLA DQ antigen typing [facility] IgA [Mass/volume] in Serum or Plasma [facility] Tissue transglutamin ase IgA Ab [Units/volume] in Serum [facility] Tissue transglutamin ase IgG Ab [Units/volume] in Serum [facility] Immunizations Immunization Date Immunization Notes Care Provider Fa cili 08-07-2024 Influenza, High-dose Seasonal, Quadrivalent, Preservative Free Gabino Loomis MD Work Phone: [facility] 09-03-2023 Influenza, High-dose Seasonal, Quadrivalent, Preservative Free Gabino Loomis MD Work Phone: [facility] 09-03-2023 influenza virus vacc ine, unspecified formulation Gabino Loomis MD Work Phone: [facility] 07-20-2022 Influenza, High-dose Seasonal, Quadrivalent, Preservative Free Gabino Loomis MD Work Phone: [facility] 07-20-2022 Moderna SARS-CoV-2 50mcg/0.5mL Booster Gabino Loomis MD Work Phone: [facility] 08-11-2021 COVID-19 mRNA-1273 (Moderna) II Gabino Loomis Work Phone: [facility] 05-29-2021 influenza, high dose seasonal, preservative-free Gabino Loomis MD Work Phone: [facility] 02-20-2021 tetanus toxoid, redu ryan diphtheria toxoid, and acellular pertussis vaccine, adsorbed Gabino Loomis MD Work Phone: [facility] 11-28-2020 COVID-19 mRNA-1273 (Moderna) II Gabino Loomis Work Phone: [facility] [place] 10-31-2020 COVID-19 mRNA-1273 (Moderna) BOBBI Loomis Work Phone: [facility] 07-12-2020 Influenza, High-dose Seasonal, Quadrivalent, Preservative Free Gabino Loomis MD Work Phone: [facility] 04-14-2018 pneumococcal polysaccharide vaccine, 23 valent Gabino Loomis MD Work Phone: [facility] Payers Date Payer Category Payer Self-pay [id number] 2017 Medicare ANTHEM MEDICARE ADVANTAGE [facility] MEDICARE ADVANTAGE [id number] 2017-Present [address] [place] [id number] 2017 Medicare (Managed Care) [facility] ADVANTAGE [id number] 2015 Medicare HMO ANTHEM MEDICARE [id number] 1959 Unknown [id number] 1945 Unknown [id number] 2.16.840.1.897197.3.579. 2.593 1943 Unknown [id number] 2.16.840.1.258473.3.579. 2.593 1943 Unknown [id number] 2.16.840.1.242678.3.579. 2.593 1943 Unknown [id number] 2.16.840.1.491012.3.579. 2.1259 1943 Unknown [id number] 2.16.840.1.375128.3.579. 2.1259 1943 Unknown [id number] 2.16.840.1.066935.3.579. 2.1259 1943 Unknown [id number] 2.16.840.1.715685.3.579. 2.1259 1943 Unknown [id number] 2.16.840.1.972129.3.579. 2.1259 Medicare Anthem MCR PFFS OP [id number] 295 [id number] Unknown [id number] 2.16.840.1.330163.3.579. 2.531 Unknown [id number] 2.16.840.1.646782.3.579. 2.531 Unknown [id number] 2.16840.1.604870.3.579. 2.531 Unknown [id number] 2.16840.1.640899.3.579. 2.531 Unknown [id number] 2.16840.1.759437.3.579. 2.531 Social History Date Type Detail Facility Start: 10-10-2020 End: 02-29-2024 Sex Assigned At [facility] Other Start: 1945 Sex Assigned At Female F [facility] Start: 05-19-2017 End: 03-04-2023 Tobacco [...] the mortgage or rent on time? 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 ER 07/02/2024, SCHED W/PT++labs in care everywhere, pcp office note in care everywhere, requested ER records[facility] 08/08/2024 History of Present Illness Patient [...] 11/21/2020 Performed by Everardo Alfredo MD at [facility] OOPHORECTOMY OVARIAN CYST SURGERY History reviewed. [...] Resource Strain: Low Risk (11/23/2023) Received from [facility] Overall Financial Resource Strain (CARDIA) Difficulty of Paying Living Expenses: Not hard at all Food Insecurity: No Food Insecurity (08/18/2024) Hunger Screening Food Insecurity - Worry: Never True Food Insecurity - Inability: Never True Transportation Needs: No Transportation Needs (11/23/2023) Received from [facility] PRAPARE - Transportation Lack of Transportation (Medical): No Lack of Transportation (Non-Medical): No Physical Activity: Insufficiently Active (11/23/2023) Received from [facility] Exercise Vital Sign Days of Exercise per Week: 7 days Minutes of Exercise per Session: 10 min Stress: No Stress Concern Present (11/23/2023) Received from [facility] Citizen Of [place] of Occupational Health - Occupational Stress Questionnaire Feeling of Stress : Not at all Social Connections: Moderately Integrated (11/23/2023) Received from [facility] Social Connection and Isolation Panel [NHANES] Frequency of Communication with Friends and Family: Once a week Frequency of Social Gatherings with Friends and Family: Twice a week Attends [employer] Services: 1 to 4 times per year Active Member of Clubs or Organizations: No Attends Club or Organization Meetings: Never Marital Status: Interpersonal Safety: Not At Risk (11/23/2023) Received from [facility] Humiliation, Afraid, Rape, and Kick questionnaire Fear of Current or Ex-Partner: No Emotionally Abused: No Physically Abused: No Sexually Abused: No Housing Instability: High Risk (11/23/2023) Received from [facility] Housing Stability Vital Sign Unable to Pay [...] these and any potential arrhythmias unless we 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 Patient's verbalizes understanding. documented in this encounter [facility] 08-17-2024 Telephone encounter Note Called patient to remind them to bring their most current copy of their medication list with them to their appt. Patient's verbalizes understanding. [facility] 08-07-2024 History of Presen t illness Narrative Images from the original note were not included. HPI holter monitor Additional comments: Pt had holter monitor done through [facility]--she has appt sched with cardiology 08/18/24 Last edited by Dee Luque LPN on 08/07/2024 2:57 PM. Subjective Patient ID: Sharon Sousa is a 79 y.o. female who presents for Gastritis and holter monitor (Pt had holter monitor done through [facility]--she has appt sched with cardiology 08/18/24). [...] 210 tablet 0 ergocalciferol (Drisdol) 1.25 MG (76363 UT) capsule Take 1 capsule (1.25 mg) [...] need - Influenza, high-dose seasonal, quadrivalent, PF (GNL507) (Fluzone High Dose Quad North 0.7mL dose) Near syncope - Holter just completed, has upcoming appt with Cardiology. Follow up in about 2 months (around 10/08/2024) for F/U med changes. documented in this encounter [facility] 07-06-2024 History of Presen t illness Narrative Images from the original note were not included. Subjective Patient ID: Sharon Sousa is a 79 y.o. female who presents for [facility] ER follow up. Sharon is present today for [facility] ER follow up from 07/04/2024. Dx. 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 She can take [...] 08/03/2024) for Recheck. documented in this encounter [facility] 05-10-2024 History of Presen t illness Narrative [...] g before bedtime. ergocalciferol (Drisdol) 1.25 MG (39168 UT) capsule Take 1 capsule (1.25 mg) [...] follow-ups on file. documented in this encounter [facility] 09-30-2022 Evaluation note Encounter Date Diagnosis Assessment Notes Sep, Abdominal pain (ICD-10 - R10.9) Sep, Bloating (ICD-10 - R14.0) [employer] Other 06-01-2022 Evaluation note* Encounter Date Diagnosis Assessment Notes Treatment Notes Treatment Clinical Notes Jan, Chronic gastritis (ICD-10 - K29.50) CONTINUE OMEPRAZOLE BID FOR NOW EGD OBTAIN RECENT RADIOLOGY REPORT FROM [place] [facility] HERE AFTER Jan, Colitis (ICD-10 - K52.9) COLONOSCOPY Jan, Abdominal pain (ICD-10 - R10.9) [employer] Other [employer] noteNo InformationNort youcalc Other Ev[employer]liw noteNo assessment information available [facility] Work Phone: [employer] note* Diagnosis Epigastric pain- Primary Abdominal pain, epigastric Nausea and vomiting, unspecified vomiting type Acute gastritis without hemorrhage, unspecified gastritis type Frequent PVCs Palpitations Near syncope documented in this encounter [facility]* Diagnosis Essential hypertension (CMS/HCC)- Primary Unspecified essential hypertension Hypothyroidism, unspecified type (CMS/HCC) Gastro-esophageal reflux disease without esophagitis Acute gastritis without hemorrhage, unspecified gastritis type Flu vaccine need Near syncope documented in this encounter [facility]* Diagnosis Cognitive impairment- Primary Unspecified persistent mental disorders due to conditions classified elsewhere Age-related osteoporosis without current pathological fracture (CMS/HCC) Hypothyroidism, unspecified type (CMS/HCC) Gastro-esophageal reflux disease without esophagitis Essential hypertension (CMS/HCC) Unspecified essential hypertension documented in this encounter [facility]* Diagnosis Paroxysmal atrial fibrillation (CMS-HCC)- Primary Atrial fibrillation Essential hypertension Unspecified essential hypertension [facility] - [facility]* Type Description Date Medical History HTN Medical History GERD Medical History hypothyroidism Surgical History CHOLECYSTECTOMY Surgical History PARTIAL HYSTERECTOMY [employer] Other InstructionsNot on filedocumented in this encounter [employer] SystemInstructionsNot on filedocumented in this encounter [employer] Summary Purpose Family History Relationship Condition Age [...] and content) DATE CREATED AUTHOR 06/01/2020 [facility] DATE CREATED AUTHOR AUTHOR'S ORGANIZ ATION 12/14/2022 [facility] DATE CREATED AUTHOR AUTHOR'S ORGANIZ ATION 08/10/2024 [facility] Specialists EPIC REASON FOR VISIT (unrecogniz ed section and content) Reason Comments Gastritis holter monitor Pt had holter monito r done through [facility]--she has appt sched with cardiology 08/18/24 Reason Comments Osteoporosis Here for prolia inje ction Med Refill Omeprazole,levothyro xine--sallyt [place] Memory Loss Reason Comments New Patient 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 ER 07/02/2024, SCHED W/PT++labs in care everywhere, pcp office note in care everywhere, requested ER records/HM report from [facility]++[facility]w 08/08/2024 Specialty Diagnoses / Procedures Referred By Contac t Referred To Contact Cardiology Diagnoses Frequent PVCs Palpitations Near syncope Procedures [place] OFFICE OUTPATIENT VISIT 60-74 MINS HIGH MDM [id number] (SNOMED CT) - AMB REFERRAL TO CARDIOLOGY Estephania Abarca PA [address] [place] [address] Phone: tel: fax: Ranjeet Hensley MD [address] [place] [address] Phone: tel: fax: Referral ID Status Reason Start Date Expiration Date V isits Requested Visits Authorized [id number] Pending Review 07/06/2024 01/02/2025 1 1 Care Teams (unrecognized sec tion and content) Team Status: Inactive Member Role Status Dates Gabino Loomis II MD Primary Care Provider Active Danna Sarmiento MD Attending Provider Active Team Status: Active Member Role Status Dates Gabino Loomis II MD Primary Care Provider Active Corporate General Manager Relationship Specialty Start Date End Date Gabino Loomis MD [address] [place] [address] PCP - General Internal Medicine 02/15/23 Gabino Loomis MD [address] [place] [address] PCP - Vikki HOOK 03/30/24Wednesday, [place], BUMBOATER [address] [place] [address] Licensed Practical Nurse Family Medicine 11/18/23 Corporate General Manager Relationship Specialty Start Date End Date Gabino Loomis MD [address] [place] [address] PCP - General Internal Medicine 02/15/23 Gabino Loomis MD [address] [place] [address] PCP - Vikki HOOK 03/30/24Wednesday, [place], BUMBOATER [address] [place] [address] Licensed Practical Nurse Family Medicine 11/18/23 Corporate General Manager Relationship Specialty Start Date End Date Gabino Loomis MD [address] [place] [address] PCP - General Internal Medicine 02/15/23 Gabino Loomis MD [address] [place] [address] PCP - Vikki HOOK 03/30/24Wednesday, [place], BUMBOATER [address] [place] [address] Licensed Practical Nurse Family Medicine 11/18/23 Corporate General Manager Relationship Specialty Start Date End Date Gabino Loomis MD [address] [place] [address] PCP - General Internal Medicine 02/15/23 Gabino Loomis MD [address] [place] [address] PCP - Vikki HOOK 03/30/24Wednesday, [place], BUMBOATER [address] [place] [address] Licensed Practical Nurse Family Medicine 11/18/23 Corporate General Manager Relationship Specialty Start Date End Date Gabino Loomis MD [address] [place] [address] PCP - General Internal Medicine 02/15/23 Gabino Loomis MD [address] [place] [address] PCP - Vikki HOOK 03/30/24Wednesday, [place], BUMBOATER [address] [place] [address] Licensed Practical Nurse Family Medicine 11/18/23 Corporate General Manager Relationship Specialty Start Date End Date Gabino Loomis MD [address] [place] [address] PCP - General Internal Medicine 02/15/23 Gabino Loomis MD [address] [place] [address] PCP - Vikki HOOK 03/30/24 Rolando, BENJAMIN AbdiN [address] [place] [address] Licensed Practical Nurse Family Medicine 11/18/23 Corporate General Manager Relationship Specialty Start Date End Date Gabino Loomis MD [address] [place] [address] PCP - General Internal Medicine 10/31/19 Corporate General Manager Relationship Specialty Start Date End Date Gabino Loomis MD [address] [place] [address] PCP - General Internal Medicine 10/31/19 Goals [...] BE BASED ON THE PRIMARY CLINICAL RECORDS. [email or web address] provides no warranty or guarantee of the accuracy or completeness of information in this document.
--- NOTE | 2024-08-21 08:37 | CA_ITS ---
Patient Name: ZAKIYA SOUSA MR#: [id number] : 1945 Exam Date: 08/21/2024 Ordering Doctor: SHAIKH Sophia VOGT . ECHOCARDIOGRAM REPORT PROCEDURE: CA ECHO DOPPLER COMPLETE INDICATIONS: Afib with RVR COMPARISON: None. DESCRIPTION: COMPLETE ECHOCARDIOGRAM Real-time transthoracic echocardiography with 2D, M-mode, spectral and color flow Doppler performed. QUALITY: Technical quality was good. LEFT VENTRICLE: Normal chamber size. Normal left ventricular wall thickness. LV EF: Global left ventricular systolic function is normal; visually estimated ejection fraction is 60 to 65%. No significant wall motion abnormalities. DIASTOLIC: Diastolic function is indeterminate. ATRIAL SEPTUM: Inadequately seen. LEFT ATRIUM: Severe dilatation. RIGHT ATRIUM: Mild dilatation. RIGHT VENTRICLE: Normal chamber size. Normal right ventricular systolic function. TRICUSPID VALVE: Normal mobility and thickness. Mild to moderate regurgitation. Mild pulmonary hypertension. RVSP 40mmHg MITRAL VALVE: Normal mobility and thickness. No evidence of mitral valve stenosis. Trivial mitral regurgitation. AORTIC VALVE: Normal trileaflet appearance. No visible sclerosis. Normal leaflet mobility. No evidence of aortic valve stenosis. Trivial aortic regurgitation. AORTIC ROOT: Normal diameter and appearance. PULMONIC VALVE: Normal thickness and mobility. No stenosis. Trivial regurgitation. PERICARDIUM: No evidence of pericardial effusion. IVC: Mild dilatation. Measuring 2.2cm with no collapse. CONCLUSION: 1. Global left ventricular systolic function is normal; visually estimated ejection fraction; estimated ejection fraction is 60 to 65% 2. Normal right ventricular size and systolic function 3. Biatrial dilatation 4. Diastolic function is indeterminate 5. Mild to moderate tricuspid regurgitation 6. Mildly elevated right ventricular systolic pressure; RVSP 40 mmHg Adult Echocardiography Procedure Report Left Ventricle LVEDD (3.7 - 5.6 cm): 4.18 cm LVESD (2.2 - 4.0 cm): 2.68 cm LVIVS thickness (0.6 - 1.2 cm): 8.98 mm LVPW thickness (0.5 - 1.0 cm): 8.81 mm LVOT Max Gradient: 2 mm[Hg] Peak Velocity (LVOT): 72.90 cm/s Mean Velocity (LVOT): 44.70 cm/s LVOT Diameter 1.80 cm Left Ventricular Ejection Fraction: 65.90 % Left Atrium LA Volume Index (2D A2C): 31141 mm3 Left Atrium Systolic Dimension: 3.30 cm Mitral Valve MV E to A Ratio: 1.30 Mitral Valve A-Wave Peak Velocity: 61.70 cm/s Mitral Valve E-Wave Peak Velocity: 80.00 cm/s Right Ventricle Aorta AO Root Diam: 2.70 cm Aortic Valve AoV Area (Peak Juan David): 1.29 cm2 AoV Area (VTI): 1.41 cm2 Peak Velocity(Antegrade Flow): 144.00 cm/s Peak Gradient(Antegrade Flow): 8 mm[Hg] Mean Velocity(Antegrade Flow): 97.70 cm/s Mean Gradient(Antegrade Flow): 4 mm[Hg] Velocity Time Integral: 25.00 cm Tricuspid Valve Peak Velocity (Regurgitant Flow): 252.00 cm/s Peak Velocity: 53.80 cm/s Pulmonic Valve Peak Velocity: 90.20 cm/s Peak Gradient: 3 mm[Hg] Right Atrium Dictated by: Fei Fermin M.D. on 08/21/2024 at 12:40 Approved by: Fei Fermin M.D. on 08/21/2024 at 12:44
[2024-08-21] MEDS: FAMOTIDINE 20 MG TABLET PO (08:53)
[2024-08-21] MEDS: METOPROLOL SUCCINATE 25 MG TAB.ER.24H PO (08:53)
[2024-08-21] MEDS: OMEPRAZOLE 40 MG CAPSULE.DR PO (08:53)
[2024-08-21 09:05] LABS: Basophils Percent Auto 0.5 % (0.2-2.0); Eosinophils Absolute Auto 0.2 10^3/uL (0.0-0.7); Eosinophils Percent Auto 4.1 % (0.9-7.0); Hematocrit 35.9 % (36.0-48.0); Hemoglobin 11.9 g/dL (12.0-16.0); Immature Granulocytes Abs Auto 0.01 10^3/uL (0.00-0.03); Immature Granulocytes Pct Auto 0.2 % (0.0-0.5); Lymphocytes Absolute Auto 1.3 10^3/uL (1.2-3.8); Lymphocytes Percent Auto 29.5 % (20.5-60.0); Mean Corpuscular HGB Conc 33.1 g/dL (29.9-35.2); Mean Corpuscular Hemoglobin 30.8 pg (26.7-34.0); Mean Platelet Volume 11.3 fL (9.5-13.5); Monocytes Absolute Auto 0.3 10^3/uL (0.3-0.8); Monocytes Percent Auto 6.1 % (1.7-12.0); Neutrophils Absolute Auto 2.6 10^3/uL (1.4-6.5); Neutrophils Percent Auto 59.6 % (43.0-75.0); Platelet Count 164 10^3/uL (150-450); Red Blood Count 3.86 10^6/uL (4.20-5.40); Red Cell Distribution Width 13.6 % (11.0-15.0); White Blood Count 4.4 10^3/uL (4.0-11.0)
[2024-08-21 09:22] LABS: Alanine Aminotransferase 17 U/L (14-59); Albumin Level 2.8 g/dL (3.4-5.0); Alkaline Phosphatase 49 U/L (46-116); Anion Gap 11.1; Aspartate Amino Transferase 24 U/L (15-37); Bilirubin Total 0.6 mg/dL (0.2-1.0); Calcium 8.2 mg/dL (8.5-10.1); Carbon Dioxide 27.2 mmol/L (21.0-32.0); Chloride 109 mmol/L (98-107); Estimated GFR (African America >60 (>=60 mL/min/1.73m^2); Estimated GFR (Non-African Ame >60 (>=60 mL/min/1.73m^2); Globulin 2.7 g/dL; Glucose 92 mg/dL (74-106); Potassium 4.3 mmol/L (3.5-5.1); Sodium 143 mmol/L (136-145); Total Protein 5.5 g/dL (6.4-8.2)
[2024-08-21 09:31] LABS: Troponin I High Sensitivity 105.2 pg/mL (4.0-51.3)
[2024-08-21 09:56] LABS: Chol HDL Ratio 2.2; Cholesterol 151 mg/dL (<=200); HDL Cholesterol 70 mg/dL (40-60); Triglycerides 65 mg/dL (<=150)
[2024-08-21] MEDS: ASPIRIN 81 MG TAB.CHEW PO (09:57)
[2024-08-21 11:15] LABS: Estimated Average Glucose 114 mg/dL; Glycohemoglobin A1C 5.6 % (4.5-6.2)
--- NOTE | 2024-08-21 11:31 | CM.NOTE ---
Rounds made with Dr. Ng, discussed with pt about additional testing today (echo) and need for cardiology consult. Dr. Ng will speak with executive producer promos regarding further recommendations and discharge planning.
--- NOTE | 2024-08-21 11:59 | PM.HP ---
HPI H&P: HPI History of Present Illness Chief complaint: VOMITING, ABDOMINAL PAIN, BACK PAIN AFIB RVR Narrative: 79-year-old female who was recently diagnosed with A-fib on a Holter monitor and a started on Lopressor and Eliquis came to ED last evening with abdominal discomfort, nausea and to 3 episodes of vomiting. Symptoms started yesterday and currently she has no ongoing symptoms. She had similar presentation about a month ago and she was noted to have frequent PVCs and sinus tachycardia for which she had a Holter monitor placed which was followed up with cardiology as an outpatient. Patient had not started using Lopressor prescribed by cardiology. In ER she was found to have A-fib with RVR. Since admission she has had multiple different rhythms including A-fib with RVR, normal sinus rhythm, sinus tachycardia and a brief episode of a flutter. She required one time IV Lopressor to control her heart rate and converted to NSR. She is currently on oral Lopressor and asymptomatic. Workup in ER revealed elevated troponin and her case was discussed with cardiology who felt that troponin elevation was likely secondary to A-fib with RVR. She was started on Lovenox for stroke prophylaxis and admitted for observation for A-fib with RVR. Patient has no known history of coronary artery disease or congestive heart failure. She has not had an echo for A-fib. Her abdominal symptoms have resolved and she denies any active symptoms. Opioid HPI Opioid Management Most Recent Pain and Opioid Data: Last Pain Scale 9 07/04/24 18:44 07/04/24 Last Pain Assessment 08/21/24 11:00 Last ORT Total Score 0 08/20/24 17:26 08/20/24 Last ORT Risk Category Low Risk 08/20/24 17:26 08/20/24 Review of Systems ROS Status of ROS 10 or more systems reviewed and unremarkable except as noted in history and below [facility] Medical History (Updated 08/21/24 @ 12:03 by Shaikh Hernandez MD) Atrial fibrillation ?I48.91 - Unspecified atrial fibrillation (ICD-10) Vertigo ?R42 - Dizziness and giddiness (ICD-10) Hypothyroidism ?E03.9 - Hypothyroidism, unspecified (ICD-10) GERD (gastroesophageal reflux disease) ?K21.9 - Gastro-esophageal reflux disease without esophagitis (ICD-10) HTN (hypertension) ?I10 - Essential (primary) hypertension (ICD-10) Surgical History History of appendectomy ?Z90.49 - Acquired absence of other specified parts of digestive tract (ICD-10) Hx of cholecystectomy ?Z90.49 - Acquired absence of other specified parts of digestive tract (ICD-10) Social History (Updated 08/21/24 @ 12:02 by Shaikh Hernandez MD) Within the past year, how often did you have a drink containing alcohol: never Score interpretation: A score less than 3 is consistent with normal alcohol consumption. Smoking status: Never smoker Non-prescribed substance use: denies use Highest level of school completed/degree received: 9th grade Little interest or pleasure in doing things: not at all Feeling down, depressed, or hopeless: not at all Meds Home Medications and Allergies Home Medications ?Medication ?Instructions ?Recorded ?Confirmed ?Type donepezil 5 mg tablet 5 mg PO QPM 07/04/24 08/20/24 History levothyroxine 75 mcg tablet 75 mcg PO QAM 07/04/24 08/20/24 History lisinopril 5 mg tablet 5 mg PO BID 07/04/24 08/20/24 History omeprazole 40 mg capsule,delayed 40 mg PO BID 07/04/24 08/20/24 History release apixaban 5 mg tablet (Eliquis) 5 mg PO BID 08/20/24 08/21/24 History famotidine 20 mg tablet 20 mg PO DAILY 08/20/24 08/20/24 History metoprolol succinate 25 mg 25 mg PO DAILY 08/20/24 08/21/24 History tablet,extended release 24 hr Allergies Allergy/AdvReac Type Severity Reaction Status Date / Time codeine Allergy Mild Rash Verified 04/06/24 10:16 Exam Constitutional Vital Signs, click to edit/add: Last Vital Signs Temp 97.6 F 08/21/24 07:46 Pulse 78 08/21/24 10:00 Resp 23 H 08/21/24 07:41 BP 122/87 08/21/24 07:41 Pulse Ox 98 08/21/24 11:21 O2 Del Method Room Air 08/21/24 11:21 Documenting provider has reviewed patient's vital signs: yes Common normals: no apparent distress and oriented x3 General appearance: cooperative [facility] Common normals: normocephalic and head/scalp atraumatic Head and scalp: normocephalic and atraumatic Eye Common normals: conjunctivae normal and no scleral icterus Conjunctiva: conjunctiva(e) normal Respiratory Common normals: normal respiratory effort and clear to auscultation bilaterally Effort & inspection: able to speak in complete sentences Auscultation: clear to auscultation bilaterally Cardio Common normals: regular rate, S1 normal heart sound and S2 normal heart sound Rate: regular rate Heart sounds: S1 normal and S2 normal GI Common normals: Normal to inspection, nondistended, normoactive bowel sounds present, soft to palpation, non-tender and no hepatosplenomegaly Palpation: soft and no hepatosplenomegaly Extremity Common normals: no clubbing, cyanosis or edema Neuro Common normals: oriented x3, moves all extremities and no focal motor deficits Psych Common normals: mental status grossly normal, denies hallucinations, denies homicidal ideation and denies suicidal ideation Results Labs Labs: Short CBC 08/20/24 08/21/24 Range/Units 12:50 08:53 WBC 6.4 4.4 (4.0-11.0) 10^3/uL Hgb 12.9 11.9 L (12.0-16.0) g/dL Hct 39.2 35.9 L (36.0-48.0) % Plt Count 179 164 (150-450) 10^3/uL BMP 08/20/24 08/21/24 12:50 08:53 Sodium 143 143 Potassium 3.4 L 4.3 Chloride 106 109 H Carbon Dioxide 24.3 27.2 BUN 19.0 H 10.0 Creatinine 0.81 0.77 Glucose 132 H 92 Calcium 8.3 L 8.2 L Liver Function 08/20/24 08/21/24 Range/Units 12:50 08:53 Total Bilirubin 0.5 0.6 (0.2-1.0) mg/dL AST 25 24 (15-37) U/L ALT 20 17 (14-59) U/L Alkaline Phosphatase 67 49 (46-116) U/L Albumin 3.5 2.8 L (3.4-5.0) g/dL Assessment and Plan Assessment and Plan (1) Atrial fibrillation with RVR: Assessment and Plan: Patient in and out of Afib. At the time of evaluation, she was in NSR. On LOVENOX for stroke px. on Toprol 25 q12. ECHO performed, result pending. Started on Toprol 25 q12. (2) Elevated troponin: Assessment and Plan: Likely rate related elevation. No symptoms to suggest active cardiac ischemia. Cardiology consult pending. Started on ASA, Toprol. No need for Statin as LDL less than 70 Will likely need work up for underlying ISHD inpatient vs outpatient. (3) HTN (hypertension): Assessment and Plan: Stable BP. C/w Toprol and Lisinopril Qualifiers: Hypertension type: primary hypertension Qualified Code(s): I10 - Essential (primary) hypertension (4) Hypothyroidism: Assessment and Plan: TSH at goal. C/w levothyroxine Qualifiers: Hypothyroidism type: unspecified Qualified Code(s): E03.9 - Hypothyroidism, unspecified (5) GERD (gastroesophageal reflux disease): Assessment and Plan: Cw pepcid. Qualifiers: Esophagitis presence: with esophagitis Esophagitis bleeding: without hemorrhage Qualified Code(s): K21.00 - Gastro-esophageal reflux disease with esophagitis, without bleeding
--- NOTE | 2024-08-21 12:44 | PM.CACN ---
History of Present Illness History of Present Illness Consult date: 08/21/24 Requesting physician: Shaikh Hernandez Chief complaint: VOMITING, ABDOMINAL PAIN, BACK PAIN AFIB RVR Narrative: 79 yo woman with a h/o HTN, hypothyroidism and recently diagnosed PAF, admitted for abdominal pain and nausea. Found to have AF with RVR; reverted to sinus rhythm with episodic AF/flutter. Denies chest pain, no shortness of breath, no orthopnea, no PND and no leg swelling. Abdominal pain resolved; ate breakfast with no pain, nausea or vomiting. No prior echocardiograms or stress tests. Review of Systems ROS Status of ROS 10 or more systems reviewed and unremarkable except as noted in history and below [facility] Medical History (Updated 08/21/24 @ 12:03 by Shaikh Hernandez MD) Atrial fibrillation ?I48.91 - Unspecified atrial fibrillation (ICD-10) Vertigo ?R42 - Dizziness and giddiness (ICD-10) Hypothyroidism ?E03.9 - Hypothyroidism, unspecified (ICD-10) GERD (gastroesophageal reflux disease) ?K21.9 - Gastro-esophageal reflux disease without esophagitis (ICD-10) HTN (hypertension) ?I10 - Essential (primary) hypertension (ICD-10) Surgical History History of appendectomy ?Z90.49 - Acquired absence of other specified parts of digestive tract (ICD-10) Hx of cholecystectomy ?Z90.49 - Acquired absence of other specified parts of digestive tract (ICD-10) Social History (Updated 08/21/24 @ 12:02 by Shaikh Hernandez MD) Within the past year, how often did you have a drink containing alcohol: never Score interpretation: A score less than 3 is consistent with normal alcohol consumption. Smoking status: Never smoker Non-prescribed substance use: denies use Highest level of school completed/degree received: 9th grade Little interest or pleasure in doing things: not at all Feeling down, depressed, or hopeless: not at all Meds Home Medications and Allergies Home Medications ?Medication ?Instructions ?Recorded ?Confirmed ?Type donepezil 5 mg tablet 5 mg PO QPM 07/04/24 08/20/24 History levothyroxine 75 mcg tablet 75 mcg PO QAM 07/04/24 08/20/24 History lisinopril 5 mg tablet 5 mg PO BID 07/04/24 08/20/24 History omeprazole 40 mg capsule,delayed 40 mg PO BID 07/04/24 08/20/24 History release apixaban 5 mg tablet (Eliquis) 5 mg PO BID 08/20/24 08/21/24 History famotidine 20 mg tablet 20 mg PO DAILY 08/20/24 08/20/24 History aspirin 81 mg chewable tablet 81 mg PO DAILY #30 tabs 08/21/24 Rx metoprolol succinate 50 mg 50 mg PO DAILY #30 tabs 08/21/24 Rx tablet,extended release 24 hr (Toprol XL) Allergies Allergy/AdvReac Type Severity Reaction Status Date / Time codeine Allergy Mild Rash Verified 04/06/24 10:16 Exam Constitutional Vital Signs, click to edit/add: Last Vital Signs Temp 97.6 F 08/21/24 07:46 Pulse 82 08/21/24 12:00 Resp 23 H 08/21/24 07:41 BP 122/87 08/21/24 07:41 Pulse Ox 98 08/21/24 11:21 O2 Del Method Room Air 08/21/24 11:21 Common normals: no apparent distress General appearance: cooperative, comfortable, well kempt and well developed [facility] Common normals: normocephalic Head and scalp: normal to inspection Face and sinus: normal facial exam Eye Common normals: EOMs intact bilaterally Neck & C-Spine Common normals: full ROM Chest Common normals: inspection of chest normal Respiratory Common normals: normal respiratory effort Effort & inspection: able to speak in complete sentences Auscultation: clear to auscultation bilaterally Cardio Common normals: no JVD Palpation: normal PMI Rate: regular rate Rhythm: abnormal rhythm Heart sounds: S1 normal and S2 normal Neuro Common normals: oriented x3 Sensorium/orientation: awake, alert and oriented to person Results Labs and Meds Lab results: Cardiac Enzymes 08/20/24 08/21/24 Range/Units 12:50 08:53 AST 25 24 (15-37) U/L Coagulation 08/20/24 08/20/24 Range/Units 12:50 16:12 PT 10.7 10.9 (9.0-11.6) sec APTT 25.7 (22.3-36.2) sec Lipids 08/21/24 Range/Units 08:53 Triglycerides 65 (<=150) mg/dL Cholesterol 151 (<=200) mg/dL HDL Cholesterol 70 H (40-60) mg/dL Cholesterol/HDL Ratio 2.2 CBC 08/20/24 08/21/24 Range/Units 12:50 08:53 WBC 6.4 4.4 (4.0-11.0) 10^3/uL RBC 4.27 3.86 L (4.20-5.40) 10^6/uL Hgb 12.9 11.9 L (12.0-16.0) g/dL Hct 39.2 35.9 L (36.0-48.0) % Plt Count 179 164 (150-450) 10^3/uL Neut # (Auto) 4.3 2.6 (1.4-6.5) 10^3/uL Lymph # (Auto) 1.7 1.3 (1.2-3.8) 10^3/uL [place] # (Auto) 0.3 0.3 (0.3-0.8) 10^3/uL Eos # (Auto) 0.1 0.2 (0.0-0.7) 10^3/uL Baso # (Auto) 0.0 0.0 (0.0-0.1) 10^3/uL Comprehensive Metabolic Panel 08/20/24 08/21/24 Range/Units 12:50 08:53 Sodium 143 143 (136-145) mmol/L Potassium 3.4 L 4.3 (3.5-5.1) mmol/L Chloride 106 109 H (98-107) mmol/L Carbon Dioxide 24.3 27.2 (21.0-32.0) mmol/L BUN 19.0 H 10.0 (7.0-18.0) mg/dL Creatinine 0.81 0.77 (0.55-1.02) mg/dL Glucose 132 H 92 (74-106) mg/dL Calcium 8.3 L 8.2 L (8.5-10.1) mg/dL AST 25 24 (15-37) U/L ALT 20 17 (14-59) U/L Alkaline Phosphatase 67 49 (46-116) U/L Total Protein 6.9 5.5 L (6.4-8.2) g/dL Albumin 3.5 2.8 L (3.4-5.0) g/dL Intake and Output 08/20/24 08/21/24 08/21/24 23:59 07:59 15:59 Intake Total 25 / 1016.667 991.667 / 1016.667 987.500 / 987.500 Balance 25 / 1016.667 991.667 / 1016.667 987.500 / 987.500 Intake: IV 25 / 1016.667 991.667 / 1016.667 987.500 / 987.500 Heparin Sodium,Porcine/D5w 25, 25 / 000 unit In 500 ml @ 12 UNITS/ KG/HR 12.48 mls/hr IV TITR ONE Rx#:[id number] Lactated Ringer's Solution 1, 991.667 / 991.667 987.500 / 987.500 000 ml @ 125 mls/hr IV .Q8H AMANDA Rx#:[id number] Other: # Voids 1 Weight 49 kg HsTrop 250, 351, 363, 250 EKG: NSR, 66 bpm Holter 08/15/2024: sinus, 12% burden of AF Echo: 08/21/2024 EF 60-6%, no WMAs, mild to mod TR, RVSP 40 mmHg Assessment and Plan Assessment and Plan (1) Atrial fibrillation with RVR: Assessment and Plan: Paroxysmal, CHADS2-VASc score of 4 (2) Elevated troponin: Assessment and Plan: No symptoms or signs of ischemia, no WMAs on echo, this likely represents acute myocardial injury 2ndry to AF with RVR (3) HTN (hypertension): Qualifiers: Hypertension type: primary hypertension Qualified Code(s): I10 - Essential (primary) hypertension (4) Hypothyroidism: Qualifiers: Hypothyroidism type: unspecified Qualified Code(s): E03.9 - Hypothyroidism, unspecified (5) GERD (gastroesophageal reflux disease): Qualifiers: Esophagitis presence: with esophagitis Esophagitis bleeding: without hemorrhage Qualified Code(s): K21.00 - Gastro-esophageal reflux disease with esophagitis, without bleeding Plan 1. Check TSH, free T4, free T3 and correct abnormalities 2. IV fluid hydration 3. Investigate and treat cause of abdominal pain, nausea as appropriate - UA suggests UTI 4. Continue BBlocker for rate control and avoidance of atrial ectopy 5. She has an indication for anti-coagulation; DOAC or Coumadin depending on her insurance coverage 6. In absence of ischemia symptoms or signs, would recommend a Lexiscan stress test to evaluate for occult CAD given elevated Troponin and her risk factor profile. If not feasible as in-patient, can be performed as an outpatient with close follow up with her primary data analyst etl developer 7. No objection to discharge from a cardiovascular standpoint once stable medically She will need to see her data analyst etl developer within 5-7 days post discharge; she is to return to the ER for any new or worsening symptoms Thank you for the consultation. Fei Fermin MD [facility] Cardiovascular Medicine
--- NOTE | 2024-08-21 14:01 | PC.NURSE ---
saline lock and tele dc'd for discharge. instructions reviewed with pt and . pt dressed, taken to exit with belongings in wheelchair. discharged to private vehicle.
--- NOTE | 2024-08-24 11:40 | CM.DCFOLLOWU ---
Phone number disconnected 08/24/24
== END 2024-08-21 14:05 | disposition home or self-care (01) ==
LOC: ER 16:22 → ICU 08-21 05:56
PROVIDERS: Admitting Provider Internal Medicine; Emergency Provider Emergency Medicine; PCP Internal Medicine; Visit Provider Internal Medicine
DX: I48.91 Unspecified atrial fibrillation (principal); I48.92 Unspecified atrial flutter; E03.9 Hypothyroidism, unspecified; I10 Essential (primary) hypertension; Z88.5 Allergy status to narcotic agent; R79.89 Other specified abnormal findings of blood chemistry; K21.00 Gastro-esophageal reflux disease with esophagitis, without bleeding; Z79.890 Hormone replacement therapy; Z79.899 Other long term (current) drug therapy; Z79.01 Long term (current) use of anticoagulants
CPT/HCPCS: 36415; 80053; 80061; 80320; 83036; 83605; 83690; 84443; 84484; 85025; 85610; 85730; 93005; 93306; 94761; 96365; 96372; 96375; 96376; 99285; G0378; J1644; J1650; J2405

== ENCOUNTER 2024-10-03 21:39 | Emergency (ER) | payer MEDICARE, SELFPAY ==
[2024-10-03 21:41] VITALS: BP 189/75; PULSE 64; TEMP 36.6; O2SAT 100
--- OUTSIDE RECORDS SUMMARY | 2024-10-03 21:50 | XMS_ITS | CCD ---
Author Organization [facility] Care Team Providers Care Nurse Receptionist Name Role Phone ESTEPHANIA ABARCA Admitting Unavailable [...] Barrett Unavailable BOBBI Loomis Primary Care Provider [phone] MD Danna Sarmiento Attending Provider Asaad, Imad [...] Unavailable Gabino Loomis MD Primary Care Provider [phone] Wednesday JAVA DEVELOPER WITH SECURITY CLEARANCE, Trinidad Unavailable Gabino Loomis MD Unavailable [phone] Gabino Loomis MD Primary Care Provider [phone] NATALYA HENSLEY Attending Unavailable ESTEPHANIA ABARCA Referring Unavailable GABINO LOOMIS Primary Care Unavailable NATALYA HENSLEY Referring Unavailable GABINO LOOMIS Primary Care Unavailable NATALYA HENSLEY Attending Unavailable NATALYA HENSLEY Referring Unavailable GABINO LOOMIS Primary Care Unavailable GABINO LOOMIS Attending Unavailable PK ARMIJO Attending Unavailable GABINO LOOMIS Attending Unavailable ESTEPHANIA ABARCA Attending Unavailable GABINO LOOMIS Attending Unavailable ESTEPHANIA ABARCA Attending Unavailable Allergies Allergy Classification Reported Allergen(s) Allergy Type Date of Onset Reaction(s) Facility (2 sources) Codeine; Translations: [CODEINE] Drug Allergy 7 [facility] Repository (4 sources) Codeine Drug Allergy Unknown [employer] Other (1 source) Codeine Drug Allergy 3 [facility] Repository (14 sources) Codeine Drug Allergy 7 Unknown, Confusion [facility] Medications Current Medications Medication Drug Class(es) Dates Sig (Normalized) Sig (Original) apixaban 5 mg oral tablet (4 sources) Factor Xa Inhibitor Start: 08-16-2024 take 1 tablet by mouth in the morning apixaban (Eliquis) 5 MG tablet Indications: Paroxysmal atrial fibrillation (CMS/HCC) Take 1 tablet (5 mg) by mouth in the morning and 1 tablet (5 mg) before bedtime. 60 tablet 5 08/16/2024 Active dicyclomine hydrochloride 20 mg oral tablet (2 sources) Anticholinergic Start: 11-03-2021 take 1 tablet by mouth twice daily dicyclomine (BENTYL) 20 mg tablet Take 1 tablet (20 mg total) by mouth 2 (two) times a day. 20 tablet 11/03/2021 Active donepezil hydrochloride 5 mg oral tablet (11 sources) Start: 05-10-2024 End: 09-07-2024 take 1 tablet by mouth at bedtime, then take 2 tablets by mouth at bedtime donepezil (Aricept) 5 MG tablet Indications: Cognitive impairment Take 1 tablet (5 mg) by mouth at bedtime for 30 days, THEN 2 tablets (10 mg) at bedtime. 210 tablet 05/10/2024 Active ergocalciferol 1.25 mg oral capsule (14 sources) Provitamin D2 Compound Start: 11-24-2023 End: 09-14-2025 take 1 capsule by mouth every week ergocalciferol (Drisdol) 1.25 MG (95425 UT) capsule Indications: Vitamin D deficiency Take 1 capsule (1.25 mg) by mouth 1 (one) time per week 12 capsule 3 09/14/2024 09/14/2025 Active famotidine 20 mg oral tablet (10 sources) Histamine-2 Receptor Antagonist Start: 07-06-2024 End: 08-07-2024 take 1 tablet by mouth once daily famotidine (Pepcid) 20 MG tablet Indications: Acute gastritis without hemorrhage, unspecified gastritis type Take 1 tablet (20 mg) by mouth Daily 30 tablet 11 08/07/2024 Active levothyroxine sodium 0.075 mg oral tablet (20 sources) l-Thyroxine Start: 02-10-2022 End: 05-10-2024 take [...] Euthyrox Active lisinopril 5 mg oral tablet (20 sources) Angiotensin Converting Enzyme Inhibitor Start: 09-09-2023 [...] succinate 25 mg extended release oral tablet (4 sources) beta-Adrenergic Shoshana Start: 08-18-20 take 1 tablet by mouth every twenty-four hours in the morning metoprolol succinate XL (Toprol-XL) 25 MG 24 hr tablet Take 25 mg by mouth in the morning. 08/18/2024 Active omeprazole 40 mg delayed release oral capsule (20 sources) Proton Pump Inhibitor Start: 02-11-20 End: 05-10-20 take 1 capsule by mouth in the morning omeprazole (PriLOSEC) [address] capsule Indications: Gastro-esophageal reflux disease without esophagitis Take 1 capsule (40 mg) by mouth in the morning and 1 capsule (40 mg) before bedtime. 180 capsule 3 05/10/2024 05/10/2025 Active take 1 capsule by mo uth every twelve hours Omeprazole 40 MG 1 capsule Orally bid Active ondansetron 4 mg disintegrating oral tablet (16 sources) Serotonin-3 Receptor Antagonist Start: 11-03-2021 End: 11-05-2024 take 1 tablet by mouth every eight hours for nausea ondansetron ODT (Zofran-ODT) 4 MG disintegrating tablet Indications: Acute gastritis without hemorrhage, unspecified gastritis type Take 1 tablet (4 mg) by mouth every 8 (eight) hours if needed for nausea 20 tablet 2 08/07/2024 11/05/2024 Active sucralfate 1000 mg oral tablet (7 sources) Aluminum Complex Start: 09-14-2024 End: 09-24-2024 take 1 tablet by mouth in the morning, then take 1 tablet by mouth in the evening, then take 1 tablet by mouth at bedtime sucralfate (Carafate) 1 g tablet Indications: Chronic gastritis without bleeding, unspecified gastritis type Take 1 tablet (1 g) by mouth in the morning and 1 tablet (1 g) in the evening and 1 tablet (1 g) before bedtime. Do all this for 10 days. 30 tablet 09/14/2024 09/24/2024 Active Start: 09-09-2022 End: 07-06-2024 take 1 tablet by mouth in the morning, then take 1 tablet by mouth in the evening, then take 1 tablet by mouth at bedtime Carafate 1 g tablet Take 1 g by mouth in the morning and 1 g in the evening and 1 g before bedtime. 09/09/2022 07/06/2024 Discontinued (Other) Completed/Discontinued Medications Medication Drug Class(es) Dates Sig [...] (Centrum Silver Ultra Womens) tablet Daily. Active Problems Active Problems Problem Classification Problem Date Documented Da te Episodic/Chronic Abdominal pain (16 sources) Unspecified abdominal pain; Translations: [Abdominal pain] Onset: 11-01-2019 Resolved: 01-28-2022 Episodic Cardiac dysrhythmias (14 sources) Multiple premature ventricular complexes; Translations: [Ventricular premature depolarization] Onset: 08-16-2024 07-06-2024 Chronic Cardiac dysrhythmias (6 sources) Palpitations; Translations: [Palpitations] 07-06-2024 Episodic Disorders of lipid metabolism (12 sources) Pure hypercholesterolemia; Translations: [Pure hypercholesterolemia, unspecified] Onset: 02-14-2023 02-14-2023 Chronic Esophageal disorders (20 sources) Gastro-esophageal reflux disease without esophagitis; Translations: [Gastroesophageal reflux disease] Onset: 11-03-2019 02-11-2022 Chronic Esophageal disorders (1 source) Esophageal disorders; Translations: [K21.9 - Gastro-esophageal reflux disease without esophagitis] Onset: 02-11-2022 Essential hypertension (20 sources) Essential (primary) hypertension; Translations: [Essential hypertension] Onset: 11-03-2019 02-14-2023 Chronic Gastritis and duodenitis (7 sources) Chronic gastritis; Translations: [Unspecified chronic gastritis without bleeding] Onset: 01-28-2022 Resolved: 01-28-2022 Chronic Gastrointestinal hemorrhage (3 sources) Feces color: tarry; Translations: [Melena] Onset: 10-09-2022 Episodic Heart valve disorders (6 sources) Mitral valve regurgitation; Translations: [Nonrheumatic mitral (valve) insufficiency] Onset: 09-14-2024 09-14-2024 Chronic Immunizations and screening for infectious disease (2 sources) Needs influenza immunization; Translations: [Encounter for immunization] 08-07-2024 Episodic Mood disorders (12 sources) Reactive depression (situational); Translations: [Major depressive disorder, single episode, unspecified] Onset: 02-14-2023 02-14-2023 Chronic Nausea and vomiting (5 sources) Nausea; Translations: [Nausea] Onset: 02-11-2022 02-11-2022 Episodic Noninfectious gastroenteritis (9 sources) Noninfective gastroenteritis and colitis, unspecified; Translations: [Colitis] Onset: 11-03-2019 Resolved: 01-28-2022 Episodic Nutritional deficiencies (14 sources) Vitamin D deficiency; Translations: [Vitamin D deficiency, unspecified] Onset: 02-14-2023 02-14-2023 Chronic Osteoporosis (19 sources) Age-related osteoporosis without current pathological fracture; Translations: [Osteoporosis] Onset: 11-03-2019 02-14-2023 Chronic Other connective tissue disease (12 sources) Cramp in lower limb; Translations: [Sleep [...] Other hereditary and degenerative nervous system conditions (12 sources) Restless legs; Translations: [Restless legs syndrome] Onset: 02-14-2023 02-14-2023 Chronic Other upper respiratory disease (12 sources) Allergic rhinitis; Translations: [Allergic rhinitis, unspecified] Onset: 02-14-2023 02-14-2023 Chronic Retinal detachments; defects; vascular occlusion; and retinopathy (12 sources) Retinal hemorrhage; Translations: [Retinal hemorrhage, unspecified eye] Onset: 02-14-2023 02-14-2023 Chronic Spondylosis; intervertebral disc disorders; other back problems (12 sources) Cervical spondylosis; Translations: [Spondylosis without myelopathy or radiculopathy, cervical region] Onset: 02-14-2023 02-14-2023 Chronic Syncope (8 sources) Near syncope; Translations: [Syncope and collapse] 07-06-2024 Episodic Thyroid disorders (17 sources) Hypothyroidism, unspecified; Translations: [Hypothyroidism] Onset: 11-03-2019 02-14-2023 Chronic Unclassified (1 source) Z01.812 - Encounter for preprocedural laboratory examination; Translations: [Z01.812 - Encounter for preprocedural laboratory examination] Onset: 02-09-2022 Unclassified (1 source) New Patient Onset: 08-18-2024 Past or Other Problems Problem Classification Problem Date Documented Da te Episodic/Chronic Conditions associated with dizziness or vertigo (12 sources) Benign paroxysmal positional vertigo; Translations: [Benign paroxysmal vertigo, unspecified ear] Onset: 02-14-2023 02-14-2023 Episodic Gastritis and duodenitis (17 sources) Gastritis, unspecified, without bleeding; Translations: [Acute gastritis] Onset: 11-03-2019 07-06-2024 Episodic Mood disorders (12 sources) Mood disorders Onset: 11-18-2023 11-18-2023 Other aftercare (1 source) Other assisted (current) drug therapy; Translations: [OTH HIGH SCHOOL PRINCIPAL CURRENT DRUG THERAPY] Onset: 11-03-2019 Episodic Other nervous system disorders (13 sources) Impaired cognition; Translations: [Other symptoms and [...] TRACT] Onset: 11-03-2019 Episodic Residual codes; unclassified (12 sources) Amnesia; Translations: [Other amnesia] Onset: 02-14-2023 02-14-2023 Episodic Unclassified (12 sources) Onset: 11-23-2023 11-23-2023 Urinary tract infections (1 source) Urinary tract infection, site not specified; Translations: [UTI SITE NOT SPECIFIED] Onset: 11-03-2019 Episodic Results Test Name Value Interpretation Reference Range Facility CBC AND AUTO DIFFon 08-18-20 ABSOLUTE BASOPHIL 0.0 X10E9/L Normal 0.0-0.2 [facility] Comment on above: Performed By: #### C BCA CMP, 3016-3, 3024-7 #### [facility] ([id number]) [address], [address] [place] [address] ABSOLUTE NEUTROPHIL 2.5 X10E9/L Normal 1.5-6.6 [facility] Comment on above: Performed By: #### C BCA, CMP, 3016-3, 3024-7 #### [facility] ([id number]) [address], [address] [place] [address] Basophils/100 WBC (Bld) 0.3 % Normal [facility] Comment on above: Performed By: #### C BCA, CMP, 3016-3, 3024-7 #### [facility] ([id number]) [address], [address] [place] [address] Eosinophils (Bld) [#/Vol] 0.2 10*3/uL Normal 0.0-0.4 [facility] Comment on above: Performed By: #### C BCA, CMP, 3016-3, 3024-7 #### [facility] ([id number]) [address], [address] [place] [address] Eosinophils/100 WBC (Bld) 4.5 % Normal [facility] Comment on above: Performed By: #### C BCA, CMP, 6-3, 3023-7 #### [facility] ([id number]) [address], [address] [place] [address] Erythrocyte distribution width (RBC) [Ratio] 14.1 % Normal 11.5-15.0 [facility] Comment on above: Performed By: #### C KATIE, CMP, 6-3, 3023-7 #### [facility] ([id number]) [address], [address] [place] [address] Hematocrit (Bld) [Volume fraction] 39.8 % Normal 35-47 [facility] Comment on above: Performed By: #### C BCA, CMP, 6-3, 3023-7 #### [facility] ([id number]) [address], [address] [place] [address] Hemoglobin (Bld) [Mass/Vol] 13.3 g/dL Normal 11.7-15.5 [facility] Comment on above: Performed By: #### C BCA, CMP, 6-3, 3023-7 #### [facility] ([id number]) [address], [address] [place] [address] Lymphocytes (Bld) [#/Vol] 1.4 10*3/uL Normal 1.0-3.5 [facility] Comment on above: Performed By: #### C BCA, CMP, 6-3, 3024-7 #### [facility] ([id number]) [address] [address] [place] [address] Lymphocytes/100 WBC (Bld) 32.8 % Normal [facility] Comment on above: Performed By: #### C BCA, CMP, 6-3, 7 #### [facility] ([id number]) [address], [address] [place] [address] MCH (RBC) [Entitic mass] 30.8 pg Normal 27-34 [facility] Comment on above: Performed By: #### C BCA, CMP, 6-3, 3023-7 #### [facility] ([id number]) [address], [address] [place] [address] MCHC (RBC) [Mass/Vol] 33.5 g/dL Normal 32-36 [facility] Comment on above: Performed By: #### C BCA, CMP, 3015-3, 7 #### [facility] ([id number]) [address], [address] [place] [address] MCV (RBC) [Entitic vol] 92 fL Normal 80-100 [facility] Comment on above: Performed By: #### C BCA, CMP, 3015-3, 3023-7 #### [facility] ([id number]) [address], [address] [place] [address] Monocytes (Bld) [#/Vol] 0.3 10*3/uL Normal 0-0.9 [facility] Comment on above: Performed By: #### C BCA, CMP, 3015-3, 3023-7 #### [facility] ([id number]) [address], [address] [place] [address] Monocytes/100 WBC (Bld) 5.8 % Normal [facility] Comment on above: Performed By: #### C BCA, CMP, 6-3, 3023-7 #### [facility] ([id number]) [address], [address] [place] [address] Neutrophils/100 WBC (Bld) 56.6 % Normal [facility] Comment on above: Performed By: #### C BCA, CMP, 3016-3, 3024-7 #### [facility] ([id number]) [address] [address] [place] [address] Platelet mean volume (Bld) [Entitic vol] 9.9 fL Normal 7-12 [facility] Comment on above: Performed By: #### C BCA, CMP, 3016-3, 3024-7 #### [facility] ([id number]) [address], [address] [place] [address] Platelets (Bld) [#/Vol] 192 10*3/uL Normal 150-450 [facility] Comment on above: Performed By: #### C BCA, CMP, 3016-3, 3024-7 #### [facility] ([id number]) [address] [address] [place] [address] RBC COUNT 4.33 X10E12/L Normal 3.80-5.20 [facility] Comment on above: Performed By: #### C BCA, CMP, 3016-3, 3024-7 #### [facility] ([id number]) [address] [address] [place] [address] WBC (Bld) [#/Vol] 4.3 10*3/uL Normal 4.0-11.0 [facility] Comment on above: Performed By: #### C BCA, CMP, 3016-3, 3024-7 #### [facility] ([id number]) [address], [address] [place] [address] COMPREHENSIVE METABOLIC PANE Pato 08-18-2024 Albumin [Mass/Vol] 3.9 g/dL Normal 3.2-5.3 [facility] Comment on above: Performed By: #### C BCA, CMP, 3016-3, 3024-7 #### [facility] ([id number]) [address] [address] [place] [address] ALP [Catalytic activity/Vol] 58 U/L Normal 39-130 [facility] Comment on above: Performed By: #### C BCA, CMP, 3016-3, 3024-7 #### [facility] ([id number]) [address], [address] [place] [address] ALT [Catalytic activity/Vol] 13 U/L Normal 0-31 [facility] Comment on above: Performed By: #### C BCA, CMP, 3016-3, 302-7 #### [facility] ([id number]) [address], [address] [place] [address] Anion gap [Moles/Vol] 10 mmol/L Normal 5-15 [facility] Comment on above: Performed By: #### C BCA, CMP, 6-3, 3024-7 #### [facility] ([id number]) [address], [address] [place] [address] AST [Catalytic activity/Vol] 24 U/L Normal 0-41 [facility] Comment on above: Performed By: #### C BCA, CMP, 6-3, 3024-7 #### [facility] ([id number]) [address], [address] [place] [address] Bilirubin [Mass/Vol] 0.5 mg/dL Normal 0.3-1.2 [facility] Comment on above: Performed By: #### C BCA, CMP, 3016-3, 302-7 #### [facility] ([id number]) [address], [address] [place] [address] Calcium [Mass/Vol] 8.6 mg/dL Normal 8.5-10.5 [facility] Comment on above: Performed By: #### C BCA, CMP, 3016-3, 3024-7 #### [facility] ([id number]) [address], [address] [place] [address] Chloride [Moles/Vol] 109 mmol/L Normal 98-109 [facility] Comment on above: Performed By: #### C BLEIA WILSON, 3016-3, 3024-7 #### [facility] ([id number]) [address], [address] [place] [address] CO2 [Moles/Vol] 26 mmol/L Normal 22-32 [facility] Comment on above: Performed By: #### C BELIA WILOSN, 6-3, 3023-7 #### [facility] ([id number]) [address], [address] [place] [address] Creatinine [Mass/Vol] 0.84 mg/dL Normal 0.40-1.00 [facility] Comment on above: Result Comment: METH OD TRACEABLE TO IDMS STANDARD Performed By: #### C BELIA WILSON, 6-3, 3023-7 #### [facility] ([id number]) [address], [address] [place] [address] GFR/1.73 sq M.predicted among non-blacks MDRD (S/P/Bld) [Vol rate/Area] 70 mL/min/{1.73_m2} Normal >59 [facility] Comment on above: Result Comment: Reported eGFR is based on the CKD-EPI 2020 equation that does not use a race coefficient. Performed By: #### C BELIA WILSON, 3015-3, 3024-7 #### [facility] ([id number]) [address], [address] [place] [address] Glucose [Mass/Vol] 99 mg/dL Normal 65-99 [facility] Comment on above: Performed By: #### C BELIA WILSON, 6-3, 3024-7 #### [facility] ([id number]) [address], [address] [place] [address] Potassium [Moles/Vol] 3.9 mmol/L Normal 3.5-5.0 [facility] Comment on above: Performed By: #### C BCA, CMP, 3016-3, 3024-7 #### [facility] ([id number]) [address], [address] [place] [address] Protein [Mass/Vol] 6.7 g/dL Normal 6.0-8.0 [facility] Comment on above: Performed By: #### C BCA, CMP, 3016-3, 3024-7 #### [facility] ([id number]) [address], [address] [place] [address] Sodium [Moles/Vol] 145 mmol/L Normal 134-146 [facility] Comment on above: Performed By: #### C BCA, CMP, 3016-3, 3024-7 #### [facility] ([id number]) [address], [address] [place] [address] Urea nitrogen [Mass/Vol] 20 mg/dL Normal 5-27 [facility] Comment on above: Performed By: #### C BCA, CMP, 3016-3, 3024-7 #### [facility] ([id number]) [address] [address] [place] [address] FREE T4on 08-18-2024 Free T4 [Mass/Vol] 1.43 ng/dL Normal 0.61-1.60 [facility] Comment on above: Result Comment: NEW REFERENCE RANGE FOR PEDIATRIC PATIENTS Performed By: #### C BCA, CMP, 3016-3, 3024-7 #### [facility] ([id number]) [address], [address] [place] [address] TSH Qnon 08-18-2024 TSH 1.66 uIU/mL Normal 0.49-4.67 [facility] Comment on above: Result Comment: NEW REFERENCE RANGE FOR PEDIATRIC PATIENTS Performed By: #### C BCA, CMP, 3016-3, 3024-7 #### [facility] ([id number]) [address] [address] [place] [address] URINE CULTURE, ROUTINEon Bacteria identified Cx Nom [...] identified Cx Nom (U) [facility] at[facility] Bacteria identified Cx Nom (U) [address] [place], [place] [id number] [facility] Bacteria identified Cx Nom (U) Case Managers: Ez Brantley PhD, Phone: [phone] [facility] Blood Urea Nitrogenon 2022 Urea nitrogen [Mass/Vol] 17 mg/dL Normal - [facility] Comment on above: Performed By: #### C TRACY MCCARTY #### [address] enterographyon 12-14-2022 CT enterography [facility] [address] [place] [address] [place] [address] CT Scan Report Signed Patient: Sharon Sousa MR#: [id number] [birth year] : 1945 Acct:[id number] Age/Sex: 77 / F ADM Date: 12/14/22 Loc: CT Room: Type: [facility] Attending Dr: Danna Sarmiento MD Copies to: [...] seen. Impression dictated by: Vargas Urrutia Jr., D.OKasey12/14/2022 1:49 PM Dictation Location: [place] [address] Transcribed By: [facility] 12/14/22 1349 Dictated By: Vargas Urrutia Jr, DO 12/14/22 1345 Signed By: 12/14/22 1349 [facility] Creatinineon 12-14-2022 Creatinine [Mass/Vol] 0.76 mg/dL Normal 0.60-1.20 [facility] Comment on above: Performed By: #### C REAT, BUN #### [facility] [address] GFR/1.73 sq M.predicted MDRD (S/P/Bld) [Vol rate/Area] mL/min/{1.73_m2} [facility] Comment on above: Result Comment: PERF ORMED BY: [address] [place] [address] PATHOLOGIST BOX PULLER SVETLANA DELGADILLO M.D. Performed By: #### C REAT, BUN #### [facility] [address] [place] [id number] [place] Calprotectin, Fecalon 2022 Calprotectin, Fecal 34 Normal 0-120 [facility] Comment on above: Order Comment: Reaso n for Exam Abdominal pain;Tarry stool;Change in bowel habits;Bloating Result Comment: Conc entration Interpretation Follow-Up <16 - 50 ug/g Normal None >50 -120 ug/g Borderline Re-evaluate in 4-6 weeks >120 ug/g Abnormal Repeat as clinically indicated Performed at: - [facility] [address] [place], [place] [id number] Case Managers: Be Pierre MD, Phone: [phone] PERFORMED BY: [place] [id number] PATHOLOGIST BOX PULLER SVETLANA DELGADILLO M.D. Performed By: #### C ALPROTECT #### [facility] , Calprotectin, Fecal 34 0-120 [employer] Other C reactive protein [Mass/vol ume] in Serum or PlasmaOrdered By: Danna Sarmiento on 09-30-2022 CRP [Mass/Vol] 0.6 mg/dL 0.0-1.0 [facility] C-Reactive Proteinon 023 C-Reactive Protein 0.6 mg/dL Normal 0.0-1.0 [facility] Comment on above: Order Comment: Reaso n for Exam Abdominal pain;Tarry stool;Change in bowel habits;Bloating Result Comment: PERF ORMED BY: [place] [address] PATHOLOGIST BOX PULLER SVETLANA DELGADILLO M.D. Performed By: #### C ELIAC GEN, CELIAC #### [facility] , #### CRP, ESR #### [address] C-Reactive Protein 0.6 mg/dL Normal 0.0-1.0 mg/dL [employer] Other Celiacon 09-30-2022 Deamidated Gliadin Abs, IgA 4 Normal 0-19 [facility] Comment on above: Order Comment: Reaso n for Exam Abdominal pain;Tarry stool;Change in bowel habits;Bloating Result Comment: Nega tive 0 - 19 Weak Positive 20 - 30 Moderate to Strong Positive >30 Performed By: #### C ELIAC GEN, CELIAC #### [facility] , #### CRP, ESR #### [facility] [address] [place] [address] [place] Deamidated Gliadin Abs, IgG 3 Normal 0-19 [facility] Comment on above: Order Comment: Reaso n for Exam Abdominal pain;Tarry stool;Change in bowel habits;Bloating Result Comment: Nega tive 0 - 19 Weak Positive 20 - 30 Moderate to Strong Positive >30 Performed By: #### C ELIAC GEN, CELIAC #### [facility] , #### CRP, ESR #### [facility] [address] [place] [address] Endomysial Antibody IgA Negative Normal Negative [facility] Comment on above: Order Comment: Reaso n for Exam Abdominal pain;Tarry stool;Change in bowel habits;Bloating Performed By: #### C ELIAC GEN, CELIAC #### [facility] , #### CRP, ESR #### [facility] [address] [place] [address] [place] Immunoglobulin A, Qn, Serum 281 mg/dL Normal 64-422 [facility] Comment on above: Order Comment: Reaso n for Exam Abdominal pain;Tarry stool;Change in bowel habits;Bloating Result Comment: Perf ormed at: [facility] [place] [id number] Case Managers: Ez Brantley PhD, Phone: [phone] Performed By: #### C ELIAC GEN, CELIAC #### [facility] , #### CRP, ESR #### [facility] [address] [place] [address] T-Transglutaminase (tTG) IgA <2 Normal 0-3 [facility] Comment on above: Order Comment: Reaso [...] #### [facility] , #### CRP, ESR #### [facility] [address] [id number] [facility] T-Transglutaminase (tTG) IgG <2 Normal 0-5 [facility] Comment on above: Order Comment: Reaso n for Exam Abdominal pain;Tarry stool;Change in bowel habits;Bloating Result Comment: Nega tive 0 - 5 Weak Positive 6 - 9 Positive >9 Performed By: #### C ELIAC GEN, CELIAC #### [facility] , #### CRP, ESR #### [facility] [address] [address] [facility] Celiac 4 0-19 [facility] adQ Other Celiac 3 0-19 [facility] adQ Other Celiac <2 0-5 [facility] adQ Other Celiac Negative Negative [facility] adQ Other Celiac 281 mg/dL 64-422 mg/dL [employer] Other Celiac Disease Genetics HLA DQon 09-30-2022 CDDQ2 Additional Information Normal . [facility] Comment on above: Order Comment: Reaso n for Exam Abdominal pain;Tarry stool;Change in bowel habits;Bloating Result Comment: Refe rences: 1. Eric FISHER and Sandy Rush. Celiac Disease. N Eng J Med 2007; 357:4972-5679. 2. Ludmilaiorni F, Roca B, Bonamico M et al. HLA-DQ and risk gradient for celiac disease. Hum Immunol 2009; 70:55-59. 3. Piejoseak MM, [place] TC, Ernesto FM et al. Stratifying risk [...] Aldo TC, Kana CR, Sary K, editors. Susan [facility]), [facility], [place], March 01, 2008:-. http://www.ncbi.nlm.nih.gov/alexandria/br.fcgi?book=genepart=andra ac PMID [id number] (PubMed) 6. Lilli W. Emerging concepts in celiac disease. Curr Opin Pediatr 2004;16:552-559. Performed at: 2 - [facility] [address] [place], [place] [id number] Case Managers: Garry Brennan PhD, Phone: [phone] PERFORMED BY: [place] [address] PATHOLOGIST BOX PULLER SVETLANA DELGADILLO M.D. Performed By: #### C ELIAC GEN, CELIAC #### [facility] , #### CRP, ESR #### [address] Comment: Normal . [facility] Comment on above: Order Comment: Reaso n for Exam Abdominal pain;Tarry stool;Change in bowel habits;Bloating Result Comment: This test was performed using Polymerase Chain Reaction/(PCR)Sequence Specific Oligonucleotide Probes (SSOP) (Luminex) technique. Sequence Based Typing (SBT) and/or Sequence Specific Primers (SSP) may be used as supplemental methods when necessary. Please contact [facility] Customer Service at if you have any questions. Director of HLA Laboratory Dr Garry Brennan, PhD Performed By: #### C ELIAC GEN, CELIAC #### [facility] , #### CRP, ESR #### [facility] [address] [place] [address] Dq2 (Dqa1 0501/0505,Dqb1 02Xx) Positive Normal . [facility] Comment on above: Order Comment: Reaso n for Exam Abdominal pain;Tarry stool;Change in bowel habits;Bloating Performed By: #### C ELIAC GEN, CELIAC #### [facility] , #### CRP, ESR #### [facility] [address] Dq8 (Dqa1 03Xx, Dqb1 0302) Negative Normal . [facility] Comment on above: Order Comment: Reaso n for Exam Abdominal pain;Tarry stool;Change in bowel habits;Bloating Result Comment: Mariam morse Results: DQA1*02:EESCV,05:EEMXY DQB1*02:EENUF,02:EENUG Code Translation: EEMXY 05:01:15N/05:18:19:23:27:33 /05:35/05:38/05:40/05:41/05:47/05:4905:52 05:54Q/05:55/05:5605:57/05:61 EENUF 02:01/:03:07:08:05/01:13/10::53Q/02:59/02:63/02:72/02:83/02:93 /02:96N/02:98/02:99/02:102/02:105/02:106 /02:107/02:108/02:109/02:111/02:112/02:114 /02:115/02:118/02:119/02:123/02:125/02:128 /02:130/02:132N/02:134N/02:135/02:136 /02:148/02:149/02:152/02:155/02:157/02:158 /02:159/02:160/02:163N/02:164/02:170 /02:174/02:182/02:184/02:185/02:186/02:188 /02:189/02:190/02:191/02:193/02:196/02:197 /02:198/02:202 EENUG 02:02/02:11:12:20N/02:26/02:50/02:62 /02:65/02:71/02:80/02:84/02:89/02:95/02:97 /02:110/02:113/02:116/02:117/02:120/02:122 /02:124/02:126/02:127/02:131/02:137/02:138 /02:142/02:143/02:145/02:146/02:147/02:150 /02:153/02:156/02:161/02:162N/02:165 /02:167N/02:171Q/02:172/02:175/02:176N /02:179/02:183N/02:187/02:194N/02:199 /02:200/02:201/02:203/02:204N EESCV 09/01//////////// /// 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 Celiac Disease risk from the HLA DQA/DQB genotype is approximately 1:10 (10%) Allele interpretation for all loci based on IMGT/HLA database version 3.49.0 HLA Lab CLIA ID Number [id number] Greater than 95% of celiac patients are positive for either DQ2 or DQ8 (Doretha and Krysta, (1993) Gastroenterology 105:910-922). However these antigens may also be present in patients who do not have Celiac disease. Performed By: #### C ELIAC GEN, CELIAC #### [facility] , #### CRP, ESR #### [address] Celiac Disease Genetics HLA DQ Positive . [employer] Other Celiac Disease Genetics HLA DQ . [employer] Other Erythrocyte Sedimentation Ra ramirez 09-30-2022 ESR (Bld) [Velocity] 13 mm/h Normal 0-29 [facility] [employer] Other Comment on above: Order Comment: Reaso n for Exam Abdominal pain;Tarry stool;Change in bowel habits;Bloating Result Comment: PERF ORMED BY: [facility] [address] [place] [address] PATHOLOGIST BOX PULLER SVETLANA DELGADILLO M.D. Performed By: #### C ELIAC GEN, CELIAC #### [facility] , #### CRP, ESR #### [address] Erythrocyte sedimentation ra te by Photometric methodOrdered By: Imad Asaad on 09-30-2022 ESR Photometric method (Bld) [Velocity] 13 mm/hr 0-29 [facility] Human leukocyte antigen (HLA ) DQ2 detectionOrdered By: Imad Asaad on 09-30-2022 HLA-DQ2 Ql (Bld/Tiss) Positive . [facility] Human leukocyte antigen (HLA ) DQ8 detectionOrdered By: Imad Asaad on 09-30-2022 HLA-DQ8 Ql (Bld/Tiss) Negative . [facility] Comment on above: Final Results:DQA1*0 2:EEERICKAV,05:EEMXYDQB1*02:EENUF,02:EENUGCode Translation:EEMXY 05:01:15N/05:18/05:1905:23/05:27/05:33 /05:35/05:38/05:40/05:41/05:47/05:49/05:52 /05:54Q/05:55/05:56/05:57/05:61EENUF 02:01/02:03/02:07/02:08/:09:14/:27 /02:53Q/02:59/02:63/02:72/02:83/02:93 /02:96N/02:98/02:99/02:102/02:105/02:106 /02:107/02:108/02:109/02:111/02:112/02:114 /02:115/02:118/02:119/02:123/02:125/02:128 /02:130/02:132N/02:134N/02:135/02:136 /02:148/02:149/02:152/02:155/02:157/02:158 /02:159/02:160/02:163N/02:164/02:170 /02:174/02:182/02:184/02:185/02:186/02:188 /02:189/02:190/02:191/02:193/02:196/02:197 /02:198/02:202EENUG 02:02/02:11/02:12/02:20N/02:26/02:50/02:62 /02:65/02:71/02:80/02:84/02:89/02:95/02:97 /02:110/02:113/02:116/02:117/02:120/02:122 /02:124/02:126/02:127/02:131/02:137/02:138 /02:142/02:143/02:145/02:146/02:147/02:150 /02:153/02:156/02:161/02:162N/02:165 /02:167N/02:171Q/02:172/02:175/02:176N /02:179/02:183N/02:187/02:194N/02:199 /02:200/02:201/02:203/02:204NEESCV ////////14/15/16/// ///The patient is positive for DQ2 and is homozygous forDQB1*02. Celiac Disease risk from the HLA DQA/DQBgenotype is approximately 1:10 (10%)Allele interpretation for all loci based on IMGT/HLAdatabase version 3.49.0A Lab CLIA ID Number [id number] than 95% of celiac patients are positive for eitherDQ2 or DQ8 (Doretha and Krysta, (1993) Kgcyepqzafymfbrp052:910-922). However these antigens may also be present inpatients who do not have Celiac disease. IgA [Mass/volume] in Serum o r PlasmaOrdered By: Danna Sarmiento on 09-30-2022 IgA [Mass/Vol] 281 mg/dL 64-422 [facility] Comment on above: Performed at: CB - L [facility] [place], [place] [id number] Director: Ez Brantley PhD, Phone: [phone] No Panel InformationOrdered By: Danna Sarmiento on 09-30-2022 Celiac Gene Interpretation See comment . [facility] Comment on above: References:1. Eric FISHER and Sandy Rush. Celiac Disease. N Eng J Med 2007; 357:9595-1991.2. Yumiko F, Chanelle B, Bonarigobertoo M et [...] Aldo TC, Kana CR, Sary K, editors. Susan [facility]), [facility], [place], March 01, 2008:1-27. http://www.ncbi.nlm.nih.gov/booksbeatricef/br.fcgi?book=genepart=andra ac PMID [id number] (PubMed)6. Lilli Baker. Emerging concepts in celiac disease. Curr Opin Pediatr 2004;16:552-559.Performed at: 2Q - [facility] [place], [place] [id number] Director: Garry Brennan PhD, Phone: [phone] Endomysial IgA Antibody Negative Negative [facility] HLA Genotype Interpretation See comment . [facility] Comment on above: This test was [...] peptide IgA Qn (S) 4 units 0-19 [facility] Comment on above: Negative 0 - 19 Weak Positive 20 - 30 Moderate to Strong Positive >30 Serum gliadin peptide IgG an tibody assay (units/volume)Ordered By: Daydayaurora Sarmiento on 09-30-2022 Gliadin peptide IgG Qn (S) 3 units 0-19 [facility] Comment on above: Negative 0 - 19 Weak Positive 20 - 30 Moderate to Strong Positive >30 Serum tissue transglutaminas e (tTG) IgA antibody assay (units/volume)Ordered By: Danna Sarmiento on 09-30-2022 tTG IgA Qn (S) <2 U/mL 0-3 [facility] Comment on above: Negative 0 - 3 Weak Positive 4 - 10 Positive >10 Tissue Transglutaminase (tTG) has been identified as the endomysial antigen. Studies have demonstr- ated that endomysial IgA antibodies have over 99% specificity for gluten sensitive enteropathy. Serum tissue transglutaminas e (tTG) IgG antibody assay (units/volume)Ordered By: Daydayaurora Sarmiento on 09-30-2022 tTG IgG Qn (S) <2 U/mL 0-5 [facility] Comment on above: Negative 0 - 5 Weak Positive 6 - 9 Positive >9 Pato 02-11-2022 L --- Specimen: [id number] Received: 02/11/22 Status: RASTA Kunal Num: [id number] Spec Type: Surgical Subm Dr: Philippe Barrett Jr, DO Tissues: A Stomach - Biopsy/Polyp (STOMACH BX) B Colon Biopsy (RECTUM BX) Procedures: HE Stain/4, Gross/Micro L4/2 Patient Age/Sex Location Account Attending Physician Sharon Sousa 76/F [id number] Philippe Barrett Jr, DO SPEC NUM: [id number] RECD: 02/11/22 STATUS: RASTA NABILAPeter NUM: [id number] ROXY: 02/11/22-[address] [facility] DR: Philippe Barrett Jr, DO ENTERED: 02/11/22-[address] [facility] [address]: HEATHER TYPE: Surgical DEPT: S [...] Type of Fixative: 10% Neutral Buffered Formalin (/YJ) B. Received in formalin labeled with the patient's name, number and rectum biopsy are 3 kay tissue fragments, 0.2 cm to 0.3 cm. Entirely submitted in one cassette labeled B1. Type of Fixative: 10% Neutral Buffered Formalin (SM/YJ) Specimen: [id number] Received: 02/11/22 Status: RASTA Kunal Num: [id number] Spec Type: Surgical Subm Dr: Philippe Barrett Jr, DO Tissues: A Stomach - Biopsy/Polyp (STOMACH BX) B Colon Biopsy (RECTUM BX) Procedures: HE Stain/4, Gross/Micro L4/2 Patient: Sharon Sousa [id number] (Continued) Specimen: [id number] Received: 02/11/22 (Continued) Signed (signature on file) Iliana Bateman MD 02/12/22 6789 Specimen: [id number] Received: 02/11/22 Status: RASTA Syed Num: [id number] Spec Type: Surgical Subm Dr: Philippe Barrett Jr, DO Tissues: A Stomach - Biopsy/Polyp (STOMACH BX) B Colon Biopsy (RECTUM BX) Procedures: HE Stain/4, Gross/Micro L4/2 Patient: Jenna Sousaza [id number] (Continued) Specimen: [id number] Received: 02/11/22 (Continued) Microscopic Description A. Two [...] characteristics were determined by the Laboratory of [facility]. Immunohistochemistry assays have not been validated on decalcified tissue. Results should be interpreted with caution given the possibility of false negative results on decalcified specimens. They have not been cleared by the [place] Food and Drug Administration. The FDA has determined that such clearance or approval is not necessary. CPT Codes 95230?2, 91490 Specimen: [id number] Received: 02/11/22 Status: RASTA Kunal Num: [id number] Spec Type: Surgical Subm Dr: Philippe Barrett Jr, DO Tissues: A Stomach - Biopsy/Polyp (STOMACH BX) B Colon Biopsy (RECTUM BX) Procedures: HE Stain/4, Gross/Micro L4/2 Patient: Sharon Sousa [id number] (Continued) Signed (signature on file) Iliana Bateman MD 02/12/22 1559 Normal [facility] COVID[facility] SARS-CoV-2 (COVID-19) RNA KELY+probe Ql (Unsp spec) Negative Normal Negative [facility] Comment on above: Order Comment: Healt hcare Worker?: N Result Comment: Testing for SARS-CoV-2 by RT-PCR This test was developed and its performance characteristics determined by [employer]) and validated at the [facility]. This test has not been FDA [...] is terminated or revoked sooner. PERFORMED BY: [place] [address] PATHOLOGIST BOX PULLER SVETLANA DELGADILLO M.D. Performed By: #### C OVID 19 [facility] #### [address] XR DEXA BONE DENSITYon 05-27 XR [...] PHILIPPE WALLACE Date: 2020-05-27 13:[address] [facility] CBC AUTO DIFFon 11-01-2019 Basophils (Bld) [#/Vol] 0.0 103/ul Normal 0.0-0.[address] [facility] Comment on above: Performed By: #### C BC #### [facility] [address] [place] [address] Erin Estephania Basophils/100 WBC (Bld) 0.3 % Normal 0.2-2.[address] [facility] Comment on above: Performed By: #### C BC #### [facility] [address] [place] [address] Erin Estephania Eosinophils (Bld) [#/Vol] 0.0 103/ul Normal 0.0-0.7 [facility] Comment on above: Performed By: #### C BC #### [facility] [address] [place], [place] [address] Erin Estephania Eosinophils/100 WBC (Bld) 0.1 % Critically low 0.9-7.0 [facility] Comment on above: Performed By: #### C BC #### [facility] [address] [place], [place] [address] Erin Estephania Erythrocyte distribution width (RBC) [Ratio] 13.8 % Normal 11.0-15.0 [facility] Comment on above: Performed By: #### C BC #### [facility] [address] [place], [place] [address] Erin Estephania Hematocrit (Bld) [Volume fraction] 40.1 % Normal 36.0-48.[address] [facility] Comment on above: Performed By: #### C BC #### [facility] [address] [place], [place] [address] Erin Estephania Hemoglobin (Bld) [Mass/Vol] 13.6 g/dL Normal 12.0-16.[address] [facility] Comment on above: Performed By: #### C BC #### [facility] [address] [id number] Erin Estephania IG # 0.04 10e3/ul Critically high 0.00-0.03 [facility] Comment on above: Performed By: #### C BC #### [facility] [address] [id number] Erin Estephania IG % 0.4 % Normal 0.0-0.5 [facility] Comment on above: Performed By: #### C BC #### [facility] [address] [id number] Erin Estephania Lymphocytes (Bld) [#/Vol] 1.4 103/ul Normal 1.2-3.8 [facility] Comment on above: Performed By: #### C BC #### [facility] [address] [place], [place] [address] Erin Estephania Lymphocytes/100 WBC (Bld) 13.5 % Critically low 20.5-60.0 [facility] Comment on above: Performed By: #### C BC #### [facility] [address] [place], [place] [address] Erin Estephania MANUAL DIFF REQ NO Normal [facility] Comment on above: Performed By: #### C BC #### [facility] [address] [place], [place] [address] Erin Estephania MCH (RBC) [Entitic mass] 30.5 pg Normal 26.7-34.0 [facility] Comment on above: Performed By: #### C BC #### [facility] [address] [place], [place] [address] Erin Etsephania MCHC (RBC) [Mass/Vol] 33.9 g/dL Normal 29.9-35.[address] [facility] Comment on above: Performed By: #### C BC #### [facility] [address] [place], [place] [address] Erin Estephania MCV (RBC) [Entitic vol] 89.9 fL Normal 81.0-99.0 [facility] Comment on above: Performed By: #### C BC #### [facility] [address] [place], [place] [address] Erin Estephania Monocytes (Bld) [#/Vol] 0.5 103/ul Normal 0.3-0.[address] [facility] Comment on above: Performed By: #### C BC #### [facility] [address] [place], [place] [address] Erin Estephania Monocytes/100 WBC (Bld) 5.0 % Normal 1.7-12.[address] [facility] Comment on above: Performed By: #### C BC #### [facility] [address] [place] [address] Erin Estephania Neutrophils (Bld) [#/Vol] 8.2 103/ul Critically high 1.4-6.5 [facility] Comment on above: Performed By: #### C BC #### [facility] [address] [place] [address] Erin Estephania Neutrophils/100 WBC (Bld) 80.7 % Critically high 43.0-75.0 [facility] Comment on above: Performed By: #### C BC #### [facility] [address] [place] [address] Erin Estephania Platelet mean volume (Bld) [Entitic vol] 10.5 fL Normal 9.5-13.5 [facility] Comment on above: Performed By: #### C BC #### [facility] [address] [place] [address] Erin Estephania Platelets (Bld) [#/Vol] 212 103/ul Normal 150-[address] [facility] Comment on above: Performed By: #### C BC #### [facility] [address] [place] [address] Erin Estephania RBC (Bld) [#/Vol] 4.46 106/ul Normal 4.20-5.40 [facility] Comment on above: Performed By: #### C BC #### [facility] [address] [place] [address] Erin Estephania WBC (Bld) [#/Vol] 10.2 103/ul Normal 4.0-11.0 [facility] Comment on above: Performed By: #### C BC #### [facility] [address] [place] [address] Erin Estephania ER URINE PROFILEon 0 Bilirubin [Mass/Vol] Negative Normal NEGATIVE [facility] Comment on above: Performed By: #### EVANGELINA ALVARENGA #### [facility] [address] [place] [address] Erin Estephania BLOOD MODERATE Normal NEGATIVE [facility] Comment on above: Performed By: #### BRODY ALVARENGARO #### [facility] [address] [place] [address] Erin Estephania Clarity (U) CLEAR Normal [facility] Comment on above: Performed By: #### EVANGELINA ALVARENGA #### [facility] [address] [place] [address] Erin Estephania Color (U) LT. YELLOW Normal YELLOW [facility] Comment on above: Performed By: #### EVANGELINA ALVARENGA #### [facility] [address] [place] [address] Erin Estephania ERUAHD A micrscopic examination will be performed if indicated. Normal [facility] Comment on above: Performed By: #### EVANGELINA ALVARENGA #### [facility] [address] [place] [address] Erin Estephania Glucose [Mass/Vol] Negative Normal NEGATIVE [facility] Comment on above: Performed By: #### EVANGELINA ALVARENGA #### [facility] [address] [place] [address] Erin Estephania Ketones Ql (U) Negative Normal NEGATIVE [facility] Comment on above: Performed By: #### EVANGELINA ALVARENGA #### [facility] [address] [place] [address] Erin Estephania Nitrite Ql (U) Negative Normal NEGATIVE [facility] Comment on above: Performed By: #### EVANGELINA ALVARENGA #### [facility] [address] [place] [address] Erin Estephania pH (Bld) 5.0 Normal 5-9 [facility] Comment on above: Performed By: #### Dayo NAIR UMICRO #### [facility] [address] [place], [place] [address] Erin Best Protein (U) [Mass/Vol] Negative Normal [facility] Comment on above: Performed By: #### Dayo NAIR UMICRO #### [facility] [address] [place], [place] [address] Erin Best SPEC GRAVITY 1.025 Normal 1.005-<=1.0 25 [facility] Comment on above: Performed By: #### Dayo NAIR UMICRO #### [facility] [address] [place], [place] [address] Erin Best UR MICRO IND INDICATED Normal [facility] Comment on above: Performed By: #### BRODY ALVARENGARO #### [facility] [address] [place], [place] [address] Erin Estephania Urobilinogen Qn (U) 0.2 EU/dl Normal [facility] Comment on above: Performed By: #### Dayo NAIR UMICRO #### [facility] [address] [place], [place] [address] Erin Best WBC (Bld) [#/Vol] TRACE Normal NEGATIVE [facility] Comment on above: Performed By: #### Dayo NAIR UMICRO #### [facility] [address] [place], [place] [address] Erin Best LACTATE/LACTIC ACIDon 2019 Lactate [Moles/Vol] 1.1 mmol/L Normal 0.7-2.0 [facility] Comment on above: Performed By: #### L ACT #### [facility] [address] [place], [place] [address] Erin Bset LIPASEon 11-01-2019 Lipase [Catalytic activity/Vol] 151.0 U/L Normal 23.0-300.0 [facility] Comment on above: Performed By: #### C MP, LIPA, TROP #### [facility] [address] [place] [address] Erin Best PROF 14(COMP METB)on 020 Albumin [Mass/Vol] 3.5 g/dL Normal 3.5-5.0 [facility] Comment on above: Performed By: #### C KERRI KOTHARIA, TROP #### [facility] [address] [phone] Erin Estephania Albumin/Globulin [Mass ratio] 0.9 {ratio} Normal [facility] Comment on above: Performed By: #### C TAYE LIPA, TROP #### [facility] [address] [place] [address] Erin Estephania ALP [Catalytic activity/Vol] 96 U/L Normal 38-126 [facility] Comment on above: Performed By: #### C KERRI KOTHARIA, TROP #### [facility] [address] [place] [address] Erin Estephania ALT [Catalytic activity/Vol] 20 U/L Normal 9-52 [facility] Comment on above: Performed By: #### C TAYE LIPA, TROP #### [facility] [address] [place] [address] Erin Estephania Anion gap [Moles/Vol] 10.9 mmol/L Normal [facility] Comment on above: Performed By: #### C KERRI KOTHARIA, TROP #### [facility] [address] [place] [address] Erin Estephania AST [Catalytic activity/Vol] 18 U/L Normal 14-36 [facility] Comment on above: Performed By: #### C TAYE LIPA, TROP #### [facility] [address] [address] Erin Estephania Bilirubin Ql (U) 0.6 mg/dL Normal 0.2-1.3 [facility] Comment on above: Performed By: #### C TAYE LIPA, TROP #### [facility] [address] [place] [address] Erin Estephania Calcium [Mass/Vol] 9.2 mg/dL Normal 8.4-10.2 [facility] Comment on above: Performed By: #### C MP, LIPA, TROP #### [facility] [address] [address] Erin Estephania Chloride [Moles/Vol] 107 mmol/L Normal 98-[address] [facility] Comment on above: Performed By: #### C MP, LIPA, TROP #### [facility] [address] [address] Erin Estephania CO2 [Moles/Vol] 25.8 mmol/L Normal 22.0-30.0 [facility] Comment on above: Performed By: #### C MP, LIPA, TROP #### [facility] [address] [address] Erni Estephania Creatinine [Mass/Vol] 0.85 mg/dL Normal 0.52-1.04 [facility] Comment on above: Performed By: #### C MP, LIPA, TROP #### [facility] [address] [place] [address] Erin Estephania EGFR-AF KENYAN >60 Normal >=60 [facility] Comment on above: Performed By: #### C MP, LIPA, TROP #### [facility] [address] [place] [address] Erin Estephania EGFR-NON AF KENYAN >60 Normal >=60 [facility] Comment on above: Performed By: #### C MP, LIPA, TROP #### [facility] [address] [place] [address] Erin Estephania Globulin (S) [Mass/Vol] 3.8 g/dL Normal [facility] Comment on above: Performed By: #### C MP, LIPA, TROP #### [facility] [address] [place] [address] Erin Estephania Glucose [Mass/Vol] 105 mg/dL Normal 74-106 [facility] Comment on above: Performed By: #### C MP, LIPA, TROP #### [facility] [address] [address] Erin Estephania Potassium [Moles/Vol] 3.7 mmol/L Normal 3.4-5.[address] [facility] Comment on above: Performed By: #### C MP, LIPA, TROP #### [facility] [address] [place] [address] Erin Estephania Protein [Mass/Vol] 7.3 g/dL Normal 6.1-8.2 [facility] Comment on above: Performed By: #### C MP, LIPA, TROP #### [facility] [address] [place] [address] Erin Estephania Sodium [Moles/Vol] 140 mmol/L Normal 137-145 [facility] Comment on above: Performed By: #### C MP, LIPA, TROP #### [facility] [address] [place] [address] Erin Estephania Urea nitrogen [Mass/Vol] 21.0 mg/dL Critically high 7.0-17.0 [facility] Comment on above: Performed By: #### C MP, LIPA, TROP #### [facility] [address] [place] [address] Erin Estephania Urea nitrogen/Creatinine [Mass ratio] 24.7 mg/mg Normal [facility] Comment on above: Performed By: #### C MP, LIPA, TROP #### [facility] [address] [place] [address] Erin Estephania PROTIMEon 11-01-2019 INR Coag (PPP) [Relative time] 1.03 {INR} Normal [facility] Comment on above: Performed By: #### P TT, PT #### [facility] [address] [place] [address] Erin Estephania PT Coag (PPP) [Time] 10.7 s Normal 9.0-11.[address] [facility] Comment on above: Performed By: #### P TT, PT #### [facility] [address] [place] [address] Erin Estephania PT Coag (PPP) [Time] SEE BELOW Normal [facility] Comment on above: Result Comment: CONG RED INR: 2.0 - 3.0 CONDITIONS NOT LISTED BELOW 2.5 - 3.5 FOR PROSTHETIC HEART VALVE REPLACEMENT 2.5 - 3.5 RECURRENT THROMBOSIS Performed By: #### P TT, PT #### [facility] [address] [place] [address] Erinrufus Best PT Coag (PPP) [Time] PLEASE NOTE: NORMAL RANGE CHANGE 05-17-2014 DUE TO REAGENT LOT CHANGE Normal [facility] Comment on above: Performed By: #### P TT, PT #### [facility] [address] [place] [address] Erinrufus Best PTTon 11-01-2019 aPTT Coag (Bld) [Time] 27.1 s Normal 22.3-36.2 [facility] Comment on above: Performed By: #### P TT, PT #### [facility] [address] [place] [address] Erin Estephania aPTT Coag (Bld) [Time] PLEASE NOTE: NORMAL RANGE CHANGE 07-24-2015 DUE TO REAGENT LOT CHANGE Normal [facility] Comment on above: Performed By: #### P TT, PT #### [facility] [address] [place] [address] Erin Best TROPONIN - Ion 11-01-2019 Troponin I.cardiac [Mass/Vol] SEE BELOW Normal [facility] Comment on above: Result Comment: <0.0 34 ng/ml NEGATIVE 0.034-0.119 INDETERMINATE 0.120 AMI CUT OFF Performed By: #### C MP, LIPA, TROP #### [facility] [address] [place] [address] Erinrufus Best Troponin I.cardiac [Mass/Vol] ng/mL Normal <=0.034 [facility] Comment on above: Performed By: #### C MP, LIPA, TROP #### [facility] [address] [place], [place] [phone] Erin Estephania URINE MICROSCOPIC ONLYon Bacteria LM.HPF (Urine sed) [#/Area] TRACE Normal NONE SEEN [facility] Comment on above: Performed By: #### EVANGELINA ALVARENGA #### [facility] [address] [place] [address] Erin Estephania CAST SEEN Normal NONE SEEN [facility] Comment on above: Performed By: #### EVANGELINA ALVARENGA #### [facility] [address] [place], [place] [phone] Erin Estephania Crystals LM Nom (Urine sed) NONE SEEN Normal NONE SEEN [facility] Comment on above: Performed By: #### BRODY ALVARENGARO #### [facility] [address] [place], [place] [phone] Erin Estephania CULTURE NOT INDICATED Normal [facility] Comment on above: Performed By: #### Dayo NAIR UMVICKIRO #### [facility] [address] [place] [address] Erin Estephania Epithelial cells LM.HPF (Urine sed) [#/Area] FEW Normal [facility] Comment on above: Performed By: #### BRODY ALVARENGARO #### [facility] [address] [place] [address] Erin Estephania HYALINE CAST FEW Normal [facility] Comment on above: Performed By: #### BRODY ALVARENGARO #### [facility] [address] [place] [address] Erin Estephania MUCOUS TRACE Normal NONE SEEN [facility] Comment on above: Performed By: #### BRODY ALVARENGARO #### [facility] [address] [place], [place] [phone] Erin Estephania RBC (U) [#/Vol] 2-5 Normal 0-2 [facility] Comment on above: Performed By: #### BRODY ALVARENGARO #### [facility] [address] [place], [place] [phone] Erin Estephania WBC (Bld) [#/Vol] 2-5 Normal NONE SEEN The [facility] Comment on above: Performed By: #### Dayo NAIR UMVICKIRO #### [facility] [address] [place], [place] [phone] Erin Estephania MG MAMM SCREEN CHRISTINE W CADon 1 MG MAMM SCREEN CHRISTINE W CAD Patient: SHARON SOUSA Exam Date: 06/27/2019 : 1945 Gender:F Ordering : DR ESTEPHANIA ABARCA PA Admission #: [id number] Family : Order #: [id number] CLICK HERE TO VIEW EXAM RADIOLOGY REPORT [...] No Treatments None Family Cancers None LOCATION: [facility] BREAST COMPOSITION: Scattered areas fibroglandular density. FINDINGS: [...] Wallace M.D. on 06/27/2019 at 10:56 Normal [facility] Vital Signs Date Time Vital Sign Value Performing Clinician Facility 09-14-2024 15:18-0500 Body height 157.5 cm [employer] PA Work Phone: [facility] 09-14-2024 15:18-0500 Body mass index (BMI) [Ratio] 19.64 kg/m2 Estephania Hemmer PA Work Phone: [facility] 09-14-2024 15:18-0500 Body weight 48.72 kg Estephania Hemmer PA Work Phone: [facility] 09-14-2024 15:18-0500 Diastolic blood pressure 60 mm[Hg] Estephania Hemmer PA Work Phone: [facility] [employer] 09-14-2024 15:18-0500 Heart rate 54 /min Estephania Hemmer PA Work Phone: [facility] 09-14-2024 15:18-0500 Respiratory rate 16 /min [employer] PA Work Phone: [facility] [employer] 09-14-2024 15:18-0500 SaO2% (BldA) [Mass fraction] 99 % Estephania BARRY Work Phone: [facility] 09-14-2024 15:18-0500 Systolic blood pressure 104 mm[Hg] Estephania BARRY Work Phone: [facility] 08-18-2024 13:27-0500 Body height 157.5 cm Natalya Hensley MD Work Phone: [facility] 08-18-2024 13:27-0500 Body mass index (BMI) [Ratio] 20.08 kg/m2 Natalya Hensley MD Work Phone: [facility] 08-18-2024 13:27-0500 Body weight 49.8 kg Natalya Hensley MD Work Phone: [facility] 08-18-2024 13:27-0500 Diastolic blood pressure 78 mm[Hg] Natalya Hensley MD Work Phone: [facility] 08-18-2024 13:27-0500 Heart rate 74 /min Natalya Hensley MD Work Phone: [facility] 08-18-2024 13:27-0500 SaO2% (BldA) [Mass fraction] 100 % Natalya Hensley MD Work Phone: [facility] 08-18-2024 13:27-0500 Systolic blood pressure 136 mm[Hg] Natalya Hensley MD Work Phone: [facility] 08-07-2024 14:51-0500 Body height 157.5 cm Gabino Loomis MD Work Phone: [facility] 08-07-2024 14:51-0500 Body mass index (BMI) [Ratio] 20.12 kg/m2 Gabino Loomis MD Work Phone: [facility] 08-07-2024 14:51-0500 Body weight 49.9 kg Gabino Loomis MD Work Phone: [facility] 08-07-2024 14:51-0500 Diastolic blood pressure 76 mm[Hg] Gabino Loomis MD Work Phone: [facility] 08-07-2024 14:51-0500 Heart rate 69 /min Gabino Loomis MD Work Phone: [facility] 08-07-2024 14:51-0500 SaO2% (BldA) [Mass fraction] 100 % Gabino Loomis MD Work Phone: [facility] 08-07-2024 14:51-0500 Systolic blood pressure 122 mm[Hg] Gabino Loomis MD Work Phone: [facility] 07-06-2024 15:30-0500 Body height 157.5 cm Estephania Hemmer PA Work Phone: [facility] 07-06-2024 15:30-0500 Body mass index (BMI) [Ratio] 20.16 kg/m2 Estephania Hemmer PA Work Phone: [facility] 07-06-2024 15:30-0500 Body temperature 98.71 [degF] Estephania Hemmer PA Work Phone: [facility] 07-06-2024 15:30-0500 Body weight 49.99 kg Estephania Hemmer PA Work Phone: [facility] 07-06-2024 15:30-0500 Diastolic blood pressure 76 mm[Hg] Estephania Hemmer PA Work Phone: [facility] 07-06-2024 15:30-0500 Heart rate 72 /min Estephania Hemmer PA Work Phone: [facility] 07-06-2024 15:30-0500 Respiratory rate 16 /min Estephania Hemmer PA Work Phone: [facility] 07-06-2024 15:30-0500 SaO2% (BldA) [Mass fraction] 98 % Estephania Hemmer PA Work Phone: [facility] 07-06-2024 15:30-0500 Systolic blood pressure 104 mm[Hg] Estephania Hemmer PA Work Phone: [facility] 05-10-2024 13:46-0400 Body height 157.5 cm Gabino Loomis MD Work Phone: [facility] 05-10-2024 13:46-0400 Body mass index (BMI) [Ratio] 20.3 kg/m2 Gabino Loomis MD Work Phone: [facility] 05-10-2024 13:46-0400 Body weight 50.35 kg Gabino Loomis MD Work Phone: [facility] 05-10-2024 13:46-0400 Diastolic blood pressure 76 mm[Hg] Gabino Loomis MD Work Phone: [facility] 05-10-2024 13:46-0400 Heart rate 88 /min Gabino Loomis MD Work Phone: [facility] 05-10-2024 13:46-0400 SaO2% (BldA) [Mass fraction] 98 % Gabino Loomis MD Work Phone: [facility] 05-10-2024 13:46-0400 Systolic blood pressure 132 mm[Hg] Gabino Loomis MD Work Phone: [facility] 09-30-2022 14:45-0500 Body height 157.48 cm Imad Asaad Other [employer] Other 09-30-2022 14:45-0500 Body mass index (BMI) [Ratio] 21.03 kg/m2 Imad Asaad Other [employer] Other 09-30-2022 14:45-0500 Body weight 52.16 kg Imad Asaad Other [employer] Other 09-30-2022 14:45-0500 Diastolic blood pressure 87 mm[Hg] Imad Asaad Other [employer] Other 09-30-2022 14:45-0500 Systolic blood pressure 137 mm[Hg] Imad Asaad Other [employer] Other 01-28-2022 14:15-0400 Body height 157.48 cm Philippe Barrett Other [employer] Other 01-28-2022 14:15-0400 Body mass index (BMI) [Ratio] 20.12 kg/m2 Philippe Barrett Other [employer] Other 01-28-2022 14:15-0400 Body weight 49.9 kg Philippe Barrett Other [employer] Other Encounters Encounter Date Encounter Type Care Provider Facility Start: 09-14-2024 End: 09-14-2024 ambulatory ESTEPHANIA ABARCA Not Available Start: 09-14-2024 End: 09-14-2024 Office outpatient visit 25 minutes Estephania BARRY Work Phone: [facility] Comment on above: Paroxysmal atrial fi brillation (CMS/HCC) (Primary Dx); Vitamin D deficiency; Essential hypertension (CMS/HCC); Gastro-esophageal reflux disease without esophagitis; Chronic gastritis without bleeding, unspecified gastritis type Start: 09-14-2024 End: 09-14-2024 Bamboo flowsheet Estephania BARRY Work Phone: [facility] Start: 09-14-2024 End: 09-14-2024 Bamboo flowsheet Estephania BARRY Work Phone: [facility] Start: 09-01-2024 End: 09-01-2024 ambulatory [facility] Start: 08-18-2024 End: 08-18-2024 ambulatory [facility] Start: 08-18-2024 End: 08-18-2024 Office outpatient new 45 minutes Natalya Hensley MD Work Phone: [facility] Comment on above: Paroxysmal atrial fi brillation (CMS-HCC) (Primary Dx); Essential hypertension Start: 08-17-2024 End: 08-17-2024 Telephone encounter Cate Verónica DONN [facility] Start: 08-07-2024 End: 08-07-2024 Office [...] minutes Estephania BARRY Work Phone: [facility] Comment on [...] Not Available Start: 12-14-2022 ambulatory Imad Asaad Facility:[facility] Start: 12-07-2022 End: 12-07-2022 ambulatory Imad Asaad Other [employer] Other Start: 12-07-2022 Telephone encounter Imad Asaad [facility] Start: 10-09-2022 End: 10-09-2022 ambulatory Imad Asaad Facility:[facility] Start: 10-09-2022 End: 10-09-2022 ambulatory II Gabino Vladislav Work Phone: [facility] [place] [facility] Work Phone: Start: 10-09-2022 End: 10-09-2022 Patient encounter procedure II Gabino Loomis Work Phone: [facility] [place] [facility] [place] Work Phone: Start: 09-30-2022 End: 09-30-2022 ambulatory Imad Asaad Facility:[facility] Start: 09-30-2022 End: 09-30-2022 Patient encounter procedure II Gabino Loomis Work Phone: [facility] [place] [facility] [place] Work Phone: Start: 09-30-2022 End: 09-30-2022 ambulatory II Gabino Vladislav Work Phone: [facility] [place] [facility] Work Phone: Start: 09-30-2022 Office consultation new/estab patient 60 min Imad Asaad [facility] Start: 02-16-2022 End: 02-16-2022 ambulatory Philippe Barrett Other [employer] Other Start: 02-16-2022 Telephone encounter Philippe Barrett [facility] Start: 02-11-2022 End: 02-11-2022 ambulatory Philippe Barrett Facility:[facility] Start: 02-09-2022 End: 02-09-2022 ambulatory Philippe Barrett Facility:[facility] Start: 01-28-2022 End: 01-28-2022 ambulatory Philippe Barrett Other [employer] Other Start: 01-28-2022 Office outpatient ne w 45 minutes Philippe Barrett [facility] Start: 05-27-2020 End: 05-28-2020 Patient [...] Td Vaccines (2 - Td [facility]ap) [facility] Start: 08-18-2025 Tobacco Screening Tobacco Screening [facility] Start: 11-17-2024 Medicare Annual Wellness (AWV) Medicare Annual Wellness (AWV) [facility] Start: 10-26-2024 End: 10-26-2024 Patient encounter procedure 10/26/2024 2:15 PM EST Office Visit [facility] [address] [place] [address] Natalya Hensley MD [address] [place] [address] [facility] Start: 10-09-2024 End: 10-09-2024 Patient encounter procedure 10/09/2024 2:30 PM EST Office Visit [facility] [address] [facility] [address] [place] [phone] Gabino Loomis MD [address] [facility] [address] [place] [address] [facility] Start: 09-01-2024 End: 09-01-2024 Patient encounter procedure 09/01/2024 3:00 PM EST Appointment [facility] [address] [facility] [place] [phone] Natalya Hensley MD [address] [place] [address] [facility] Start: 08-18-2024 End: 08-18-2025 CBC W Auto Differential panel - Blood [facility] Comment on above: Expected: 08/18/2024 (Approximate), Expi res: 08/18/2025 Start: 08-18-2024 End: 08-18-2025 Comprehensive metabolic 2000 panel - Serum or Plasma [facility] Comment on above: Expected: 08/18/2024 (Approximate), Expi res: 08/18/2025 Start: 08-18-2024 End: 08-18-2025 Echo complete W/O contrast Echo complete W/O contrast Echocardiography Routine Essential hypertension Paroxysmal atrial fibrillation ([facility]-HCC) Expected: 08/18/2024, Expires: 08/18/2025 [employer] Work Phone: Comment on above: Expected: 08/18/2024, Expires: Start: 08-18-2024 End: 08-18-2025 Thyrotropin [Units/volume] in Serum or Plasma [facility] Comment on above: Expected: 08/18/2024 (Approximate), Expi res: 08/18/2025 Start: 08-18-2024 End: 08-18-2025 Thyroxine (T4) free [Mass/volume] in Serum or [facility] Comment on above: Expected: 08/18/2024 (Approximate), Expi res: 08/18/2025 Start: 08-18-2024 End: 08-18-2024 Patient encounter procedure 08/18/2024 1:30 PM EST Office Visit [facility] [address] [place] [phone] Natalya Hensley MD [address] [place] [address] [facility] Start: 08-07-2024 End: 08-07-2024 Patient encounter procedure [facility] Comment on above: Arrived Start: 07-10-2024 End: 07-10-2024 Patient encounter procedure 07/10/2024 1:30 PM EST Office Visit [facility] [address] [facility] [address] [place] [phone] Gabino Loomis MD [address] [place] [address] [place] [address] [facility] Start: 07-06-2024 End: 07-06-2025 Holter monitor study Holter monitor Imaging Routine Frequent PVCs Palpitations Near syncope Expected: 07/06/2024 (Approximate), Expires: 07/06/2025 [facility] Work Phone: Comment on above: Expected: 07/06/2024 (Approximate), Expi res: 07/06/2025 Start: 05-10-2024 End: 05-10-2024 Patient encounter procedure 05/10/2024 1:45 PM EDT Office Visit [facility] [address] [place] [phone] Gabino Loomis MD [address] [place] [address] [place] [address] Arrived [facility] Comment on above: Arrived Start: 04-30-2024 COVID-19 Vaccine () COVID-19 Vaccine () [facility] Start: 04-30-2024 Influenza vaccination Influenza Vaccine (#1) [facility] Start: 04-14-2019 Pneumococcal Vaccine: 65+ Years (2 of 2 - PCV) Pneumococcal Vaccine: 65+ Years (2 of 2 - PCV) [facility] Start: 2008 Fall Risk Screening Fall Risk Screening [facility] Start: 1993 Administration of varicella zoster vaccine Zoster (Shingles) Vaccine (1 of 2) [facility] Start: 1955 Depression Screening Depression Screening [facility] Start: 1955 Tobacco Screening Tobacco Screening [facility] Calprotectin [Mass/m ass] in Stool [facility] Endomysial antibody IgA level [facility] Gliadin peptide IgA Ab [Units/volume] in Serum [facility] Gliadin peptide IgG Ab [Units/volume] in Serum [facility] HLA DQ antigen typing [facility] IgA [Mass/volume] in Serum or Plasma [facility] Tissue transglutamin ase IgA Ab [Units/volume] in Serum [facility] Tissue transglutamin ase IgG Ab [Units/volume] in Serum [facility] Immunizations Immunization Date Immunization Notes Care Provider Fa cili 08-07-2024 Influenza, High-dose Seasonal, Quadrivalent, Preservative Free Gabino Loomis MD Work Phone: [facility] 09-03-2023 Influenza, High-dose Seasonal, Quadrivalent, Preservative Free Gabino Loomis MD Work Phone: [facility] 09-03-2023 influenza virus vacc ine, unspecified formulation Gabino Loomis MD Work Phone: [facility] 07-20-2022 Influenza, High-dose Seasonal, Quadrivalent, Preservative Free Gabino Loomis MD Work Phone: [facility] 07-20-2022 Moderna SARS-CoV-2 50mcg/0.5mL Booster Gabino Loomis MD Work Phone: [facility] 08-11-2021 COVID-19 mRNA-1273 (Moderna) II Gabino Loomis Work Phone: [facility] 05-29-2021 influenza, high dose seasonal, preservative-free Gabino Loomis MD Work Phone: [facility] 02-20-2021 tetanus toxoid, redu ryan diphtheria toxoid, and acellular pertussis vaccine, adsorbed Gabino Loomis MD Work Phone: [facility] 11-28-2020 COVID-19 mRNA-1273 (Moderna) II Gabino Loomis Work Phone: [facility] 10-31-2020 COVID-19 mRNA-1273 (Moderna) II Gabino Loomis Work Phone: [facility] 07-12-2020 Influenza, High-dose Seasonal, Quadrivalent, Preservative Free Gabino Loomis MD Work Phone: [facility] 04-14-2018 pneumococcal polysaccharide vaccine, 23 valent Gabino Loomis MD Work Phone: [facility] Payers Date Payer Category Payer Self-pay [id number] 2017 Medicare ANTHEM MEDICARE ADVANTAGE ANTHEM MEDICARE ADVANTAGE [id number] 2017-Present [address] [place] [id number] 2017 Medicare (Managed Care) [facility] [id number] 2015 Medicare HMO [facility]IC[facility] [id number] 1959 Unknown [id number] 1945 Unknown [id number] 2.16.840.1.975811.3.579. 2.593 1945 Unknown [id number] 2.16.840.1.925360.3.579. 2.593 1945 Unknown [id number] 2.16.840.1.959610.3.579. 2.593 1945 Unknown [id number] 2.16.840.1.405173.3.579. 2.1286 1945 Unknown [id number] 2.16.840.1.127903.3.579. 2.1286 1945 Unknown [id number] 2.16.840.1.479961.3.579. 2.1286 1945 Unknown [id number] 2.16.840.1.180768.3.579. 2.1259 1945 Unknown [id number] 2.16.840.1.550946.3.579. 2.1259 1945 Unknown [id number] 2.16.840.1.317799.3.579. 2.1259 1945 Unknown [id number] 2.16.840.1.757156.3.579. 2.1259 1945 Unknown [id number] 2.16.840.1.533887.3.579. 2.1259 1945 Unknown [id number] 2.840.1.786575.3.579. 2.1259 Medicare Anthem MCR PF OP [id number] Unknown [id number] 2.16.840.1.744880.3.579. 2.531 Unknown [id number] 2.16840.1.966991.3.579. 2.531 Unknown [id number] 2.16.840.1.398204.3.579. 2.531 Unknown [id number] 2.16840.1.699946.3.579. 2.531 Unknown [id number] 2.16840.1.252136.3.579. 2.531 Social History Date Type Detail Facility Start: 11-23-2023 End: 02-29-2024 Sex Assigned At [employer] Other Start: 1945 Sex Assigned At Female F [facility] Start: 05-19-2017 End: 03-04-2023 Tobacco smoking status PRIS Never smoked tobacco [facility] Start: 05-19-2017 End: 03-04-2023 Tobacco use and exposure Smokeless tobacco non-user [facility] Start: 07-06-2024 End: 09-14-2024 Alcoholic beverage intake Ex-drinker (finding) [facility] [...] at Not on file [facility] Start: 11-03-2021 End: 08-18-2024 Alcoholic beverage intake Current non-drinker of alcohol (finding) [facility] Start: 04-04-2015 Sex Female (finding) [facility] Clinical Notes 01-28-2022 to 09-14-2024 JHONNY Monahan - 09/14/2024 3:00 PM Adams Hensley MD - 08/18/2024 1:30 PM ESTTelephone Encounter - Cate Sanches CMA - 08/17/2024 3:22 PM Lukas Loomis MD - 08/07/2024 3:00 PM EST Note Date & Type Note Facility 09-14-2024 History of Presen t illness Narrative Images from the original note were not included. HPI Med Refill Additional comments: Vitamin D Last edited by Vanessa Tracy LPN on 09/14/2024 3:18 PM. Subjective Patient ID: Sharon Sousa is a 79 y.o. female who presents for abdominal issues. Sharon is present today for evaluation of abdominal symptoms. Admits she is having cramping in her abdomen off/on since 08/07/[address] Loomis and was diagnosed with gastritis, Rx'd Ondansetron and Famotidine and states it helps some but is still uncomfortable. Pt threw up one time over a week ago. Still feels nauseated at times, Zofran does help with the nausea. The discomfort she has is only by her stomach. The pain is sharp at times, strong enough that it makes her cry. Having normal BM's, regular consistency. Doesn't always go every day. Doesn't have to strain to have a BM. Did go to ER on 08/20/2024. Is on Metoprolol and Eliquis for Atrial Fibrillation, is in the process of being treated by Cardiology. Admits to some dizziness. Admits does not drink much water. Current Outpatient Medications on File Prior to Visit Medication Sig Dispense Refill metoprolol succinate XL (Toprol-XL) 25 MG 24 hr tablet Take 25 mg by mouth in the morning. apixaban (Eliquis) 5 MG tablet Take 1 tablet (5 mg) by mouth in the morning and 1 tablet (5 mg) before bedtime. 60 tablet 5 donepezil (Aricept) 5 MG tablet Take 1 tablet (5 mg) by mouth at bedtime for 30 days, THEN 2 tablets (10 mg) at bedtime. 210 tablet 0 famotidine (Pepcid) 20 MG tablet Take 1 tablet (20 mg) by mouth Daily 30 tablet 11 levothyroxine (Synthroid, Levoxyl) 75 MCG tablet Take [...] ODT (Zofran-ODT) 4 MG disintegrating tablet Take 1 tablet (4 mg) by mouth every 8 (eight) hours if needed for nausea 20 tablet 2 [DISCONTINUED] ergocalciferol (Drisdol) 1.25 MG (09071 UT) capsule Take 1 capsule (1.25 mg) by mouth 1 (one) time per week 12 capsule 3 No current facility-administered medications on file prior [...] EXCISION ovarian mass removal Visit Vitals BP 104/60 Pulse 54 Resp 16 Ht 5' 2 Wt 107 lb 6.4 oz SpO2 99% BMI 19.64 kg/m Smoking Status Never BSA 1.46 m Review of Systems Constitutional: Negative for chills, fatigue and fever. Respiratory: Negative for cough, shortness of breath and wheezing. Cardiovascular: Negative for chest pain, palpitations and leg swelling. Gastrointestinal: Positive for abdominal pain and vomiting. Negative for constipation, diarrhea and nausea. Skin: Negative for rash. Neurological: Positive for dizziness. Objective Physical Exam Constitutional: General: She is not in acute distress. Appearance: Normal appearance. She is well-developed. Comments: Frail appearing HENT: Head: Normocephalic and atraumatic. Eyes: General: No scleral icterus. Conjunctiva/sclera: Conjunctivae normal. Cardiovascular: Rate and Rhythm: Bradycardia present. Rhythm irregular. Heart sounds: Normal heart sounds. No murmur heard. Pulmonary: Effort: Pulmonary effort is normal. No respiratory distress. Breath sounds: Normal breath sounds. No wheezing, rhonchi or rales. Abdominal: General: Bowel sounds are normal. Palpations: Abdomen is soft. There is no hepatomegaly or splenomegaly. Tenderness: There is abdominal tenderness in the epigastric area. Skin: General: Skin is warm and dry. Neurological: General: No focal deficit present. Mental Status: She is alert and oriented to person, place, and time. Comments: Pt did become dizzy going from supine to sitting up position. Psychiatric: Mood and Affect: Mood normal. Behavior: Behavior normal. Assessment/Plan Diagnoses and all orders for this visit: Paroxysmal atrial fibrillation (CMS/HCC) Patient had ECHO 09/01/2024, EF was 64%. Follow up with Cardiology as scheduled on 10/26/2024. Currently rate controlled, even to point of being bradycardic in the office today. Vitamin D deficiency - ergocalciferol (Drisdol) 1.25 MG (48798 UT) capsule; Take 1 capsule (1.25 mg) by mouth 1 (one) time per week Provided pt with refill on the above. Will continue to monitor with routine labs. Essential hypertension (CMS/HCC) BP is low normal today. Likely due to addition of Metoprolol for treatment of the atrial fibrillation. Encouraged pt to increase her water intake and be sure to rise slowly from a seated position or when laying down. Gastro-esophageal reflux disease without esophagitis Symptoms not improved significantly with the addition of Famotidine. She also has Omeprazole. Possibly consider changing to Pantoprazole in the future. Chronic gastritis without bleeding, unspecified gastritis type - sucralfate (Carafate) 1 g tablet; Take 1 tablet (1 g) by mouth in the morning and 1 tablet (1 g) in the evening and 1 tablet (1 g) before bedtime. Do all this for 10 days. Weight loss 3 pounds since last appt due to current stomach issues. Will have her try Carafate as prescribed above. Reviewed dosing instructions with pt and her . Keep to bland diet. They are to call if she is no better over next week. May need to be referred for an updated EGD for further evaluation. The patient was seen today in follow up of recent hospital ER visit. All available hospital records/labs/diagnostics were reviewed and discussed with the patient. ER discharge meds were reviewed. Any changes to plan are noted above. Follow up for Appointment As Scheduled. documented in this encounter [facility] 08-18-2024 History of Presen t illness Narrative [...] Chief Complaint Patient presents with New Patient BUTCHER SCULLION REFERRAL ESTEPHANIA ABARCA FREQUENT PVCS, PALPS, NEAR SYNCOPE, [facility] ER 07/02/2024, SCHED W/PT++labs in care everywhere, pcp office note in care everywhere, requested ER records/HM report from [facility]++jlw 08/08/2024 History of Present Illness Patient [...] 11/21/2020 Performed by Everardo Alfredo MD at [facility] OOPHORECTOMY OVARIAN CYST SURGERY History reviewed. [...] Resource Strain: Low Risk (11/23/2023) Received from [facility] Overall Financial Resource Strain (CARDIA) Difficulty of Paying Living Expenses: Not hard at all Food Insecurity: No Food Insecurity (08/18/2024) Hunger Screening Food Insecurity - Worry: Never True Food Insecurity - Inability: Never True Transportation Needs: No Transportation Needs (11/23/2023) Received from [facility] PRAPARE - Transportation Lack of Transportation (Medical): No Lack of Transportation (Non-Medical): No Physical Activity: Insufficiently Active (11/23/2023) Received from [facility] Exercise Vital Sign Days of Exercise per Week: 7 days Minutes of Exercise per Session: 10 min Stress: No Stress Concern Present (11/23/2023) Received from [facility] [place] [employer] - Occupational Stress Questionnaire Feeling of Stress : Not at all Social Connections: Moderately Integrated (11/23/2023) Received from [facility] Social Connection and Isolation Panel [NHANES] Frequency of Communication with Friends and Family: Once a week Frequency of Social Gatherings with Friends and Family: Twice a week Attends Nondenominational Services: 1 to 4 times per year Active Member of Clubs or Organizations: No Attends Club or Organization Meetings: Never Marital Status: Interpersonal Safety: Not At Risk (11/23/2023) Received from [facility] Humiliation, Afraid, Rape, and Kick questionnaire Fear of Current or Ex-Partner: No Emotionally Abused: No Physically Abused: No Sexually Abused: No Housing Instability: High Risk (11/23/2023) Received from [facility] Housing Stability Vital Sign Unable to [...] these and any potential arrhythmias unless we cone picker that this is a blood pressure [...] LOOMIS MD Referring Physician: JHONNY Hernandez [address] [facility] [address] [place] [address] [facility]17[facility]24 Miscellaneous Notes Called patient to remind them to bring their most current copy of their medication list with them to their appt. Patient's verbalizes understanding. documented in this encounter [facility] 08-17-2024 Telephone encounter Note Called patient to remind them to bring their most current copy of their medication list with them to their appt. Patient's verbalizes understanding. [facility] 08-07-2024 History of Presen t illness Narrative Images from the original note were not included. HPI holter monitor Additional comments: Pt had holter monitor done through [facility]--she has appt sched with cardiology 08/18/24 Last edited by Dee Luque LPN on 08/07/2024 2:57 PM. Subjective Patient ID: Sharon Suosa is a 79 y.o. female who presents for Gastritis and holter monitor (Pt had holter monitor done through [facility]--she has appt sched with cardiology 08/18/24). [...] 210 tablet 0 ergocalciferol (Drisdol) 1.25 MG (51909 UT) capsule Take 1 capsule (1.25 mg) [...] Colitis 2021 Duodenal ulcer 2011 Erosive gastritis 2012 Gastric polyp 2011 GERD (gastroesophageal reflux disease) [...] need - Influenza, high-dose seasonal, quadrivalent, PF (XLT280) (Fluzone High Dose [place] 0.7mL dose) Near syncope - Holter just completed, has upcoming appt with Cardiology. Follow up in about 2 months (around 10/08/2024) for F/U med changes. documented in this encounter [facility] 07-06-2024 History of Presen t illness Narrative Images from the original note were not included. Subjective Patient ID: Sharon Sousa is a 79 y.o. female who presents for [facility] ER follow up. Sharon is present today for [facility] ER follow up from 07/04/2024. Dx. [...] 210 tablet 0 ergocalciferol (Drisdol) 1.25 MG (03970 UT) capsule Take 1 capsule (1.25 mg) [...] vomiting, unspecified vomiting type Encouraged them to cone picker the Zofran today. She can take [...] 08/03/2024) for Recheck. documented in this encounter [facility] 05-10-2024 History of Presen t illness Narrative Images from the original note were not included. HPI Osteoporosis Additional comments: Here for prolia injection Med Refill Additional comments: Omeprazole,levothyroxine--dennismar t agnest Last edited by Dee Luque LPN on 05/10/2024 1:51 PM. Subjective Patient ID: Sharon Sousa is a 79 y.o. female who presents for Osteoporosis (Here for prolia injection), Med Refill (Omeprazole,levothyroxine--dg alarcont), and Memory Loss. Pt has noticed some memory loss/ forgetfulness over last year feels it is worsening Med Refill Memory Loss Current Outpatient Medications on File Prior to Visit Medication Sig Dispense Refill Carafate 1 g tablet Take 1 g by mouth in the morning and 1 g in the evening and 1 g before bedtime. ergocalciferol (Drisdol) 1.25 MG (94297 UT) capsule Take 1 capsule (1.25 mg) [...] follow-ups on file. documented in this encounter [facility] 09-30-2022 Evaluation note Encounter Date Diagnosis Assessment Notes Sep, Abdominal pain (ICD-10 - R10.9) Sep, Bloating (ICD-10 - R14.0) [employer] Other 06-01-2022 Evaluation note* Encounter Date Diagnosis Assessment Notes Treatment Notes Treatment Clinical Notes Jan, Chronic gastritis (ICD-10 - K29.50) CONTINUE OMEPRAZOLE BID FOR NOW EGD [facility] AFTER Jan, Colitis (ICD-10 - K52.9) COLONOSCOPY Jan, Abdominal pain (ICD-10 - R10.9) [employer] Other Evaluation [facility]No [facility] adQ Other Evaludxqcd noteNo assessment information available [facility] Work Phone: Evalukwdea note* Diagnosis Epigastric pain- Primary Abdominal pain, epigastric Nausea and vomiting, unspecified vomiting type Acute gastritis without hemorrhage, unspecified gastritis type Frequent PVCs Palpitations Near syncope documented in this encounter [facility] HealthcareEvaluation note* Diagnosis Essential hypertension (CMS/HCC)- Primary Unspecified essential hypertension Hypothyroidism, unspecified type (CMS/HCC) Gastro-esophageal reflux disease without esophagitis Acute gastritis without hemorrhage, unspecified gastritis type Flu vaccine need Near syncope documented in this encounter [facility] HealthcareEvaluation note* Diagnosis Cognitive impairment- Primary Unspecified persistent mental disorders due to conditions classified elsewhere Age-related osteoporosis without current pathological fracture (CMS/HCC) Hypothyroidism, unspecified type (CMS/HCC) Gastro-esophageal reflux disease without esophagitis Essential hypertension (CMS/HCC) Unspecified essential hypertension documented in this encounter [facility] HealthcareEvaluation note* Diagnosis Paroxysmal atrial fibrillation (CMS-HCC)- Primary Atrial fibrillation Essential hypertension Unspecified essential hypertension documented in this encounter [facility] [employer] SystemEvaluation note* Diagnosis Paroxysmal atrial fibrillation (CMS/HCC)- Primary Atrial fibrillation Vitamin D deficiency Essential hypertension (CMS/HCC) Unspecified essential hypertension Gastro-esophageal reflux disease without esophagitis Chronic gastritis without bleeding, unspecified gastritis type documented in this encounter [facility] HealthcareHistory general Narrative - Reported* Type Description Date Medical History HTN Medical History GERD Medical History hypothyroidism Surgical History CHOLECYSTECTOMY Surgical History PARTIAL HYSTERECTOMY [facility] ad[employer] Other InstructionsNot on filedocumented in this encounter [employer] SystemInstructionsNot on filedocumented in this encounter [employer] Summary Purpose Family History No Family History [...] and content) DATE CREATED AUTHOR 06/01/2020 [facility] DATE CREATED AUTHOR AUTHOR'S ORGANIZ ATION 12/14/2022 [facility] DATE CREATED AUTHOR AUTHOR'S ORGANIZ ATION 09/09/2024 [facility] DATE CREATED AUTHOR AUTHOR'S ORGANIZ ATION 09/17/2024 [facility] EPIC REASON FOR VISIT (unrecogniz ed section and content) Reason Comments Gastritis holter monitor Pt had holter monito r done through [facility]--she has appt sched with cardiology 08/18/24 Reason Comments Osteoporosis Here for prolia inje ction Med Refill Omeprazole,levothyro xine--[facility] Memory Loss Reason Comments New Patient BUTCHER SCULLION REFERRAL ESTEPHANIA KAPLAN MMER FREQUENT PVCS, PALPS, NEAR SYNCOPE, [facility] ER 07/02/2024, SCHED W/PT++labs in care everywhere, pcp office note in care everywhere, requested ER records/HM report from [facility]++jlw 08/08/2024 Specialty Diagnoses / Procedures Referred By Contac t Referred To Contact Cardiology Diagnoses Frequent PVCs Palpitations Near syncope Procedures [place] OFFICE OUTPATIENT VISIT 60-74 MINS HIGH MDM [id number] (SNOMED CT) - AMB REFERRAL TO CARDIOLOGY Estephania Abarca PA [address] [facility] [address] [place] [address] Phone: tel: fax: Natalya Hensley MD [address] [place] [address] Phone: tel: fax: Referral ID Status Reason Start Date Expiration Date V isits Requested Visits Authorized [id number] Pending Review 07/06/2024 01/02/2025 1 1 Reason Comments Med Refill Vitamin D Care Teams (unrecognized sec tion and content) Team Status: Inactive Member Role Status Dates Gabino Loomis II MD Primary Care Provider Active Danna Sarmiento MD Attending Provider Active Team Status: Active Member Role Status Dates Gabino Loomis II MD Primary Care Provider Active Nurse Receptionist Relationship Specialty Start Date End Date Gabino Loomis MD [address] [place] [address] [place] [address] PCP - General Internal Medicine 02/15/23 Gabino Loomis MD [address] [place] [address] [place] [address] PCP - Vikki HOOK 03/30/24Wednesday, [place], JAVA DEVELOPER WITH SECURITY CLEARANCE [address] [place] [address] Licensed Practical Nurse Family Medicine 11/18/23 Nurse Receptionist Relationship Specialty Start Date End Date Gabino Loomis MD [address] [place] [address] [place] [address] PCP - General Internal Medicine 02/15/23 Gabino Loomis MD [address] [place] [address] [place] [address] PCP - Vikki HOOK 03/30/24Wednesday, [place], JAVA DEVELOPER WITH SECURITY CLEARANCE [address] [place] [address] Licensed Practical Nurse Family Medicine 11/18/23 Nurse Receptionist Relationship Specialty Start Date End Date Gabino Loomis MD [address] [place] [address] [place] [address] PCP - General Internal Medicine 02/15/23 Gabino Loomis MD [address] [place] [address] [place] [address] PCP Shan Florez MA 03/30/24Wednesday, [place], JAVA DEVELOPER WITH SECURITY CLEARANCE [address] [place] [address] Licensed Practical Nurse Family Medicine 11/18/23 Nurse Receptionist Relationship Specialty Start Date End Date Gabino Loomis MD [address] [place] [address] [place] [address] PCP - General Internal Medicine 02/15/23 Gabino Loomis MD [address] [place] [address] [place] [address] PCP - Vikki HOOK 03/30/24Wednesday, [place], JAVA DEVELOPER WITH SECURITY CLEARANCE [address] [place] [address] Licensed Practical Nurse Family Medicine 11/18/23 Nurse Receptionist Relationship Specialty Start Date End Date Gabino Loomis MD [address] [place] [address] [place] [address] PCP - General Internal Medicine 02/15/23 Gabino Loomis MD [address] [place] [address] [place] [address] PCP - Vikki HOOK 03/30/24Wednesday, [place], JAVA DEVELOPER WITH SECURITY CLEARANCE [address] [place] [address] Licensed Practical Nurse Family Medicine 11/18/23 Nurse Receptionist Relationship Specialty Start Date End Date Gabino Loomis MD [address] [place] [address] [place] [address] PCP - General Internal Medicine 02/15/23 Gabino Loomis MD [address] [place] [address] [place] [address] PCP Shan Florez MA 03/30/24Wednesday, [place], JAVA DEVELOPER WITH SECURITY CLEARANCE [address] [place] [address] Licensed Practical Nurse Family Medicine 11/18/23 Nurse Receptionist Relationship Specialty Start Date End Date Gabino Loomis MD [address] [place] [address] [place] [address] [phone] PCP - General Internal Medicine 10/31/19 Nurse Receptionist Relationship Specialty Start Date End Date Gabino Loomis MD [address] [place] [address] [place] [address] PCP - General Internal Medicine 10/31/19 Nurse Receptionist Relationship Specialty Start Date End Date Gabino Loomis MD [address] [place] [address] [place] [address] PCP - General Internal Medicine 02/15/23 Gabino Loomis MD [address] [place] [address] [place] [address] PCP - Vikki HOOK 03/30/24Wednesday, ARMEN Abdi [address] [place] [address] Licensed Practical Nurse Family Medicine 11/18/23 Goals [...] BE BASED ON THE PRIMARY CLINICAL RECORDS. [facility] [facility]. provides no warranty or guarantee of the accuracy or completeness of information in this document.
--- NOTE | 2024-10-03 21:51 | ECG_ITS ---
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
--- NOTE | 2024-10-03 21:54 | ED.GENADUL1 ---
HPI HPI - General Adult General Chief complaint: Extremity Injury, Upper Stated complaint: SHOULDER PAIN, DIZZINESS Time Seen by Provider: 10/03/24 21:45 Source: patient Mode of arrival: ambulance History of Present Illness HPI narrative: This 79-year-old female who is on Eliquis presents for evaluation of dizziness and pain in her right arm down to her elbow. The patient states she was getting ready to do dishes and turned her head when she suddenly felt dizzy like she was going to pass out. She did not pass out but EMS was called. Upon arrival she is crying stating that her arm was hurting and she feels dizzy. She has not had any nausea or vomiting. She denies any chest pain or shortness of breath. She has no focal weakness numbness or tingling. She denies any specific neck pain. She denies any abdominal pain. She has no lower extremity pain or swelling. Related Data Home Medications ?Medication ?Instructions ?Recorded ?Confirmed donepezil 5 mg tablet 5 mg PO QPM 07/04/24 08/20/24 levothyroxine 75 mcg tablet 75 mcg PO QAM 07/04/24 08/20/24 lisinopril 5 mg tablet 5 mg PO BID 07/04/24 08/20/24 omeprazole 40 mg capsule,delayed 40 mg PO BID 07/04/24 08/20/24 release apixaban 5 mg tablet (Eliquis) 5 mg PO BID 08/20/24 08/21/24 famotidine 20 mg tablet 20 mg PO DAILY 08/20/24 08/20/24 Previous Rx's ?Medication ?Instructions ?Recorded aspirin 81 mg chewable tablet 81 mg PO DAILY #30 tabs 08/21/24 metoprolol succinate 50 mg 50 mg PO DAILY #30 tabs 08/21/24 tablet,extended release 24 hr (Toprol XL) Allergies Allergy/AdvReac Type Severity Reaction Status Date / Time codeine Allergy Mild Rash Verified 04/06/24 10:16 Opioid HPI Opioid Management Most Recent Opioid Data: Last Pain Scale 9 07/04/24 18:44 07/04/24 Last ORT Total Score 0 08/20/24 17:26 08/20/24 Last ORT Risk Category Low Risk 08/20/24 17:26 08/20/24 Review of Systems ROS Status of ROS 10 or more systems reviewed and unremarkable except as noted in history and below [facility] Medical History (Updated 10/04/24 @ 01:21 by Mary Carty MD) Elevated troponin ?R79.89 - Other specified abnormal findings of blood chemistry (ICD-10) Atrial fibrillation with RVR ?I48.91 - Unspecified atrial fibrillation (ICD-10) Atrial fibrillation ?I48.91 - Unspecified atrial fibrillation (ICD-10) Vertigo ?R42 - Dizziness and giddiness (ICD-10) Hypothyroidism ?E03.9 - Hypothyroidism, unspecified (ICD-10) GERD (gastroesophageal reflux disease) ?K21.9 - Gastro-esophageal reflux disease without esophagitis (ICD-10) HTN (hypertension) ?I10 - Essential (primary) hypertension (ICD-10) Surgical History History of appendectomy ?Z90.49 - Acquired absence of other specified parts of digestive tract (ICD-10) Hx of cholecystectomy ?Z90.49 - Acquired absence of other specified parts of digestive tract (ICD-10) Social History (Updated 08/21/24 @ 12:02 by Shaikh Hernandez MD) Within the past year, how often did you have a drink containing alcohol: never Score interpretation: A score less than 3 is consistent with normal alcohol consumption. Smoking status: Never smoker Non-prescribed substance use: denies use Highest level of school completed/degree received: 9th grade Little interest or pleasure in doing things: not at all Feeling down, depressed, or hopeless: not at all Exam Narrative Exam Narrative: Vital signs and Nursing Notes reviewed: Pt is afebrile with a normal pulse, respiratory is elevated at 24, blood pressure is elevated at 189/75, she is not hypoxic with pulse ox of 100% on room air General: Awake, alert, oriented, anxious, tearful thin female, GCS 15, no respiratory distress HEENT: Normocephalic atraumatic, mucous membranes are moist and pink, eyes are clear, normal conjunctiva, vision is grossly intact, posterior pharynx is normal in appearance. No swelling of the tongue, uvula or pharyngeal soft tissues Neck: Supple, no meningeal signs, no anterior or posterior cervical lymphadenopathy, no pulsatile masses appreciated Chest: Lungs are clear to auscultation with good air entry, there is no wheezing rhonchi or rales appreciated no accessory muscle use, patient is speaking in complete sentences-no chest wall tenderness to palpation CVS: Regular rate and rhythm S1-S2, no murmurs rubs or gallops, pulses are brisk and equal bilaterally ABD: Soft, nondistended, nontender, no rebound guarding or rigidity, bowel sounds are normal, no pulsatile masses appreciated Extremities: No notable deformity to either upper extremity. Retail Solar Advisor strength is intact. There is tenderness along the distribution of the right humerus. 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 operator adjuster strength is intact Psych: crying upon arrival Constitutional Vital Signs, click to edit/add: Last Vital Signs Temp 97.8 F 10/03/24 21:41 Pulse 59 L 10/04/24 01:01 Resp 14 10/04/24 01:01 BP 135/50 10/04/24 01:01 Pulse Ox 100 10/04/24 01:01 Course Vital Signs Vital signs: Vital Signs Temperature 97.8 F 10/03/24 21:41 Pulse Rate 64 10/03/24 21:41 Respiratory Rate 24 H 10/03/24 21:41 Blood Pressure 189/75 H 10/03/24 21:41 Pulse Oximetry 100 10/03/24 21:41 Temperature 97.8 F 10/03/24 21:41 Pulse Rate 59 L 10/04/24 01:01 Respiratory Rate 14 10/04/24 01:01 Blood Pressure 135/50 10/04/24 01:01 Pulse Oximetry 100 10/04/24 01:01 Medical Decision Making [facility] Narrative Medical decision making narrative: This 79-year-old female presents for evaluation of dizziness and right arm pain from her shoulder to her elbow. Upon arrival she is crying stating that she has the severe pain in her arm. She denies any catie chest pain. She did not fall nor where she injured. She states the pain started while she was getting ready to wash dishes. She is on Eliquis and blood pressure medications. EKG done upon arrival is a sinus rhythm at 70 bpm with no acute changes. An IV was placed and she was medicated with IM Valium for her dizziness, meclizine, morphine for her pain and a cardiac workup was ordered. She has a normal white count and hemoglobin. Electrolytes are normal. Troponin is normal. X-ray of the chest is negative for acute findings. CT scan of the brain was also normal. On reevaluation the patient's arm pain has resolved but she now complains of epigastric abdominal pain and was given Pepcid and a GI cocktail. Shortly after receiving these medications she states that she has to go to the bathroom. Her abdominal pain resolved after she had a bowel movement. A repeat troponin was ordered and is also normal. The results of these findings were discussed with the patient and her and she wishes to be discharged home at this time. Her dizziness, arm pain and abdominal pain have all resolved. She is ambulatory in the emergency department and stable for discharge. Medical Records Medical records reviewed: Yes I reviewed the patient's medical records Medical records narrative: [facility] [place] [id number] CT Scan Report Signed Patient: ZAKIYA SOUSA MR#: [id number] : 1945 Acct:[id number] Age/Sex: 79 / F ADM Date: 10/03/24 Loc: ER Attending Dr: Ordering Physician: Mary Carty Date of Service: 10/03/24 Procedure(s): CT head/brain wo con Accession Number(s): [id number] cc: BRADY BORREGO ~ [facility] [place] [address] Patient Name: ZAKIYA SOUSA MRN: [id number] date: 1945 Sex: F Assigned Patient Location: ER Current Patient Location: ER Accession/Order Number: [id number] Exam Date: 10/03/2024 22:57 Report Date: 10/03/2024 23:20 At the request of: MARY CARTY Procedure: CT head/brain wo con EXAM: CT head/brain wo con HISTORY: dizziness with right arm pain TECHNIQUE: Axial CT scans through the head were obtained without IV contrast administration. Dose reduction techniques were achieved by using: automated exposure control and/or adjustment of mA and /or kV according to patient size and/or the use of an iterative reconstruction technique. COMPARISON: None. FINDINGS: The cerebral hemispheres have normal white and blancas matter and corticomedullary differentiation. A 0.8 x 1.0 cm partially calcified extra-axial soft tissue mass at the anterior aspect of the interhemispheric falx is likely due to a meningioma. To the limit of CT, the posterior fossa appears unremarkable. The ventricular system and cortical sulci are normal for the patient's age. No area of abnormal mass-effect or edema or intracranial hemorrhage. The visualized orbits show no abnormal mass. The visualized paranasal sinuses show no air-fluid level. Mastoid air cells are clear. CT/CT head/brain wo con IMPRESSION: No acute intracranial process. Probable 0.8 x 1.0 cm partially calcified meningioma at the anterior aspect of the interhemispheric falx. Electronically authenticated by: EVA MATA Date: 10/03/2024 23:20 Lab Data Lab results reviewed: Yes I reviewed the patient's lab results Labs: Lab Results 10/03/24 10/04/24 Range/Units 22:06 00:11 WBC 5.0 (4.0-11.0) 10^3/uL RBC 4.25 (4.20-5.40) 10^6/uL Hgb 12.8 (12.0-16.0) g/dL Hct 39.2 (36.0-48.0) % MCV 92.2 (81.0-99.0) fL MCH 30.1 (26.7-34.0) pg MCHC 32.7 (29.9-35.2) g/dL RDW 13.5 (11.0-15.0) % Plt Count 201 (150-450) 10^3/uL MPV 11.3 (9.5-13.5) fL Neut % (Auto) 53.9 (43.0-75.0) % Lymph % (Auto) 36.7 (20.5-60.0) % [place]ry % (Auto) 5.0 (1.7-12.0) % Eos % (Auto) 3.8 (0.9-7.0) % Baso % (Auto) 0.4 (0.2-2.0) % Neut # (Auto) 2.7 (1.4-6.5) 10^3/uL Lymph # (Auto) 1.8 (1.2-3.8) 10^3/uL Surry # (Auto) 0.3 (0.3-0.8) 10^3/uL Eos # (Auto) 0.2 (0.0-0.7) 10^3/uL Baso # (Auto) 0.0 (0.0-0.1) 10^3/uL Abs Immat Gran (auto) 0.01 (0.00-0.03) 10^3/uL Imm/Tot Granulo (auto) 0.2 (0.0-0.5) % Sodium 143 (136-145) mmol/L Potassium 3.8 (3.5-5.1) mmol/L Chloride 106 (98-107) mmol/L Carbon Dioxide 28.7 (21.0-32.0) mmol/L Anion Gap 12.1 BUN 25.0 H (7.0-18.0) mg/dL Creatinine 0.94 (0.55-1.02) mg/dL Est GFR ( Amer) >60 (>=60 mL/min/1.73m^2) Est GFR (Non-Af Amer) 57 L (>=60 mL/min/1.73m^2) BUN/Creatinine Ratio 26.6 Glucose 157 H (74-106) mg/dL Calcium 8.8 (8.5-10.1) mg/dL Total Bilirubin 0.4 (0.2-1.0) mg/dL AST 17 (15-37) U/L ALT 16 (14-59) U/L Alkaline Phosphatase 81 (46-116) U/L Troponin I High Sens 5.4 6.9 (4.0-51.3) pg/mL Total Protein 6.9 (6.4-8.2) g/dL Albumin 3.4 (3.4-5.0) g/dL Globulin 3.5 g/dL Albumin/Globulin Ratio 1.0 ECG Data Attestation: I personally reviewed and interpreted this ECG as follows: (Sinus rhythm at 70 bpm, normal axis, occasional PVCs with shortened RR interval, no acute ST segment elevation or T wave inversion) Discharge Plan Discharge Chief Complaint: Extremity Injury, Upper Clinical Impression: Dizziness, Arm pain, right Patient Disposition: Home, Self-Care Time of Disposition Decision: 01:21 Condition: Good Prescriptions / Home Meds: No Action donepezil 5 mg tablet 5 mg PO QPM levothyroxine 75 mcg tablet 75 mcg PO QAM lisinopril 5 mg tablet 5 mg PO BID omeprazole 40 mg capsule,delayed release(DR/EC) 40 mg PO BID Eliquis 5 mg tablet 5 mg PO BID famotidine 20 mg tablet 20 mg PO DAILY metoprolol succinate [Toprol XL] 50 mg tablet extended release 24 hr 50 mg PO DAILY Qty: 30 0RF aspirin 81 mg tablet,chewable 81 mg PO DAILY Qty: 30 0RF Print Language: Mohawk Instructions: Dizziness (ED), Arm Pain (ED) Referrals: BRADY BORREGO [Primary Care Provider] - 1 week Discharge Date/Time: 10/04/24 01:34
[2024-10-03 22:00] VITALS: PULSE 83
--- NOTE | 2024-10-03 22:03 | CT_ITS ---
The [address] [address] Patient Name: ZAKIYA SOUSA MRN: [id number] date: 1945 Sex: F Assigned Patient Location: ER Current Patient Location: Accession/Order Number: [id number] Exam Date: 10/03/2024 22:57 Report Date: 10/03/2024 23:20 At the request of: MARIANELA MARKER Procedure: CT head/brain wo con EXAM: CT head/brain wo con HISTORY: dizziness with right arm pain TECHNIQUE: Axial CT scans through the head were obtained without IV contrast administration. Dose reduction techniques were achieved by using: automated exposure control and/or adjustment of mA and /or kV according to patient size and/or the use of an iterative reconstruction technique. COMPARISON: None. FINDINGS: The cerebral hemispheres have normal white and blancas matter and corticomedullary differentiation. A 0.8 x 1.0 cm partially calcified extra-axial soft tissue mass at the anterior aspect of the interhemispheric falx is likely due to a meningioma. To the limit of CT, the posterior fossa appears unremarkable. The ventricular system and cortical sulci are normal for the patient's age. No area of abnormal mass-effect or edema or intracranial hemorrhage. The visualized orbits show no abnormal mass. The visualized paranasal sinuses show no air-fluid level. Mastoid air cells are clear. CT/CT head/brain wo con IMPRESSION: No acute intracranial process. Probable 0.8 x 1.0 cm partially calcified meningioma at the anterior aspect of the interhemispheric falx. Electronically authenticated by: EVA MATA Date: 10/03/2024 23:20
[2024-10-03 22:08] VITALS: BP 165/68; PULSE 82
[2024-10-03 22:19] LABS: Basophils Percent Auto 0.4 % (0.2-2.0); Eosinophils Absolute Auto 0.2 10^3/uL (0.0-0.7); Eosinophils Percent Auto 3.8 % (0.9-7.0); Hematocrit 39.2 % (36.0-48.0); Hemoglobin 12.8 g/dL (12.0-16.0); Immature Granulocytes Abs Auto 0.01 10^3/uL (0.00-0.03); Immature Granulocytes Pct Auto 0.2 % (0.0-0.5); Lymphocytes Absolute Auto 1.8 10^3/uL (1.2-3.8); Lymphocytes Percent Auto 36.7 % (20.5-60.0); Mean Corpuscular HGB Conc 32.7 g/dL (29.9-35.2); Mean Corpuscular Hemoglobin 30.1 pg (26.7-34.0); Mean Corpuscular Volume 92.2 fL (81.0-99.0); Mean Platelet Volume 11.3 fL (9.5-13.5); Monocytes Absolute Auto 0.3 10^3/uL (0.3-0.8); Neutrophils Absolute Auto 2.7 10^3/uL (1.4-6.5); Neutrophils Percent Auto 53.9 % (43.0-75.0); Platelet Count 201 10^3/uL (150-450); Red Blood Count 4.25 10^6/uL (4.20-5.40); Red Cell Distribution Width 13.5 % (11.0-15.0)
[2024-10-03] MEDS: 0.9 % SODIUM CHLORIDE 1,000 ML 100 ML IV (22:28)
[2024-10-03] MEDS: ONDANSETRON PF 4 MG/2 ML VIAL IV (22:29)
[2024-10-03] MEDS: MECLIZINE HCL 12.5 MG TABLET 25 MG PO (22:29)
[2024-10-03] MEDS: MORPHINE SULFATE 4 MG/ML VIAL IV (22:29)
[2024-10-03 22:30] VITALS: PULSE 81
[2024-10-03] MEDS: DIAZEPAM 10 MG/2 ML SYRINGE 2.5 MG IM (22:30)
[2024-10-03 22:38] LABS: Alanine Aminotransferase 16 U/L (14-59); Albumin Level 3.4 g/dL (3.4-5.0); Alkaline Phosphatase 81 U/L (46-116); Anion Gap 12.1; Aspartate Amino Transferase 17 U/L (15-37); BUN Creatinine Ratio 26.6; Bilirubin Total 0.4 mg/dL (0.2-1.0); Calcium 8.8 mg/dL (8.5-10.1); Carbon Dioxide 28.7 mmol/L (21.0-32.0); Chloride 106 mmol/L (98-107); Estimated GFR (African America >60 (>=60 mL/min/1.73m^2); Estimated GFR (Non-African Ame 57 (>=60 mL/min/1.73m^2); Globulin 3.5 g/dL; Glucose 157 mg/dL (74-106); Potassium 3.8 mmol/L (3.5-5.1); Sodium 143 mmol/L (136-145); Total Protein 6.9 g/dL (6.4-8.2)
[2024-10-03 22:40] LABS: Troponin I High Sensitivity 5.4 pg/mL (4.0-51.3)
[2024-10-03 23:05] VITALS: PULSE 77
[2024-10-03 23:30] VITALS: PULSE 71; O2SAT 99
[2024-10-04 00:07] VITALS: PULSE 70
[2024-10-04] MEDS: 0.9 % SODIUM CHLORIDE 500 ML IV (00:12)
[2024-10-04] MEDS: lidocaine HCL 15 ML, MAG HYDROX/ALUMINUM HYD/SIMETH 30 ML, HYOSCYAMINE SULFATE 0.25 MG PO (00:12)
[2024-10-04] MEDS: FAMOTIDINE/PF 20 MG/2 ML VIAL IV (00:12)
[2024-10-04 00:14] VITALS: BP 158/70; PULSE 76; O2SAT 99
[2024-10-04 00:30] VITALS: BP 157/66; PULSE 71; O2SAT 99
[2024-10-04 00:45] LABS: Troponin I High Sensitivity 6.9 pg/mL (4.0-51.3)
[2024-10-04 01:00] VITALS: PULSE 64; O2SAT 97
[2024-10-04 01:01] VITALS: BP 135/50; PULSE 59; O2SAT 100
== END 2024-10-04 01:34 | disposition home or self-care (01) ==
PROVIDERS: Emergency Provider Emergency Medicine; PCP Internal Medicine
DX: R42 Dizziness and giddiness (principal); M79.601 Pain in right arm; Z79.01 Long term (current) use of anticoagulants; Z90.49 Acquired absence of other specified parts of digestive tract; R10.13 Epigastric pain
CPT/HCPCS: 36415; 70450; 80053; 84484; 85025; 93005; 96361; 96372; 96374; 96375; 99285; J2270; J2405; J3360; J3490

== ENCOUNTER 2025-05-21 16:23 | Emergency (ER) | payer MEDICARE, SELFPAY ==
[2025-05-21 17:04] VITALS: BP 130/74; PULSE 109; TEMP 36.6; O2SAT 99; BMI 21.9
--- OUTSIDE RECORDS SUMMARY | 2025-05-21 17:15 | XMS_ITS | CCD ---
Author Organization [facility] Care Team Providers Care [employer] Officer Name Role Phone ESTEPHANIA ABARCA Admitting Unavailable [...] Barrett Unavailable BOBBI Loomis Primary Care Provider [phone] MD Danna Sarmiento Attending Provider [phone] Asaad, Imad Unavailable Asaad, Imad Admitting Unavailable [...] Gabino Loomis MD Primary Care Provider Wednesday Trinidad AYERS Unavailable Gabino Loomis MD Unavailable [phone] Gabino Loomis MD Primary Care Provider [phone] Lisbeth Wilson RN Unavailable Darya Darling LPN Unavailable Unavailable NATALYA HENSLEY Attending Unavailable ESTEPHANIA ABARCA Referring Unavailable GABINO LOOMIS Primary Care Unavailable NATALYA HENSLEY Referring Unavailable GABINO LOOMIS Primary Care Unavailable NATALYA HENSLEY Attending Unavailable NATALYA HENSLEY Referring Unavailable GABINO LOOMIS Primary Care Unavailable NATALYA HENSLEY Attending Unavailable GABINO LOOMIS Referring Unavailable GABINO LOOMIS Primary Care Unavailable NATALYA HENSLEY Attending Unavailable NATALYA HENSLEY Referring Unavailable GABINO LOOMIS Primary Care Unavailable NATALYA HENSLEY Attending Unavailable NATALYA HENSLEY Referring Unavailable GABINO LOOMIS Primary Care Unavailable NATALYA HENSLEY Attending Unavailable NATALYA HENSLEY Referring Unavailable GABINO LOOMIS Primary Care Unavailable NATALYA HENSLEY Attending Unavailable NATALYA HENSLEY Referring Unavailable GABINO LOOMIS Primary Care Unavailable GABINO LOOMIS Attending Unavailable ESTEPHANIA BAARCA Attending Unavailable GABINO LOOMIS Attending Unavailable HEMESTEPHANIA NG Attending Unavailable GABINO LOOMIS Attending Unavailable ESTEPHANIA ABARCA Referring Unavailable ESTEPHANIA ABARCA Attending Unavailable Allergies Allergy Classification Reported Allergen(s) Allergy Type Date of Onset Reaction(s) Facility (2 sources) Codeine; Translations: [CODEINE] Drug Allergy 7 [facility] Repository (4 sources) Codeine Drug Allergy Unknown [employer] Other (1 source) Codeine Drug Allergy 3 [facility] Repository (20 sources) Codeine Drug Allergy 7 Unknown, Confusion [facility] Medications Current Medications Medication Drug Class(es) Dates Sig (Normalized) Sig (Original) apixaban 5 mg oral tablet (13 sources) Factor Xa Inhibitor Start: 08-16-2024 take 1 tablet by mouth in the morning, then take 1 tablet by mouth at bedtime apixaban (ELIQUIS) 5 mg tablet Take 1 tablet (5 mg total) by mouth in the morning and 1 tablet (5 mg total) before bedtime. 60 tablet 11 08/18/2024 Active dicyclomine hydrochloride 20 mg oral tablet (5 sources) Anticholinergic Start: 11-03-2021 take 1 tablet by mouth twice daily dicyclomine (BENTYL) 20 mg tablet Take 1 tablet (20 mg total) by mouth 2 (two) times a day. 20 tablet 11/03/2021 Active donepezil hydrochloride 5 mg oral tablet (17 sources) Start: 05-10-2024 End: 09-07-2024 take 1 tablet by mouth at bedtime, then take 2 tablets by mouth at bedtime donepezil (Aricept) 5 MG tablet Indications: Cognitive impairment Take 1 tablet (5 mg) by mouth at bedtime for 30 days, THEN 2 tablets (10 mg) at bedtime. 210 tablet 05/10/2024 Active ergocalciferol 1.25 mg oral capsule (20 sources) Provitamin D2 Compound Start: 11-24-2023 End: 09-14-2025 take 1 capsule by mouth every week ergocalciferol (Drisdol) 1.25 MG (41759 UT) capsule Indications: Vitamin D deficiency Take 1 capsule (1.25 mg) by mouth 1 (one) time per week 12 capsule 3 09/14/2024 09/14/2025 Active levothyroxine sodium 0.075 mg oral tablet [...] e losartan potassium 25 mg oral tablet (5 sources) Angiotensin 2 Receptor Shoshana take 1 [...] succinate 25 mg extended release oral tablet (15 sources) beta-Adrenergic Shoshana Start: 08-18-20 End: 11-28-19 take 1 tablet by mouth every twenty-four [...] 05/10/2024 05/10/2025 Active take 1 capsule by [facility] every twelve hours Omeprazole 40 MG 1 capsule Orally bid Active ondansetron 4 mg disintegrating oral tablet (20 sources) Serotonin-3 Receptor Antagonist Start: 11-03-2021 End: 01-07-2025 take 1 tablet by mouth every eight hours as needed for nausea ondansetron ODT (ZOFRAN ODT) 4 mg disintegrating tablet Dissolve 1 tablet (4 mg total) on tongue every 8 (eight) hours as needed for nausea for up to 10 doses. 10 tablet 11/03/2021 Active sucralfate 1000 mg oral tablet (9 sources) Aluminum Complex Start: 10-09-2024 End: 11-08-2024 take 1 tablet by mouth in the morning, then take 1 tablet by mouth in the evening, then take 1 tablet by mouth at bedtime sucralfate (Carafate) 1 g tablet Indications: Chronic gastritis without bleeding, unspecified gastritis type Take 1 tablet (1 g) by mouth in the morning and 1 tablet (1 g) in the evening and 1 tablet (1 g) before bedtime. 90 tablet 10/09/2024 11/08/2024 Active Start: 09-14-2024 End: 09-24-2024 take 1 tablet [...] Drug Class(es) Dates Sig (Normalized) Sig (Original) cyclobenzaprine hydrochloride 10 mg oral tablet (5 sources) Muscle Relaxant Start: 10-09-2024 End: 11-27-2024 take 1 tablet by mouth three times daily as needed for pain cyclobenzaprine (Flexeril) 10 MG tablet Indications: Acute strain of neck muscle, initial encounter Take 1 tablet (10 mg) by mouth 3 (three) times a day as needed for muscle spasms (neck/arm pain) for up to 10 days 30 tablet 10/09/2024 11/27/2024 Discontinued (Therapy completed) 1 ml denosumab 60 mg/ml prefilled syringe [...] On Wed05/10/24 at 1415, For 1 dose famotidine 20 mg oral tablet (16 sources) Histamine-2 Receptor Antagonist Start: 07-06-2024 End: 11-27-2024 take 1 tablet by mouth once daily famotidine (Pepcid) 20 MG tablet Indications: Acute gastritis without hemorrhage, unspecified gastritis type Take 1 tablet (20 mg) by mouth Daily 30 tablet 11 08/07/2024 11/27/2024 Discontinued Multiple Vitamins-Minerals (Centrum Silver Ultra Womens) tablet (5 sources) End: 07-06-2024 Multiple Vitamins-Minerals (Centrum Silver Ultra Womens) tablet Daily. 07/06/2024 Discontinued Multiple Vitamin s-Minerals (Centrum Silver Ultra Womens) tablet Daily. Active Problems Active Problems Problem Classification Problem Date Documented Da te Episodic/Chronic Abdominal pain (16 sources) Unspecified abdominal pain; Translations: [Abdominal pain] Onset: 11-01-2019 Resolved: 01-28-2022 Episodic Administrative/social admission (2 sources) Patient encounter status; Translations: [Other specified counseling] 11-27-2024 Episodic Cardiac dysrhythmias (20 sources) Multiple premature ventricular complexes; Translations: [Ventricular premature depolarization] Onset: 08-16-2024 07-06-2024 Chronic Cardiac dysrhythmias (6 sources) Palpitations; Translations: [Palpitations] 07-06-2024 Episodic Conditions associated with dizziness or vertigo (20 sources) Benign paroxysmal positional vertigo; Translations: [Benign paroxysmal vertigo, unspecified ear] Onset: 02-14-2023 02-14-2023 Episodic Disorders of lipid metabolism (20 sources) Pure hypercholesterolemia; Translations: [Pure hypercholesterolemia, unspecified] Onset: 02-14-2023 02-14-2023 Chronic Esophageal disorders (20 sources) Gastro-esophageal reflux disease without esophagitis; Translations: [Gastroesophageal reflux disease] Onset: 11-03-2019 02-11-2022 Chronic Esophageal disorders (1 source) Esophageal disorders; Translations: [K21.9 - Gastro-esophageal reflux disease without esophagitis] Onset: 02-11-2022 Essential hypertension (20 sources) Essential (primary) hypertension; Translations: [Essential hypertension] Onset: 11-03-2019 02-14-2023 Chronic Gastritis and duodenitis (13 sources) Chronic gastritis; Translations: [Unspecified chronic gastritis without bleeding] Onset: 01-28-2022 Resolved: 01-28-2022 Chronic Gastrointestinal hemorrhage (3 sources) Feces color: tarry; Translations: [Melena] Onset: 10-09-2022 Episodic Heart valve disorders (20 sources) Mitral valve regurgitation; Translations: [Nonrheumatic mitral (valve) insufficiency] Onset: 09-14-2024 09-14-2024 Chronic Immunizations and screening for infectious disease (2 sources) Needs influenza immunization; Translations: [Encounter for immunization] 08-07-2024 Episodic Menopausal disorders (2 sources) Decreased estrogen level; Translations: [Other primary ovarian failure] 11-27-2024 Chronic Mood disorders (20 sources) Reactive depression (situational); Translations: [Major depressive disorder, single episode, unspecified] Onset: 02-14-2023 02-14-2023 Chronic Nausea and vomiting (5 sources) Nausea; Translations: [Nausea] Onset: 02-11-2022 02-11-2022 Episodic Noninfectious gastroenteritis (9 sources) Noninfective gastroenteritis and colitis, unspecified; Translations: [Colitis] Onset: 11-03-2019 Resolved: 01-28-2022 Episodic Nutritional deficiencies (20 sources) Vitamin D deficiency; Translations: [Vitamin D deficiency, unspecified] Onset: 02-14-2023 02-14-2023 Chronic Osteoporosis (20 sources) Age-related osteoporosis without current pathological fracture; Translations: [Osteoporosis] Onset: 11-03-2019 02-14-2023 Chronic Other connective tissue disease (20 sources) Cramp in lower limb; Translations: [Sleep [...] Other hereditary and degenerative nervous system conditions (20 sources) Restless legs; Translations: [Restless legs syndrome] Onset: 02-14-2023 02-14-2023 Chronic Other nervous system disorders (20 sources) Impaired cognition; Translations: [Other symptoms and signs involving cognitive functions and awareness] Onset: 05-10-2024 05-10-2024 Episodic Other upper respiratory disease (18 sources) Allergic rhinitis; Translations: [Allergic rhinitis, unspecified] Onset: 02-14-2023 02-14-2023 Chronic Other upper respiratory disease (2 sources) Allergic rhinitis due to pollen; Translations: [Allergic rhinitis due to pollen] 11-27-2024 Chronic Pulmonary heart disease (4 sources) Pulmonary hypertension; Translations: [Pulmonary hypertension, unspecified] Onset: 11-27-2024 11-27-2024 Chronic Residual codes; unclassified (20 sources) Amnesia; Translations: [Other amnesia] Onset: 02-14-2023 02-14-2023 Episodic Retinal detachments; defects; vascular occlusion; and retinopathy (20 sources) Retinal hemorrhage; Translations: [Retinal hemorrhage, unspecified eye] Onset: 02-14-2023 02-14-2023 Chronic Spondylosis; intervertebral disc disorders; other back problems (20 sources) Cervical spondylosis; Translations: [Spondylosis without myelopathy or radiculopathy, cervical region] Onset: 02-14-2023 02-14-2023 Chronic Sprains and strains (4 sources) Strain of neck muscle; Translations: [Strain of muscle, fascia and tendon at neck level, initial encounter] 10-09-2024 Episodic Syncope (8 sources) Near syncope; Translations: [Syncope and collapse] 07-06-2024 Episodic Thyroid disorders (20 sources) Hypothyroidism, unspecified; Translations: [Hypothyroidism] Onset: 11-03-2019 02-14-2023 Chronic Unclassified (1 source) Z01.812 - Encounter for preprocedural laboratory examination; Translations: [Z01.812 - Encounter for preprocedural laboratory examination] Onset: 02-09-2022 Unclassified (1 source) New Patient Onset: 08-18-2024 Past or Other Problems Problem Classification Problem Date Documented Da te Episodic/Chronic Gastritis and duodenitis (20 sources) Gastritis, unspecified, without bleeding; Translations: [Acute gastritis] Onset: 11-03-2019 07-06-2024 Episodic Mood disorders (18 sources) Mood disorders Onset: 11-18-2023 Resolved: 11-27-2024 11-18-2023 Other aftercare (1 source) Other snf (current) drug therapy; Translations: [OTH RESIDENT CAREGIVER CURRENT DRUG THERAPY] Onset: 11-03-2019 Episodic Other [...] OTH PART DIGESTV TRACT] Onset: 11-03-2019 Episodic Unclassified (18 sources) Onset: 11-23-2023 11-23-2023 Urinary tract infections (1 source) Urinary tract infection, site not specified; Translations: [UTI SITE NOT SPECIFIED] Onset: 11-03-2019 Episodic Results Test Name Value Interpretation Reference Range Facility DEXA BONE DENSITYon 12-15-19 DEXA BONE DENSITY Examination: DEXA RONA NE DENSITY Clinical History: screening Technique: Bone density study was performed. T score values for the lumbar spine, right femoral neck and left femoral neck were obtained. Comparison: 11/06/2022. Findings: Value for the lumbar spine from L1-L4 is -2.8. Value for the right femoral neck is -2.4. Value for the left femoral neck is -2.3. Findings are compatible with osteoporosis with high increased fracture risk. Study was compared to the prior exam dated 11/06/2022 which demonstrates similar findings. IMPRESSION: Impression: Findings compatible with osteoporosis with high increased fracture risk. Findings are similar to the prior exam. ELECTRONICALLY SIGNED BY: Juan Davis M.D. Normal Not Available LIPID PANEL, STANDARDon Cholesterol [Mass/Vol] 198 mg/dL Normal <200 [facility] Comment on above: Order Comment: FASTI NG:YES FASTING: YES Performed By: #### 7 600 #### [facility] [address], [address] [place] [address] Analytical Tech: Manish Nam MD Cholesterol in HDL [Mass/Vol] 79 mg/dL Normal > OR = 50 [facility] Comment on above: Order Comment: FASTI NG:YES FASTING: YES Performed By: #### 7 600 #### [facility] [address], [address] [place] [address] Analytical Tech: Manish Nam MD Cholesterol in LDL [Mass/Vol] 102 mg/dL High [facility] Comment on above: Order Comment: FASTI NG:YES FASTING: YES Result Comment: Refe rence range: <100 Desirable range <100 mg/dL for primary prevention; <70 mg/dL for patients with CHD or diabetic patients with > or = 2 CHD risk factors. LDL-C is now calculated using the Samantha calculation, which is a validated novel method providing better accuracy than the Friedewald equation in the estimation of LDL-C. Velasquez SS et al. LENARD. 2013;310(19): 7039-2072 (http://education.[employer]/faq/RDV032) Performed By: #### 7 600 #### [facility] [address], [address] [place] [address] Analytical Tech: Manish Nam MD Cholesterol.total/Cho lesterol in HDL [Mass ratio] 2.5 {ratio} Normal <5.0 [facility] Comment on above: Order Comment: FASTI NG:YES FASTING: YES Performed By: #### 7 600 #### [facility] [address], [address] [place] [address] Analytical Tech: Manish Nam MD NON HDL CHOLESTEROL 119 mg/dL (calc) Normal <130 [facility] Comment on above: Order Comment: FASTI NG:YES FASTING: YES Result Comment: For patients with diabetes plus 1 major ASCVD risk factor, treating to a non-HDL-C goal of <100 mg/dL (LDL-C of <70 mg/dL) is considered a therapeutic option. Performed By: #### 7 600 #### [facility] [address], [address] [place] [address] Analytical Tech: Manish Nam MD Triglyceride [Mass/Vol] 79 mg/dL Normal <150 [facility] Comment on above: Order Comment: FASTI NG:YES FASTING: YES Performed By: #### 7 600 #### [facility] [address], [address] [place] [address] Analytical Tech: Manish Nam MD CBC AND AUTO DIFFon 08-18- 24 ABSOLUTE BASOPHIL 0.0 X10E9/L Normal 0.0-0.2 [facility] Comment on above: Performed By: #### C BCA, CMP, 3016-3, 3024-7 #### [facility] ([id number]) [address], [address] [place] [address] ABSOLUTE NEUTROPHIL 2.5 X10E9/L Normal 1.5-6.6 [facility] Comment on above: Performed By: #### C BCA, CMP, 3016-3, 3024-7 #### [facility] ([id number]) [address], [address] [place] [address] Basophils/100 WBC (Bld) 0.3 % Normal [facility] Comment on above: Performed By: #### C BCA, CMP, 3016-3, 3024-7 #### [facility] ([id number]) [address], [address] [place] [address] Eosinophils (Bld) [#/Vol] 0.2 10*3/uL Normal 0.0-0.4 [facility] Comment on above: Performed By: #### C BCA, CMP, 3016-3, 3024-7 #### [facility] ([id number]) [address], [address] [place] [address] Eosinophils/100 WBC (Bld) 4.5 % Normal [facility] Comment on above: Performed By: #### C BCA, CMP, 3016-3, 3024-7 #### [facility] ([id number]) [address], [address] [place] [address] Erythrocyte distribution width (RBC) [Ratio] 14.1 % Normal 11.5-15.0 [facility] Comment on above: Performed By: #### C KATIE, CMP, 3016-3, 3024-7 #### [facility] ([id number]) [address], [facility] [address] [place] [address] Hematocrit (Bld) [Volume fraction] 39.8 % Normal 35-47 [facility] Comment on above: Performed By: #### C BCA, CMP, 3016-3, 3024-7 #### [facility] ([id number]) [address], [facility] [address] [place] [address] Hemoglobin (Bld) [Mass/Vol] 13.3 g/dL Normal 11.7-15.5 [facility] Comment on above: Performed By: #### Victor Manuel BCA, CMP, 6-3, 302-7 #### [facility] ([id number]) [address], [address] [place] [address] Lymphocytes (Bld) [#/Vol] 1.4 10*3/uL Normal 1.0-3.5 [facility] Comment on above: Performed By: #### Victor Manuel BCA, CMP, 3016-3, 3024-7 #### [facility] ([id number]) [address], [facility] [address] [place] [address] Lymphocytes/100 WBC (Bld) 32.8 % Normal [facility] Comment on above: Performed By: #### C BCA, CMP, 3016-3, 3024-7 #### [facility] ([id number]) [address], [address] [place] [address] MCH (RBC) [Entitic mass] 30.8 pg Normal 27-34 [facility] Comment on above: Performed By: #### Victor Manuel BCA, CMP, 6-3, 3024-7 #### [facility] ([id number]) [address], [address] [place] [address] MCHC (RBC) [Mass/Vol] 33.5 g/dL Normal 32-36 [facility] Comment on above: Performed By: #### C BCA, CMP, 3016-3, 3024-7 #### [facility] ([id number]) [address], [address] [place] [address] MCV (RBC) [Entitic vol] 92 fL Normal 80-100 [facility] Comment on above: Performed By: #### C BCA, CMP, 3016-3, 302-7 #### [facility] ([id number]) [address], [address] [place] [address] Monocytes (Bld) [#/Vol] 0.3 10*3/uL Normal 0-0.9 [facility] Comment on above: Performed By: #### C BCA, CMP, 3016-3, 3024-7 #### [facility] ([id number]) [address], [address] [place] [address] Monocytes/100 WBC (Bld) 5.8 % Normal [facility] Comment on above: Performed By: #### C BCA, CMP, 3016-3, 3024-7 #### [facility] ([id number]) [address], [address] [place] [address] Neutrophils/100 WBC (Bld) 56.6 % Normal [facility] Comment on above: Performed By: #### C BCA, CMP, 3016-3, 3024-7 #### [facility] ([id number]) [address], [address] [place] [address] Platelet mean volume (Bld) [Entitic vol] 9.9 fL Normal 7-12 [facility] Comment on above: Performed By: #### C BCA, CMP, 3016-3, 3024-7 #### [facility] ([id number]) [address], [address] [place] [address] Platelets (Bld) [#/Vol] 192 10*3/uL Normal 150-450 [facility] Comment on above: Performed By: #### C BCA, CMP, 3016-3, 3024-7 #### [facility] ([id number]) [address], [address] [place] [address] RBC COUNT 4.33 X10E12/L Normal 3.80-5.20 [facility] Comment on above: Performed By: #### C BCA, CMP, 3016-3, 3024-7 #### [facility] ([id number]) [address], [address] [place] [address] WBC (Bld) [#/Vol] 4.3 10*3/uL Normal 4.0-11.0 [facility] Comment on above: Performed By: #### C BCA, CMP, 3016-3, 3024-7 #### [facility] ([id number]) [address], [address] [place] [address] COMPREHENSIVE METABOLIC PANE Pato 08-18-2024 Albumin [Mass/Vol] 3.9 g/dL Normal 3.2-5.3 [facility] Comment on above: Performed By: #### C BCA, CMP, 3016-3, 3024-7 #### [facility] ([id number]) [address], [address] [place] [address] ALP [Catalytic activity/Vol] 58 U/L Normal 39-130 [facility] Comment on above: Performed By: #### C BCA, CMP, 3016-3, 3024-7 #### [facility] ([id number]) [address], [address] [place] [address] ALT [Catalytic activity/Vol] 13 U/L Normal 0-31 [facility] Comment on above: Performed By: #### C BCA, CMP, 3016-3, 3024-7 #### [facility] ([id number]) [address], [address] [place] [address] Anion gap [Moles/Vol] 10 mmol/L Normal 5-15 [facility] Comment on above: Performed By: #### C BCA, CMP, 3016-3, 3024-7 #### [facility] ([id number]) [address], [address] [place] [address] AST [Catalytic activity/Vol] 24 U/L Normal 0-41 [facility] Comment on above: Performed By: #### C BCA, CMP, 3016-3, 3024-7 #### [facility] ([id number]) [address], [address] [place] [address] Bilirubin [Mass/Vol] 0.5 mg/dL Normal 0.3-1.2 [facility] Comment on above: Performed By: #### C BCA, CMP, 3016-3, 3024-7 #### [facility] ([id number]) [address], [address] [place] [address] Calcium [Mass/Vol] 8.6 mg/dL Normal 8.5-10.5 [facility] Comment on above: Performed By: #### C BCA, CMP, 3016-3, 3024-7 #### [facility] ([id number]) [address], [address] [place] [address] Chloride [Moles/Vol] 109 mmol/L Normal 98-109 [facility] Comment on above: Performed By: #### C BCA, CMP, 3016-3, 3024-7 #### [facility] ([id number]) [address], [address] [place] [address] CO2 [Moles/Vol] 26 mmol/L Normal 22-32 [facility] Comment on above: Performed By: #### C BCA, CMP, 3016-3, 4-7 #### [facility] ([id number]) [address] [address] [place] [address] Creatinine [Mass/Vol] 0.84 mg/dL Normal 0.40-1.00 [facility] Comment on above: Result Comment: METH OD TRACEABLE TO IDMS STANDARD Performed By: #### C BCA, CMP, 3015-3, 3023-7 #### [facility] ([id number]) [address] [address] [place] [address] GFR/1.73 sq M.predicted among non-blacks MDRD (S/P/Bld) [Vol rate/Area] 70 mL/min/{1.73_m2} Normal >59 [facility] Comment on above: Result Comment: Reported eGFR is based on the CKD-EPI 2020 equation that does not use a race coefficient. Performed By: #### C BCA, CMP, 3015-3, 7 #### [facility] ([id number]) [address] [address] [place] [address] Glucose [Mass/Vol] 99 mg/dL Normal 65-99 [facility] Comment on above: Performed By: #### C BCA, CMP, 3015-3, 3023-7 #### [facility] ([id number]) [address] [address] [place] [address] Potassium [Moles/Vol] 3.9 mmol/L Normal 3.5-5.0 [facility] Comment on above: Performed By: #### C BCA, CMP, 3015-3, 302-7 #### [facility] ([id number]) [address] [address] [place] [address] Protein [Mass/Vol] 6.7 g/dL Normal 6.0-8.0 [facility] Comment on above: Performed By: #### C BCA, CMP, 3015-3, 3023-7 #### [facility] ([id number]) [address], [address] [place] [address] Sodium [Moles/Vol] 145 mmol/L Normal 134-146 [facility] Comment on above: Performed By: #### C BCA, CMP, 3016-3, 3024-7 #### [facility] ([id number]) [address], [address] [place] [address] Urea nitrogen [Mass/Vol] 20 mg/dL Normal 5-27 [facility] Comment on above: Performed By: #### C BCA, CMP, 3016-3, 3024-7 #### [facility] ([id number]) [address], [address] [place] [address] FREE T4on 08-18-2024 Free T4 [Mass/Vol] 1.43 ng/dL Normal 0.61-1.60 [facility] Comment on above: Result Comment: NEW REFERENCE RANGE FOR PEDIATRIC PATIENTS Performed By: #### C BCA, CMP, 3016-3, 3024-7 #### [facility] ([id number]) [address], [address] [place] [address] TSH Qnon 08-18-2024 TSH 1.66 uIU/mL Normal 0.49-4.67 [facility] Comment on above: Result Comment: NEW REFERENCE RANGE FOR PEDIATRIC PATIENTS Performed By: #### C BCA, CMP, 3016-3, 3024-7 #### [facility] ([id number]) [address], [address] [place] [address] URINE CULTURE, ROUTINEon Bacteria identified Cx Nom [...] Bacteria identified Cx Nom (U) Performed at: CB - [facility] Bacteria identified Cx Nom (U) [address] [place], [place] [id number] [facility] Bacteria identified Cx Nom (U) Chair Inspector: Ez Brantley PhD, Phone: [phone] [facility] Blood Urea Nitrogenon 2022 Urea nitrogen [Mass/Vol] 17 mg/dL Normal 7-25 [facility] Comment on above: Performed By: #### C REAT, BUN #### [facility] [address] enterographyon 12-14-2022 CT enterography [facility] Main [place] [address] [place] [address] CT Scan Report Signed Patient: Sharon Sousa MR#: [id number] 00 : 1945 Acct:[id number] Age/Sex: 77 / F ADM Date: 12/14/22 Loc: CT Room: Type: [facility] Attending Dr: Danna Sarmiento MD Copies to: [...] Urrutia Jr., Arlette12/14/2022 1:49 PM Dictation Location: [place] [address] Transcribed By: [facility] 12/14/22 134 Dictated By: Vargas Urrutia Jr, DO 12/14/22 1345 Signed By: 12/14/22 134 Normal [facility] Creatinineon 12-14-2022 Creatinine [Mass/Vol] 0.76 mg/dL Normal 0.60-1.20 [facility] Comment on above: Performed By: #### C REAT, BUN #### [address] GFR/1.73 sq M.predicted MDRD (S/P/Bld) [Vol rate/Area] mL/min/{1.73_m2} Normal [facility] Comment on above: Result Comment: PERF ORMED BY: [place] [address] PATHOLOGIST MARSHMALLOW MAKER SVETLANA DELGADILLO M.D. Performed By: #### C REAT, BUN #### [facility] [address] [place] [address] Calprotectin, Fecalon 2022 Calprotectin, Fecal 34 Normal 0-120 [facility] Comment on above: Order Comment: Reaso n for Exam Abdominal pain;Tarry stool;Change in bowel habits;Bloating Result Comment: Conc entration Interpretation Follow-Up <16 - 50 ug/g Normal None >50 -120 ug/g Borderline Re-evaluate in 4-6 weeks >120 ug/g Abnormal Repeat as clinically indicated Performed at: [address] [id number] Chair Inspector: Be Pierre MD, Phone: [phone] PERFORMED BY: [place] [address] PATHOLOGIST MARSHMALLOW MAKER SVTELANA DELGADILLO M.D. Performed By: #### C ALPROTECT #### [facility] , Calprotectin, Fecal 34 0-120 [employer] [facility] Other C reactive protein [Mass/vol ume] in Serum or PlasmaOrdered By: Danna Sarmiento on 09-30-2022 CRP [Mass/Vol] 0.6 mg/dL 0.0-1.0 [facility] C-Reactive Proteinon 023 C-Reactive Protein 0.6 mg/dL Normal 0.0-1.0 [facility] Comment on above: Order Comment: Reaso n for Exam Abdominal pain;Tarry stool;Change in bowel habits;Bloating Result Comment: PERF ORMED BY: [place] [address] PATHOLOGIST MARSHMALLOW MAKER SVETLANA DELGADILLO M.D. Performed By: #### C ELIAC GEN, CELIAC #### [facility] , #### CRP, ESR #### [facility] [address] [place] [address] C-Reactive Protein 0.6 mg/dL Normal 0.0-1.0 mg/dL [facility] Other Celiacon 09-30-2022 Deamidated Gliadin Abs, IgA 4 Normal 0-19 [facility] Comment on above: Order Comment: Reaso n for Exam Abdominal pain;Tarry stool;Change in bowel habits;Bloating Result Comment: Nega tive 0 - 19 Weak Positive 20 - 30 Moderate to Strong Positive >30 Performed By: #### C ELIAC GEN, CELIAC #### [facility] , #### CRP, ESR #### [facility] [address] [place] [address] Deamidated Gliadin Abs, IgG 3 Normal 0-19 [facility] Comment on above: Order Comment: Reaso n for Exam Abdominal pain;Tarry stool;Change in bowel habits;Bloating Result Comment: Nega tive 0 - 19 Weak Positive 20 - 30 Moderate to Strong Positive >30 Performed By: #### C ELIAC GEN, CELIAC #### [facility] , #### CRP, ESR #### [facility] [address] [place] [address] [place] Endomysial Antibody IgA Negative Normal Negative [facility] Comment on above: Order Comment: Reaso n for Exam Abdominal pain;Tarry stool;Change in bowel habits;Bloating Performed By: #### C ELIAC GEN, CELIAC #### [facility] , #### CRP, ESR #### [facility] [address] [place] [address] [place] Immunoglobulin A, Qn, Serum 281 mg/dL Normal 64-422 [facility] Comment on above: Order Comment: Reaso n for Exam Abdominal pain;Tarry stool;Change in bowel habits;Bloating Result Comment: Perf ormed at: [facility] [address] [id number] Chair Inspector: Ez Brantley PhD, Phone: [phone] Performed By: #### C ELIAC GEN, CELIAC #### [facility] , #### CRP, ESR #### [facility] [address] T-Transglutaminase (tTG) IgA <2 Normal 0-3 [facility] Comment on above: Order Comment: Reaso n [...] #### [facility] , #### CRP, ESR #### [facility] [address] T-Transglutaminase (tTG) IgG <2 Normal 0-5 [facility] Comment on above: Order Comment: Reaso n for Exam Abdominal pain;Tarry stool;Change in bowel habits;Bloating Result Comment: Nega tive 0 - 5 Weak Positive 6 - 9 Positive >9 Performed By: #### C ELIAC GEN, CELIAC #### [facility] , #### CRP, ESR #### [facility] [address] [place] [id number] [facility] Celiac 4 0-19 [facility] Other Celiac 3 0-19 [facility] Other Celiac <2 0-5 [facility] Other Celiac Negative Negative [facility] Other Celiac 281 mg/dL 64-422 mg/dL [facility] Other Celiac Disease Genetics HLA DQon 09-30-2022 CDDQ2 Additional Information Normal . [facility] Comment on above: Order Comment: Reaso n for Exam Abdominal pain;Tarry stool;Change in bowel habits;Bloating Result Comment: Refe rences: 1. Eric FISHER and Sandy Rush. Celiac Disease. N Eng J Med 2007; 357:6033-7029. 2. Megiorni F, Roca B, Bonamico M et al. HLA-DQ and risk gradient for celiac disease. Hum Immunol 2009; 70:55-59. 3. Clement MM, Krishan TC, Ernesto FM et al. Stratifying risk for celiac disease in a large at-risk [facility] population by using HLA alleles. Clin Gastroenterol Hepatol 2009; 7:966-971. 4. Doretha ROSE and Lelo BA. (2005). Celiac Disease Genetics: Current Concepts and Practical Applications. Clin Gastroenterol and Hepat 3:843-851. 5. Sarah CL, Obed DO, Eric FISHER, et al. Celiac Disease. In: Bandar RA, Aldo TC, Kana CR, Sary K, editors. Susan Winkapp), [facility] [place], March 01, 2008:1-27. http://www.ncbi.nlm.nih.gov/alexandria/br.fcgi?book=genepart=andra ac PMID [id number] (PubMed) 6. Lilli Baker. Emerging concepts in celiac disease. Curr Opin Pediatr 2004;16:552-559. Performed at: 2Q - [facility] [place], [place] [id number] Chair Inspector: Garry Brennan PhD, Phone: [phone] PERFORMED BY: [place] [address] PATHOLOGIST MARSHMALLOW MAKER SVETLANA DELGADILLO M.D. Performed By: #### C ELIAC GEN, CELIAC #### [facility] , #### CRP, ESR #### [address] Comment: Normal . [facility] Comment on above: Order Comment: Reaso n for Exam Abdominal pain;Tarry stool;Change in bowel habits;Bloating Result Comment: This test was performed using Polymerase Chain Reaction/(PCR)Sequence Specific Oligonucleotide Probes (SSOP) ([employer]) technique. Sequence Based Typing (SBT) and/or Sequence Specific Primers (SSP) may be used as supplemental methods when necessary. Please contact HLA Customer Service at if you have any questions. Director of HLA Laboratory Dr Garry Brennan, PhD Performed By: #### C ELIAC GEN, CELIAC #### [facility] , #### CRP, ESR #### [address] Dq2 (Dqa1 0501/0505,Dqb1 02Xx) Positive Normal . [facility] Comment on above: Order Comment: Reaso n for Exam Abdominal pain;Tarry stool;Change in bowel habits;Bloating Performed By: #### C ELIAC GEN, CELIAC #### [facility] , #### CRP, ESR #### [place] [address] [place] Dq8 (Dqa1 03Xx, Dqb1 0302) Negative Normal . [facility] Comment on above: Order Comment: Reaso n [...] version 3.49.0 [facility] CLIA ID Number [id number] Greater than 95% of celiac patients are positive for either DQ2 or DQ8 (Doretha and Krysta, (1993) Gastroenterology 105:910-922). However these antigens may also be present in patients who do not have Celiac disease. Performed By: #### C ELIAC GEN, CELIAC #### [facility] , #### CRP, ESR #### [facility] [address] Celiac Disease Genetics HLA DQ Positive . [employer] [facility] [employer] Other Celiac Disease Genetics HLA DQ . [employer] [facility] [employer] Other Erythrocyte Sedimentation Ra ramirez 09-30-2022 ESR (Bld) [Velocity] 13 mm/h Normal 0-29 [facility] [employer] Other Comment on above: Order Comment: Reaso n for Exam Abdominal pain;Tarry stool;Change in bowel habits;Bloating Result Comment: PERF ORMED BY: [place] [address] PATHOLOGIST MARSHMALLOW MAKER SVETLANA DELGADILLO M.D. Performed By: #### C ELIAC GEN, CELIAC #### [facility] , #### CRP, ESR #### [place] [id number] [facility] Erythrocyte sedimentation ra te by Photometric methodOrdered By: Imaurora Sarmiento on 09-30-2022 ESR Photometric method (Bld) [Velocity] 13 mm/hr 0-29 [facility] Human leukocyte antigen (HLA ) DQ2 detectionOrdered By: Imad Asaad on 09-30-2022 HLA-DQ2 Ql (Bld/Tiss) Positive . [facility] Human leukocyte antigen (HLA ) DQ8 detectionOrdered By: Imad Asaad on 09-30-2022 HLA-DQ8 Ql (Bld/Tiss) Negative . [facility] Comment on above: Final Results:DQA1*0 2:EESCV,05:EEMXYDQB1*02:EENUF,02:EENUGCode [...] IMGT/HLAdatabase version 3.49.0A Lab [place] ID Number [id number] than 95% of celiac patients are positive for eitherDQ2 or DQ8 (Doretha and Krysta, (1993) Zyvvvanwygwhrtrl741:910-922). However these antigens may also be present inpatients who do not have Celiac disease. IgA [Mass/volume] in Serum o r PlasmaOrdered By: Imad Asaad on 09-30-2022 IgA [Mass/Vol] 281 mg/dL 64-422 [facility] Comment on above: Performed at: [address] [id number] Director: Ez Brantley PhD, Phone: [phone] No Panel InformationOrdered By: ImIMedExchange Asaad on 09-30-2022 Celiac Gene Interpretation See comment . [facility] Comment on above: References:1. Eric FISHER and Sandy Rush. Celiac Disease. N Eng J Med 2007; 357:6271-7753.2. Yumiko F, Chanelle B, Bonarigobertoo M et [...] Aldo TC, Kana CR, Sary K, editors. [employer]), [facility] [place], March 01, 2008:1-27. http://www.[employer].nlm.nih.gov/Process and Plant Salesbeatricef/br.fcgi?book=genepart=andra ac PMID [id number] (PubMed)6. Lilli Baker. Emerging concepts in celiac disease. Curr Opin Pediatr 2004;16:552-559.Performed at: [address] [place] [address] CCM[address] [place], [place] [id number] Director: Garry Brennan PhD, Phone: [phone] Endomysial IgA Antibody Negative Negative [facility] HLA Genotype Interpretation See comment . [facility] Comment on above: This test was perfor med using Polymerase ChainReaction/(PCR)Sequence Specific Oligonucleotide Probes(SSOP) ([employer]) technique. Sequence Based Typing (SBT)and/or Sequence Specific Primers (SSP) may be used assupplemental methods when necessary. Please contact HLACustomer Service at if you have anyquestions.Director of HLA LaboratoryDr Garry Brennan, PhD Serum gliadin peptide IgA an tibody assay (units/volume)Ordered By: Danna Sarmiento on 09-30-2022 Gliadin peptide IgA Qn (S) 4 units 0-19 [facility] Comment on above: Negative 0 - 19 Weak Positive 20 - 30 Moderate to Strong Positive >30 Serum gliadin peptide IgG an tibody assay (units/volume)Ordered By: Danna Sarmiento on 09-30-2022 Gliadin peptide IgG Qn (S) 3 units 0-19 [facility] Comment on above: Negative 0 - 19 Weak Positive 20 - 30 Moderate to Strong Positive >30 Serum tissue transglutaminas e (tTG) IgA antibody assay (units/volume)Ordered By: Imad Asaad on 09-30-2022 tTG IgA Qn (S) <2 U/mL 0-3 [facility] Comment on above: Negative 0 - 3 Weak Positive 4 - 10 Positive >10 Tissue Transglutaminase (tTG) has been identified as the endomysial antigen. Studies have demonstr- ated that endomysial IgA antibodies have over 99% specificity for gluten sensitive enteropathy. Serum tissue transglutaminas e (tTG) IgG antibody assay (units/volume)Ordered By: Imad AsaIMedExchange on 09-30-2022 tTG IgG Qn (S) <2 U/mL 0-5 [facility] Comment on above: Negative 0 - 5 Weak Positive 6 - 9 Positive >9 Pato 02-11-2022 L --- Specimen: [id number] Received: 02/11/22 Status: RASTA Syed Num: [id number] Spec Type: Surgical Subm Dr: Philippe Barrett Jr, DO Tissues: A Stomach - Biopsy/Polyp (STOMACH BX) B Colon Biopsy (RECTUM BX) Procedures: HE Stain/4, Gross/Micro L4/2 Patient Age/Sex Location Account Attending Physician Sharon Sousa 76/F [id number] Philippe Barrett Jr, DO SPEC NUM: [id number] RECD: 02/11/22 STATUS: RASTA SYED NUM: [id number] ROXY: 02/11/[address] [facility] [address]: Philippe Barrett Jr, DO ENTERED: 02/11/[address] [facility] [address]: HEATHER TYPE: Surgical DEPT: S [...] Fixative: 10% Neutral Buffered Formalin (SM/YJ) Specimen: [id number] Received: 02/11/22 Status: RASTA Syed Num: [id number] Spec Type: Surgical Subm Dr: Philippe Barrett Jr, DO Tissues: A Stomach - Biopsy/Polyp (STOMACH BX) B Colon Biopsy (RECTUM BX) Procedures: HE Stain/4, Gross/Micro L4/2 Patient: Sharon Sousa [id number] (Continued) Specimen: [id number] Received: 02/11/22 (Continued) Signed (signature on file)___Sandra Iliana Bateman MD 02/12/22 1559 Specimen: [id number] Received: 02/11/22 Status: RASTA ySed Num: [id number] Spec Type: Surgical Subm Dr: Philippe Barrett Jr, DO Tissues: A Stomach - Biopsy/Polyp (STOMACH BX) B Colon Biopsy (RECTUM BX) Procedures: HE Stain/4, Gross/Micro L4/2 Patient: Nic Sousanza [id number] (Continued) Specimen: [id number] Received: 02/11/22 (Continued) Microscopic Description A. Two [...] determined by the Laboratory of [facility]. Immunohistochemistry assays have not been validated on decalcified tissue. Results should be interpreted with caution given the possibility of false negative results on decalcified specimens. They have not been cleared by the [place] Food and Drug Administration. The FDA has determined that such clearance or approval is not necessary. CPT Codes 29650?2, 17212 Specimen: [id number] Received: 02/11/22 Status: RASTA Kunal Num: [id number] Spec Type: Surgical Subm Dr: Philippe Barrett Jr, Tissues: A Stomach - Biopsy/Polyp (STOMACH BX) B Colon Biopsy (RECTUM BX) Procedures: HE Stain/4, Gross/Micro L4/2 Patient: Sharon Sousa [id number] (Continued) Signed (signature on file) Iliana Bateman MD 02/12/22 1559 Normal [facility] SARS-CoV-2 (COVID-19) RNA KELY+probe Ql (Unsp spec) Negative Normal Negative [facility] Comment on above: Order Comment: Healt hcare Worker?: N Result Comment: Testing for SARS-CoV-2 by RT-PCR This test was developed and its performance characteristics determined by [employer] and validated at the [facility]. This test has not been FDA cleared [...] is terminated or revoked sooner. PERFORMED BY: [place] [address] PATHOLOGIST MARSHMALLOW MAKER SVETLANA DELGADILLO M.D. Performed By: #### C OVID 19 [facility] #### [address] XR DEXA BONE DENSITYon 05-27 XR [...] PHILIPPE WALLACE Date: 2020-05-27 13:18 Normal [facility] CBC AUTO DIFFon 11-01-2019 Basophils (Bld) [#/Vol] 0.0 103/ul Normal 0.0-0.1 [facility] Comment on above: Performed By: #### C BC #### [facility] [address] [place], [place] [address] Erin Estephania Basophils/100 WBC (Bld) 0.3 % Normal 0.2-2.0 [facility] Comment on above: Performed By: #### C BC #### [facility] [address] [place], [place] [address] Erin Estephania Eosinophils (Bld) [#/Vol] 0.0 103/ul Normal 0.0-0.7 [facility] Comment on above: Performed By: #### C BC #### [facility] [address] [place], [place] [address] Erin Estephania Eosinophils/100 WBC (Bld) 0.1 % Critically low 0.9-7.0 [facility] Comment on above: Performed By: #### C BC #### [facility] [address] [place], [place] [address] Erin Estephania Erythrocyte distribution width (RBC) [Ratio] 13.8 % Normal 11.0-15.0 [facility] Comment on above: Performed By: #### C BC #### [facility] [address] [place], [place] [address] Erin Estephania Hematocrit (Bld) [Volume fraction] 40.1 % Normal 36.0-48.0 [facility] Comment on above: Performed By: #### C BC #### [facility] [address] [place], [place] [address] Erin Estephania Hemoglobin (Bld) [Mass/Vol] 13.6 g/dL Normal 12.0-16.0 [facility] Comment on above: Performed By: #### C BC #### [facility] [address] [place], [place] [address] Erin Estephania IG # 0.04 10e3/ul Critically high 0.00-0.03 [facility] Comment on above: Performed By: #### C BC #### [facility] [address] [place], [place] [address] Erin Estephania IG % 0.4 % Normal 0.0-0.5 [facility] Comment on above: Performed By: #### C BC #### [facility] [address] [place], [place] [address] Erin Estephania Lymphocytes (Bld) [#/Vol] 1.4 103/ul Normal 1.2-3.8 [facility] Comment on above: Performed By: #### C BC #### [facility] [address] [place] [address] Erin Estephania Lymphocytes/100 WBC (Bld) 13.5 % Critically low 20.5-60.0 [facility] Comment on above: Performed By: #### C BC #### [facility] [address] [place] [address] Erin Estephania MANUAL DIFF REQ NO Normal [facility] Comment on above: Performed By: #### C BC #### [facility] [address] [place] [address] Erin Estephania MCH (RBC) [Entitic mass] 30.5 pg Normal 26.7-34.0 [facility] Comment on above: Performed By: #### C BC #### [facility] [address] [place], [place] [address] Erin Estephania MCHC (RBC) [Mass/Vol] 33.9 g/dL Normal 29.9-35.2 [facility] Comment on above: Performed By: #### C BC #### [facility] [address] [place] [address] Erin Estephania MCV (RBC) [Entitic vol] 89.9 fL Normal 81.0-99.0 [facility] Comment on above: Performed By: #### C BC #### [facility] [address] [place] [address] Erin Estephania Monocytes (Bld) [#/Vol] 0.5 103/ul Normal 0.3-0.8 [facility] Comment on above: Performed By: #### C BC #### [facility] [address] [place] [address] Erin Estephania Monocytes/100 WBC (Bld) 5.0 % Normal 1.7-12.0 [facility] Comment on above: Performed By: #### C BC #### [facility] [address] [place] [address] Erin Estephania Neutrophils (Bld) [#/Vol] 8.2 103/ul Critically high 1.4-6.5 [facility] Comment on above: Performed By: #### C BC #### [facility] [address] [place] [address] Erin Estephania Neutrophils/100 WBC (Bld) 80.7 % Critically high 43.0-75.0 [facility] Comment on above: Performed By: #### C BC #### [facility] [address] [place] [address] Erin Estephania Platelet mean volume (Bld) [Entitic vol] 10.5 fL Normal 9.5-13.5 [facility] Comment on above: Performed By: #### C BC #### [facility] [address] [place] [address] Erin Estephania Platelets (Bld) [#/Vol] 212 103/ul Normal 150-450 [facility] Comment on above: Performed By: #### C BC #### [facility] [address] [place] [address] Erin Estephania RBC (Bld) [#/Vol] 4.46 106/ul Normal 4.20-5.40 [facility] Comment on above: Performed By: #### C BC #### [facility] [address] [place] [address] Erin Estephania WBC (Bld) [#/Vol] 10.2 103/ul Normal 4.0-11.0 [facility] Comment on above: Performed By: #### C BC #### [facility] [address] [place] [address] Erin Estephania ER URINE PROFILEon 10-31-202 0 Bilirubin [Mass/Vol] Negative Normal NEGATIVE [facility] Comment on above: Performed By: #### E EVANGELINA NAIR #### [facility] [address] [place] [address] Erin Estephania BLOOD MODERATE Normal NEGATIVE [facility] Comment on above: Performed By: #### EVANGELINA ALVARENGA #### [facility] [address] [place] [address] Erin Estephania Clarity (U) CLEAR Normal [facility] Comment on above: Performed By: #### EVANGELINA ALVARENGA #### [facility] [address] [place] [address] Erin Estephania Color (U) LT. YELLOW Normal YELLOW [facility] Comment on above: Performed By: #### BRODY ALVARENGARO #### [facility] [address] [place] [address] Erin Estephania ERUAHD A micrscopic examination will be performed if indicated. Normal [facility] Comment on above: Performed By: #### EVANGELINA ALVARENGA #### [facility] [address] [place] [address] Erin Estephania Glucose [Mass/Vol] Negative Normal NEGATIVE [facility] Comment on above: Performed By: #### EVANGELINA ALVARENGA #### [facility] [address] [place] [address] Erin Estephania Ketones Ql (U) Negative Normal NEGATIVE [facility] Comment on above: Performed By: #### EVANGELINA ALVARENGA #### [facility] [address] [place] [address] Erin Estephania Nitrite Ql (U) Negative Normal NEGATIVE [facility] Comment on above: Performed By: #### EVANGELINA ALVARENGA #### [facility] [address] [place] [address] Erin Estephania pH (Bld) 5.0 Normal 5-9 [facility] Comment on above: Performed By: #### EVANGELINA ALVARENGA #### [facility] [address] [place] [address] Erin Estephania Protein (U) [Mass/Vol] Negative Normal [facility] Comment on above: Performed By: #### EVANGELINA ALVARENGA #### [facility] [address] [place] [address] Erin Estephania SPEC GRAVITY 1.025 Normal 1.005-<=1.0 25 [facility] Comment on above: Performed By: #### EVANGELINA ALVARENGA #### [facility] [address] [place] [address] Erin Best UR MICRO IND INDICATED Normal [facility] Comment on above: Performed By: #### EVANGELINA ALVARENGA #### [facility] [address] [place] [address] Erin Best Urobilinogen Qn (U) 0.2 EU/dl Normal [facility] Comment on above: Performed By: #### EVANGELINA ALVARENGA #### [facility] [address] [place] [address] Erin Best WBC (Bld) [#/Vol] TRACE Normal NEGATIVE The [facility] Comment on above: Performed By: #### EVANGELINA ALVARENGA #### [facility] [address] [place] [address] Erin Best LACTATE/LACTIC ACIDon 2019 Lactate [Moles/Vol] 1.1 mmol/L Normal 0.7-2.0 [facility] Comment on above: Performed By: #### L ACT #### [facility] [address] [place] [address] Erin Best LIPASEon 11-01-2019 Lipase [Catalytic activity/Vol] 151.0 U/L Normal 23.0-300.0 [facility] Comment on above: Performed By: #### C PIOTR KOTHARI, TROP #### [facility] [address] [place] [address] Erin Estephania PROF 14(COMP METB)on 020 Albumin [Mass/Vol] 3.5 g/dL Normal 3.5-5.0 [facility] Comment on above: Performed By: #### C TAYE LIPA, TROP #### [facility] [address] [place] [address] Erin Streeteren Albumin/Globulin [Mass ratio] 0.9 {ratio} Normal [facility] Comment on above: Performed By: #### C MP, LIPA, TROP #### [facility] [address] [place], [place] [address] Erin Estephania ALP [Catalytic activity/Vol] 96 U/L Normal 38-126 [facility] Comment on above: Performed By: #### C MP, LIPA, TROP #### [facility] [address] [place], [place] [address] Erin Estephania ALT [Catalytic activity/Vol] 20 U/L Normal 9-52 [facility] Comment on above: Performed By: #### C MP, LIPA, TROP #### [facility] [address] [place], [place] [address] Erin Estephania Anion gap [Moles/Vol] 10.9 mmol/L Normal [facility] Comment on above: Performed By: #### C MP, LIPA, TROP #### [facility] [address] [place] [address] Erin Estephania AST [Catalytic activity/Vol] 18 U/L Normal 14-36 [facility] Comment on above: Performed By: #### C MP, LIPA, TROP #### [facility] [address] [id number] Erin Estephania Bilirubin Ql (U) 0.6 mg/dL Normal 0.2-1.3 [facility] Comment on above: Performed By: #### C MP, LIPA, TROP #### [facility] [address] [id number] Erin Estephania Calcium [Mass/Vol] 9.2 mg/dL Normal 8.4-10.2 [facility] Comment on above: Performed By: #### C MP, LIPA, TROP #### [facility] [address] [id number] Erin Estephania Chloride [Moles/Vol] 107 mmol/L Normal 98-107 [facility] Comment on above: Performed By: #### C MP, LIPA, TROP #### [facility] [address] [place], [place] [address] Erin Estephania CO2 [Moles/Vol] 25.8 mmol/L Normal 22.0-30.0 [facility] Comment on above: Performed By: #### C MP, LIPA, TROP #### [facility] [address] [address] Erin Estephania Creatinine [Mass/Vol] 0.85 mg/dL Normal 0.52-1.04 [facility] Comment on above: Performed By: #### C MP, LIPA, TROP #### [facility] [address] [address] Erin Estephania EGFR-AF CITIZEN OF [place] >60 Normal >=60 [facility] Comment on above: Performed By: #### C MP, LIPA, TROP #### [facility] [address] [address] Erin Estephania EGFR-NON AF CITIZEN OF THE [place] >60 Normal >=60 [facility] Comment on above: Performed By: #### C MP, LIPA, TROP #### [facility] [address] [address] Erin Estephania Globulin (S) [Mass/Vol] 3.8 g/dL Normal [facility] Comment on above: Performed By: #### C MP, LIPA, TROP #### [facility] [address] [address] Erin Estephania Glucose [Mass/Vol] 105 mg/dL Normal 74-106 [facility] Comment on above: Performed By: #### C MP, LIPA, TROP #### [facility] [address] [address] Erin Estephania Potassium [Moles/Vol] 3.7 mmol/L Normal 3.4-5.0 [facility] Comment on above: Performed By: #### C MP, LIPA, TROP #### [facility] [address] [address] Erin Estephania Protein [Mass/Vol] 7.3 g/dL Normal 6.1-8.2 [facility] Comment on above: Performed By: #### C MP, LIPA, TROP #### [facility] [address] [address] Erin Estephania Sodium [Moles/Vol] 140 mmol/L Normal 137-145 [facility] Comment on above: Performed By: #### C PIOTR KOTHARI, TROP #### [facility] [address] [place] [address] Erin Estephania Urea nitrogen [Mass/Vol] 21.0 mg/dL Critically high 7.0-17.0 [facility] Comment on above: Performed By: #### C KERRI KOTHARIA, TROP #### [facility] [address] [place] [address] Erinrufus Best Urea nitrogen/Creatinine [Mass ratio] 24.7 mg/mg Normal [facility] Comment on above: Performed By: #### C PIOTR KOTHARI, TROP #### [facility] [address] [place] [address] Erin Estephania PROTIMEon 11-01-2019 INR Coag (PPP) [Relative time] 1.03 {INR} Normal [facility] Comment on above: Performed By: #### P TT, PT #### [facility] [address] [place] [address] Erin Estephania PT Coag (PPP) [Time] 10.7 s Normal 9.0-11.6 [facility] Comment on above: Performed By: #### P TT, PT #### [facility] [address] [place] [address] Erin Estephania PT Coag (PPP) [Time] SEE BELOW Normal [facility] Comment on above: Result Comment: CONG RED INR: 2.0 - 3.0 CONDITIONS NOT LISTED BELOW 2.5 - 3.5 FOR PROSTHETIC HEART VALVE REPLACEMENT 2.5 - 3.5 RECURRENT THROMBOSIS Performed By: #### P TT, PT #### [facility] [address] [place] [address] Erin Estephania PT Coag (PPP) [Time] PLEASE NOTE: NORMAL RANGE CHANGE 05-17-2014 DUE TO REAGENT LOT CHANGE Normal [facility] Comment on above: Performed By: #### P TT, PT #### [facility] [address] [place] [address] Erinrufus Best PTTon 11-01-2019 aPTT Coag (Bld) [Time] 27.1 s Normal 22.3-36.2 [facility] Comment on above: Performed By: #### P TT, PT #### [facility] [address] [place] [address] Erinrufus Best aPTT Coag (Bld) [Time] PLEASE NOTE: NORMAL RANGE CHANGE 07-24-2015 DUE TO REAGENT LOT CHANGE Normal [facility] Comment on above: Performed By: #### P TT, PT #### [facility] [address] [place] [address] Erin Best TROPONIN - Ion 11-01-2019 Troponin I.cardiac [Mass/Vol] SEE BELOW Normal [facility] Comment on above: Result Comment: <0.0 34 ng/ml NEGATIVE 0.034-0.119 INDETERMINATE 0.120 AMI CUT OFF Performed By: #### C MP, LIPA, TROP #### [facility] [address] [place] [address] Erinrufus Best Troponin I.cardiac [Mass/Vol] ng/mL Normal <=0.034 [facility] Comment on above: Performed By: #### C MP, LIPA, TROP #### [facility] [address] [place] [address] Erin Estephania URINE MICROSCOPIC ONLYon Bacteria LM.HPF (Urine sed) [#/Area] TRACE Normal NONE SEEN The [facility] Comment on above: Performed By: #### Dayo RUR UMICRO #### [facility] [address] [place] [address] Erin Estephania CAST SEEN Normal NONE SEEN [facility] Comment on above: Performed By: #### Dayo RUR UMICRO #### [facility] [address] [place] [address] Erin Estephania Crystals LM Nom (Urine sed) NONE SEEN Normal NONE SEEN [facility] Comment on above: Performed By: #### E RUR UMICRO #### [facility] [address] [place] [address] Erin Estephania CULTURE NOT INDICATED Normal [facility] Comment on above: Performed By: #### E RUR UMICRO #### [facility] [address] [place], [place] [address] Erin Estephania Epithelial cells LM.HPF (Urine sed) [#/Area] FEW Normal [facility] Comment on above: Performed By: #### EVANGELINA ALVARENGA #### [facility] [address] [place], [place] [address] Erin Estephania HYALINE CAST FEW Normal [facility] Comment on above: Performed By: #### EVANGELINA ALVARENGA #### [facility] [address] [id number] Erin Estephania MUCOUS TRACE Normal NONE SEEN [facility] Comment on above: Performed By: #### EVANGELINA ALVARENGA #### [facility] [address] [id number] Erin Estephania RBC (U) [#/Vol] 2-5 Normal 0-2 [facility] Comment on above: Performed By: #### EVANGELINA ALVARENGA #### [facility] [address] [id number] Erin Estephania WBC (Bld) [#/Vol] 2-5 Normal NONE SEEN The [facility] Comment on above: Performed By: #### EVANGELINA ALVARENGA #### [facility] [address] [id number] Erin Estephania MG MAMM SCREEN CHRISTINE W CADon 1 MG MAMM SCREEN CHRISTINE W CAD Patient: SHARON SOUSA Exam Date: 06/27/2019 : 1945 Gender:F Ordering : DR ESTEPHANIA ABARCA PA Admission #: [id number] Family : Order #: [id number] CLICK HERE TO VIEW EXAM RADIOLOGY REPORT [...] Treatments None Family Cancers None LOCATION: [facility] BREAST COMPOSITION: Scattered areas fibroglandular density. [...] Wallace M.D. on 06/27/2019 at 10:56 Normal [facility] Vital Signs Date Time Vital Sign Value Performing Clinician Facility 11-27-2024 14:23-0400 Body height 157.5 cm Estephania Hemmer PA Work Phone[facility] 11-27-2024 14:23-0400 Body mass index (BMI) [Ratio] 19.31 kg/m2 Estephania Hemmer PA Work Phone: [facility] 11-27-2024 14:23-0400 Body weight 47.9 kg Estephania Hemmer PA Work Phone: [facility] 11-27-2024 14:23-0400 Diastolic blood pressure 72 mm[Hg] Estephania Hemmer PA Work Phone: [facility] 11-27-2024 14:23-0400 Heart rate 55 /min Estephania Hemmer PA Work Phone: [facility] 11-27-2024 14:23-0400 Respiratory rate 16 /min Estephania Hemmer PA Work Phone: [facility] 11-27-2024 14:23-0400 SaO2% (BldA) [Mass fraction] 98 % Estephania Hemmer PA Work Phone: [facility] 11-27-2024 14:23-0400 Systolic blood pressure 116 mm[Hg] Estephania Hemmer PA Work Phone: [facility] 10-26-2024 14:15-0500 Body height 157.5 cm Natalya Hensley MD Work Phone: [facility] 10-26-2024 14:15-0500 Body mass index (BMI) [Ratio] 19.39 kg/m2 Natalya Hensley MD Work Phone: [facility] 10-26-2024 14:15-0500 Body weight 48.08 kg Natalya Hensley MD Work Phone: [facility] 10-26-2024 14:15-0500 Diastolic blood pressure 84 mm[Hg] Natalya Hensley MD Work Phone: [facility] 10-26-2024 14:15-0500 Heart rate 77 /min Natalya Hensley MD Work Phone: [facility] 10-26-2024 14:15-0500 SaO2% (BldA) [Mass fraction] 90 % Natalya Hensley MD Work Phone: [facility] 10-26-2024 14:15-0500 Systolic blood pressure 136 mm[Hg] Natalya Hensley MD Work Phone: [facility] 10-09-2024 14:32-0500 Body height 157.5 cm Gabino Loomis MD Work Phone: [facility] 10-09-2024 14:32-0500 Body mass index (BMI) [Ratio] 19.46 kg/m2 Gabino Loomis MD Work Phone: [facility] 10-09-2024 14:32-0500 Body weight 48.26 kg Gabino Loomis MD Work Phone: [facility] 10-09-2024 14:32-0500 Diastolic blood pressure 76 mm[Hg] Gabino Loomis MD Work Phone: [facility] 10-09-2024 14:32-0500 Heart rate 60 /min Gabino Loomis MD Work Phone: [facility] 10-09-2024 14:32-0500 Respiratory rate 17 /min Gabino Loomis MD Work Phone: [facility] 10-09-2024 14:32-0500 SaO2% (BldA) [Mass fraction] 99 % Gabino Loomis MD Work Phone: [facility] 10-09-2024 14:32-0500 Systolic blood pressure 118 mm[Hg] Gabino Loomis MD Work Phone: [facility] 09-14-2024 15:18-0500 Body height 157.5 cm Estephania Hemmer PA Work Phone: [facility] 09-14-2024 15:18-0500 Body mass index (BMI) [Ratio] 19.64 kg/m2 Estephania Hemmer PA Work Phone: [facility] 09-14-2024 15:18-0500 Body weight 48.72 kg Estephania Hemmer PA Work Phone: [facility] 09-14-2024 15:18-0500 Diastolic blood pressure 60 mm[Hg] Estephania Hemmer PA Work Phone: [facility] 09-14-2024 15:18-0500 Heart rate 54 /min Estephania Hemmer PA Work Phone: [facility] 09-14-2024 15:18-0500 Respiratory rate 16 /min Estephania Hemmer PA Work Phone: [facility] 09-14-2024 15:18-0500 SaO2% (BldA) [Mass fraction] 99 % Estephania Hemmer PA Work Phone: [facility] 09-14-2024 15:18-0500 Systolic blood pressure 104 mm[Hg] Estephania Hemmer PA Work Phone: [facility] 08-18-2024 13:27-0500 Body height 157.5 cm Natalya Hensley MD Work Phone: [facility] [employer] [facility] 08-18-2024 13:27-0500 Body mass index (BMI) [Ratio] 20.08 kg/m2 Natalya Hensley MD Work Phone: [facility] [employer] [facility] 08-18-2024 13:27-0500 Body weight 49.8 kg Natalya Hensley MD Work Phone: [facility] 08-18-2024 13:27-0500 Diastolic blood pressure 78 mm[Hg] Natalya Hensley MD Work Phone: [facility] 08-18-2024 13:27-0500 Heart rate 74 /min Natalya Hensley MD Work Phone: [facility] 08-18-2024 13:27-0500 SaO2% (BldA) [Mass fraction] 100 % Natalya Hensley MD Work Phone: [facility] 08-18-2024 13:27-0500 Systolic blood pressure 136 mm[Hg] Natalya Hensley MD Work Phone: [facility] 08-07-2024 14:51-0500 Body height 157.5 cm Gabino Loomis MD Work Phone: [facility] 08-07-2024 14:51-0500 Body mass index (BMI) [Ratio] 20.12 kg/m2 Gabino Loomis MD Work Phone: [facility] 08-07-2024 14:51-0500 Body weight 49.9 kg Gabino Loomis MD Work Phone: [facility] 08-07-2024 14:51-0500 Diastolic blood pressure 76 mm[Hg] Gabino Loomis MD Work Phone: [facility] 08-07-2024 14:51-0500 Heart rate 69 /min Gabino Loomis MD Work Phone: [facility] 08-07-2024 14:51-0500 SaO2% (BldA) [Mass fraction] 100 % Gabino Loomis MD Work Phone: [facility] 08-07-2024 14:51-0500 Systolic blood pressure 122 mm[Hg] Gabino Loomis MD Work Phone: [facility] 07-06-2024 15:30-0500 Body height 157.5 cm Estephania BARRY Work Phone: [facility] 07-06-2024 15:30-0500 Body mass index (BMI) [Ratio] 20.16 kg/m2 Estephania BARRY Work Phone: [facility] 07-06-2024 15:30-0500 Body temperature 98.71 [degF] Estephania Hemmer PA Work Phone: [facility] 07-06-2024 15:30-0500 Body weight 49.99 kg Estephania Hemmer PA Work Phone: [facility] 07-06-2024 15:30-0500 Diastolic blood pressure 76 mm[Hg] Estephania Hemmer PA Work Phone: [facility] 07-06-2024 15:30-0500 Heart rate 72 /min Estephania Hemmer PA Work Phone: [facility] 07-06-2024 15:30-0500 Respiratory rate 16 /min Estephania Hemmer PA Work Phone: [facility] 07-06-2024 15:30-0500 SaO2% (BldA) [Mass fraction] 98 % Estephania Hemmer PA Work Phone: [facility] 07-06-2024 15:30-0500 Systolic blood pressure 104 mm[Hg] Estephania Hemmer PA Work Phone: [facility] 05-10-2024 13:46-0400 Body height 157.5 cm Gabino Loomis MD Work Phone: [facility] 05-10-2024 13:46-0400 Body mass index (BMI) [Ratio] 20.3 kg/m2 Gabino Loomis MD Work Phone: [facility] 05-10-2024 13:46-0400 Body weight 50.35 kg Gabino Loomis MD Work Phone: [facility] 05-10-2024 13:46-0400 Diastolic blood pressure 76 mm[Hg] Gabino Loomis MD Work Phone: [facility] 05-10-2024 13:46-0400 Heart rate 88 /min Gabino Loomis MD Work Phone: [facility] 05-10-2024 13:46-0400 SaO2% (BldA) [Mass fraction] 98 % Gabino Loomis MD Work Phone: [facility] [employer] 05-10-2024 13:46-0400 Systolic blood pressure 132 mm[Hg] Gabino Loomis MD Work Phone: [facility] 09-30-2022 14:45-0500 Body height 157.48 cm Imad Asaad Other [employer] Other 09-30-2022 14:45-0500 Body mass index (BMI) [Ratio] 21.03 kg/m2 Imad Asaad Other [employer] Other 09-30-2022 14:45-0500 Body weight 52.16 kg Imad Asaad Other [employer] Other 09-30-2022 14:45-0500 Diastolic blood pressure 87 mm[Hg] Imad Asaad Other [employer] Other 09-30-2022 14:45-0500 Systolic blood pressure 137 mm[Hg] Imad Asaad Other [employer] Other 01-28-2022 14:15-0400 Body height 157.48 cm Philippe Nnea Other [employer] Other 01-28-2022 14:15-0400 Body mass index (BMI) [Ratio] 20.12 kg/m2 Philippe Barrett Other [employer] Other 01-28-2022 14:15-0400 Body weight 49.9 kg Philippe John Paularamis Other [employer] Other Encounters Encounter Date Encounter Type Care Provider Facility Start: 04-10-2025 End: 04-10-2025 Telephone encounter [facility] Start: 12-14-2024 End: 12-14-2024 ambulatory ESTEPHANIA ABARCA Not Available Start: 11-27-2024 End: 11-27-2024 Patient encounter procedure Estephania BARRY Work Phone: [facility] Comment on above: Medicare annual well ness visit, subsequent (Primary Dx); ACP (advance care planning); Estrogen deficiency; Essential hypertension (CMS/HCC); Restless legs syndrome; Paroxysmal atrial fibrillation (CMS/HCC); Trace mitral regurgitation by prior echocardiogram; Trace tricuspid regurgitation by prior echocardiogram; Chronic gastritis without bleeding, unspecified gastritis type; Gastro-esophageal reflux disease without esophagitis; Nocturnal leg cramps; Osteoarthritis of cervical spine with myelopathy; Age-related osteoporosis without current pathological fracture (CMS/HCC); Acquired hypothyroidism (CMS/HCC); Vitamin D deficiency; Allergic rhinitis due to pollen, unspecified seasonality; Benign paroxysmal positional vertigo due to bilateral vestibular disorder; Cognitive impairment; Memory loss; Pure hypercholesterolemia (CMS/HCC) ; Reactive depression (CMS/HCC); Retinal hemorrhage, unspecified laterality; Pulmonary hypertension, unspecified (CMS/HCC) Start: 11-27-2024 End: 11-27-2024 Bamboo flowsheet Estephania BARRY Work Phone: [facility] Start: 11-27-2024 End: 11-27-2024 Bamboo flowsheet Estephania BARRY Work Phone: [facility] Start: 11-27-2024 End: 11-27-2024 ambulatory ESTEPHANIA ABARCA Not Available Start: 11-15-2024 End: 11-15-2024 ambulatory [facility] Start: 11-15-2024 End: 11-15-2024 ambulatory [facility] Start: 11-07-2024 End: 11-07-2024 ambulatory [facility] Start: 10-26-2024 End: 10-26-2024 Office outpatient visit 25 minutes Natalya Hensley MD Work Phone: [facility] Comment on above: Paroxysmal atrial fi brillation ([facility]-HCC) (Primary Dx) Start: 10-26-2024 End: 10-26-2024 ambulatory [facility] Start: 10-25-2024 End: 10-25-2024 [facility]phone [facility] Start: 10-09-2024 End: 10-09-2024 ambulatory GABINO LOOMIS Not Available Start: 10-09-2024 End: 10-09-2024 Office outpatient visit 25 minutes Gabino Loomis MD Work Phone: [facility] Comment on above: Acute strain of neck muscle, initial encounter (Primary Dx); Chronic gastritis without bleeding, unspecified gastritis type; Acute gastritis without hemorrhage, unspecified gastritis type Start: 10-09-2024 End: 10-09-2024 Bamboo flowsheet Gabino Loomis MD Work Phone: [facility] Start: 10-09-2024 End: 10-09-2024 Bamboo flowsheet Gabino Loomis MD Work Phone: [facility] Start: 09-14-2024 End: 09-14-2024 ambulatory ESTEPHANIA ABARCA Not Available Start: 09-14-2024 End: 09-14-2024 Office outpatient visit 25 minutes Estephania BARRY Work Phone: [facility] Comment on above: Paroxysmal atrial fi brillation (CMS/HCC) (Primary Dx); Vitamin D deficiency; Essential hypertension (CMS/HCC); Gastro-esophageal reflux disease without esophagitis; Chronic gastritis without bleeding, unspecified gastritis type Start: 09-14-2024 End: 09-14-2024 Bamboo flowsheet Estephania Abarca PA Work Phone: [facility] Start: 09-14-2024 End: 09-14-2024 Bamboo flowsheet Estephania Abarca PA Work Phone: [facility] Start: 09-01-2024 End: 09-01-2024 ambulatory [facility] Start: 08-18-2024 End: 08-18-2024 ambulatory [facility] Start: 08-18-2024 End: 08-18-2024 Office outpatient new 45 minutes Natalya Hensley MD Work Phone: [facility] Comment on above: Paroxysmal atrial fi brillation (CMS-HCC) (Primary Dx); Essential hypertension Start: 08-17-2024 End: 08-17-2024 Telephone encounter Cate Verónica POP [facility] Start: 08-07-2024 End: 08-07-2024 [...] Gastro-esophageal reflux disease without esophagitis; Essential hypertension ([facility]/HCC) Start: 05-10-2024 End: 05-10-2024 ambulatory GABINO LOOMIS Not Available Start: 12-14-2022 ambulatory Imad Asaad Facility:[facility] Start: 12-07-2022 End: 12-07-2022 ambulatory Imad Asaad Other [employer] Other Start: 12-07-2022 Telephone encounter Imad Asaad [facility] Start: 10-09-2022 End: 10-09-2022 ambulatory Imad Asaad Facility:[facility] Start: 10-09-2022 End: 10-09-2022 ambulatory II Gabino Loomis Work Phone: [facility] Work Phone: Start: 10-09-2022 End: 10-09-2022 Patient encounter procedure II Gabino Loomis Work Phone: [facility] Work Phone: Start: 09-30-2022 End: 09-30-2022 ambulatory Imad Asaad Facility:[facility] Start: 09-30-2022 End: 09-30-2022 Patient encounter procedure II Gabino Loomis Work Phone: [facility] [place] Work Phone: Start: 09-30-2022 End: 09-30-2022 ambulatory II Gabino Loomis Work Phone: [facility] Work Phone: Start: 09-30-2022 Office consultation new/estab patient 60 min Imad Asaad [facility] Start: 02-16-2022 End: 02-16-2022 ambulatory Philippe Barrett Other [employer] Other Start: 02-16-2022 Telephone encounter Philippe Barrett [facility] Start: 02-11-2022 End: 02-11-2022 ambulatory Philippe Barrett Facility:[facility] Start: 02-09-2022 End: 02-09-2022 ambulatory Philippe Barrett Facility:[facility] Start: 01-28-2022 End: 01-28-2022 ambulatory Philippe Barrett Other [employer] Other Start: 01-28-2022 Office outpatient ne w 45 minutes Philippe Barrett [facility] Start: 05-27-2020 End: 05-28-2020 Patient encounter procedure ESTEPHANIA ABARCA Facility:[facility] Start: 11-01-2019 End: 11-01-2019 Patient encounter procedure GABINO LOOMIS Facility:[facility] Start: 06-27-2019 End: 06-28-2019 Patient encounter procedure ESTEPHANIA ABARCA Facility:[facility] Procedures Date Procedure Procedure Detail Performing Clinician Start: 10-26-2024 Follow-up visit Follow-up NATALYA HENSLEY Start: 07-04-2024 Bacteria identified in Urine by Culture Generic External Data Provider Plan of Treatment Date Care Activity Detail Author Start: 02-20-2031 DTaP,Tdap and Td Vaccines (2 - Td or Tdap) DTaP,Tdap and Td Vaccines (2 - Td or Tdap) [facility] Start: 11-27-2025 Medicare Annual Wellness (AWV) Medicare Annual Wellness (AWV) [facility] Start: 11-15-2025 Tobacco Screening Tobacco Screening [facility] Start: 10-26-2025 Tobacco Screening Tobacco Screening [facility] Start: 08-18-2025 Tobacco Screening Tobacco Screening [facility] Start: 05-29-2025 End: 05-29-2025 Patient encounter procedure 05/29/2025 1:00 PM EDT Office Visit [facility] [address] [place] [address] Estephania Abarca PA [address] [place] [address] [facility] Start: 04-30-2025 Influenza vaccination Influenza Vaccine [facility] Start: 04-11-2025 End: 04-11-2025 Patient encounter procedure 04/11/2025 2:00 PM EDT Office Visit [facility] [address] [place] [address] Mary Weaver MD [address] [place] [address] Dede Jewell MD [address] [place] [address] [facility] Start: 02-23-2025 End: 02-23-2025 Patient encounter procedure 02/23/2025 1:15 PM EDT Office Visit [facility] [address] [place] [address] Mary Weaver MD [address] [place] [address] [facility] Start: 11-27-2024 End: 11-27-2024 Patient encounter procedure 11/27/2024 2:30 PM EDT Office Visit [facility] [address] [place] [address] Estephania Abarca PA [address] [place] [address] Arrived [facility] Comment on above: Arrived Start: 11-27-2024 End: 11-27-2025 DXA Skeletal system Views for bone density DEXA bone density Imaging Routine Estrogen deficiency Expected: 11/27/2024, Expires: 11/27/2025 [facility] Work Phone: Comment on above: Expected: 11/27/2024, Expires: Start: 11-17-2024 Medicare Annual Wellness (AWV) Medicare Annual Wellness (AWV) [facility] Start: 11-07-2024 End: 11-07-2024 Patient encounter procedure [facility] Start: 11-02-2024 End: 10-26-2025 NM Heart Perfusion W stress and W radionuclide IV Nuc stress Lex[facility] Services Routine Paroxysmal atrial fibrillation ([facility]) Expected: 11/02/2024, Expires: 10/26/2025 [facility] Work Phone: Comment on above: Expected: 11/02/2024, Expires: Start: 10-26-2024 End: 10-26-2024 Patient encounter procedure 10/26/2024 2:15 PM EST Office Visit [facility] [address] [place] [phone] Natalya Hensley MD [address] [place] [address] [facility] Start: 10-18-2024 End: 10-18-2024 Patient encounter procedure 10/18/2024 11:45 AM EST Office Visit [facility] [address] [place] [phone] Gabino Loomis MD [address] [facility] [address] [place] [address] [facility] Start: 10-09-2024 End: 10-09-2024 Patient encounter procedure 10/09/2024 2:30 PM EST Office Visit [facility] [address] [place] [address] Gabino Loomis MD [address] [place] [address] [facility] Start: 09-01-2024 End: 09-01-2024 Patient encounter procedure 09/01/2024 3:00 PM EST Appointment [facility] [address] [place] [address] Natalya Hensley MD [address] [place] [address] [facility] Start: 08-18-2024 End: 08-18-2025 CBC W Auto Differential panel - Blood [facility] Comment on above: Expected: 08/18/2024 (Approximate), Expi res: 08/18/2025 Start: 08-18-2024 End: 08-18-2025 Comprehensive metabolic 2000 panel - Serum or Plasma [facility] Comment on above: Expected: 08/18/2024 (Approximate), Expi res: 08/18/2025 Start: 08-18-2024 End: 08-18-2025 Echo complete W/O contrast Echo complete W/O contrast Echocardiography Routine Essential hypertension Paroxysmal atrial fibrillation ([facility]) Expected: 08/18/2024, Expires: 08/18/[address] [facility] Work Phone: Comment on above: Expected: 08/18/2024, Expires: Start: 08-18-2024 End: 08-18-2025 Thyrotropin [Units/volume] in Serum or Plasma [facility] [employer] [facility] Comment on above: Expected: 08/18/2024 (Approximate), Expi res: 08/18/2025 Start: 08-18-2024 End: 08-18-2025 Thyroxine (T4) free [Mass/volume] in Serum or Plasma [facility] [employer] [employer] [facility] Comment on above: Expected: 08/18/2024 (Approximate), Expi res: 08/18/2025 Start: 08-18-2024 End: 08-18-2024 Patient encounter procedure 08/18/2024 1:30 PM EST Office Visit [facility] [address] [place] [address] Natalya Hensley MD [address] [place] [place] [address] [facility] Start: 08-07-2024 End: 08-07-2024 Patient encounter procedure [facility] Comment on above: Arrived Start: 07-10-2024 End: 07-10-2024 Patient encounter procedure 07/10/2024 1:30 PM EST Office Visit [facility] [address] [facility] [address] [place] [phone] Gabino Loomis MD [address] [place] [address] [facility] Start: 07-06-2024 End: 07-06-2025 Holter monitor study Holter monitor Imaging Routine Frequent PVCs Palpitations Near syncope Expected: 07/06/2024 (Approximate), Expires: 07/06/2025 [facility] Work Phone: Comment on above: Expected: 07/06/2024 (Approximate), Expi res: 07/06/2025 Start: 05-10-2024 End: 05-10-2024 Patient encounter procedure 05/10/2024 1:45 PM EDT Office Visit [facility] [address] [facility] [address] [place] [phone] Gabino Loomis MD [address] [facility] [address] [place] [address] Arrived [facility] Comment on above: Arrived Start: 04-30-2024 COVID-19 Vaccine ( season) COVID-19 Vaccine ( season) [facility] Start: 04-30-2024 Influenza vaccination Influenza Vaccine (#1) [facility] Start: 04-14-2019 Pneumococcal Vaccine: 65+ Years (2 of 2 - PCV) Pneumococcal Vaccine: 65+ Years (2 of 2 - PCV) [facility] Start: 2008 Fall Risk Screening Fall Risk Screening [facility] Start: 1993 Administration of varicella zoster vaccine Zoster (Shingles) Vaccine (1 of 2) [facility] Start: 1955 Depression Screening Depression Screening [facility] Start: 1955 Tobacco Screening Tobacco Screening [facility] Calprotectin [Mass/m ass] in Stool [facility] Endomysial antibody IgA level [facility] Gliadin peptide IgA Ab [Units/volume] in Serum [facility] Gliadin peptide IgG Ab [Units/volume] in Serum [facility] HLA DQ antigen typing [facility] IgA [Mass/volume] in Serum or Plasma [facility] Tissue transglutamin ase IgA Ab [Units/volume] in Serum [facility] Tissue transglutamin ase IgG Ab [Units/volume] in Serum [facility] Immunizations Immunization Date Immunization Notes Care Provider Fa [facility] 08-07-2024 Influenza, High-dose Seasonal, Quadrivalent, Preservative Free Gabino Loomis MD Work Phone: [facility] 08-07-2024 influenza virus vacc ine, unspecified formulation [facility]ate [facility] 09-03-2023 Influenza, High-dose Seasonal, Quadrivalent, Preservative Free Gabino Loomis MD Work Phone: [facility] 09-03-2023 influenza virus vacc ine, unspecified formulation Gabino Loomis MD Work Phone: [facility] 07-20-2022 Influenza, High-dose Seasonal, Quadrivalent, Preservative Free Gabino Loomis MD Work Phone: [facility] 07-20-2022 Moderna SARS-CoV-2 50mcg/0.5mL Booster Gabino Loomis MD Work Phone: [facility] 08-11-2021 COVID-19 mRNA-1273 (Moderna) II Gabino Loomis Work Phone: [facility] 05-29-2021 influenza, high dose seasonal, preservative-free Gabino Loomis MD Work Phone: [facility] 02-20-2021 tetanus toxoid, redu ryan diphtheria toxoid, and acellular pertussis vaccine, adsorbed Gabino oLomis MD Work Phone: [facility] 11-28-2020 COVID-19 mRNA-1273 (Moderna) II Gabino Loomis Work Phone: [facility] 10-31-2020 COVID-19 mRNA-1273 (Moderna) II Gabino Loomis Work Phone: [facility] 07-12-2020 Influenza, High-dose Seasonal, Quadrivalent, Preservative Free Gabino Loomis MD Work Phone: [facility] 04-14-2018 pneumococcal polysaccharide vaccine, 23 valent Gabino Loomis MD Work Phone: [facility] Payers Date Payer Category Payer Self-pay [id number] 2017 Medicare ANTHEM MEDICARE ADVANTAGE [facility] MEDICARE ADVANTAGE [id number] 2017-Present [address] [place], [place] [address] [id number] 2017 Medicare (Managed Care) [facility] ADVANTAGE [id number] 2015 Medicare O [facility] MEDICARE [id number] 1959 Unknown [id number] 1943 Unknown [id number] 2.16.840.1.852881.3.579. 2.593 1943 Unknown [id number] 2.16.840.1.503473.3.579. 2.593 1943 Unknown [id number] 2.16.840.1.120520.3.579. 2.593 1943 Unknown [id number] 2.16.840.1.551940.3.579. 2.1286 1943 Unknown [id number] 2.16.840.1.403833.3.579. 2.1286 1943 Unknown [id number] 2.16.840.1.072065.3.579. 2.128 1943 Unknown [id number] 2.16.840.1.881249.3.579. 2.1286 1943 Unknown [id number] 2.16.840.1.897013.3.579. 2.1286 1943 Unknown [id number] 2.16.840.1.863932.3.579. 2.1286 1943 Unknown [id number] 2.16.840.1.675423.3.579. 2.1286 1943 Unknown [id number] 2.16.840.1.228791.3.579. 2.1286 1943 Unknown [id number] 2.16.840.1.287471.3.579. 2.1286 1943 Unknown [id number] 2.16.840.1.397814.3.579. 2.1259 1943 Unknown [id number] 2.16.840.1.334119.3.579. 2.1259 1943 Unknown [id number] 2.16.840.1.394621.3.579. 2.9 1943 Unknown [id number] 2.16.840.1.752546.3.579. 2.1259 1943 Unknown [id number] 2.16.840.1.082040.3.579. 2.1258 1943 Unknown [id number] 2.16.840.1.724479.3.579. 2.1259 1943 Unknown [id number] 2.16.840.1.107749.3.579. 2.1259 Medicare Anthem [facility] [id number] Unknown [id number] 2.16.840.1.966758.3.579. 2.531 Unknown [id number] 2.16.840.1.973178.3.579. 2.531 Unknown [id number] 2.16.840.1.212109.3.579. 2.531 Unknown [id number] 2.16.840.1.340159.3.579. 2.531 Unknown [id number] 2.16.840.1.795824.3.579. 2.531 Social History Date Type Detail Facility Start: 10-10-2020 End: 02-29-2024 Sex Assigned At [facility] Other Start: 1945 Sex Assigned At Female [facility] Start: 03-04-2023 End: 11-15-2024 Tobacco smoking status NHIS Never smoked tobacco [facility] Start: 03-04-2023 End: 11-15-2024 Tobacco use and exposure Smokeless tobacco non-user [facility] Start: 07-06-2024 End: 11-27-2024 Alcoholic beverage intake Ex-drinker (finding) [facility] Start: 10-10-2020 End: 02-29-2024 History of [...] file N [facility] Start: 11-03-2021 End: 11-15-2024 Alcoholic beverage intake Current non-drinker of alcohol (finding) [facility] Start: 04-04-2015 Sex Female (finding) [facility] Clinical Notes 01-28-2022 to 04-10-2025 Telephone Encounter - Cate Sanches CMA - 04/10/2025 3:48 PM EDTTelephone Encounter - Cate Sanches CMA - 04/10/2025 3:48 PM JHONNY Pittamn - 11/27/2024 2:30 PM EDT Note Date & Type Note Facility 04-10-2025 Miscellaneous Notes Left message for patient to remind them to bring their most current medication list with them to their appointment. documented in this encounter [facility] 04-10-2025 Telephone encounter Note Left message for patient to remind them to bring their most current medication list with them to their appointment. [facility] 11-27-2024 History of Present illness Narrative Images from the original note were not included. Subjective Patient ID: Sharon Sousa is a 79 y.o. female who presents for Medicare Annual Wellness Visit Subsequent. Requesting a refill on Metoprolol. Med Refill Pertinent negatives include no abdominal pain, arthralgias, chest pain, chills, congestion, coughing, fatigue, fever, nausea, numbness, rash, sore throat or vomiting. Medicare Wellness Over the past 2 weeks, how often have you been bothered by any of the following problems? Little interest or pleasure in doing things: Not at all Feeling down, depressed, or hopeless: Not at all Patient Health Questionnaire-2 Score: 0 Over the past 2 weeks, how often have you been bothered by any of the following problems? Trouble falling or staying asleep, or sleeping too much: Not at all Feeling tired or having little energy: Not at all Poor appetite or overeating: Not at all Feeling bad about yourself - or that you are a failure or have let yourself or your family down: Not at all Trouble concentrating on things, such as reading the newspaper or watching television: Not at all Moving or speaking so slowly that other people could have noticed? Or the opposite - being so fidgety or restless that you have been moving around a lot more than usual.: Not at all Thoughts that you would be better off or hurting yourself in some way: Not at all Patient Health Questionnaire-9 Score: 0 Gomez Fall Risk History of Falling, Immediate or Within 3 Months: No Health Risk Assessment Form Do you need help eating, bathing, using the toilet, dressing, or getting around your home?: No Can you prepare your own meals?: Yes Can you do your own housework without help?: Yes Can you shop for groceries or clothes without help?: Yes Do you exercise for about 20 minutes 3 or more days a week?: No How confident are you that you can control and manage most of your health problems?: Very confident Can you mange your money, credit cards and accounts, pay bills and taxes?: Yes Vision Screening: Yes, no gross abnormalities Hearing Screening: Yes, no gross abnormalities Cognitive Screening Self Assessment: No overt cognitive deficiency is apparent by direct observation Three Word Registration: Kristin, Akbar, Chair Clock Drawing: Normal Clock - 2 Three Word Recall: 0 words correct - 0 Total Score (0-5 Points): 2 Pain Assessment Pain Score: 0 - No pain Advance Care Planning Do you have a living will?: No Do you have a medical power of claims attorney?: No Current Outpatient Medications on File Prior to Visit Medication Sig Dispense Refill apixaban (Eliquis) 5 MG tablet Take 1 tablet (5 mg) by mouth in the morning and 1 tablet (5 mg) before bedtime. 60 tablet 5 donepezil (Aricept) 5 MG tablet Take 1 tablet (5 mg) by mouth at bedtime for 30 days, THEN 2 tablets (10 mg) at bedtime. 210 tablet 0 ergocalciferol (Drisdol) 1.25 MG (95017 UT) capsule Take 1 capsule (1.25 mg) [...] mg) before bedtime. 180 capsule 3 [DISCONTINUED] cyclobenzaprine (Flexeril) 10 MG tablet Take 1 tablet (10 mg) by mouth 3 (three) times a day as needed for muscle spasms (neck/arm pain) for up to 10 days 30 tablet 0 [DISCONTINUED] famotidine (Pepcid) 20 MG tablet Take 1 tablet (20 mg) by mouth Daily 30 tablet 11 [DISCONTINUED] metoprolol succinate XL (Toprol-XL) 25 MG 24 hr tablet Take 25 mg by mouth in the morning. [DISCONTINUED] ondansetron ODT (Zofran-ODT) 4 MG disintegrating tablet Take 1 tablet (4 mg) by mouth every 8 (eight) hours if needed for nausea (Patient not taking: Reported on 11/27/2024) 20 tablet 2 No current facility-administered medications on file prior [...] EXCISION ovarian mass removal Visit Vitals BP 116/72 Pulse 55 Resp 16 Ht 5' 2 Wt 105 lb 9.6 oz SpO2 98% BMI 19.31 kg/m Smoking Status Never BSA 1.45 m Review of Systems Constitutional: Negative for chills, fatigue and fever. HENT: Negative for congestion, ear pain, rhinorrhea and sore throat. Eyes: Negative for pain, discharge and visual disturbance. Respiratory: Negative for cough, shortness of breath and wheezing. Cardiovascular: Negative for chest pain, palpitations and leg swelling. Gastrointestinal: Negative for abdominal pain, constipation, diarrhea, nausea and vomiting. Genitourinary: Negative for difficulty urinating, dysuria and frequency. Musculoskeletal: Negative for arthralgias and back pain. Skin: Negative for rash. Neurological: Negative for dizziness and numbness. Psychiatric/Behavioral: Negative for sleep disturbance. The patient is not nervous/anxious. Objective Physical Exam Constitutional: General: She is not in acute distress. Appearance: Normal appearance. She is well-developed. HENT: Head: Normocephalic and atraumatic. Right Ear: Tympanic membrane and ear canal normal. Left Ear: Tympanic membrane and ear canal normal. Nose: Nose normal. Mouth/Throat: Mouth: Mucous membranes are moist. Pharynx: No posterior oropharyngeal erythema. Eyes: General: No scleral icterus. Extraocular Movements: Extraocular movements intact. Conjunctiva/sclera: Conjunctivae normal. Pupils: Pupils are equal, round, and reactive to light. Neck: Vascular: No carotid bruit. Cardiovascular: Rate and Rhythm: Normal rate and regular rhythm. Heart sounds: Normal heart sounds. No murmur heard. Pulmonary: Effort: Pulmonary effort is normal. No respiratory distress. Breath sounds: Normal breath sounds. No wheezing, rhonchi or rales. Abdominal: General: Bowel sounds are normal. There is no distension. Palpations: Abdomen is soft. Tenderness: There is no abdominal tenderness. There is no guarding. Musculoskeletal: General: No swelling or deformity. Normal range of motion. Cervical back: Normal range of motion and neck supple. No tenderness. Skin: General: Skin is warm and dry. Capillary Refill: Capillary refill takes less than 2 seconds. Findings: No rash. Neurological: General: No focal deficit present. Mental Status: She is alert and oriented to person, place, and time. Cranial Nerves: No cranial nerve deficit. Sensory: No sensory deficit. Motor: No weakness. Gait: Gait normal. Deep Tendon Reflexes: Reflexes normal. Psychiatric: Mood and Affect: Mood normal. Behavior: Behavior normal. Thought Content: Thought content normal. Judgment: Judgment normal. Assessment & Plan 1. Medicare annual wellness visit, subsequent (Primary) Reviewed all relevant preventative screenings with the patient in detail. Medicare Wellness form completed and will be scanned into patient's chart. All needed testing was ordered. Will continue with yearly Medicare Wellness exams. 2. ACP (advance care planning) Patient agreed to discuss advance care planning at today's wellness visit. We discussed that an advance directive is a legal document that only goes into effect if the patient is incapacitated and unable to speak for himself or herself. This would help healthcare providers to ensure that the patient gets the care that he or she wishes to receive. The goal is to provide a patient with the best possible quality of life. Encouraged patient to obtain a living will and durable power of claims attorney for healthcare. We discussed telling wills people about their advance directives such as close family members, and requested a copy to scan into the patient's EHR. An advance directive packet was offered to the patient. 3. Estrogen deficiency This is a chronic medical condition that is stable since last assessment. Will continue to monitor with routine DEXA scans. - DEXA bone density; Future 4. Essential hypertension ([facility]) Patient's blood pressure is currently well controlled. Continue with current medications and I will continue to monitor. Goal BP remains less than 130/80. - metoprolol succinate XL (Toprol-XL) 25 MG 24 hr tablet; Take 1 tablet (25 mg) by mouth in the morning. Dispense: 90 tablet; Refill: 3 5. Restless legs syndrome This is a chronic medical condition that is stable since last assessment. No treatment indicated at this time. 6. Paroxysmal atrial fibrillation ([facility]) This is a chronic medical condition that is stable since last assessment. No changes in treatment are suggested at this time. Continue Metoprolol as prescribed. 7. Trace mitral regurgitation by prior echocardiogram This is a chronic medical condition that is stable since last assessment. Will continue to monitor. 8. Trace tricuspid regurgitation by prior echocardiogram This is a chronic medical condition that is stable since last assessment. Will continue to monitor. 9. Chronic gastritis without bleeding, unspecified gastritis type This is a chronic medical condition that is stable since last assessment. No changes in treatment are suggested at this time. Continue Omeprazole as prescribed. 10. Gastro-esophageal reflux disease without esophagitis This is a chronic medical condition that is stable since last assessment. No changes in treatment are suggested at this time. Continue Omeprazole as prescribed. 11. Nocturnal leg cramps This is a chronic medical condition that is stable since last assessment. Will continue to monitor. 12. Osteoarthritis of cervical spine with myelopathy This is a chronic medical condition that is stable since last assessment. Will continue to monitor. 13. Age-related osteoporosis without current pathological fracture ([facility]) This is a chronic medical condition that is stable since last assessment. Will continue to monitor with routine DEXA scans. 14. Acquired hypothyroidism ([facility]) This is a chronic medical condition that is stable since last assessment. Will continue to monitor with routine labs. 15. Vitamin D deficiency This is a chronic medical condition that is stable since last assessment. Will continue to monitor with routine labs. 16. Allergic rhinitis due to pollen, unspecified seasonality This is a chronic medical condition that is stable since last assessment. Will continue to monitor. 17. Benign paroxysmal positional vertigo due to bilateral vestibular disorder This is a chronic medical condition that is stable since last assessment. Will continue to monitor. 18. Cognitive impairment This is a chronic medical condition that is stable since last assessment. No changes in treatment are suggested at this time. Continue Donepezil as prescribed. 19. Memory loss This is a chronic medical condition that is stable since last assessment. No changes in treatment are suggested at this time. Continue Donepezil as prescribed. 20. Pure hypercholesterolemia ([facility]) This is a chronic medical condition that is stable since last assessment. Will continue to monitor with routine labs. 21. Reactive depression (CMS/HCC) Mood stable at this time without medication. Will continue to monitor. 22. Retinal hemorrhage, unspecified laterality The patient is seeing a medical liaison for this condition, treatment is deferred to that specialist. No concerns at this time. 23. Pulmonary hypertension, unspecified (CMS/HCC) This is a chronic medical condition that is stable since last assessment. No changes in treatment are suggested at this time. Continue current meds. Follow up in about 6 months (around 05/29/2025) for Hypertension. Estephania GOLDEN, PAShanC documented in this encounter [facility] 10-26-2024 History of Present illness Narrative Sharon Sousa Date of visit: 10/26/2024 Date of : 1945 Age: 79 y.o. There is no problem list on file for this patient. Allergies Allergen Reactions Codeine Confusion Current Outpatient Medications Medication Sig Dispense Refill apixaban (ELIQUIS) 5 mg tablet Take 1 tablet (5 mg total) by mouth in the morning and 1 tablet (5 mg total) before bedtime. 60 tablet 11 dicyclomine (BENTYL) 20 mg tablet Take 1 tablet (20 mg total) by mouth 2 (two) times a day. 20 tablet 0 levothyroxine (SYNTHROID, LEVOTHROID) 75 MCG tablet Take 1 tablet (75 mcg total) by mouth in the morning. losartan (COZAAR) 25 mg tablet Take 1 tablet (25 mg total) by mouth in the morning. metoprolol succinate XL (TOPROL XL) 25 mg 24 hr tablet Take 1 tablet (25 mg total) by mouth in the morning. 90 tablet 3 ondansetron ODT (ZOFRAN ODT) 4 mg disintegrating tablet Dissolve 1 tablet (4 mg total) on tongue every 8 (eight) hours as needed for nausea for up to 10 doses. 10 tablet 0 No current facility-administered medications for this visit. Chief Complaint Patient presents with Follow-up EST PT F/U 2 MS ECHO, LABS DONE L/S RDG History of Present Illness Patient returns for follow-up. Since I saw her, her symptoms seem to have resolved. She was having dizziness and episode of near-syncope as well as palpitations. These are essentially resolved completely. She was no longer having has been a GI symptoms she was having previously. She never got a blood pressure cuff and start checking her pressure regularly. She was not having any palpitations. No chest pain or pressure. She was some very minimal shortness of breath that has been a chronic issue and has not changed. No orthopnea. No PND. Past Medical History: Diagnosis Date Hypertension Hypothyroidism No data recorded No data recorded No data recorded Past Surgical History: Procedure Laterality Date APPENDECTOMY CHOLECYSTECTOMY ESOPHAGOGASTRODUODENOSCOPY N/A 11/21/2020 Performed by Everardo Alfredo MD at [facility] OOPHORECTOMY OVARIAN CYST SURGERY History reviewed. [...] Resource Strain: Low Risk (11/23/2023) Re[facility] from [facility] Overall Financial Resource Strain (CARDIA) Difficulty of Paying Living Expenses: Not hard at all Food Insecurity: No Food Insecurity (10/26/2024) Hunger Screening Food Insecurity - Worry: Never True Food Insecurity - Inability: Never True Transportation Needs: No Transportation Needs (11/23/2023) Received from [facility] PRAPARE - Transportation Lack of Transportation (Medical): No Lack of Transportation (Non-Medical): No Physical Activity: Insufficiently Active (11/23/2023) Received from [facility] Exercise Vital Sign Days of Exercise per Week: 7 days Minutes of Exercise per Session: 10 min Stress: No Stress Concern Present (11/23/2023) Received from [facility] [place] [facility] Occupational [facility] - Occupational Stress Questionnaire Feeling of Stress : Not at all Social Connections: Moderately Integrated (11/23/2023) Received from [facility] Social Connection and Isolation Panel [NHANES] Frequency of Communication with Friends and Family: Once a week Frequency of Social Gatherings with Friends and Family: Twice a week Attends Rastafarian Services: 1 to 4 times per year Active Member of Clubs or Organizations: No Attends Club or Organization Meetings: Never Marital Status: Interpersonal Safety: Not At Risk (11/23/2023) Received from [facility] Humiliation, Afraid, Rape, and Kick questionnaire Fear of Current or Ex-Partner: No Emotionally Abused: No Physically Abused: No Sexually Abused: No Housing Instability: High Risk (11/23/2023) Received from [facility] Housing Stability Vital Sign Unable to Pay for Housing in the Last Year: Yes Number of Places Lived in the Last Year: 1 Unstable Housing in the Last Year: No Review of Systems Review of Systems Constitutional: Negative. HENT: Negative. Eyes: Negative. Cardiovascular: Negative. Respiratory: Negative. Endocrine: Negative. Hematologic/Lymphatic: Negative. Skin: Negative. Musculoskeletal: Negative. Gastrointestinal: Negative. Genitourinary: Negative. Psychiatric/Behavioral: Negative. Allergic/Immunologic: Negative. Vascular: Negative. CARDIOVASCULAR: Please review [...] mood, memory and judgement. VITAL SIGNS: BP 136/84 Pulse 77 Ht 157.5 cm (5' 2 ) Wt 48.1 kg (106 lb) SpO2 90% BMI 19.39 kg/m No orders of the defined types were placed in this encounter. There are no discontinued medications. IMPRESSIONS/PLAN 1. Paroxysmal atrial fibrillation (CMS-HCC) - Nuc stress Lexiscan; Future Near-syncope as well as intermittent dizziness and palpitations, seems to have resolved without any specific change other than low-dose metoprolol. Unclear if her symptoms are simply blood pressure mediated at the time. pAF, recently noted, 12% on 06/2024 Holter. It is not clear that any of her symptoms correlated with atrial fibrillation or arrhythmias. No longer having palpitations. HTN 8% supraventricular ectopic burden, <1% PVC burden Brief episodes of SVT Mild dyspnea on exertion, chronic issue I have again asked her to get a blood pressure cuff and check this if she has any symptoms but everything has resolved since when she was saw me previously. She was had no additional episodes of near-syncope and palpitations have not been an issue. Continue low-dose rate control. If she has recurrent dizziness, palpitations, near-syncope, I have asked her to check her blood pressure surrounding the events and to make sure she gets a blood pressure cuff he had again. We may need to consider wireless telemetry in follow-up. I am going to get an ischemic evaluation on her. This could be used to guide antiarrhythmic therapy if necessary down the road. She also has some minimal chronic dyspnea on exertion. If there is an abnormality on the stress test I would just bring her back routinely and go over it with her. TODAYS ORDERS Orders Placed This Encounter Procedures Nuc stress Lexiscan FOLLOW UP Return in about 4 months (around 02/23/2025). PCP: GABINO LOOMIS MD Referring Physician: Gabino Loomis MD [address] [id number] documented in this encounter [facility] 10-25-2024 Miscellaneous Notes Called patient to remind them to bring their most current copy of their medication list with them to their appt. Patient's verbalizes understanding. documented in this encounter [facility] 10-25-2024 Telephone encounter Note Called patient to remind them to bring their most current copy of their medication list with them to their appt. Patient's verbalizes understanding. [facility] 10-09-2024 History of Present illness Narrative Images from the original note were not included. Subjective Patient ID: Sharon Sousa is a 79 y.o. female who presents for an ER F/U Sharon presents today for a F/U form an ER visit on 10/03/24 for arm pain, dizziness. This was resolved in the ER. She also has a F/U for HTN, afib Current Outpatient Medications on File Prior to Visit Medication Sig Dispense Refill apixaban (Eliquis) 5 MG tablet Take 1 tablet (5 mg) by mouth in the morning and 1 tablet (5 mg) before bedtime. 60 tablet 5 donepezil (Aricept) 5 MG tablet Take 1 tablet (5 mg) by mouth at bedtime for 30 days, THEN 2 tablets (10 mg) at bedtime. 210 tablet 0 ergocalciferol (Drisdol) 1.25 MG (81468 UT) capsule Take 1 capsule (1.25 mg) by mouth 1 (one) time per week 12 capsule 3 famotidine (Pepcid) 20 MG tablet Take 1 tablet (20 mg) by mouth Daily 30 tablet 11 levothyroxine (Synthroid, Levoxyl) 75 MCG tablet Take 1 tablet (75 mcg) by mouth Daily 100 tablet 2 lisinopril 5 MG tablet Take 1 tablet (5 mg) by mouth in the morning and 1 tablet (5 mg) before bedtime. 200 tablet 3 metoprolol succinate XL (Toprol-XL) 25 MG 24 hr tablet Take 25 mg by mouth in the morning. omeprazole (PriLOSEC) [address] capsule Take 1 capsule (40 mg) by mouth in the morning and 1 capsule (40 mg) before bedtime. 180 capsule 3 [DISCONTINUED] ondansetron ODT (Zofran-ODT) 4 MG disintegrating tablet Take 1 tablet (4 mg) by mouth every 8 (eight) hours if needed for nausea 20 tablet 2 [DISCONTINUED] sucralfate (Carafate) 1 g tablet Take 1 tablet (1 g) by mouth in the morning and 1 tablet (1 g) in the evening and 1 tablet (1 g) before bedtime. Do all this for 10 days. 30 tablet 0 No current facility-administered medications on file prior [...] EXCISION ovarian mass removal Visit Vitals BP 118/76 Pulse 60 Resp 17 Ht 5' 2 Wt 106 lb 6.4 oz SpO2 99% BMI 19.46 kg/m Smoking Status Never BSA 1.45 m Review of Systems Objective Physical Exam [...] mass. Tenderness: There is no abdominal tenderness. Musculoskeletal: Cervical back: Spasms and tenderness present. Comments: R>L Skin: General: Skin is warm and dry. Neurological: General: No focal deficit present. Mental Status: She is alert and oriented to person, place, and time. Psychiatric: Mood and Affect: Mood normal. Behavior: Behavior normal. Assessment/Plan Diagnoses and all orders for this visit: Acute strain of neck muscle, initial encounter - cyclobenzaprine (Flexeril) 10 MG tablet; Take 1 tablet (10 mg) by mouth 3 (three) times a day as needed for muscle spasms (neck/arm pain) for up to 10 days - The patient was seen today in follow up of recent hospital ER visit. All available hospital records/labs/diagnostics were reviewed and discussed with the patient. ER discharge meds were reviewed. Any changes to plan are as noted. Chronic gastritis without bleeding, unspecified gastritis type - sucralfate (Carafate) 1 g tablet; Take 1 tablet (1 g) by mouth in the morning and 1 tablet (1 g) in the evening and 1 tablet (1 g) before bedtime. - Ambulatory referral to Gastroenterology; Future Acute gastritis without hemorrhage, unspecified gastritis type - ondansetron ODT (Zofran-ODT) 4 MG disintegrating tablet; Take 1 tablet (4 mg) by mouth every 8 (eight) hours if needed for nausea Follow up in about 1 week (around 10/16/2024) for Recheck. documented in this encounter [facility] 09-14-2024 History of Present illness Narrative Images from the original note [...] tablet 2 [DISCONTINUED] ergocalciferol (Drisdol) 1.25 MG (84608 UT) capsule Take 1 capsule (1.25 mg) [...] D deficiency - ergocalciferol (Drisdol) 1.25 MG (81438 UT) capsule; Take 1 capsule (1.25 mg) [...] Appointment As Scheduled. 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 [...] Resource Strain: Low Risk (11/23/2023) Received from [facility] Overall Financial Resource Strain (CARDIA) Difficulty of Paying Living Expenses: Not hard at all Food Insecurity: No Food Insecurity (08/18/2024) Hunger Screening Food Insecurity - Worry: Never True Food Insecurity - Inability: Never True Transportation Needs: No Transportation Needs (11/23/2023) Received from [facility] PRAPARE - Transportation Lack of Transportation (Medical): No Lack of Transportation (Non-Medical): No Physical Activity: Insufficiently Active (11/23/2023) Received from [facility] Exercise Vital Sign Days of Exercise per Week: 7 days Minutes of Exercise per Session: 10 min Stress: No Stress Concern Present (11/23/2023) Received from [facility] [place] [facility]ational Health - Occupational Stress Questionnaire Feeling of Stress : Not at all Social Connections: Moderately Integrated (11/23/2023) Received from [facility] Social Connection and Isolation Panel [NHANES] Frequency of Communication with Friends and Family: Once a week Frequency of Social Gatherings with Friends and Family: Twice a week Attends Rastafarian Services: 1 to 4 times per year Active Member of Clubs or Organizations: No Attends Club or Organization Meetings: Never Marital Status: Interpersonal Safety: Not At Risk (11/23/2023) Received from [facility] Humiliation, Afraid, Rape, and Kick questionnaire Fear of Current or Ex-Partner: No Emotionally Abused: No Physically Abused: No Sexually Abused: No Housing Instability: High Risk (11/23/2023) Received from [facility] Housing Stability Vital Sign Unable to [...] these and any potential arrhythmias unless we continuous pickling line pickler that this is a blood pressure mediated [...] LOOMIS MD Referring Physician: JHONNY Hernandez [address] [facility] [address] [place] [address] documented in this encounter [facility] 08-17-2024 Miscellaneous Notes Called patient to remind them to bring their most current copy of their medication list with them to their appt. Patient's verbalizes understanding. documented in this encounter [facility] 08-17-2024 Telephone encounter Note Called patient to remind them to bring their most current copy of their medication list with them to their appt. Patient's verbalizes understanding. [facility] 08-07-2024 History of Present illness Narrative Images from the original note were not included. HPI holter monitor Additional comments: Pt had holter monitor done through [facility]--she has appt sched with cardiology 08/18/24 Last edited by Dee Luque LPN on 08/07/2024 2:57 PM. Subjective Patient ID: Sharon Sousa is a 79 y.o. female who presents for Gastritis and holter monitor (Pt had holter monitor done through [facility]--she has appt sched with cardiology 08/18/24). [...] 210 tablet 0 ergocalciferol (Drisdol) 1.25 MG (01383 UT) capsule Take 1 capsule (1.25 mg) [...] need - Influenza, high-dose seasonal, quadrivalent, PF (XGR330) (Fluzone High Dose [place] 0.7mL dose) Near syncope - Holter just completed, has upcoming appt with Cardiology. Follow up in about 2 months (around 10/08/2024) for F/U med changes. documented in this encounter [facility] 07-06-2024 History of Present illness Narrative Images from the original note were not included. Subjective Patient ID: Sharon Sousa is a 79 y.o. female who presents for [facility] ER follow up. Sharon is present today for [facility] ER follow up from 07/04/2024. Dx. [...] 210 tablet 0 ergocalciferol (Drisdol) 1.25 MG (30873 UT) capsule Take 1 capsule (1.25 mg) [...] vomiting, unspecified vomiting type Encouraged them to continuous pickling line pickler the Zofran today. She can take this [...] 08/03/2024) for Recheck. documented in this encounter [facility] 05-10-2024 History of Present illness Narrative Images from the original note were not included. HPI Osteoporosis Additional comments: Here for prolia injection Med Refill Additional comments: Omeprazole,levothyroxine--[facility] Last edited by Dee Luque LPN on 05/10/2024 1:51 PM. Subjective Patient ID: Sharon Sousa is a 79 y.o. female who presents for Osteoporosis (Here for prolia injection), Med Refill (Omeprazole,levothyroxine--[facility] [place]), and Memory Loss. Pt has noticed some memory loss/ forgetfulness over last year feels it is worsening Med Refill Memory Loss Current Outpatient Medications on File Prior to Visit Medication Sig Dispense Refill Carafate 1 g tablet Take 1 g by mouth in the morning and 1 g in the evening and 1 g before bedtime. ergocalciferol (Drisdol) 1.25 MG (77271 UT) capsule Take 1 capsule (1.25 mg) [...] follow-ups on file. documented in this encounter [facility] 09-30-2022 Evaluation note Encounter Date Diagnosis Assessment Notes Sep, Abdominal pain (ICD-10 - R10.9) Sep, Bloating (ICD-10 - R14.0) [employer] Other 06-01-2022 Evaluation note* Encounter Date Diagnosis Assessment Notes Treatment Notes Treatment Clinical Notes Jan, Chronic gastritis (ICD-10 - K29.50) CONTINUE OMEPRAZOLE BID FOR NOW EGD OBTAIN RECENT RADIOLOGY REPORT FROM [facility] F/U HERE AFTER Jan, Colitis (ICD-10 - K52.9) COLONOSCOPY Jan, Abdominal pain (ICD-10 - R10.9) [employer] Other Evaluation noteNo InformationNort [employer] Other Evaluihzip noteNo assessment information available [facility] Work Phone: [employer]us[employer]jk note* Diagnosis Epigastric pain- Primary Abdominal pain, epigastric Nausea and vomiting, unspecified vomiting type Acute gastritis without hemorrhage, unspecified gastritis type Frequent PVCs Palpitations Near syncope documented in this encounter [facility] HealthcareEvaluation note* Diagnosis Essential hypertension (CMS/HCC)- Primary Unspecified essential hypertension Hypothyroidism, unspecified type (CMS/HCC) Gastro-esophageal reflux disease without esophagitis Acute gastritis without hemorrhage, unspecified gastritis type Flu vaccine need Near syncope documented in this encounter [facility] HealthcareEvaluation note* Diagnosis Cognitive impairment- Primary Unspecified persistent mental disorders due to conditions classified elsewhere Age-related osteoporosis without current pathological fracture (CMS/HCC) Hypothyroidism, unspecified type (CMS/HCC) Gastro-esophageal reflux disease without esophagitis Essential hypertension (CMS/HCC) Unspecified essential hypertension documented in this encounter [facility] HealthcareEvaluation note* Diagnosis Paroxysmal atrial fibrillation (CMS-HCC)- Primary Atrial fibrillation Essential hypertension Unspecified essential hypertension documented in this encounter [facility]* Diagnosis Paroxysmal atrial fibrillation (CMS/HCC)- Primary Atrial fibrillation Vitamin D deficiency Essential hypertension (CMS/HCC) Unspecified essential hypertension Gastro-esophageal reflux disease without esophagitis Chronic gastritis without bleeding, unspecified gastritis type documented in this encounter [facility] HealthcareEvaluation note* Diagnosis Acute strain of neck muscle, initial encounter- Primary Chronic gastritis without bleeding, unspecified gastritis type Acute gastritis without hemorrhage, unspecified gastritis type documented in this encounter [facility] HealthcareEvaluation note* Diagnosis Paroxysmal atrial fibrillation (CMS-HCC)- Primary Atrial fibrillation documented in this encounter [facility] SystemEvaluation note* Diagnosis Medicare annual wellness visit, subsequent- Primary ACP (advance care planning) Other specified counseling Estrogen deficiency Other ovarian failure Essential hypertension (CMS/HCC) Unspecified essential hypertension Restless legs syndrome Restless legs syndrome (RLS) Paroxysmal atrial fibrillation (CMS/HCC) Atrial fibrillation Trace mitral regurgitation by prior echocardiogram Trace tricuspid regurgitation by prior echocardiogram Chronic gastritis without bleeding, unspecified gastritis type Gastro-esophageal reflux disease without esophagitis Nocturnal leg cramps Osteoarthritis of cervical spine with myelopathy Age-related osteoporosis without current pathological fracture (CMS/HCC) Acquired hypothyroidism (CMS/HCC) Unspecified hypothyroidism Vitamin D deficiency Allergic rhinitis due to pollen, unspecified seasonality Benign paroxysmal positional vertigo due to bilateral vestibular disorder Cognitive impairment Unspecified persistent mental disorders due to conditions classified elsewhere Memory loss Pure hypercholesterolemia (CMS/HCC) Pure hypercholesterolemia Reactive depression (CMS/HCC) Retinal hemorrhage, unspecified laterality Pulmonary hypertension, unspecified (CMS/HCC) documented in this encounter [facility] HealthcareHistory general Narrative - Reported* Type Description Date Medical History HTN Medical History GERD Medical History hypothyroidism Surgical History CHOLECYSTECTOMY Surgical History PARTIAL HYSTERECTOMY [employer] Other InstructionsNot on filedocumented in this encounter [employer] SystemInstructionsNot on filedocumented in this encounter [employer] SystemInstructionsNot on filedocumented in this encounter [employer] SystemInstructionsNot on filedocumented in this encounter [employer] [facility] Summary Purpose Family History Relationship Condition Age [...] and content) DATE CREATED AUTHOR 06/01/2020 [facility] DATE CREATED AUTHOR AUTHOR'S ORGANIZ ATION 12/14/2022 [facility] DATE CREATED AUTHOR AUTHOR'S ORGANIZ ATION 12/03/2024 [facility] DATE CREATED AUTHOR AUTHOR'S ORGANIZ ATION 12/07/2024 [facility] DATE CREATED AUTHOR AUTHOR'S ORGANIZ ATION 12/18/2024 [facility] EPIC REASON FOR VISIT (unrecogniz ed section and content) Reason Comments Gastritis holter monitor Pt had holter monito r done through [facility]--she has appt sched with cardiology 08/18/24 Reason Comments Osteoporosis Here for prolia inje ction Med Refill Omeprazole,levothyro xine--[facility] Memory Loss Reason Comments New 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 REFERRAL ESTEPHANIA KAPLAN MMER FREQUENT PVCS, PALPS, NEAR SYNCOPE, [facility] ER 07/02/2024, SCHED W/PT++labs in care everywhere, pcp office note in care everywhere, requested ER records/HM report from [facility]++jlw 08/08/2024 Specialty Diagnoses / Procedures Referred By Quang t Referred To Contact Cardiology Diagnoses Frequent PVCs Palpitations Near syncope Procedures MA OFFICE OUTPATIENT VISIT 60-74 MINS HIGH MDM [id number] (SNOMED CT) - AMB REFERRAL TO CARDIOLOGY Estephania Abarca PA [address] [place] [address] [place] [address] Phone: tel: fax: Natalya Hensley MD [address] [place] [address] Phone: tel: fax: Referral ID Status Reason Start Date Expiration Date V isits Requested Visits Authorized [id number] Pending Review 07/06/2024 01/02/2025 1 1 Reason Comments Med Refill Vitamin D Reason Comments Follow-up EST PT F/U 2 MS ECHO , LABS DONE L/S RDG Reason Comments Medicare Annual Wellness Visit Subsequen t Care Teams (unrecognized sec tion and content) Team Status: Inactive Member Role Status Dates Gabino Loomis II MD Primary Care Provider Active Danna Sarmiento MD Attending Provider Active Team Status: Active Member Role Status Dates Gabino Loomis II MD Primary Care Provider Active [employer] Relationship Specialty Start Date End Date Gabino Loomis MD [address] [place] [address] PCP - General Internal Medicine 02/15/23 Gabino Loomis MD [address] [place] [address] PCP - Vikki HOOK 03/30/24Wednesday, [place], MOLD BUNCH TRIMMER [address] [place] [address] Licensed Practical Nurse Family Medicine 11/18/23 [employer]cel [employer] Officer Relationship Specialty Start Date End Date Gabino Loomis MD [address] [place] [address] [place] [address] PCP - General Internal Medicine 02/15/23 Gabino Loomis MD [address] [place] [address] PCP - Vikki HOOK 03/30/24Wednesday, [place], MOLD BUNCH TRIMMER [address] [place] [address] Licensed Practical Nurse Family Medicine 11/18/23 [employer] Officer Relationship Specialty Start Date End Date Gabino Loomis MD [address] [place] [address] PCP - General Internal Medicine 02/15/23 Gabino Loomis MD [address] [place] [address] [place] [address] PCP - Vikki HOOK 03/30/24Wednesday, [place], MOLD BUNCH TRIMMER [address] [place] [address] Licensed Practical Nurse Family Medicine 11/18/23 [employer] Officer Relationship Specialty Start Date End Date Gabino Loomis MD [address] [place] [address] [place] [address] PCP - General Internal Medicine 02/15/23 Gabino Loomis MD [address] [address] [place] [address] PCP - Vikki HOOK 03/30/24Wednesday, [place], [employer] TRIMMER [address] [place] [address] Licensed Practical Nurse Family Medicine 11/18/23 [employer] Relationship Specialty Start Date End Date Gabino Loomis MD [address] [place] [address] PCP - General Internal Medicine 02/15/23 Gabino Loomis MD [address] [place] [address] PCP Shan Florez MA 03/30/24Wednesday, [place], [employer]CH TRIMMER [address] [place] [address] Licensed Practical Nurse Family Medicine 11/18/23 [employer] Officer Relationship Specialty Start Date End Date Gabino Loomis MD [address] [place] [address] PCP - General Internal Medicine 02/15/23 Gabino Loomis MD [address] [place] [address] PCP - Vikki HOOK 03/30/24WednesdayTrinidad LPN [address] [place] [address] Licensed Practical Nurse Family Medicine 11/18/23 [employer] Relationship Specialty Start Date End Date Gabino Loomis MD [address] [place] [address] PCP - General Internal Medicine 10/31/19 [employer] Relationship Specialty Start Date End Date Gabino Loomis MD [address] [place] [address] PCP - General Internal Medicine 10/31/19 [employer] Relationship Specialty Start Date End Date Gabino Loomis MD [address] [place] [address] PCP - General Internal Medicine 02/15/23 Gabino Loomis MD [address] [place] [address] PCP - Vikki HOOK 03/30/24WednesdayTrinidad LPN [address] [place] [address] Licensed Practical Nurse Family Medicine 11/18/23 [employer] Relationship Specialty Start Date End Date Gabino Loomis MD [address] [place] [address] PCP - General Internal Medicine 02/15/23 Lisbeth Wilson, RN Licensed Practical Nurse Family Medicine 10/06/24 [employer] Relationship Specialty Start Date End Date Gabino Loomis MD [address] [place] [address] PCP - General Internal Medicine 02/15/23 Lisbeth Wilson RN Licensed Practical Nurse Family Medicine 10/06/24 [employer] Officer Relationship Specialty Start Date End Date Gabino Loomis MD [address] [place] [address] [phone] - General Internal Medicine 10/31/19 [employer] Relationship Specialty Start Date End Date Gabino Loomis MD [address] [place] [address] [phone] PCP - General Internal Medicine 10/31/19 [employer] Relationship Specialty Start Date End Date Gabino Loomis MD [address] [place] [address] PCP - General Internal Medicine 02/15/23 Gabino Loomis MD [address] [place] [address] PCP - Vikki HOOK 03/30/24 Darya Darling LPN 11/17/24 [employer] Relationship Specialty Start Date End Date Gabino Loomis MD [address] [place] [address] PCP - General Internal Medicine 02/15/23 Gabino Loomis MD [address] [place] [address] PCP - Vikki HOOK 03/30/24 Darya Darling LPN 11/17/24 Goals (unrecognized section and content) Goals may [...] BE BASED ON THE PRIMARY CLINICAL RECORDS. [facility], [facility]. provides no warranty or guarantee of the accuracy or completeness of information in this document.
--- NOTE | 2025-05-21 17:58 | ED_ITS ---
HPI - Abdominal Pain General Chief Complaint: Abdominal Pain Stated Complaint: STOMACH PAIN Time Seen by Provider: 05/21/25 17:15 Source: patient Mode of arrival: walk-in Limitations: no limitations History of Present Illness HPI narrative: 80-year-old female with a longstanding history of abdominal pain presents to the ED for evaluation of epigastric pain that began last night. Pain is intermittent, cramping in quality since eating food that makes her feel worse last night, and does not radiate to the chest or back. She did eat some food yesterday that typically does give her these symptoms. She reports mild nausea but no vomiting, normal bowel movements, and normal urination. No fever, chest pain, or shortness of breath. She has a history of hypothyroidism, atrial fibrillation (on medication and anticoagulation), and prior cholecystectomy. Family is unsure if she is consistently taking omeprazole. She has had similar abdominal pain in the past but unclear if she was evaluated by a specialist. Family member states this happens when she eats foods she knows bothers her and does no take her omeprazole. MD elicited complaint: Reports abdominal pain Related Data Home Medications ?Medication ?Instructions ?Recorded ?Confirmed donepezil 5 mg tablet 5 mg PO QPM 07/04/24 5 levothyroxine 75 mcg tablet 75 mcg PO QAM 07/04/24 lisinopril 5 mg tablet 5 mg PO BID 07/04/24 5 omeprazole 40 mg capsule,delayed 40 mg PO BID 07/04/24 05/21/25 release apixaban 5 mg tablet (Eliquis) 5 mg PO BID 08/20/24 famotidine 20 mg tablet 20 mg PO DAILY 08/20/2405/01 metoprolol succinate 25 mg 25 mg PO QDAY 05/21/2505/01 tablet,extended release 24 hr Previous Rx's ?Medication ?Instructions ?Recorded aspirin 81 mg chewable tablet 81 mg PO DAILY #30 tabs 08/21/24 famotidine 20 mg tablet (Pepcid) 20 mg PO DAILY #20 ta bs 05/21/25 Allergies Allergy/AdvReac Type Severity Reaction Status Date / Time codeine Allergy Mild Rash Verified 05/21/25 17:04 [facility] Medical History (Updated 05/21/25 @ 20:25 by JHONNY RAE) Elevated troponin ?R79.89 - Other specified abnormal findings of blood chemistry (ICD-10) Atrial fibrillation with RVR ?I48.91 - Unspecified atrial fibrillation (ICD-10) Atrial fibrillation ?I48.91 - Unspecified atrial fibrillation (ICD-10) Vertigo ?R42 - Dizziness and giddiness (ICD-10) Hypothyroidism ?E03.9 - Hypothyroidism, unspecified (ICD-10) GERD (gastroesophageal reflux disease) ?K21.9 - Gastro-esophageal reflux disease without esophagitis (ICD-10) HTN (hypertension) ?I10 - Essential (primary) hypertension (ICD-10) Surgical History History of appendectomy ?Z90.49 - Acquired absence of other specified parts of digestive tract (ICD- 10) Hx of cholecystectomy ?Z90.49 - Acquired absence of other specified parts of digestive tract (ICD- 10) Social History (Updated 08/21/24 @ 12:02 by Shaikh Hernandez MD) Within the past year, how often did you have a drink containing alcohol: never Score interpretation: A score less than 3 is consistent with normal alcohol consumption. Smoking status: Never smoker Non-prescribed substance use: denies use Highest level of school completed/degree received: 9th grade Little interest or pleasure in doing things: not at all Feeling down, depressed, or hopeless: not at all Exam Narrative Exam Narrative: * General: Alert, oriented, resting comfortably, accompanied by family Vital Signs: Mild tachycardia (HR ~100), otherwise stable HEENT: Normal Heart: Regular rate, atrial fibrillation at baseline, no murmur Lungs: Clear to auscultation bilaterally, no increased work of breathing Abdomen: Soft, mildly tender in the epigastrium; no rebound or guarding; no lower abdominal tenderness; surgical scar from remote cholecystectomy present Back: No CVA tenderness Neuro: Alert and oriented ?3, no focal deficits Extremities: No edema, pulses intact Constitutional Vital Signs, click to edit/add: Last Vital Signs Temp 97.8 F 05/21/25 17:04 Pulse 77 05/21/25 20:12 Resp 12 05/21/25 20:12 BP 157/82 H 05/21/25 20:12 Pulse Ox 100 05/21/25 20:12 O2 Del Method Room Air 05/21/25 20:12 Course Vital Signs Vital signs: Vital Signs Temperature 97.8 F 05/21/25 17:04 Pulse Rate 109 H 05/21/25 17:04 Respiratory Rate 16 05/21/25 17:04 Blood Pressure 130/74 05/21/25 17:04 Pulse Oximetry 99 05/21/25 17:04 Oxygen Delivery Method Room Air 05/21/25 17:04 Temperature 97.8 F 05/21/25 17:04 Pulse Rate 77 05/21/25 20:12 Respiratory Rate 12 05/21/25 20:12 Blood Pressure 157/82 H 05/21/25 20:12 Pulse Oximetry 100 05/21/25 20:12 Oxygen Delivery Method Room Air 05/21/25 20:12 MDM - Abdominal Pain MDM Narrative Medical decision making narrative: Patient presents with epigastric pain and nausea. Exam shows localized low epigastric tenderness without peritoneal signs. No chest pain or back pain. Labs reassuring, no evidence of acute infection, obstruction, or pancreatitis. Pain improved after GI cocktail, suggesting gastritis or dyspepsia as the most likely cause. No symptoms to suggest cardiac ischemia, and patient is hemodynamically stable with no chest pain or palpitations. Plan is for discharge with instructions to resume acid-suppressing medication as previously prescribed, follow up with PCP within 24 hours for ongoing management, and return to ED if symptoms worsen. Differential Diagnosis: * Gastritis/dyspepsia (most likely, given improvement with GI cocktail) * Peptic ulcer disease * GERD exacerbation * Biliary etiology (less likely, cholecystectomy history) * Pancreatitis (unlikely ? labs normal, pain improved) * ACS (low suspicion ? no chest pain, symptoms improved, stable vitals) Medical Records Attestation: I reviewed the patient's medical records. Lab Data Attestation: I reviewed the patient's lab results. Labs: Lab Results 05/21/25 05/21/25 Range/Units 17:56 18:02 WBC 7.0 (4.0-11.0) 10^3/uL RBC 4.47 (4.20-5.40) 10^6/uL Hgb 13.7 (12.0-16.0) g/dL Hct 41.2 (36.0-48.0) % MCV 92.2 (81.0-99.0) fL MCH 30.6 (26.7-34.0) pg MCHC 33.3 (29.9-35.2) g/dL RDW 13.7 (11.0-15.0) % Plt Count 200 (150-450) 10^3/uL MPV 11.4 (9.5-13.5) fL Neut % (Auto) 81.6 H (43.0-75.0) % Lymph % (Auto) 14.6 L (20.5-60.0) % [place] % (Auto) 3.0 (1.7-12.0) % Eos % (Auto) 0.1 L (0.9-7.0) % Baso % (Auto) 0.3 (0.2-2.0) % Neut # (Auto) 5.7 (1.4-6.5) 10^3/uL Lymph # (Auto) 1.0 L (1.2-3.8) 10^3/uL [place] # (Auto) 0.2 L (0.3-0.8) 10^3/uL Eos # (Auto) 0.0 (0.0-0.7) 10^3/uL Baso # (Auto) 0.0 (0.0-0.1) 10^3/uL Abs Immat Gran (auto) 0.03 (0.00-0.03) 10^3/uL Imm/Tot Granulo (auto) 0.4 (0.0-0.5) % Sodium 142 (136-145) mmol/L Potassium 3.5 (3.5-5.1) mmol/L Chloride 105 (98-107) mmol/L Carbon Dioxide 27.9 (21.0-32.0) mmol/L Anion Gap 12.6 BUN 18.0 (7.0-18.0) mg/dL Creatinine 0.75 (0.55-1.02) mg/dL Est GFR ( Amer) >60 (>=60 mL/min/1.73m^2) Est GFR (Non-Af Amer) >60 (>=60 mL/min/1.73m^2) BUN/Creatinine Ratio 24.0 Glucose 99 (74-106) mg/dL Calcium 9.3 (8.5-10.1) mg/dL Total Bilirubin 0.6 (0.2-1.0) mg/dL AST 23 (15-37) U/L ALT 21 (14-59) U/L Alkaline Phosphatase 108 (46-116) U/L Total Protein 7.9 (6.4-8.2) g/dL Albumin 3.8 (3.4-5.0) g/dL Globulin 4.1 g/dL Albumin/Globulin Ratio 0.9 Lipase 34.0 (16.0-77.0) U/L Urine Color Yellow (YELLOW) Urine Clarity Clear (CLEAR) Urine pH 6.0 (5.0-9.0) Ur Specific [place] 1.025 (1.005-1.025) Urine Protein Trace (NEG/TRACE) mg/dL Urine Glucose (UA) Negative (NEGATIVE) mg/dL Urine Ketones Negative (NEGATIVE) mg/dL Urine Occult Blood Moderate A (NEGATIVE) Urine Nitrite Negative (NEGATIVE) Urine Bilirubin Negative (NEGATIVE) Urine Urobilinogen 0.2 (0.2-1.0) EU/dL Ur Leukocyte Esterase Negative (NEGATIVE) Urine RBC 5-10 A (0-2) #/HPF Urine WBC 0-2 A (NONE SEEN) #/HPF Ur Squamous Epith Cells Few A (NONE/RARE) #/LPF Urine Crystals None seen (None Seen) #/HPF Urine Bacteria Trace A (NONE SEEN) #/HPF Urine Casts Seen A (NONE SEEN) #/LPF Hyaline Casts Rare Urine Mucus Trace A (NONE SEEN) Ur Culture Indicated? No Discharge Plan Discharge Chief Complaint: Abdominal Pain Clinical Impression: Abdominal pain, Nausea Patient Disposition: Home, Self-Care Time of Disposition Decision: 20:25 Condition: Good Prescriptions / Home Meds: New famotidine [Pepcid] 20 mg tablet 20 mg PO DAILY Qty: 20 0RF No Action donepezil 5 mg tablet 5 mg PO QPM levothyroxine 75 mcg tablet 75 mcg PO QAM lisinopril 5 mg tablet 5 mg PO BID omeprazole 40 mg capsule,delayed release(/EC) 40 mg PO BID Eliquis 5 mg tablet 5 mg PO BID famotidine 20 mg tablet 20 mg PO DAILY aspirin 81 mg tablet,chewable 81 mg PO DAILY Qty: 30 0RF metoprolol succinate 25 mg tablet extended release 24 hr 25 mg PO QDAY Print Language: Welsh Instructions: GERD (Gastroesophageal Reflux Disease) (ED), Abdominal Pain (ED) Additional Instructions: After Visit Summary ? Epigastric Pain What We Found Today: * Your pain was most likely related to stomach irritation (gastritis/dyspepsia). * Your labs were normal, and your pain improved with medication in the ED. What To Do At Home: * Resume your omeprazole or other stomach medication as prescribed. * Eat small, bland meals (avoid spicy, greasy, or acidic foods for now). * Stay well hydrated. When To Return to the ED: * Severe abdominal pain or pain that suddenly worsens * Vomiting blood or passing black/tarry stools * Inability to keep down fluids * Fever, chest pain, palpitations, or shortness of breath Follow-Up: * Schedule an appointment with your primary care provider tomorrow for continued management and to discuss whether you may need additional testing (such as an endoscopy). Referrals: BRADY BORREGO [Primary Care Provider, Internal Medicine] - 1 week Discharge Date/Time: 05/21/25 20:37
[2025-05-21] MEDS: lidocaine HCL 15 ML, MAG HYDROX/ALUMINUM HYD/SIMETH 30 ML, HYOSCYAMINE SULFATE 0.25 MG PO (18:08)
[2025-05-21 18:11] LABS: Hematocrit 41.2 % (36.0-48.0); Hemoglobin 13.7 g/dL (12.0-16.0); Immature Granulocytes Abs Auto 0.03 10^3/uL (0.00-0.03); Immature Granulocytes Pct Auto 0.4 % (0.0-0.5); Lymphocytes Absolute Auto 1.0 10^3/uL (1.2-3.8); Mean Corpuscular HGB Conc 33.3 g/dL (29.9-35.2); Mean Corpuscular Hemoglobin 30.6 pg (26.7-34.0); Mean Corpuscular Volume 92.2 fL (81.0-99.0); Platelet Count 200 10^3/uL (150-450); Red Blood Count 4.47 10^6/uL (4.20-5.40); White Blood Count 7.0 10^3/uL (4.0-11.0)
[2025-05-21 18:18] LABS: Glucose Urine UA NEGATIVE (NEGATIVE)
[2025-05-21 18:26] LABS: Alanine Aminotransferase 21 U/L (14-59); Albumin Globulin Ratio 0.9; Albumin Level 3.8 g/dL (3.4-5.0); Alkaline Phosphatase 108 U/L (46-116); Anion Gap 12.6; Aspartate Amino Transferase 23 U/L (15-37); Blood Urea Nitrogen 18.0 mg/dL (7.0-18.0); Calcium 9.3 mg/dL (8.5-10.1); Carbon Dioxide 27.9 mmol/L (21.0-32.0); Chloride 105 mmol/L (98-107); Estimated GFR (African America >60 (>=60 mL/min/1.73m^2); Estimated GFR (Non-African Ame >60 (>=60 mL/min/1.73m^2); Globulin 4.1 g/dL; Glucose 99 mg/dL (74-106); Lipase 34.0 U/L (16.0-77.0); Potassium 3.5 mmol/L (3.5-5.1); Sodium 142 mmol/L (136-145); Total Protein 7.9 g/dL (6.4-8.2)
[2025-05-21 18:27] LABS: Cast Seen? SEEN #/LPF (NONE SEEN); Crystals Seen? None Seen #/HPF (None Seen); Urine Culture Indicated NO
[2025-05-21 19:27] VITALS: BP 109/79; PULSE 97; O2SAT 94
[2025-05-21 20:12] VITALS: BP 157/82; PULSE 77; O2SAT 100
== END 2025-05-21 20:37 | disposition home or self-care (01) ==
PROVIDERS: Physician Assistant; Emergency Provider Emergency Medicine; PCP Internal Medicine
DX: R10.13 Epigastric pain (principal); R11.0 Nausea; E03.9 Hypothyroidism, unspecified; Z79.01 Long term (current) use of anticoagulants; I48.91 Unspecified atrial fibrillation; Z79.899 Other long term (current) drug therapy; Z90.49 Acquired absence of other specified parts of digestive tract
CPT/HCPCS: 36415; 80053; 81001; 83690; 85025; 96374; 99285; J2405